=== PATIENT | female | born 1980 | race Caucasian/White ===

== ENCOUNTER 2020-08-16 11:54 | Outpatient (REF) | payer OTHER, SELFPAY ==
[2020-08-16 13:33] LABS: MANUAL DIFF FLAG NO
[2020-08-16 13:42] LABS: Basophils Absolute Auto 0.1 X10*3/uL (0.0-0.2); Basophils Percent Auto 1.4 % (0-2); Eosinophils Absolute Auto 0.3 X10*3/uL (0.0-0.4); Hematocrit 35.4 % (37-47); Hemoglobin 11.7 g/dl (12.0-16.0); Imm Gran Abs Auto 0.02 X10*3/uL (0.00-0.03); Imm Gran Pct Auto 0.3 % (0.0-0.4); Lymphocytes Absolute Auto 2.6 X10*3/uL (1.2-4.9); Lymphocytes Percent Auto 41.1 % (20-40); Mean Corpuscular HGB Conc 33.1 g/dl (31.0-35.0); Mean Corpuscular Hemoglobin 29.5 pg (27.0-33.0); Mean Corpuscular Volume 89.4 fL (80-98); Mean Platelet Volume 9.7 fL (9.4-12.3); Monocytes Absolute Auto 0.5 X10*3/uL (0.1-1.2); Neutrophils Percent Auto 46.2 % (45-73); Platelet Count 254 X10*3/uL (160-400); Red Blood Count 3.96 X10*6/uL (4.20-5.50); Red Cell Distribution Width 12.6 % (11.0-16.0); White Blood Count 6.4 X10*3/uL (4.8-10.8)
[2020-08-16 14:21] LABS: Alanine Aminotransferase 23 U/L (0-31); Alkaline Phosphatase 56 U/L (39-117); Anion Gap 11 (12-20); Aspartate Amino Transferase 24 U/L (5-31); Bilirubin Total 0.3 mg/dL (0.0-1.0); Blood Urea Nitrogen 12 mg/dL (9-16); Calcium 9.4 mg/dL (8.4-10.2); Carbon Dioxide 28 mmol/L (22-29); Chloride 104 mmol/L (96-108); Estimated Glomerular Filt Rate > 60; Glucose Random 86 mg/dL (60-115); Potassium 4.5 mmol/L (3.3-5.1); Rheumatoid Factor < 15.0 IU/mL (<15.0); Sodium 138 mmol/L (135-145); Total Protein 6.4 g/dL (6.5-8.0)
[2020-08-16 14:29] LABS: Erythrocyte Sedimentation Rate 6 MM/HR (0-20)
[2020-08-17 12:22] LABS: Cyclic Citrullinated Peptide <16 UNITS
[2020-08-17 15:11] LABS: CRP High Sensitivity 3.5 mg/L
[2020-08-17 23:12] LABS: Anti Nuclear Antibody Screen NEGATIVE (NEGATIVE)
== END 2020-08-16 11:55 | disposition home or self-care (01) ==
LOC: HO.WFDLDS 11:54
PROVIDERS: PCP Family Medicine; Visit Provider Family Medicine
DX: M25.50 Pain in unspecified joint (principal)
CPT/HCPCS: 36415; 80053; 85025; 85652; 86038; 86039; 86141; 86200; 86431

== ENCOUNTER 2020-11-08 12:49 | Outpatient (REF) | payer OTHER, SELFPAY ==
--- NOTE | ~2020-11-08 | XR_ITS ---
EXAMINATION: XR CHEST CLINICAL INFORMATION: Cough COMPARISON: chest November 2017 TECHNIQUE: 2 views of the chest were obtained. FINDINGS: No significant abnormality is noted involving the heart, lungs, mediastinum, bony thorax or soft tissues. XR/XR chest 2V IMPRESSION: Unremarkable examination.
== END 2020-11-08 12:50 | disposition home or self-care (01) ==
LOC: HO.WFDLNP 12:49
PROVIDERS: Visit Provider Family Medicine
DX: Z20.822 Contact with and (suspected) exposure to COVID-19 (principal); R05 Cough
CPT/HCPCS: 71046; U0003; U0005

== ENCOUNTER 2020-11-08 14:06 | Outpatient (REF) | payer OTHER, SELFPAY | END 2020-11-08 14:07 | disposition home or self-care (01) | LOC: HO.HMGCX 14:06 | PROVIDERS: PCP Family Medicine; Visit Provider Family Medicine | DX: Z13.89 Encounter for screening for other disorder (principal) ==

== ENCOUNTER 2021-02-16 09:54 | Outpatient (REF) | payer OTHER, SELFPAY ==
[2021-02-16 11:49] LABS: Alanine Aminotransferase 12 U/L (0-31); Albumin Level 4.2 g/dL (3.5-5.0); Alkaline Phosphatase 66 U/L (39-117); Anion Gap 12 (12-20); Aspartate Amino Transferase 16 U/L (5-31); Bilirubin Total 0.4 mg/dL (0.0-1.0); Blood Urea Nitrogen 12 mg/dL (9-16); Calcium 10.4 mg/dL (8.4-10.2); Carbon Dioxide 26 mmol/L (22-29); Chloride 106 mmol/L (96-108); Estimated Glomerular Filt Rate > 60; Glucose Fasting 91 mg/dL (60-99); Potassium 4.3 mmol/L (3.3-5.1); Sodium 140 mmol/L (135-145); Total Protein 6.6 g/dL (6.5-8.0)
[2021-02-16 11:54] LABS: Estimated Average Glucose 94 mg/dL; Hemoglobin A1c % 4.9 %
[2021-02-16 12:11] LABS: TSH reflex Free T4 0.71 uIU/mL (0.32-4.0)
== END 2021-02-16 09:55 | disposition home or self-care (01) ==
LOC: HO.HMGCLDS 09:54
PROVIDERS: PCP Family Medicine; Visit Provider Family Medicine
DX: Z00.00 Encounter for general adult medical examination without abnormal findings (principal); H53.9 Unspecified visual disturbance
CPT/HCPCS: 36415; 80053; 83036; 84443

== ENCOUNTER 2021-03-07 10:15 | Outpatient (REF) | payer OTHER, SELFPAY ==
[2021-03-07 11:31] LABS: Hematocrit 37.5 % (37.0-47.0); Hemoglobin 12.3 g/dl (12.0-16.0); Mean Corpuscular HGB Conc 32.8 g/dl (31.0-35.0); Mean Corpuscular Hemoglobin 29.4 pg (27.0-33.0); Mean Corpuscular Volume 89.5 fL (80.0-98.0); Mean Platelet Volume 9.9 fL (9.4-12.3); Platelet Count 270 X10*3/uL (160-400); Red Blood Count 4.19 X10*6/uL (4.20-5.50); Red Cell Distribution Width 12.9 % (11.0-16.0); White Blood Count 5.5 X10*3/uL (4.8-10.8)
[2021-03-07 12:10] LABS: TSH reflex Free T4 0.69 uIU/mL (0.32-4.0)
[2021-03-07 12:22] LABS: Anion Gap 12 (12-20); Blood Urea Nitrogen 12 mg/dL (9-16); Calcium 9.1 mg/dL (8.4-10.2); Carbon Dioxide 27 mmol/L (22-29); Chloride 107 mmol/L (96-108); Estimated Glomerular Filt Rate > 60; Glucose Fasting 85 mg/dL (60-99); Potassium 4.6 mmol/L (3.3-5.1); Sodium 141 mmol/L (135-145)
== END 2021-03-07 10:16 | disposition home or self-care (01) ==
LOC: HO.WFDLDS 10:15
PROVIDERS: PCP Family Medicine; Visit Provider Hospitalist
DX: D64.9 Anemia, unspecified (principal); R53.83 Other fatigue
CPT/HCPCS: 36415; 80048; 84443; 85027

== ENCOUNTER 2021-06-14 11:14 | Outpatient (REF) | payer OTHER, SELFPAY | END 2021-06-14 11:15 | disposition home or self-care (01) | LOC: HO.LNP 11:14 | PROVIDERS: Visit Provider Physician Assistant | DX: R10.9 Unspecified abdominal pain (principal) | CPT/HCPCS: 87045; 87046; 87177; 87209; 87338 ==

== ENCOUNTER 2021-06-15 11:36 | Outpatient (REF) | payer OTHER, SELFPAY ==
--- NOTE | ~2021-06-15 | XR_ITS ---
EXAMINATION: XR ABDOMEN KUB CLINICAL INDICATION: Right lower quadrant rebound abdominal tenderness COMPARISON: May 13, 2018 and November 25, 2013 TECHNIQUE: AP view of the abdomen. FINDINGS: The bowel gas pattern is normal with no evidence of ileus or obstruction. No unusual soft tissue calcifications are noted. Psoas margins intact. The bones are unremarkable. Clips within the right upper quadrant present consistent with previous cholecystectomy. XR/XR KUB IMPRESSION: No evidence of ileus or obstruction.
== END 2021-06-15 11:37 | disposition home or self-care (01) ==
LOC: HO.HMGCX 11:36
PROVIDERS: Visit Provider Hospitalist
DX: R10.823 Right lower quadrant rebound abdominal tenderness (principal); R10.2 Pelvic and perineal pain
CPT/HCPCS: 74018

== ENCOUNTER 2021-06-20 10:16 | Outpatient (REF) | payer OTHER, SELFPAY ==
[2021-06-20 13:47] LABS: Hematocrit 35.6 % (37.0-47.0); Mean Corpuscular HGB Conc 33.7 g/dl (31.0-35.0); Mean Corpuscular Hemoglobin 29.8 pg (27.0-33.0); Mean Corpuscular Volume 88.3 fL (80.0-98.0); Mean Platelet Volume 10.2 fL (9.4-12.3); Platelet Count 313 X10*3/uL (160-400); Red Blood Count 4.03 X10*6/uL (4.20-5.50); Red Cell Distribution Width 12.4 % (11.0-16.0); White Blood Count 6.1 X10*3/uL (4.8-10.8)
[2021-06-20 14:02] LABS: Alanine Aminotransferase 9 U/L (0-31); Albumin Level 4.4 g/dL (3.5-5.0); Alkaline Phosphatase 51 U/L (39-117); Anion Gap 10 (12-20); Aspartate Amino Transferase 13 U/L (5-31); Bilirubin Total 0.4 mg/dL (0.0-1.0); Blood Urea Nitrogen 15 mg/dL (9-16); Calcium 9.8 mg/dL (8.4-10.2); Carbon Dioxide 26 mmol/L (22-29); Chloride 105 mmol/L (96-108); Estimated Glomerular Filt Rate 58; Glucose Random 81 mg/dL (60-115); Potassium 4.4 mmol/L (3.3-5.1); Sodium 137 mmol/L (135-145); Total Protein 6.9 g/dL (6.5-8.0)
[2021-06-20 18:05] LABS: Lipase 32 U/L (8-78)
== END 2021-06-20 10:17 | disposition home or self-care (01) ==
LOC: HO.WFDLDS 10:16
PROVIDERS: Visit Provider Hospitalist
DX: Z00.00 Encounter for general adult medical examination without abnormal findings (principal); R10.823 Right lower quadrant rebound abdominal tenderness; R82.90 Unspecified abnormal findings in urine
CPT/HCPCS: 36415; 80053; 83690; 85027; 87086

== ENCOUNTER 2021-06-20 13:51 | Emergency (ER) | payer OTHER, SELFPAY ==
--- NOTE | ~2021-06-20 | CT_ITS ---
EXAMINATION: CT ABDOMEN AND PELVIS WITH CONTRAST CLINICAL INFORMATION: Right lower quadrant and right pelvic pain. COMPARISON: CT abdomen/pelvis dated from 11/25/2013. TECHNIQUE: Multidetector volumetric images were obtained from the superior aspect of the liver through the pubic symphysis following administration 85 mL of Omnipaque 350 intravenous contrast. Sagittal and coronal reformatted images were obtained on the technologist's workstation. Oral contrast: No This CT examination was performed using dose optimization techniques as appropriate, variously including the following: *Automated exposure control *Adjustment of mA and/or kV according to patient size (this includes techniques or standardized protocols for targeted exams where dose is matched to indication/reason for exam; i.e. extremities or head) *Use of iterative reconstruction technique DLP: 682 mGy-cm FINDINGS: LUNG BASES: No focal consolidation or pleural effusion. LIVER, GALLBLADDER, AND BILIARY TREE: The liver is normal in size, shape, and attenuation. No focal hepatic lesion or biliary ductal dilatation is present. Cholecystectomy. Stable mild biliary ductal dilatation which is expected post cholecystectomy. PANCREAS: Unremarkable. SPLEEN: Unremarkable. ADRENAL GLANDS: Unremarkable. KIDNEYS AND URETERS: The kidneys are normal in size, shape, and attenuation. There is a 1.8 cm water density cyst in the upper pole of the right kidney. There are a few other too small to characterize bilateral cortical hypodensities which statistically are also likely to represent simple cysts and do not require further follow-up. No hydronephrosis, hydroureter, or calculi seen. No perinephric stranding. BLADDER: Underdistended and suboptimally assessed. No perivesical fat stranding. GASTROINTESTINAL TRACT: The stomach and the small bowel are nondilated. Normal appendix. No pericolic inflammatory changes or evidence of bowel obstruction. ABDOMINAL WALL: No significant hernia is appreciated. LYMPH NODES: No lymphadenopathy by size criteria. VASCULAR: Unremarkable. PELVIC VISCERA: The ovaries are similar in position when compared to the study from 2013 with a slight posterior location of the left ovary (3:69). There is a 4.2 cm water density cystic appearing lesion in the left ovary that when evaluated on the coronal projection appears to be septated. There is a small amount of free fluid layering the pelvis which is likely physiologic. OSSEOUS STRUCTURES: No acute or aggressive appearing osseous lesions. CT/CT abdomen pelvis w con IMPRESSION: Nonspecific and possibly septated 4.2 cm cyst in the left ovary which in a patient of this age likely represents a functional dominant follicle and for which a 6-12 week follow-up with a pelvic ultrasound is recommend. However, if pain persist or worsens, a shorter term follow-up would be reasonable. No other abnormalities in the abdomen or pelvis to explain the patient's symptoms. Normal appendix.
[2021-06-20 14:15] VITALS: BP 118/77; PULSE 88; RESP 17; TEMP 36.7; O2SAT 98; BMI 29.9
--- NOTE | 2021-06-20 17:20 | ED_ITS ---
HPI - Abdominal Pain General Chief Complaint: Abdominal Pain Stated Complaint: abd pain Time Seen by Provider: 06/20/21 16:51 Source: patient Mode of arrival: ambulatory Limitations: no limitations History of Present Illness HPI narrative: 41-year-old female who presents emergency department for evaluation of right- sided abdominal pain. Patient states that she has had a constant pain in her right lower abdomen for approximately 3 weeks. She states the pain was a constant stabbing pain. She states the pain however became more intense on , 06/15/2021 (6 days prior to evaluation). She states the pain is now a severe stabbing and ripping like pain. She states the pain is 10/10. The pain does radiate to her right flank. She has had associated subjective fever, night sweats, loss of appetite. She states she has lost 17 lb over the last 2 weeks. She was seen on by her PCP and again today. She had outpatient labs which included a CBC and comprehensive metabolic panel which were unremarkable. Patient was referred to the emergency department for CT scan of the abdomen pelvis to further evaluate her pain. Patient also states that she went to [facility] 6 days prior however she was told the weight was 23 hours and she did not stay for evaluation. Patient states she had a history of kidney stones in the past, bilateral ovarian cysts and a cholecystectomy. Patient is a vaginal delivery 11 months prior the with no complications during the or delivery. MD elicited complaint: abdominal pain and flank pain Pertinent past history: kidney stones and other (Cholecystectomy) Onset (ago): day(s) (6) Pain Consistency: constant Location: RLQ and R flank Severity: severe Pain scale (0-10): 10 Quality: stabbing, burning and other (Ripping) Exacerbating factors: nothing Relieving factors: nothing Associated symptoms: nausea, fever and other (Rhinorrhea) Treatments prior to arrival: other (Tylenol) Related Data Home Medications Medication Instructions Recorded Confirmed vitamin with calcium 1 tab PO DAILY 04/28/20 06/20/21 no.72-iron 27 mg-folic acid 1 mg tablet lorazepam 0.5 mg tablet 0.5 mg PO DAILY PRN 08/16/20 06/20/21 fluoxetine 20 mg capsule 60 mg PO QAM cap 03/21/21 06/20/21 trazodone 50 mg tablet 100 mg PO BEDTIME PRN tab 03/21/21 06/20/21 Previous Rx's Medication Instructions Recorded blood pressure test kit-medium #1 ea 09/22/20 albuterol sulfate 90 mcg/actuation 2 puff PO Q4-6H PRN #8.5 g 12/03/20 aerosol inhaler bupropion HCl 100 mg tablet,12 hr 100 mg PO QAM #20 tab 03/21/21 sustained-release (Wellbutrin SR) omeprazole 20 mg capsule,delayed 20 mg PO DAILY #90 cap 04/27/21 release prochlorperazine maleate 10 mg 10 mg PO Q8H PRN #30 tab 05/11/21 tablet (Compazine) labetalol 200 mg tablet 200 mg PO BID #270 tab 06/15/21 ondansetron HCl 4 mg tablet 4 mg PO Q6H PRN #60 tab 06/15/21 doxycycline hyclate 100 mg tablet 100 mg PO Q12H 14 Days #28 tab 06/20/21 hydromorphone 2 mg tablet 2 mg PO Q4-6H PRN #10 tab 06/20/21 (Dilaudid) metronidazole 500 mg tablet 500 mg PO BID 14 Days #28 tab 06/20/21 Allergies Allergy/AdvReac Type Severity Reaction Status Date / Time erythromycin base Allergy Mild CONFUSION,R Verified 06/20/21 10:05 [Erythromycin Base] DANTE,N/V levofloxacin [From Levaquin] Allergy Mild RASH Verified 06/20/21 10:05 sulfamethoxazole Allergy Mild RASH Verified 06/20/21 10:05 [From Bactrim] trimethoprim [From Bactrim] Allergy Mild RASH Verified 06/20/21 10:05 Erythromycin Allergy Unknown out of it Verified 06/20/21 10:05 Sulfa (Sulfonamide Allergy Unknown Rash Verified 06/20/21 10:05 Antibiotics) acetaminophen [From Percocet] AdvReac Severe migraine Verified 06/20/21 10:05 and vomiting oxycodone [From Percocet] AdvReac Severe migraine Verified 06/20/21 10:05 and vomiting meclazine AdvReac Severe severe Uncoded 06/20/21 10:05 anxiety Review of Systems Review of Systems Yes all other systems are reviewed and are negative PMFSH Past Medical History [facility] Narrative: Past medical history: Hypertension, fatigue, anemia, myalgias, fibromyalgia, multiple kidney stones with her last kidney stone being 2 years prior requiring lithotripsy, with vaginal delivery 11 months prior. Past surgical history: Cholecystectomy, ovarian cyst surgeries, breast reduction, breast biopsy. Social history: She denies tobacco, alcohol and drug use. Surgical History History of bilateral breast reduction surgery History of colonoscopy History of kidney stones History of laparoscopic cholecystectomy History of lumpectomy of left breast History of removal of ovarian cyst History of right breast biopsy Status post LASIK surgery Family History Family History Father Healthy adult Mother High cholesterol Migraines Diabetes Asthma Hypertension Maternal Grandfather CVD (cardiovascular disease) Maternal Aunt Family history of heart disease Social History Social History Housing: House Alcohol intake: never Patient Tobacco Use Status: Never used Tobacco e-Cigarette/Vaping Use: Never Used Advance Directives: Yes Advance Directives Information Provided: Yes Advance Directives on File: No Patient : No service: No Current occupational exposures/hazards: No Cognitive needs: No Hearing needs: No Vision needs: No Physical Exam ED Vital Signs: Vital Signs - 24 hr 06/20/21 14:15 06/20/21 17:28 Temperature 98.0 F 98.5 F Pulse Rate 88 82 Respiratory Rate 17 16 Blood Pressure 118/77 119/77 Pulse Oximetry 98 98 BMI result Body Mass Index 29.9 Const General: cooperative and no acute distress Orientation/consciousness: oriented to person and oriented to place Limitations: no limitations HENHI Head: Yes normal to inspection, Yes normocephalic and Yes atraumatic Ears: external ears normal General nose exam: Normal external nose present Face and sinus: Yes normal facial exam Mouth: Normal oral and palatal mucosa present Throat: Yes posterior oropharynx normal Eyes General: appearance normal, both eyes and all related structures Pupils: Equal, round and reactive pupils present Neck Neck: Yes normal visual inspection, Yes no lymphadenopathy, Yes trachea midline and Yes supple Chest Chest palpation & inspection: normal inspection of the chest and normal palpation of entire chest wall Resp Effort & Inspection: normal respiratory effort and able to speak in complete sentences Auscultation: clear to auscultation bilaterally Cardio Rate: regular rate Rhythm: regular rhythm Heart sounds: S1 normal heart sound present, S2 normal heart sound present and no murmurs GI Inspection: Yes normal to inspection Palpation (GI): Soft to palpation, Tenderness to palpation present (GI) in the RLQ (Moderate) and suprapubicly (Mild) and no guarding Auscultation: normal bowel sounds General: Yes no CVA tenderness External Female Exam: normal external appearance Speculum Exam - Vagina: normal appearance of the vagina Speculum Exam - Cervix: normal appearance of the cervix, Cervical os closed, Abnormal cervical discharge present (Thick, whitish paez) and Cervical tenderness present ([id number]) Bimanual exam- vagina & uterus: Cervical tenderness present ([id number]), cervical motion tenderness (Mild) and Uterine tenderness (Moderate to severe) Bimanual Exam- Adnexa, other: tender (Moderate) Back/Spine/Pelvis Back: no CVA tenderness Skin General skin exam: no rashes or lesions noted Neuro General: oriented to person and oriented to place Cranial nerves: Yes CN's II-XII intact bilaterally and Yes Equal, round and reactive pupils present Cognition (Neuro): normal cognition Motor exam (neuro): 5/5 motor strength present throughout Extrem General: Yes normal to inspection Psych Appearance: grossly normal Speech and movement: Normal speech and movement present Affect: normal affect Attitude: cooperative Thought process: Normal thought process present Thought content: Normal thought content present Course Course Course Narrative: 41-year-old female who presents emergency department for evaluation of right lower quadrant pain radiating to the right flank x3 weeks with increased pain x6 days. Patient has had associated fever, chills, night sweats, anorexia and weight loss. Patient had laboratory evaluation done earlier today by your PCP in his referred to the emergency department for CT scan to further evaluate her pain. Vital signs were normal. Physical examination did reveal right lower quadrant, right pelvic and suprapubic tenderness. Differential includes was not limited to the kidney stone, appendicitis, partial small-bowel obstruction, ovarian cyst, ectopic , pancreatitis, ovarian torsion, colitis. I did order a urinalysis with urine test. Patient was also ordered to get a CT scan of the abdomen pelvis with IV contrast. Patient's pain is 10/10 and she was ordered to get Dilaudid 1 mg IV, Zofran 4 mg IV and normal saline x1 L. 2119: Laboratory evaluation: Lipase was normal. Urinalysis and test were negative. COVID-[address] scan of the abdomen pelvis did not reveal a clear cause for the patient's right lower quadrant and pelvic pain. Patient does have a left ovarian cyst measuring 4.2 cm which is septated but the fluid density is similar to water, I do not think this is the cause of the patient's pain. Patient also has a right kidney cyst again I do not think that this is the cause of her pain. The patient's pelvic exam did reveal a cervical discharge with cervical motion tenderness, adnexal tenderness and uterine tenderness. The patient will be treated for pelvic inflammatory disease. She was given ceftriaxone 500 mg IM, doxycycline 100 mg orally and Flagyl 500 mg orally. She will be treated with doxycycline 100 mg twice a day for 14 days, Flagyl 500 mg twice a day for 14 days. She was advised to take Tylenol and i buprofen for pain and for pain not relieved by these medications she was prescribed Dilaudid. 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 She was advised return to the emergency department for symptoms got worse if she develops any symptoms that were concerning to her. MDM - Abdominal Pain Lab Data Labs: Lab Results 06/20/21 06/20/21 06/20/21 Range/Units 17:31 17:31 17:31 Urine Color YELLOW Urine Appearance CLEAR Urine pH 8.0 (5.0-8.0) Ur Specific [place] 1.020 (1.005-1.025) Urine Protein NEG (NEG-TRACE) MG/DL Urine Glucose (UA) NEG (NEG) MG/DL Urine Ketones 15 (NEG) MG/DL Urine Blood NEG (NEG) Urine Nitrite NEG (NEG) Ur Leukocyte Esterase NEG (NEG) Urine Test NEGATIVE (NEGATIVE) COVID-19 (LORAINE) Negative (Negative) COVID-19 Clin Com See Note Discharge Plan Discharge Clinical Impression: Acute pelvic inflammatory disease Patient Disposition: Home, Self-Care Additional Instructions: Pelvic inflammatory disease ( PID) discharge instructions: Your presentation and physical findings are consistent with pelvic inflammatory disease (PID). Approximately 30% of the time, pelvic inflammatory disease is caused by sexually transmitted diseases such as Trichomonas, gonorrhea or chlamydia. Approximately 70% of the time, pelvic inflammatory disease is caused by abnormal bacteria (anaerobic bacteria) in your vagina that can cause an infection You received ceftriaxone 500 mg intramuscularly here in the emergency department Take doxycycline 100 mg, 1 pill twice a day for 14 days. Take metronidazole 500 mg, 1 pill twice a day for 14 days. These 3 antibiotics treat sexually transmitted diseases such as gonorrhea, chlamydia and Trichomonas as well as anaerobic bacteria that can cause pelvic inflammatory disease. Follow-up with your gynecology in 7-10 days. If your toll gate keeper cannot see you, you [facility] also [facility] or with [facility] The doctor that follows up on your care, will need to review the following results with you or you can check the patient portal: Bacterial vaginosis testing (this is not sexually transmitted). Gonorrhea and chlamydia (cervical swab-CT NG by PCR) (this is sexually transmitted) Trichomonas testing (this can be sexually transmitted) If any of these tests are positive, your doctor may want to then test you for syphilis or HIV disease. If any of these tests are positive, then your sexual partner(s) will need to be treated as well. Pain medication instructions: Take ibuprofen 200 mg pills, 3 pills every 6 hours as needed for pain. Take Tylenol (acetaminophen) 2 pills every 4-6 hours as needed for pain. For pain not relieved by ibuprofen or Tylenol take Dilaudid 2 mg pills, 1 pill every 6 hours as needed for pain. This medication will make you sleepy, do not drive or work while taking this medication. Dilaudid is a narcotic medication and can be addicting. If you are concerned about addiction you can ask the pharmacist for less pills or do not get this prescription filled. Follow-up return instructions: Please return to the emergency department if your symptoms get worse or if you develop any symptoms that are concerning to you. Prescriptions: New metronidazole 500 mg tablet 500 mg PO BID 14 Days Qty: 28 0RF hydromorphone [Dilaudid] 2 mg tablet 2 mg PO Q4-6H PRN (Reason: pain) Qty: 10 0RF Rx Instructions: Patient may request partial fill doxycycline hyclate 100 mg tablet 100 mg PO Q12H 14 Days Qty: 28 0RF No Action (DME) blood pressure test kit-medium Kit See Rx Instructions .ROUTE .MEDSUPPLY Qty: 1 0RF Rx Instructions: DX: I10, to test blood pressure daily. 999 days/lifetime albuterol sulfate 90 mcg/actuation HFA aerosol inhaler 2 puff PO Q4-6H PRN (Reason: for wheezing) Qty: 8.5 3RF omeprazole 20 mg capsule,delayed release(DR/EC) 20 mg PO DAILY Qty: 90 0RF prochlorperazine maleate [Compazine] 10 mg tablet 10 mg PO Q8H PRN (Reason: nausea and vomiting) Qty: 30 2RF Vitamin Plus Low Iron 27 mg iron- 1 mg tablet 1 tab PO DAILY 0RF lorazepam 0.5 mg tablet 0.5 mg PO DAILY PRN (Reason: anxiety) 0RF trazodone 50 mg tablet 100 mg PO BEDTIME PRN (Reason: insomnia) 0RF bupropion HCl [Wellbutrin SR] 100 mg tablet sustained-release 12 hr 100 mg PO QAM Qty: 20 0RF fluoxetine 20 mg capsule 60 mg PO QAM 0RF labetalol 200 mg tablet 200 mg PO BID Qty: 270 0RF ondansetron HCl 4 mg tablet 4 mg PO Q6H PRN (Reason: nausea and vomiting) Qty: 60 1RF
[2021-06-20 17:28] VITALS: BP 119/77; PULSE 82; RESP 16; TEMP 36.9; O2SAT 98
[2021-06-20] MEDS: HYDROmorphone HCl 1 MG/ML SYRINGE IVPUSH ×4 (17:38→21:22)
[2021-06-20] MEDS: ondansetron HCL 4 MG/2 ML VIAL IVPUSH (17:38)
[2021-06-20] MEDS: 0.9 % Sodium Chloride 1,000 ML 999 ML IV (17:43)
[2021-06-20 17:44] LABS: Appearance Urine CLEAR; Color Urine YELLOW; Glucose Urine UA NEG (NEG); Leukocyte Esterase Urine NEG (NEG); Nitrite Urine NEG (NEG); Urine Blood NEG (NEG); Urine Ketones 15 MG/DL (NEG); Urine Protein NEG (NEG-TRACE)
[2021-06-20 17:48] LABS: UPreg QC Valid YES; Urine Pregnancy NEGATIVE (NEGATIVE)
[2021-06-20 18:01] LABS: COVID-19 Test Negative (Negative); IDNOW Serial# 55D5AD1C
[2021-06-20] MEDS: iohexoL 350 MG/ML 100 ML INFUS..BTL IV (18:23)
[2021-06-20] MEDS: metroNIDAZOLE 500 MG TABLET PO (21:23)
[2021-06-20] MEDS: cefTRIAXone sodium 500 MG, Lidocaine HCl 1 % MPF 1 ML IM (21:23)
[2021-06-20 21:35] VITALS: BP 106/72; PULSE 89; TEMP 36.6; O2SAT 97
[2021-06-21 03:45] LABS: CT PCR NOT DETECTED (Not Detect.); NG PCR NOT DETECTED (Not Detect.)
== END 2021-06-20 21:56 | disposition home or self-care (01) ==
PROVIDERS: Emergency Provider Emergency Medicine Emergency Medical Services; PCP Family Medicine
DX: N73.0 Acute parametritis and pelvic cellulitis (principal); N76.0 Acute vaginitis; Z20.822 Contact with and (suspected) exposure to COVID-19; Z87.442 Personal history of urinary calculi
CPT/HCPCS: 74177; 81003; 81025; 87480; 87491; 87510; 87591; 87635; 87660; 96361; 96372; 96374; 96375; 96376; 99284; J0696; J1170; J2405; Q9967

== ENCOUNTER → 2021-08-25 09:49 | Outpatient (BNVA) | payer OTHER, SELFPAY | PROVIDERS: PCP Family Medicine; Referring Provider Family Medicine; Visit Provider Nurse Practitioner | DX: K59.04 Chronic idiopathic constipation (principal) | CPT/HCPCS: 99202 ==

== ENCOUNTER → 2021-09-22 11:19 | Outpatient (BNVA) | payer OTHER, SELFPAY | PROVIDERS: PCP Family Medicine; Visit Provider Nurse Practitioner | DX: K59.04 Chronic idiopathic constipation (principal); R68.81 Early satiety | CPT/HCPCS: 99212 ==

== ENCOUNTER → 2021-10-31 10:52 | Outpatient (BNVA) | payer OTHER, SELFPAY | PROVIDERS: PCP Family Medicine; Visit Provider Nurse Practitioner | DX: K59.04 Chronic idiopathic constipation (principal) | CPT/HCPCS: 99212 ==

== ENCOUNTER 2022-07-09 13:21 | Outpatient (REF) | payer OTHER, SELFPAY ==
[2022-07-10 12:41] LABS: Influenza A PCR NEGATIVE (Negative); Influenza B PCR NEGATIVE (Negative); Resp Syncy Virus RNA Qual PCR NEGATIVE (Negative); SARS COV2 PCR INHOUSE NEGATIVE (Negative)
== END 2022-07-09 13:22 | disposition home or self-care (01) ==
LOC: HO.LAB 13:21
PROVIDERS: Visit Provider Nurse Practitioner Family
DX: Z20.822 Contact with and (suspected) exposure to COVID-19 (principal); R09.89 Other specified symptoms and signs involving the circulatory and respiratory systems
CPT/HCPCS: 0241U

== ENCOUNTER 2022-07-09 14:31 | Emergency (ER) | payer OTHER, SELFPAY ==
--- NOTE | ~2022-07-09 | CT_ITS ---
EXAMINATION: CT ABDOMEN AND PELVIS WITHOUT CONTRAST CLINICAL INFORMATION: Upper abdominal pain COMPARISON: None TECHNIQUE: Multidetector volumetric imaging was performed from the superior aspect of the liver through the pubic symphysis. Sagittal and coronal reformatted images were obtained on the technologist's workstation. This CT examination was performed using dose optimization techniques as appropriate, variously including the following: *Automated exposure control *Adjustment of mA and/or kV according to patient size (this includes techniques or standardized protocols for targeted exams where dose is matched to indication/reason for exam; i.e. extremities or head) *Use of iterative reconstruction technique DLP: 565 mGy-cm FINDINGS: LUNG BASES: The lung bases are clear. The heart size is normal. LIVER, GALLBLADDER, AND BILIARY TREE: The liver is normal in size, shape, and attenuation. No focal hepatic lesion or biliary ductal dilatation is present. The gallbladder has been surgically removed. PANCREAS: Unremarkable. SPLEEN: Unremarkable. ADRENAL GLANDS: Unremarkable. KIDNEYS AND URETERS: The kidneys are normal in size, shape, and attenuation. There is a 2 mm radiopaque calculi lower pole left kidney. No additional radiopaque calculi seen. There is no hydronephrosis. BLADDER: Unremarkable. GASTROINTESTINAL TRACT: There is scattered stool and gas seen throughout the colon without distention. The small bowel loops are normal caliber. ABDOMINAL WALL: No significant hernia is appreciated. LYMPH NODES: No abnormal size lymph nodes visualized. VASCULAR: The abdominal aorta is of normal caliber. PELVIC VISCERA: There is a right adnexal multiloculated 3 cm cyst. There is no free fluid. The uterus may be surgically removed. OSSEOUS STRUCTURES: Unremarkable. CT/CT abdomen pelvis wo IV con IMPRESSION: 1. No acute intra-abdominal process seen. 2. Nonobstructive 2 mm radiopaque calculi lower pole left kidney. 3. Mild constipation. Fleischner guidelines were followed.
--- NOTE | ~2022-07-09 | XR_ITS ---
EXAMINATION: XR CHEST CLINICAL INFORMATION: Chest pain COMPARISON: November 2020. TECHNIQUE: 2 views of the chest were obtained. FINDINGS: No significant abnormality is noted involving the heart, lungs, mediastinum, bony thorax or soft tissues. XR/XR chest 2V IMPRESSION: No evidence for acute process. No significant change since previous examination.
[2022-07-09 14:29] VITALS: BP 143/59; PULSE 80; O2SAT 100
--- NOTE | 2022-07-09 14:29 | ECG_ITS ---
Test Reason : CHEST PAIN Blood Pressure : / mmHG Vent. Rate : 075 BPM Atrial Rate : 075 BPM P-R Int : 170 ms QRS Dur : 082 ms QT Int : 396 ms P-R-T Axes : 031 -09 033 degrees QTc Int : 442 ms Normal sinus rhythm Nonspecific ST and T wave abnormality Borderline ECG When compared with ECG of 22-APR-2006 10:41, No significant change was found Referred By: Tarsha Ashley Electronically Signed By:ANTONETTE VIDAL
--- NOTE | 2022-07-09 14:33 | ED.CHESTPAIN ---
HPI - Chest Pain General Chief Complaint: Chest Pain <JULY Duncan - Last Filed: 07/09/22 14:37> Stated Complaint: Chest Pain <JULY Duncan - Last Filed: 07/09/22 14:37> Time Seen by Provider: 07/09/22 18:12 <JULY Duncan - Last Filed: 07/09/22 14:37> Source: patient <Eriberto Paul MD - Last Filed: 07/09/22 21:53> Mode of arrival: ambulatory <Eriberto Paul MD - Last Filed: 07/09/22 21:53> Limitations: no limitations <Eriberto Paul MD - Last Filed: 07/09/22 21:53> History of Present Illness HPI narrative: Patient with history of anxiety IBS GERD comes here for epigastric pain for more than 2 weeks came from PCP office for further evaluation pain sharp in character get worse on full eating food is localized in epigastric area radiating to the mid chest no left arm pain patient is on Prilosec and Pepcid patient was seen at [facility] 5 days ago with workup negative still complaining of pain very anxious on arrival <Eriberto Paul MD - Last Filed: 07/09/22 21:53> Related Data Home Medications: Home Medications Medication Instructions Recorded Confirmed vitamin with calcium 1 tab PO DAILY 04/28/20 07/09/22 no.72-iron 27 mg-folic acid 1 mg tablet lorazepam 0.5 mg tablet 0.5 mg PO DAILY PRN anxiety 08/16/20 07/09/22 fluoxetine 20 mg capsule 60 mg PO QAM 03/21/21 07/09/22 trazodone 50 mg tablet 100 mg PO BEDTIME PRN insomnia 03/21/21 07/09/22 clonidine HCl 0.1 mg tablet 0.1 mg PO DAILY PRN anxiety 08/24/21 07/09/22 cyclobenzaprine 5 mg tablet 5 mg PO BEDTIME 08/25/21 07/09/22 bupropion HCl 200 mg tablet,12 hr 200 mg PO QAM 09/21/21 07/09/22 sustained-release cephalexin 250 mg capsule 250 mg PO DAILY 09/21/21 07/09/22 fluoxetine 10 mg capsule 10 mg PO DAILY 09/21/21 07/09/22 naproxen 375 mg tablet 375 mg PO BID 09/21/21 07/09/22 pregabalin 75 mg capsule 150 mg PO BID 09/21/21 07/09/22 Previous Rx's Medication Instructions Recorded blood pressure test kit-medium #1 ea 09/22/20 albuterol sulfate 90 mcg/actuation 2 puff PO Q4-6H PRN for wheezing 12/03/20 aerosol inhaler #8.5 grams bupropion HCl 100 mg tablet,12 hr 100 mg PO QAM #20 tabs 03/21/21 sustained-release (Wellbutrin SR) ondansetron HCl 4 mg tablet 4 mg PO Q6H PRN nausea and 06/15/21 vomiting #60 tabs doxycycline hyclate 100 mg tablet 100 mg PO Q12H 14 days #28 tabs 06/20/21 hydromorphone 2 mg tablet 2 mg PO Q4-6H PRN pain #10 tabs 06/20/21 (Dilaudid) metronidazole 500 mg tablet 500 mg PO BID 14 days #28 tabs 06/20/21 acyclovir 800 mg tablet 800 mg PO Q4H #35 tabs 08/03/21 linaclotide 72 mcg capsule 72 mcg PO QAM #30 caps 09/22/21 (Linzess) linaclotide 290 mcg capsule 290 mcg PO QAM 30 days #30 caps 10/31/21 (Linzess) prochlorperazine maleate 10 mg 10 mg PO Q8H PRN nausea and 11/12/21 tablet (Compazine) vomiting #30 tabs famotidine 40 mg tablet 40 mg PO BEDTIME #90 tabs 03/02/22 omeprazole 20 mg capsule,delayed 20 mg PO DAILY 90 days #90 caps 06/07/22 release pregabalin 150 mg capsule 150 mg PO TID 30 days #90 caps 06/10/22 dicyclomine 20 mg tablet 20 mg PO QID PRN abdominal pain 07/09/22 #20 tabs lorazepam 1 mg tablet (Ativan) 1 mg PO BID PRN anxiety #10 tabs 07/09/22 sucralfate 1 gram tablet 1 g PO TID #90 tabs 07/09/22 <JULY Duncan - Last Filed: 07/09/22 14:37> Allergies/Adverse Reactions: Allergies Allergy/AdvReac Type Severity Reaction Status Date / Time acetaminophen [From Percocet] Allergy Severe Migraine Verified 07/09/22 13:20 and vomiting oxycodone [From Percocet] Allergy Severe Migraine Verified 07/09/22 13:20 and vomiting erythromycin base Allergy Mild Confusion, Verified 07/09/22 13:20 [Erythromycin Base] Rash, Nausea, Vomiting, Out of it levofloxacin [From Levaquin] Allergy Mild Rash Verified 07/09/22 13:20 sulfamethoxazole Allergy Mild Rash Verified 07/09/22 13:20 [From Bactrim] trimethoprim [From Bactrim] Allergy Mild Rash Verified 07/09/22 13:20 Sulfa (Sulfonamide Allergy Unknown Rash Verified 07/09/22 13:20 Antibiotics) meclazine AdvReac Severe severe Uncoded 07/09/22 13:20 anxiety <JULY Duncan - Last Filed: 07/09/22 14:37> Review of Systems Review of Systems: Yes all other systems are reviewed and are negative <Eriberto Paul MD - Last Filed: 07/09/22 21:53> [facility] Past Medical History Medical History: Medical History Abdominal pain Abdominal rebound tenderness of right lower quadrant <JULY Duncan - Last Filed: 07/09/22 14:37> Surgical History: Surgical History History of bilateral breast reduction surgery History of colonoscopy History of esophagogastroduodenoscopy (EGD) History of kidney stones History of laparoscopic cholecystectomy History of lumpectomy of left breast History of removal of ovarian cyst History of right breast biopsy Status post LASIK surgery <JULY Duncan - Last Filed: 07/09/22 14:37> Family History Family History: Family History Father Healthy adult Mother High cholesterol Migraines Diabetes Asthma Hypertension Maternal Grandfather CVD (cardiovascular disease) Maternal Aunt Family history of heart disease <JULY Duncan - Last Filed: 07/09/22 14:37> Social History Social History: Social History Housing: House Alcohol intake: never Patient Tobacco Use Status: Never used Tobacco e-Cigarette/Vaping Use: Never Used Second Hand Smoke Exposure: No Advance Directives: No Advance Directives Information Provided: No service: No Current occupational exposures/hazards: No Cognitive needs: No Hearing needs: No Vision needs: No <JULY Duncan - Last Filed: 07/09/22 14:37> Physical Exam Vital Signs: Vital Signs: Last Vital Signs Temp 97.8 F 07/09/22 19:56 Pulse 89 07/09/22 19:56 Resp 27 H 07/09/22 19:56 BP 113/77 07/09/22 19:56 Pulse Ox 100 07/09/22 19:56 O2 Del Method 07/09/22 19:56 BMI result Body Mass Index 29.4 <JULY Duncan - Last Filed: 07/09/22 14:37> Vital Signs: Last Vital Signs Temp 97.8 F 07/09/22 19:56 Pulse 89 07/09/22 19:56 Resp 27 H 07/09/22 19:56 BP 113/77 07/09/22 19:56 Pulse Ox 100 07/09/22 19:56 O2 Del Method 07/09/22 19:56 BMI result Body Mass Index 29.4 <Eriberto Paul MD - Last Filed: 07/09/22 21:53> Appearance: Alert. Oriented X3. No acute distress. Very anxious Eyes: No pallor/ icterus ENT: Pharynx normal. Oral Mucosa moist Neck: Normal inspection. Neck supple. CVS: Normal heart rate and rhythm. Pulses normal. Respiratory: No respiratory distress. Equal air entry bilateral, no wheezing/rales/rhonchi Abdomen: Soft, epigastric tenderness++ Bowel sounds are present, no mass palpable, no CVA tenderness Skin: Skin warm and dry. Normal skin color. Normal skin turgor. Extremities: No lower extremity edema. No calf tenderness Neuro: Oriented X 3. No motor deficit. No sensory deficit. <Eriberto Paul MD - Last Filed: 07/09/22 21:53> Course Course Course Narrative: RME - 42 yo female with history of fibromyalgia, presents to the ER from her PCP's office via EMS for sharp, reproducible sternal pain for the last 2 weeks associated with SOB. EKG at PCP office showed no ischemic changes. VSS. Plan: EKG, CXR, labs, Low clinical suspicion for ACS or PE - stable to go back to the waiting room until treatment room is available. <JULY Duncan - Last Filed: 07/09/22 14:37> Medications Administered Discontinued Medications Generic Name Dose Route Start Last Admin Trade Name Freq PRN Reason Stop Dose Admin Al Hydroxide/Mg Hydroxide 30 ml 07/09/22 18:45 07/09/22 19:19 Magnesium Hydrox/Alum Hydrox 30 Ml Oral.Susp PO 07/09/22 18:46 30 ml ONCE ONE Administration Dicyclomine HCl 20 mg 07/09/22 18:45 07/09/22 19:18 Dicyclomine Hcl 10 Mg Capsule PO 07/09/22 18:46 20 mg ONCE ONE Administration Lidocaine HCl 15 ml 07/09/22 18:45 07/09/22 19:24 Lidocaine Hcl Viscous 2 % 15 Ml Solution MUCOUS MEM 07/09/22 18:46 15 ml ONCE ONE Administration Lorazepam 2 mg 07/09/22 19:51 07/09/22 20:15 Lorazepam 1 Mg Tablet PO 07/09/22 19:52 2 mg ONCE ONE Administration Morphine Sulfate 4 mg 07/09/22 19:51 07/09/22 20:15 Morphine Sulfate 4 Mg/Ml Cartridge IM 07/09/22 19:52 4 mg ONCE ONE Administration Protocol <JULY Duncan - Last Filed: 07/09/22 14:37> Medications Administered Discontinued Medications Generic Name Dose Route Start Last Admin Trade Name Freq PRN Reason Stop Dose Admin Al Hydroxide/Mg Hydroxide 30 ml 07/09/22 18:45 07/09/22 19:19 Magnesium Hydrox/Alum Hydrox 30 Ml Oral.Susp PO 07/09/22 18:46 30 ml ONCE ONE Administration Dicyclomine HCl 20 mg 07/09/22 18:45 07/09/22 19:18 Dicyclomine Hcl 10 Mg Capsule PO 07/09/22 18:46 20 mg ONCE ONE Administration Lidocaine HCl 15 ml 07/09/22 18:45 07/09/22 19:24 Lidocaine Hcl Viscous 2 % 15 Ml Solution MUCOUS MEM 07/09/22 18:46 15 ml ONCE ONE Administration Lorazepam 2 mg 07/09/22 19:51 07/09/22 20:15 Lorazepam 1 Mg Tablet PO 07/09/22 19:52 2 mg ONCE ONE Administration Morphine Sulfate 4 mg 07/09/22 19:51 07/09/22 20:15 Morphine Sulfate 4 Mg/Ml Cartridge IM 07/09/22 19:52 4 mg ONCE ONE Administration Protocol <Eriberto Paul MD - Last Filed: 07/09/22 21:53> Medical Decision Making Medical Decision Making [facility] Narrative: Patient atypical epigastric gastric reflux pain very in anxious on arrival 2 sets of cardiac enzymes negative patient been having pain for more than 2 weeks with heart score of 0 Patient advised to follow up with GI for endoscopy if needed Patient is still very anxious complaining of pain , CT scan of the abdomen was which was also negative will discharge patient home advised to follow with GI <Eriberto Paul MD - Last Filed: 07/09/22 21:53> Lab Data [facility] Lab Attestation statement: I reviewed the patient's lab results. <Eriberto Paul MD - Last Filed: 07/09/22 21:53> Result Diagrams: 07/09/22 17:41 07/09/22 17:41 <JULY Duncan - Last Filed: 07/09/22 14:37> Labs: Lab Results 07/09/22 07/09/22 07/09/22 Range/Units 17:41 17:41 17:41 WBC 7.7 (4.8-10.8) X10*3/uL RBC 4.09 L (4.20-5.50) X10*6/uL Hgb 11.7 L (12.0-16.0) g/dl Hct 34.5 L (37.0-47.0) % MCV 84.4 (80.0-98.0) fL MCH 28.6 (27.0-33.0) pg MCHC 33.9 (31.0-35.0) g/dl RDW 13.2 (11.0-16.0) % Plt Count 310 (160-400) X10*3/uL MPV 9.9 (9.4-12.3) fL Immature Gran % (Auto) 0.3 (0.0-0.4) % Neut % (Auto) 46.8 (45-73) % Lymph % (Auto) 40.9 H (20-40) % Stark % (Auto) 8.2 (2-11) % Eos % (Auto) 2.5 (0-4) % Baso % (Auto) 1.3 (0-2) % Lymph # (Auto) 3.2 (1.2-4.9) X10*3/uL Stark # (Auto) 0.6 (0.1-1.2) X10*3/uL Eos # (Auto) 0.2 (0.0-0.4) X10*3/uL Baso # (Auto) 0.1 (0.0-0.2) X10*3/uL Abs Immat Gran (auto) 0.02 (0.00-0.03) X10*3/uL Absolute Neuts (auto) 3.6 (2.0-8.3) x10*3/uL Absolute Nucleated RBC 0.000 (0.0-0.012) X10*3/uL Nucleated RBC % (auto) 0.0 (0.0-0.2) /100WBC Sodium 139 (135-145) mmol/L Potassium 4.1 (3.3-5.1) mmol/L Chloride 107 (96-108) mmol/L Carbon Dioxide 24 (22-29) mmol/L Anion Gap 12 (12-20) BUN 13 (9-16) mg/dL Creatinine 0.94 (0.5-1.4) mg/dL Estim Creat Clear Calc 80.8 Estimated GFR > 60 Random Glucose 98 (60-115) mg/dL Calcium 9.4 (8.4-10.2) mg/dL Magnesium 1.8 (1.6-2.6) mg/dL Total Bilirubin 0.2 (0.0-1.0) mg/dL Direct Bilirubin < 0.2 (0.0-0.5) mg/dL AST 12 (5-31) U/L ALT 8 (0-31) U/L Alkaline Phosphatase 71 (39-117) U/L Troponin I High Sens < 3.5 (<3.5-17.0) ng/L Total Protein 6.3 L (6.5-8.0) g/dL Albumin 4.0 (3.5-5.0) g/dL COVID-19 ([facility]) (Negative) COVID-19 Clin Com 07/09/22 07/09/22 Range/Units 17:41 18:37 WBC (4.8-10.8) X10*3/uL RBC (4.20-5.50) X10*6/uL Hgb (12.0-16.0) g/dl Hct (37.0-47.0) % MCV (80.0-98.0) fL MCH (27.0-33.0) pg MCHC (31.0-35.0) g/dl RDW (11.0-16.0) % Plt Count (160-400) X10*3/uL MPV (9.4-12.3) fL Immature Gran % (Auto) (0.0-0.4) % Neut % (Auto) (45-73) % Lymph % (Auto) (20-40) % Stark % (Auto) (2-11) % Eos % (Auto) (0-4) % Baso % (Auto) (0-2) % Lymph # (Auto) (1.2-4.9) X10*3/uL Stark # (Auto) (0.1-1.2) X10*3/uL Eos # (Auto) (0.0-0.4) X10*3/uL Baso # (Auto) (0.0-0.2) X10*3/uL Abs Immat Gran (auto) (0.00-0.03) X10*3/uL Absolute Neuts (auto) (2.0-8.3) x10*3/uL Absolute Nucleated RBC (0.0-0.012) X10*3/uL Nucleated RBC % (auto) (0.0-0.2) /100WBC Sodium (135-145) mmol/L Potassium (3.3-5.1) mmol/L Chloride (96-108) mmol/L Carbon Dioxide (22-29) mmol/L Anion Gap (12-20) BUN (9-16) mg/dL Creatinine (0.5-1.4) mg/dL Estim Creat Clear Calc Estimated GFR Random Glucose (60-115) mg/dL Calcium (8.4-10.2) mg/dL Magnesium (1.6-2.6) mg/dL Total Bilirubin (0.0-1.0) mg/dL Direct Bilirubin (0.0-0.5) mg/dL AST (5-31) U/L ALT (0-31) U/L Alkaline Phosphatase (39-117) U/L Troponin I High Sens < 3.5 (<3.5-17.0) ng/L Total Protein (6.5-8.0) g/dL Albumin (3.5-5.0) g/dL COVID-19 ([facility]) Negative (Negative) COVID-19 Clin Com See Note <JULY Duncan - Last Filed: 07/09/22 14:37> Lab Results 07/09/22 07/09/22 07/09/22 Range/Units 17:41 17:41 17:41 WBC 7.7 (4.8-10.8) X10*3/uL RBC 4.09 L (4.20-5.50) X10*6/uL Hgb 11.7 L (12.0-16.0) g/dl Hct 34.5 L (37.0-47.0) % MCV 84.4 (80.0-98.0) fL MCH 28.6 (27.0-33.0) pg MCHC 33.9 (31.0-35.0) g/dl RDW 13.2 (11.0-16.0) % Plt Count 310 (160-400) X10*3/uL MPV 9.9 (9.4-12.3) fL Immature Gran % (Auto) 0.3 (0.0-0.4) % Neut % (Auto) 46.8 (45-73) % Lymph % (Auto) 40.9 H (20-40) % Stark % (Auto) 8.2 (2-11) % Eos % (Auto) 2.5 (0-4) % Baso % (Auto) 1.3 (0-2) % Lymph # (Auto) 3.2 (1.2-4.9) X10*3/uL Stark # (Auto) 0.6 (0.1-1.2) X10*3/uL Eos # (Auto) 0.2 (0.0-0.4) X10*3/uL Baso # (Auto) 0.1 (0.0-0.2) X10*3/uL Abs Immat Gran (auto) 0.02 (0.00-0.03) X10*3/uL Absolute Neuts (auto) 3.6 (2.0-8.3) x10*3/uL Absolute Nucleated RBC 0.000 (0.0-0.012) X10*3/uL Nucleated RBC % (auto) 0.0 (0.0-0.2) /100WBC Sodium 139 (135-145) mmol/L Potassium 4.1 (3.3-5.1) mmol/L Chloride 107 (96-108) mmol/L Carbon Dioxide 24 (22-29) mmol/L Anion Gap 12 (12-20) BUN 13 (9-16) mg/dL Creatinine 0.94 (0.5-1.4) mg/dL Estim Creat Clear Calc 80.8 Estimated GFR > 60 Random Glucose 98 (60-115) mg/dL Calcium 9.4 (8.4-10.2) mg/dL Magnesium 1.8 (1.6-2.6) mg/dL Total Bilirubin 0.2 (0.0-1.0) mg/dL Direct Bilirubin < 0.2 (0.0-0.5) mg/dL AST 12 (5-31) U/L ALT 8 (0-31) U/L Alkaline Phosphatase 71 (39-117) U/L Troponin I High Sens < 3.5 (<3.5-17.0) ng/L Total Protein 6.3 L (6.5-8.0) g/dL Albumin 4.0 (3.5-5.0) g/dL COVID-19 ([facility]) (Negative) COVID-19 Clin Com 07/09/22 07/09/22 Range/Units 17:41 18:37 WBC (4.8-10.8) X10*3/uL RBC (4.20-5.50) X10*6/uL Hgb (12.0-16.0) g/dl Hct (37.0-47.0) % MCV (80.0-98.0) fL MCH (27.0-33.0) pg MCHC (31.0-35.0) g/dl RDW (11.0-16.0) % Plt Count (160-400) X10*3/uL MPV (9.4-12.3) fL Immature Gran % (Auto) (0.0-0.4) % Neut % (Auto) (45-73) % Lymph % (Auto) (20-40) % Stark % (Auto) (2-11) % Eos % (Auto) (0-4) % Baso % (Auto) (0-2) % Lymph # (Auto) (1.2-4.9) X10*3/uL Stark # (Auto) (0.1-1.2) X10*3/uL Eos # (Auto) (0.0-0.4) X10*3/uL Baso # (Auto) (0.0-0.2) X10*3/uL Abs Immat Gran (auto) (0.00-0.03) X10*3/uL Absolute Neuts (auto) (2.0-8.3) x10*3/uL Absolute Nucleated RBC (0.0-0.012) X10*3/uL Nucleated RBC % (auto) (0.0-0.2) /100WBC Sodium (135-145) mmol/L Potassium (3.3-5.1) mmol/L Chloride (96-108) mmol/L Carbon Dioxide (22-29) mmol/L Anion Gap (12-20) BUN (9-16) mg/dL Creatinine (0.5-1.4) mg/dL Estim Creat Clear Calc Estimated GFR Random Glucose (60-115) mg/dL Calcium (8.4-10.2) mg/dL Magnesium (1.6-2.6) mg/dL Total Bilirubin (0.0-1.0) mg/dL Direct Bilirubin (0.0-0.5) mg/dL AST (5-31) U/L ALT (0-31) U/L Alkaline Phosphatase (39-117) U/L Troponin I High Sens < 3.5 (<3.5-17.0) ng/L Total Protein (6.5-8.0) g/dL Albumin (3.5-5.0) g/dL COVID-19 ([facility]) Negative (Negative) COVID-19 Clin Com See Note <Eriberto Paul MD - Last Filed: 07/09/22 21:53> Independent Interpretation I performed an independent interpretation of an: EKG <Eriberto Paul MD - Last Filed: 07/09/22 21:53> Interpretation: Normal sinus rhythm heart rate 75 beats per minute normal intervals normal axis no acute ST wave changes no acute ischemia <Eriberto Paul MD - Last Filed: 07/09/22 21:53> Scores Heart Score History: -0- slightly suspicious <Eriberto Paul MD - Last Filed: 07/09/22 21:53> ECG: -0- normal <Eriberto Paul MD - Last Filed: 07/09/22 21:53> Age: -0- < or = 45 <Eriberto Paul MD - Last Filed: 07/09/22 21:53> Risk factory: -0- no risk factors known <Eriberto Paul MD - Last Filed: 07/09/22 21:53> Troponin: -0- < or = normal limit <Eriberto Paul MD - Last Filed: 07/09/22 21:53> Score: 0 <Eriberto Paul MD - Last Filed: 07/09/22 21:53> Risk: 1.7% <Eriberto Paul MD - Last Filed: 07/09/22 21:53> Discharge Plan Discharge Clinical Impression: Chest pain due to gastrointestinal reflux disease <JULY Duncan - Last Filed: 07/09/22 14:37> Patient Disposition: Home, Self-Care <JULY Duncan - Last Filed: 07/09/22 14:37> Instructions: Noncardiac Chest Pain (ED) <JULY Duncan - Last Filed: 07/09/22 14:37> Additional Instructions: Continue your famotidine and Prilosec Ativan and sucralfate as advised 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 999 days/lifetime albuterol sulfate 90 mcg/actuation HFA aerosol inhaler 2 puff PO Q4-6H PRN (Reason: for wheezing) Qty: 8.5 3RF prochlorperazine maleate [Compazine] 10 mg tablet 10 mg PO Q8H PRN (Reason: nausea and vomiting) Qty: 30 2RF famotidine 40 mg tablet 40 mg PO BEDTIME Qty: 90 2RF omeprazole 20 mg capsule,delayed release(DR/EC) 20 mg PO DAILY 90 Days Qty: 90 3RF pregabalin 150 mg capsule 150 mg PO TID 30 Days Qty: 90 0RF metronidazole 500 mg tablet 500 mg PO BID 14 Days Qty: 28 0RF hydromorphone [Dilaudid] 2 mg tablet 2 mg PO Q4-6H PRN (Reason: pain) Qty: 10 0RF Rx Instructions: Patient may request partial fill doxycycline hyclate 100 mg tablet 100 mg PO Q12H 14 Days Qty: 28 0RF Vitamin Plus Low Iron 27 mg iron- 1 mg tablet 1 tab PO DAILY lorazepam 0.5 mg tablet 0.5 mg PO DAILY PRN (Reason: anxiety) acyclovir 800 mg tablet 800 mg PO Q4H Qty: 35 0RF Rx Instructions: while awake; give 5 doses in 24 hours clonidine HCl 0.1 mg tablet 0.1 mg PO DAILY PRN (Reason: anxiety) bupropion HCl 200 mg tablet sustained-release 12 hr 200 mg PO QAM pregabalin 75 mg capsule 150 mg PO BID naproxen 375 mg tablet 375 mg PO BID cephalexin 250 mg capsule 250 mg PO DAILY fluoxetine 10 mg capsule 10 mg PO DAILY trazodone 50 mg tablet 100 mg PO BEDTIME PRN (Reason: insomnia) bupropion HCl [Wellbutrin SR] 100 mg tablet sustained-release 12 hr 100 mg PO QAM Qty: 20 0RF fluoxetine 20 mg capsule 60 mg PO QAM ondansetron HCl 4 mg tablet 4 mg PO Q6H PRN (Reason: nausea and vomiting) Qty: 60 1RF cyclobenzaprine 5 mg tablet 5 mg PO BEDTIME Linzess 72 mcg capsule 72 mcg PO QAM Qty: 30 3RF Linzess 290 mcg capsule 290 mcg PO QAM 30 Days Qty: 30 6RF <JULY Duncan - Last Filed: 07/09/22 14:37>
[2022-07-09 14:34] VITALS: BP 103/67; PULSE 90; RESP 20; TEMP 36.2; O2SAT 98; BMI 29.4
[2022-07-09 16:00] VITALS: BP 126/89; PULSE 70; RESP 16; TEMP 36.8; O2SAT 98
--- NOTE | 2022-07-09 17:47 | MHC.EDTECH ---
pt ekg done and was read by provider ,blood drawn ,covid swab collected and sent to lab .
[2022-07-09 17:49] LABS: MANUAL DIFF FLAG NO
[2022-07-09 17:57] LABS: Basophils Absolute Auto 0.1 X10*3/uL (0.0-0.2); Basophils Percent Auto 1.3 % (0-2); Eosinophils Absolute Auto 0.2 X10*3/uL (0.0-0.4); Eosinophils Percent Auto 2.5 % (0-4); Hematocrit 34.5 % (37.0-47.0); Hemoglobin 11.7 g/dl (12.0-16.0); Imm Gran Abs Auto 0.02 X10*3/uL (0.00-0.03); Imm Gran Pct Auto 0.3 % (0.0-0.4); Lymphocytes Absolute Auto 3.2 X10*3/uL (1.2-4.9); Lymphocytes Percent Auto 40.9 % (20-40); Mean Corpuscular HGB Conc 33.9 g/dl (31.0-35.0); Mean Corpuscular Hemoglobin 28.6 pg (27.0-33.0); Mean Corpuscular Volume 84.4 fL (80.0-98.0); Mean Platelet Volume 9.9 fL (9.4-12.3); Monocytes Absolute Auto 0.6 X10*3/uL (0.1-1.2); Monocytes Percent Auto 8.2 % (2-11); Neutrophils Absolute Auto 3.6 x10*3/uL (2.0-8.3); Neutrophils Percent Auto 46.8 % (45-73); Platelet Count 310 X10*3/uL (160-400); Red Blood Count 4.09 X10*6/uL (4.20-5.50); Red Cell Distribution Width 13.2 % (11.0-16.0); White Blood Count 7.7 X10*3/uL (4.8-10.8)
[2022-07-09 18:06] LABS: COVID-19 Test Negative (Negative); IDNOW Serial# BCCEAD1C
[2022-07-09 18:09] LABS: Alanine Aminotransferase 8 U/L (0-31); Alkaline Phosphatase 71 U/L (39-117); Anion Gap 12 (12-20); Aspartate Amino Transferase 12 U/L (5-31); Bilirubin Direct < 0.2 mg/dL (0.0-0.5); Bilirubin Total 0.2 mg/dL (0.0-1.0); Blood Urea Nitrogen 13 mg/dL (9-16); Calcium 9.4 mg/dL (8.4-10.2); Carbon Dioxide 24 mmol/L (22-29); Chloride 107 mmol/L (96-108); Creatinine Clr Calc Pharmacy 80.8; Estimated Glomerular Filt Rate > 60; Glucose Random 98 mg/dL (60-115); Magnesium 1.8 mg/dL (1.6-2.6); Potassium 4.1 mmol/L (3.3-5.1); Sodium 139 mmol/L (135-145); Total Protein 6.3 g/dL (6.5-8.0)
[2022-07-09 18:17] LABS: Troponin-I High Sensitivity < 3.5 ng/L (<3.5-17.0)
[2022-07-09 18:41] VITALS: BP 114/77; PULSE 84; RESP 20; O2SAT 98
[2022-07-09 19:15] LABS: Troponin-I High Sensitivity < 3.5 ng/L (<3.5-17.0)
[2022-07-09] MEDS: Dicyclomine HCl 10 MG CAPSULE 20 MG PO (19:18)
[2022-07-09] MEDS: Magnesium Hydrox/Alum Hydrox 30 ML ORAL.SUSP PO (19:19)
[2022-07-09] MEDS: Lidocaine HCl Viscous 2 % 15 ML SOLUTION MUCOUS MEM (19:24)
[2022-07-09 19:56] VITALS: BP 113/77; PULSE 89; RESP 27; TEMP 36.6; O2SAT 100
[2022-07-09] MEDS: LORazepam 1 MG TABLET 2 MG PO (20:15)
[2022-07-09] MEDS: Morphine Sulfate 4 MG/ML CARTRIDGE IM (20:15)
[2022-07-09] MEDS: HYDROmorphone HCl 2 MG TABLET PO (22:23)
== END 2022-07-09 22:33 | disposition home or self-care (01) ==
PROVIDERS: Physician Assistant; Emergency Provider Internal Medicine; PCP Family Medicine
DX: R07.9 Chest pain, unspecified (principal); K21.9 Gastro-esophageal reflux disease without esophagitis; Z20.822 Contact with and (suspected) exposure to COVID-19; I10 Essential (primary) hypertension; Z79.899 Other long term (current) drug therapy
CPT/HCPCS: 36415; 71046; 74176; 80048; 80076; 83735; 84484; 85025; 87635; 93005; 96372; 99284; J2270

== ENCOUNTER → 2022-07-26 13:23 | Outpatient (BNVA) | payer OTHER, SELFPAY | PROVIDERS: PCP Family Medicine; Visit Provider Nurse Practitioner | DX: K59.04 Chronic idiopathic constipation (principal); K58.9 Irritable bowel syndrome, unspecified | CPT/HCPCS: 99212 ==

== ENCOUNTER 2022-09-14 09:58 | Outpatient (REF) | payer OTHER, SELFPAY ==
[2022-09-14 11:26] LABS: MANUAL DIFF FLAG NO
[2022-09-14 11:30] LABS: Basophils Absolute Auto 0.1 X10*3/uL (0.0-0.2); Basophils Percent Auto 1.6 % (0-2); Eosinophils Absolute Auto 0.2 X10*3/uL (0.0-0.4); Eosinophils Percent Auto 5.2 % (0-4); Hematocrit 34.8 % (37.0-47.0); Hemoglobin 11.5 g/dl (12.0-16.0); Imm Gran Abs Auto 0.01 X10*3/uL (0.00-0.03); Imm Gran Pct Auto 0.2 % (0.0-0.4); Lymphocytes Absolute Auto 2.1 X10*3/uL (1.2-4.9); Lymphocytes Percent Auto 47.4 % (20-40); Mean Corpuscular Hemoglobin 28.1 pg (27.0-33.0); Mean Corpuscular Volume 85.1 fL (80.0-98.0); Mean Platelet Volume 10.4 fL (9.4-12.3); Monocytes Absolute Auto 0.4 X10*3/uL (0.1-1.2); Monocytes Percent Auto 8.6 % (2-11); Neutrophils Absolute Auto 1.6 x10*3/uL (2.0-8.3); Platelet Count 278 X10*3/uL (160-400); Red Blood Count 4.09 X10*6/uL (4.20-5.50); Red Cell Distribution Width 12.9 % (11.0-16.0); White Blood Count 4.4 X10*3/uL (4.8-10.8)
[2022-09-14 12:18] LABS: Alanine Aminotransferase 11 U/L (0-31); Albumin Level 3.9 g/dL (3.5-5.0); Alkaline Phosphatase 65 U/L (39-117); Anion Gap 11 (12-20); Aspartate Amino Transferase 16 U/L (5-31); Bilirubin Total 0.5 mg/dL (0.0-1.0); Blood Urea Nitrogen 15 mg/dL (9-16); Carbon Dioxide 26 mmol/L (22-29); Chloride 107 mmol/L (96-108); Cholesterol 199 mg/dL; Estimated Glomerular Filt Rate > 60; Glucose Fasting 86 mg/dL (60-99); HDL Cholesterol 62 mg/dL; LDL Cholesterol Calculated 113 mg/dl; Potassium 4.2 mmol/L (3.3-5.1); Sodium 140 mmol/L (135-145); Total Protein 6.1 g/dL (6.5-8.0); Triglycerides 124 mg/dL
[2022-09-24 20:39] LABS: Pancreatic Elastase-1 >500 mcg/g
== END 2022-09-14 09:59 | disposition home or self-care (01) ==
LOC: HO.HMGCLDS 09:58
PROVIDERS: Absent Provider Nurse Practitioner; PCP Family Medicine; Visit Provider Family Medicine
DX: Z00.00 Encounter for general adult medical examination without abnormal findings (principal); K58.9 Irritable bowel syndrome, unspecified; K59.00 Constipation, unspecified
CPT/HCPCS: 36415; 80053; 80061; 82656; 84443; 85025; 85027

== ENCOUNTER → 2022-10-24 13:28 | Outpatient (BNVA) | payer OTHER, SELFPAY | PROVIDERS: Visit Provider Nurse Practitioner | DX: K59.04 Chronic idiopathic constipation (principal); K58.9 Irritable bowel syndrome, unspecified; R11.2 Nausea with vomiting, unspecified | CPT/HCPCS: 99212 ==

== ENCOUNTER 2022-11-22 16:30 | Outpatient (AMB) | payer OTHER, SELFPAY ==
--- NOTE | 2022-11-22 16:35 | A.OFFPC_ITS ---
Vital Signs 11/22/22 16:36 Height 5 ft 5 in Weight 178 lb 6 oz BMI 29.7 BP 110/70 Blood Pressure Location Rt brachial Position Sitting Respiration 12 Pulse 95 Pulse Source Pulse Oximeter Temp 97 F Temp Source Temporal Artery Scan Pulse Oximetry (%) 99 Oxygen Delivery Method Room Air Intake Visit Reasons: Weight Loss Intake Note: Patient states that she is sick and would like her ear checked. Patient states that it feel like in her right ear it feels like something is crawling and it hurts a little bit. Patient states she has a sore throat on the right side as well. Installation Manager Required: No Accompanied by: Self / Same As Patient Allergies acetaminophen [From Percocet] Allergy (Severe, Verified 11/22/22 16:45) Migraine and vomiting oxycodone [From Percocet] Allergy (Severe, Verified 11/22/22 16:45) Migraine and vomiting apple Allergy (Intermediate, Verified 11/22/22 16:45) Swelling erythromycin base [Erythromycin Base] Allergy (Mild, Verified 11/22/22 16:45) Confusion, Rash, Nausea, Vomiting, Out of it levofloxacin [From Levaquin] Allergy (Mild, Verified 11/22/22 16:45) Rash sulfamethoxazole [From Bactrim] Allergy (Mild, Verified 11/22/22 16:45) Rash trimethoprim [From Bactrim] Allergy (Mild, Verified 11/22/22 16:45) Rash Sulfa (Sulfonamide Antibiotics) Allergy (Unknown, Verified 11/22/22 16:45) Rash meclazine Adverse Reaction (Severe, Uncoded 11/22/22 16:45) severe anxiety Medication List - Last Reconciled 11/22/22 by Zeferino Jolly CNP albuterol sulfate 90 mcg/actuation 2 puffs PO Q4-6H PRN bupropion HCl 300 mg PO DAILY cephalexin 250 mg PO DAILY clonidine HCl 0.1 mg PO DAILY PRN cyclobenzaprine 5 mg PO BEDTIME dicyclomine 20 mg PO QID PRN docusate sodium 100 mg PO BID estradiol 1 patch topical 2XW famotidine 40 mg PO BEDTIME fluoxetine 10 mg PO DAILY fluoxetine 40 mg PO DAILY linaclotide (Linzess) 145 mcg PO QAM metoclopramide HCl (Reglan) 5 mg PO QIDACHS omeprazole 40 mg PO BID 90 days ondansetron HCl 4 mg PO Q6H PRN pregabalin 150 mg PO TID 30 days prochlorperazine maleate (Compazine) 10 mg PO Q8H PRN sennosides (Senna Laxative) 8.6 mg PO DAILY simethicone (Gas Relief (simethicone)) 80 mg PO PRN trazodone 100 mg PO BEDTIME Tobacco use date assessed: 11/22/22 Dental Screening Dental Screen Date: 11/22/22 Did you have a dental visit in the last 12 months?: Yes Did you have a dental problem in the last 6 months where you did not have access to dental care?: No Was dental information given to patient?: Patient has dentist HPI HPI Comments History of Present Illness Details 42-year-old female presents with complaints of constant right ear pain and ringing. She notes that it feels as though something is crawling in her ear. She also reports right-sided sore throat. She notes that her symptoms have been ongoing for the past two days. She notes that she experienced chills. She reports chronic fatigue. No fever, body aches or weakness. She notes that her child was recently ill with fatigue and green discharge from her eyes. She has recovered. She reports h/o iron deficiency with h/o iron infusions. She states that she is a vegetarian. She does not take supplemental iron due to adverse effect of constipation. She notes that she is on cephalexin daily for UTI prophylaxis. [facility] Medical History Abdominal pain Abdominal rebound tenderness of right lower quadrant Rectal prolapse Surgical History History of bilateral breast reduction surgery History of colonoscopy History of esophagogastroduodenoscopy (EGD) History of kidney stones History of laparoscopic cholecystectomy History of lumpectomy of left breast History of removal of ovarian cyst History of right breast biopsy Hx of hysterectomy Status post LASIK surgery Family History Father Healthy adult Mother High cholesterol Migraines Diabetes Asthma Hypertension Maternal Grandfather CVD (cardiovascular disease) Maternal Aunt Family history of heart disease Social History (Reviewed 10/24/22 @ 13:43 by VAZQUEZ [place] Housing: House Alcohol intake: never Patient Tobacco Use Status: Never used Tobacco e-Cigarette/Vaping Use: Never Used Second Hand Smoke Exposure: No service: No Current occupational status: unemployed Current occupational exposures/hazards: No Cognitive needs: No Hearing needs: No Vision needs: No Questionnaire KATI-7 AMB Questionnaire KATI-7 Date KATI - 7 assessed: 03/07/21 Source: Developed by Drs. Demond Oleary, Rhonda Quach, Mendel Brennan and colleagues, with an educational manuela from [employer] Review of Systems Const Details: Const Denies chills, Denies fatigue, Denies fever(s), Denies headache(s) and Denies weakness ENT Reports right ear pain, Reports right-sided sore throat, Denies dizziness and Denies headache(s) Card Denies chest pain, Denies lightheadedness, Denies dyspnea and Denies other (Palpitations) Resp Denies cough, Denies dyspnea, Denies wheezing and Denies other ( shortness of breath) GI Denies abdominal pain, Denies melena, Denies hematochezia, Denies change in bowel habits, Denies dyspepsia and Denies nausea Denies hematuria and Denies dysuria Musc Denies abnormal gait, Denies myalgias, Denies arthralgias, Denies numbness and Denies tingling Skin/Breast Denies rash, Denies unusual bruising and Denies wounds Neuro Denies abnormal gait, Denies dizziness, Denies headache(s), Denies memory loss, Denies numbness, Denies Sensory deficit (Neuro), Denies tingling and Denies weakness Psych Denies anxiety and Denies depression Endo Denies fatigue Aller/Immun Denies wheezing Physical exam (Primary Care) Vital Signs: Last Vital Signs Temp 97 F 11/22/22 16:36 Pulse 95 11/22/22 16:36 Resp 12 11/22/22 16:36 BP 110/70 11/22/22 16:36 Pulse Ox 99 11/22/22 16:36 Oxygen Delivery Method Room Air 11/22/22 16:36 BMI result Body Mass Index 29.7 Tobacco/Smoking Status: Tobacco use Status Tobacco use date assessed 09/21/21 07/05/22 13:33 Patient Tobacco Use Status Never used Tobacco 03/06/23 13:20 e-Cigarette/Vaping Use Never Used 07/05/22 13:33 Const Other: General: no acute distress and well developed Nutritional Appearance: well nourished Orientation/consciousness: patient oriented x3 HENMT Head is normocephalic Right TM with significant erythema, no edema, effusion, bulging, ear canal is normal. Left ear canal and TM is normal Nasal turbinates and oropharynx are pink and moist Sinuses are nontender with palpation No auricular or cervical lymphadenopathy Eyes General: appearance normal, both eyes and all related structures Pupils: Equal, round and reactive pupils present EOM: EOMs intact bilaterally Resp Effort & Inspection: normal respiratory effort Auscultation: clear to auscultation bilaterally Cardio Rate: regular rate Rhythm: regular rhythm Heart sounds: S1 normal heart sound present, S2 normal heart sound present, no gallops, no murmurs and no rubs GI Palpation (GI): No Abdominal aortic bruit present, Soft to palpation, nontender, No hepatosplenomegaly present and No Rebound tenderness present Auscultation: normal bowel sounds General: Yes no CVA tenderness Back/Spine/Pelvis Back: no CVA tenderness Cervical Spine: cervical ROM normal and No Cervical spine tenderness Thoracic/Lumbar Spine: thoraco-lumbar ROM normal, No pain with thoraco-lumbar ROM, No thoracic spinal tenderness and No lumbar spinal tenderness Extrem General: Yes normal to inspection, No edema and No calf tenderness Skin General: warm and dry. Normal skin color. Normal skin turgor Lesions: no lesions Rashes: no rashes Trauma: no lacerations or abrasions Wounds: no wounds Nails: normal Neuro General: patient oriented x3, gait normal and no focal neuro deficit Cranial nerves: Yes Equal, round and reactive pupils present Cognition (Neuro): normal cognition Gait exam (Neuro): Normal gait present Sensory Exam: No Sensory deficit (Neuro) Psych Affect: normal affect Assessment and Plan Assessment & Plan (1) Otitis media of right ear: Code(s): H66.91 - Otitis media, unspecified, right ear Plan: 42-year-old female presents with complaints of constant right ear pain and ringing. She notes that it feels as though something is crawling in her ear. She also reports right-sided sore throat. She notes that her symptoms have been ongoing for the past two days. Right TM with significant erythema, no edema, effusion, bulging, ear canal is normal Oropharynx is normal Amoxicillin ordered. Take as prescribed May take Tylenol Motrin for pain or discomfort Adequate hydration encouraged Follow-up with worsening or new symptoms Verbalized understanding and agreed with treatment plan. (2) Fatigue: Code(s): R53.83 - Other fatigue Plan: Reports chronic fatigue She reports h/o iron deficiency with h/o iron infusions. She states that she is a vegetarian. She does not take supplemental iron due to adverse effect of con stipation. Labs ordered. Advised to get blood work done Adequate hydration encouraged Follow-up with worsening or new symptoms Verbalized understanding and agreed with the treatment plan. (3) Anemia: Code(s): D64.9 - Anemia, unspecified Plan: As above Orders: Orders TSH reflex Free T4 Today R53.83 - Other fatigue Vitamin D 25-OH Total Today R53.83 - Other fatigue Complete Blood Count Auto Diff Today R53.83 - Other fatigue Medications: New amoxicillin 500 mg PO Q12H 14 tabs 0RF 7 days Changed From metoclopramide HCl (Reglan) compazine and zofran d/c'ed, provider aware of possible interaction with prozac and is monitoring 5 mg PO QIDACHS 120 tabs 3RF K59.04 - Chronic idiopathic constipation, R11.2 - Nausea with vomiting, unspecified To metoclopramide HCl (Reglan) compazine and zofran d/c'ed, provider aware of possible interaction with prozac and is monitoring 5 mg PO QIDACHS K59.04 - Chronic idiopathic constipation, R11.2 - Nausea with vomiting, unspecified Coding Level of Care Code Est Pt Level 3 (73979) Diagnoses Otitis media of right ear H66.91 Fatigue R53.83 Anemia D64.9 Time Spent (min) 25
[2022-11-22 16:36] VITALS: BP 110/70; PULSE 95; RESP 12; TEMP 36.1; O2SAT 99; BMI 29.7
== END 2022-11-22 17:04 | disposition home or self-care (01) ==
PROVIDERS: PCP Family Medicine; Visit Provider Nurse Practitioner Family
DX: H66.91 Otitis media, unspecified, right ear (principal); R53.83 Other fatigue; D64.9 Anemia, unspecified
CPT/HCPCS: 99213

== ENCOUNTER 2022-11-26 10:08 | Outpatient (REF) | payer OTHER, SELFPAY ==
[2022-11-26 13:23] LABS: MANUAL DIFF FLAG NO
[2022-11-26 13:53] LABS: Basophils Absolute Auto 0.1 X10*3/uL (0.0-0.2); Eosinophils Absolute Auto 0.3 X10*3/uL (0.0-0.4); Eosinophils Percent Auto 4.7 % (0-4); Hematocrit 36.5 % (37.0-47.0); Hemoglobin 11.8 g/dl (12.0-16.0); Imm Gran Abs Auto 0.03 X10*3/uL (0.00-0.03); Imm Gran Pct Auto 0.5 % (0.0-0.4); Lymphocytes Absolute Auto 2.1 X10*3/uL (1.2-4.9); Mean Corpuscular HGB Conc 32.3 g/dl (31.0-35.0); Mean Corpuscular Hemoglobin 27.7 pg (27.0-33.0); Mean Corpuscular Volume 85.7 fL (80.0-98.0); Mean Platelet Volume 10.3 fL (9.4-12.3); Monocytes Absolute Auto 0.5 X10*3/uL (0.1-1.2); Monocytes Percent Auto 7.7 % (2-11); Neutrophils Absolute Auto 3.3 x10*3/uL (2.0-8.3); Neutrophils Percent Auto 52.1 % (45-73); Platelet Count 302 X10*3/uL (160-400); Red Blood Count 4.26 X10*6/uL (4.20-5.50); Red Cell Distribution Width 12.7 % (11.0-16.0); White Blood Count 6.2 X10*3/uL (4.8-10.8)
[2022-11-26 14:03] LABS: Alanine Aminotransferase 12 U/L (0-31); Albumin Level 3.8 g/dL (3.5-5.0); Alkaline Phosphatase 71 U/L (39-117); Anion Gap 10 (12-20); Aspartate Amino Transferase 16 U/L (5-31); Bilirubin Total 0.2 mg/dL (0.0-1.0); Blood Urea Nitrogen 14 mg/dL (9-16); Calcium 9.4 mg/dL (8.4-10.2); Carbon Dioxide 28 mmol/L (22-29); Chloride 105 mmol/L (96-108); Estimated Glomerular Filt Rate > 60; Glucose Fasting 91 mg/dL (60-99); Potassium 4.2 mmol/L (3.3-5.1); Sodium 139 mmol/L (135-145); Total Protein 6.6 g/dL (6.5-8.0)
[2022-11-26 14:24] LABS: TSH reflex Free T4 0.98 uIU/mL (0.32-4.0)
[2022-11-26 14:31] LABS: Vitamin D 25-OH Total 43.2 ng/mL (>30)
== END 2022-11-26 10:09 | disposition home or self-care (01) ==
LOC: HO.HMGCLDS 10:08
PROVIDERS: Nurse Practitioner; PCP Family Medicine; Visit Provider Nurse Practitioner Family
DX: Z00.00 Encounter for general adult medical examination without abnormal findings (principal); R53.83 Other fatigue; R53.1 Weakness
CPT/HCPCS: 36415; 80053; 82306; 84443; 85025

== ENCOUNTER 2022-12-17 12:43 | Day surgery (SDC) | payer OTHER, SELFPAY ==
--- NOTE | 2022-12-14 13:42 | HO.ANESPROP2 ---
Documented by User: Domitila Hernandez NP 12/14/22 13:43 HPI - Anesthesia Eval Consult details Narrative: 42yo F for Upper Endoscopy and Colonoscopy PMF Active Problems Active Problems: All Active Problems (Updated 11/22/22 @ 17:06 by Zeferino Jolly CNP) Otitis media of right ear (Acute) Nausea and vomiting (Acute) IBS (irritable bowel syndrome) (Acute) Lightheadedness (Acute) Chest tightness (Acute) Shortness of breath (Acute) Normal physical exam (Acute) Screening for cervical cancer (Acute) Adult general medical exam (Acute) Early satiety (Acute) Chronic idiopathic constipation (Acute) Panniculitis (Acute) Herpes zoster (Acute) Abnormal urinalysis (Acute) Suprapubic pain, acute (Acute) Abnormal mammogram of left breast (Acute) Profound fatigue (Acute) Anemia (Acute) Fatigue (Acute) Vision changes (Acute) Peroneal tendinitis, left leg (Acute) Cough (Acute) Myalgia (Acute) Fibromyalgia (Acute) Easy bruising (Acute) Polyarthralgia (Acute) Joint stiffness of hand (Acute) Essential hypertension (Acute) Past Medical History Medical History Abdominal pain Abdominal rebound tenderness of right lower quadrant Rectal prolapse Family History Family History Father Healthy adult Mother High cholesterol Migraines Diabetes Asthma Hypertension Maternal Grandfather CVD (cardiovascular disease) Maternal Aunt Family history of heart disease Other Mental health disorder Substance abuse Surgical History Surgical History History of bilateral breast reduction surgery History of colonoscopy History of esophagogastroduodenoscopy (EGD) History of kidney stones History of laparoscopic cholecystectomy History of lumpectomy of left breast History of removal of ovarian cyst History of right breast biopsy Hx of hysterectomy Status post LASIK surgery Social History Social History Housing: House Alcohol intake: never Patient Tobacco Use Status: Never used Tobacco e-Cigarette/Vaping Use: Never Used Second Hand Smoke Exposure: No Are you DNR?: No Advance Directives: No Advance Directives Information Provided: Yes Patient : No service: No Current occupational status: unemployed Current occupational exposures/hazards: No Cognitive needs: No Hearing needs: No Vision needs: No Meds Allergies Allergy/AdvReac Type Severity Reaction Status Date / Time oxycodone [From Percocet] Allergy Severe Migraine Verified 11/22/22 16:45 and vomiting apple Allergy Intermediate Swelling Verified 11/22/22 16:45 erythromycin base Allergy Mild Confusion, Verified 11/22/22 16:45 [Erythromycin Base] Rash, Nausea, Vomiting, Out of it levofloxacin [From Levaquin] Allergy Mild Rash Verified 11/22/22 16:45 sulfamethoxazole Allergy Mild Rash Verified 11/22/22 16:45 [From Bactrim] trimethoprim [From Bactrim] Allergy Mild Rash Verified 11/22/22 16:45 Sulfa (Sulfonamide Allergy Unknown Rash Verified 11/22/22 16:45 Antibiotics) meclazine AdvReac Severe severe Uncoded 11/22/22 16:45 anxiety Home Medications Medication Instructions Recorded Confirmed Last Taken Type clonidine HCl 0.1 mg tablet 0.1 mg PO DAILY PRN anxiety 08/24/21 11/22/22 Unknown History fluoxetine 10 mg capsule 10 mg PO DAILY 09/21/21 11/22/22 Unknown History bupropion HCl 300 mg 24 hr tablet, 300 mg PO DAILY 07/26/22 11/22/22 Unknown History extended release fluoxetine 40 mg capsule 40 mg PO DAILY 07/26/22 11/22/22 Unknown History trazodone 100 mg tablet 100 mg PO BEDTIME 07/26/22 07/26/22 Unknown History estradiol 0.1 mg/24 hr semiweekly 1 patch topical 2XW 10/24/22 11/22/22 Unknown History transdermal patch Exam Exam Date and Time: December 14, 2022 1342 Pertinent Lab Results Pertinent Lab Results: Laboratory Tests 11/26/22 11/26/22 10:30 10:30 WBC 6.2 Hgb 11.8 L Hct 36.5 L Plt Count 302 Sodium 139 Potassium 4.2 Chloride 105 Carbon Dioxide 28 BUN 14 Creatinine 0.91 Narrative Narrative: EKG 07/2022 NSR @ 80 Assessment and Plan Assessment Anesthesia Assessment: Chart Reviewed Documented by User: Jeremy Nichole MD 12/17/22 14:41 [facility] Past Medical History Medical History Abdominal pain Abdominal rebound tenderness of right lower quadrant Rectal prolapse Family History Family History Father Healthy adult Mother High cholesterol Migraines Diabetes Asthma Hypertension Maternal Grandfather CVD (cardiovascular disease) Maternal Aunt Family history of heart disease Other Mental health disorder Substance abuse Family history of problems with anesthesia: No Surgical History Surgical History History of bilateral breast reduction surgery History of colonoscopy History of esophagogastroduodenoscopy (EGD) History of kidney stones History of laparoscopic cholecystectomy History of lumpectomy of left breast History of removal of ovarian cyst History of right breast biopsy Hx of hysterectomy Status post LASIK surgery History of Problems with Anesthesia: No Social History Social History Housing: House Alcohol intake: never Patient Tobacco Use Status: Never used Tobacco e-Cigarette/Vaping Use: Never Used Second Hand Smoke Exposure: No Are you DNR?: No Advance Directives: No Advance Directives Information Provided: Yes Patient : No service: No Current occupational status: unemployed Current occupational exposures/hazards: No Cognitive needs: No Hearing needs: No Vision needs: No Meds Allergies Allergy/AdvReac Type Severity Reaction Status Date / Time oxycodone [From Percocet] Allergy Severe Migraine Verified 11/22/22 16:45 and vomiting apple Allergy Intermediate Swelling Verified 11/22/22 16:45 erythromycin base Allergy Mild Confusion, Verified 11/22/22 16:45 [Erythromycin Base] Rash, Nausea, Vomiting, Out of it levofloxacin [From Levaquin] Allergy Mild Rash Verified 11/22/22 16:45 sulfamethoxazole Allergy Mild Rash Verified 11/22/22 16:45 [From Bactrim] trimethoprim [From Bactrim] Allergy Mild Rash Verified 11/22/22 16:45 Sulfa (Sulfonamide Allergy Unknown Rash Verified 11/22/22 16:45 Antibiotics) meclazine AdvReac Severe severe Uncoded 11/22/22 16:45 anxiety Home Medications Medication Instructions Recorded Confirmed Last Taken Type clonidine HCl 0.1 mg tablet 0.1 mg PO DAILY PRN anxiety 08/24/21 11/22/22 Unknown History fluoxetine 10 mg capsule 10 mg PO DAILY 09/21/21 11/22/22 Unknown History bupropion HCl 300 mg 24 hr tablet, 300 mg PO DAILY 07/26/22 11/22/22 Unknown History extended release fluoxetine 40 mg capsule 40 mg PO DAILY 07/26/22 11/22/22 Unknown History trazodone 100 mg tablet 100 mg PO BEDTIME 07/26/22 07/26/22 Unknown History estradiol 0.1 mg/24 hr semiweekly 1 patch topical 2XW 10/24/22 11/22/22 Unknown History transdermal patch Exam Airway Mallampati Class: II TM Dist: >3cm Neck ROM: Full Heart: rrr Lungs: cta Assessment and Plan Assessment Anesthesia Assessment: Anesthesia Plan Discussed Final Anesthetic Review Family History of Problems with Anesthesia: No History of Problems with Anesthesia: No NPO: Yes ASA Class: II Final Preanesthetic Review: No Changes in Pt Med Stat, Meds/Allgs Chart Reviewed, Consent Obtained/Reviewed and Anes Risks/Benef Reviewed Patient Risk: Intermediate Procedure Risk: Intermediate Anesthetic Plan Anesthetic Plan: MAC: and Agree w/ Assess. and Plan Disposition: Standard PACU
[2022-12-17 06:08] VITALS: BMI 29.6
[2022-12-17 12:49] VITALS: BP 104/76; PULSE 87; RESP 20; TEMP 36.1; O2SAT 98
[2022-12-17 12:52] VITALS: BMI 29.1
[2022-12-17] MEDS: Lactated Ringers 1,000 ML 100 ML IVCONT (13:14)
--- NOTE | 2022-12-17 16:06 | MHC.SHP ---
Pre-Procedural Eval Section A Date of Service: 12/17/22 The patient is an INPATIENT: No The History & Physical has been completed within 30 days and I have reviewed it.: No Section B Chief Complaint: abdominal cramping, constipation, bloating, nausea Relevant Family History (Specify if Yes): No Relevant Social History: None Present Medications: see Short Stay Collaborative assessment Medical History: Significant History (Abdominal pain Abdominal rebound tenderness of right lower quadrant Rectal prolapse) History of Previous Operations: Relevant previous surgery/procedure and date(s) (History of bilateral breast reduction surgery History of colonoscopy History of esophagogastroduodenoscopy (EGD) History of kidney stones History of laparoscopic cholecystectomy History of lumpectomy of left breast History of removal of ovarian cyst History of right breast biopsy Hx of hysterectomy ) Allergies: Allergies Allergy/AdvReac Type Severity Reaction Status Date / Time oxycodone [From Percocet] Allergy Severe Migraine Verified 11/22/22 16:45 and vomiting apple Allergy Intermediate Swelling Verified 11/22/22 16:45 erythromycin base Allergy Mild Confusion, Verified 11/22/22 16:45 [Erythromycin Base] Rash, Nausea, Vomiting, Out of it levofloxacin [From Levaquin] Allergy Mild Rash Verified 11/22/22 16:45 sulfamethoxazole Allergy Mild Rash Verified 11/22/22 16:45 [From Bactrim] trimethoprim [From Bactrim] Allergy Mild Rash Verified 11/22/22 16:45 Sulfa (Sulfonamide Allergy Unknown Rash Verified 11/22/22 16:45 Antibiotics) meclazine AdvReac Severe severe Uncoded 11/22/22 16:45 anxiety Review of Systems Sugical H&P ROS: Negative: Constitution, Cardiovascular, Respiratory and Gastrointestinal Exam Surgical H&P Exam: Normal: Heart, Normal: Lungs, Normal: Extremities and Normal: Abdomen Plan Diagnosis/Plan: Unchanged I have reviewed the history and physical and performed a pertinent physical examination on my patient. No changes have occurred unless specified. Time Spent With Patient Time: Total time managing care of this patient today ____ minutes.
--- NOTE | 2022-12-17 16:09 | W.PM.OPN ---
Operative Note Operative Note Date of Service: 12/17/22 Narrative: FLEXIBLE TRANSORAL UPPER GASTROINTESTINAL ENDOSCOPY WITH BIOPSIES AND COLONOSCOPY TILL CECUM WITH BIOPSIES Pre-op diagnosis: abdominal cramping, constipation, bloating, nausea Post-op diagnosis: GERD, Gastritis, gastric polyps, diverticulosis, hemorrhoids, melanosis coli Endoscopist:? Holland Shrestha MD Anesthesia:?MAC UPPER ENDOSCOPY Consent: Indications for the procedure and potential complications of bleeding, perforation, reaction to medications and missed diagnosis were discussed with the patient and informed consent was obtained. Instrument: Olympus GIF H 190 mid size upper endoscope Monitoring: Vital signs and clinical assessment, continuous EKG monitoring, Pulse oximetry, Carbon Dioxide monitoring and blood pressure monitoring were done throughout the procedure. Procedure: The patient was placed in the left lateral decubitis position and pre-procedure medications were administered and a bite block was placed. The endoscope was inserted into the mouth and advanced under direct vision to the third part of duodenum. A careful inspection was made as the upper endoscope was withdrawn including a retroflexed examination of the proximal stomach; Findings and interventions are described below. Findings: Larynx: Normal Esophagus: GE junction at 36 cms. No esophagitis or Sanders's. Stomach: A few 4-6 mm benign appearing polyps in the gastric body - biopsied. Mild gastric erythema. Biopsies were obtained. Grade 2 flap valve on retroflexed examination of the cardia. Duodenum: Normal bulb and descending duodenum Intervention: Biopsies as noted above COLONOSCOPY PROCEDURE NOTE Consent: Indications for the procedure and potential complications of bleeding, perforation, reaction to medications and missed diagnosis were discussed with the patient and informed consent was obtained. Instrument: Olympus PCF H 190 L variable stiffness pediatric colonoscope Monitoring: Vital signs and clinical assessment, intermittent blood pressure monitoring, continuous EKG monitoring, Pulse oximetry and Carbon Dioxide monitoring were done throughout the procedure. Colon withdrawl time was 21 minutes. Procedure: The patient was placed in the left lateral decubitis position and pre-procedure medications were administered. After a digital rectal examination of the ano-rectum, the video colonoscope was inserted into the rectum and advanced through the colon to the cecum. The colonoscope was slowly withdrawn in a retrograde panoramic after some irrigation Procedure Difficulty: Colon was long and tortuous and there was some loop formation. No maneuvers were required. Findings: Terminal Ileum: Not evaluated Cecum: Normal Ascending Colon: Mild patchy melanosis coli - biopsies obtained from the right colon. Transverse Colon: Normal Descending Colon: Normal Sigmoid Colon: Moderate diverticulosis Rectum: Normal Ano-rectum: Small internal hemorrhoids Colon preparation: Good Impression and Post Procedure Diagnosis: Endoscopy Findings: STOMACH: Mild gastritis and gastric polyps Colonoscopy Findings: No polyps were detected Moderate diverticulosis seen in the sigmoid colon Small hemorrhoids on retroflexed exam. Plan: Await pathology results Patient has an appointment on 01/02/23 in the GI [facility] with Selena Bustos NP. Repeat Colonoscopy in 10 years. Above findings were reviewed with the patient and Gastric Polyps and diverticulosis handouts were given in the discharge area BIOPSIES SHOWED: A.? Gastric antrum, biopsy:? Gastric antral mucosa with mild reactive changes and minimal chronic inactive gastritis; negative for H pylori, intestinal metaplasia and dysplasia.? B.? Gastric polyp, biopsy:? Fundic gland polyp with minimal chronic inactive inflammation; negative for H pylori, intestinal metaplasia and dysplasia. C.? Colon, right, biopsy:? Colonic mucosa with pigmented lamina propria macrophages compatible with melanosis coli, otherwise no specific change.
[2022-12-17 17:01] VITALS: BP 108/66; PULSE 72; RESP 16; TEMP 36.2; O2SAT 95
[2022-12-17 17:16] VITALS: BP 123/76; PULSE 78; RESP 18; TEMP 36.4; O2SAT 99
== END 2022-12-17 17:40 | disposition home or self-care (01) ==
PROVIDERS: PCP Family Medicine; Visit Provider Internal Medicine Gastroenterology
PROC: (CPT 45380; principal; 2022-12-17 15:50)
DX: R10.9 Unspecified abdominal pain (principal); K59.04 Chronic idiopathic constipation; K63.89 Other specified diseases of intestine; K57.30 Diverticulosis of large intestine without perforation or abscess without bleeding; K64.8 Other hemorrhoids; K58.9 Irritable bowel syndrome, unspecified; K62.3 Rectal prolapse; K21.9 Gastro-esophageal reflux disease without esophagitis; K29.50 Unspecified chronic gastritis without bleeding; K31.7 Polyp of stomach and duodenum; Z79.899 Other long term (current) drug therapy; Z88.1 Allergy status to other antibiotic agents; Z88.2 Allergy status to sulfonamides; Z88.8 Allergy status to other drugs, medicaments and biological substances; Z87.442 Personal history of urinary calculi; Z98.890 Other specified postprocedural states
CPT/HCPCS: 45380; 43239; 88305; 88342

== ENCOUNTER → 2022-12-17 12:43 | Outpatient (BNV) | payer OTHER, SELFPAY | PROVIDERS: PCP Family Medicine; Visit Provider Internal Medicine Gastroenterology | DX: K59.00 Constipation, unspecified (principal); R11.0 Nausea; K21.9 Gastro-esophageal reflux disease without esophagitis; K29.70 Gastritis, unspecified, without bleeding; K57.30 Diverticulosis of large intestine without perforation or abscess without bleeding; K64.8 Other hemorrhoids; K63.89 Other specified diseases of intestine; K31.7 Polyp of stomach and duodenum | CPT/HCPCS: 43239; G0121 ==

== ENCOUNTER 2022-12-24 08:56 | Outpatient (AMB) | payer OTHER, SELFPAY ==
--- NOTE | 2022-12-24 09:00 | MHC.PC.OV ---
Vital Signs 12/24/22 09:01 Height 5 ft 5 in Weight 183 lb BMI 30.4 BP 122/78 Blood Pressure Location Lt brachial Position Sitting Respiration 13 Pulse 92 Pulse Source Pulse Oximeter Temp 98.7 F Temp Source Temporal Artery Scan Pulse Oximetry (%) 99 Intake Visit Reasons: PE Intake Note: Patient is here for her physical. Patient has concerns for weight loss, cough x5 days/ x2 days post endoscopy, pain all over her body, and recheck right ear. 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 Accompanied by: Self / Same As Patient Allergies oxycodone [From Percocet] Allergy (Severe, Verified 12/24/22 09:07) Migraine and vomiting apple Allergy (Intermediate, Verified 12/24/22 09:07) Swelling erythromycin base [Erythromycin Base] Allergy (Mild, Verified 12/24/22 09:07) Confusion, Rash, Nausea, Vomiting, Out of it levofloxacin [From Levaquin] Allergy (Mild, Verified 12/24/22 09:07) Rash sulfamethoxazole [From Bactrim] Allergy (Mild, Verified 12/24/22 09:07) Rash trimethoprim [From Bactrim] Allergy (Mild, Verified 12/24/22 09:07) Rash Sulfa (Sulfonamide Antibiotics) Allergy (Unknown, Verified 12/24/22 09:07) Rash apples Allergy (Severe, Uncoded 12/24/22 09:06) Anaphylaxis meclazine Adverse Reaction (Severe, Uncoded 11/22/22 16:45) severe anxiety Medication List - Last Reconciled 12/24/22 by Shawn Miranda MD albuterol sulfate 90 mcg/actuation 2 puffs PO Q4-6H PRN bupropion HCl 300 mg PO DAILY clonidine HCl 0.1 mg PO DAILY PRN dicyclomine 20 mg PO QID PRN estradiol 1 patch topical 2XW famotidine 40 mg PO BEDTIME fluoxetine 10 mg PO DAILY fluoxetine 40 mg PO DAILY linaclotide (Linzess) 145 mcg PO QAM omeprazole 40 mg PO BID 90 days ondansetron HCl 4 mg PO Q6H PRN pregabalin 150 mg PO TID 30 days prochlorperazine maleate (Compazine) 10 mg PO Q8H PRN sennosides (Senna Laxative) 8.6 mg PO DAILY trazodone 100 mg PO BEDTIME Tobacco use date assessed: 11/22/22 Dental Screening Dental Screen Date: 12/24/22 Did you have a dental visit in the last 12 months?: Yes Did you have a dental problem in the last 6 months where you did not have access to dental care?: No Was dental information given to patient?: Patient has dentist HPI PE HPI Details 42 y/o male presents for a CPE with f/u labs and health maintenance. Labs were drawn 11/26/22. Reviewed labs with pt. Ongoing mild anemia though RBC has improved. Lipid panel drawn 09/14/22. Triglycerides 124. TC 199. LDL 113. HDL 62. Blood pressure today is 122/78. Pt has concerns for weight loss, cough x5 days/x2 days post endoscopy and pain all over her body. Pt also has complaints of R ear discomfort. [facility] Medical History Abdominal pain Abdominal rebound tenderness of right lower quadrant Rectal prolapse Surgical History History of bilateral breast reduction surgery History of colonoscopy History of esophagogastroduodenoscopy (EGD) History of kidney stones History of laparoscopic cholecystectomy History of lumpectomy of left breast History of removal of ovarian cyst History of right breast biopsy Hx of hysterectomy Status post LASIK surgery Family History Father Healthy adult Mother High cholesterol Migraines Diabetes Asthma Hypertension Maternal Grandfather CVD (cardiovascular disease) Maternal Aunt Family history of heart disease Other Mental health disorder Substance abuse Social History Housing: House Alcohol intake: never Patient Tobacco Use Status: Never used Tobacco e-Cigarette/Vaping Use: Never Used Second Hand Smoke Exposure: No service: No Current occupational status: unemployed Current occupational exposures/hazards: No Cognitive needs: No Hearing needs: No Vision needs: No Questionnaire KATI-7 AMB Questionnaire KATI-7 Date KATI - 7 assessed: 03/07/21 Source: Developed by Drs. Demond Oleary, Rhonda Quach, Mendel Brennan and colleagues, with an educational manuela from [employer]. Review of Systems Const Denies chills, Denies fatigue, Denies fever(s), Denies headache(s) and Denies weakness Eyes Denies change in vision ENT Denies dizziness, Denies headache(s), Denies hearing loss, Denies nasal congestion, Denies sinus pain, Denies sinus pressure and Denies sore throat Card Denies chest pain, Denies lightheadedness, Denies dyspnea and Denies other (palpitations) Resp Denies cough, Denies dyspnea and Denies wheezing GI Denies abdominal pain, Denies melena, Denies hematochezia, Denies change in bowel habits, Denies dyspepsia and Denies nausea Denies hematuria and Denies dysuria Musc Denies abnormal gait, Denies myalgias, Denies arthralgias, Denies numbness and Denies tingling Skin/Breast Denies rash, Denies unusual bruising and Denies wounds Neuro Denies abnormal gait, Denies dizziness, Denies headache(s), Denies memory loss, Denies numbness, Denies Sensory deficit (Neuro), Denies tingling and Denies weakness Psych Denies anxiety, Denies depression and Denies memory loss Endo Denies cold intolerance, Denies fatigue, Denies heat intolerance, Denies polydipsia and Denies polyuria Nasir/Lymph Denies easy bleeding and Denies easy bruising Aller/Immun Denies wheezing Physical exam (Primary Care) Vital Signs: Last Vital Signs Temp 98.7 F 12/24/22 09:01 Pulse 92 12/24/22 09:01 Resp 13 12/24/22 09:01 BP 122/78 12/24/22 09:01 Pulse Ox 99 12/24/22 09:01 BMI result Body Mass Index 30.4 Tobacco/Smoking Status: Tobacco use Status Tobacco use date assessed 11/22/22 12/24/22 09:08 Patient Tobacco Use Status Never used Tobacco 12/24/22 09:08 e-Cigarette/Vaping Use Never Used 12/24/22 09:08 Const General: no acute distress, well developed, alert and awake Nutritional Appearance: well nourished Orientation/consciousness: patient oriented x3 HENMT Head: Yes normocephalic and Yes atraumatic Ears: hearing grossly normal bilaterally and TM's normal bilaterally General nose exam: Normal external nose present and Normal nares present Mouth: Normal oral and palatal mucosa present and moist mucous membranes Teeth and gingiva: dentition normal Throat: Yes posterior oropharynx normal Eyes General: appearance normal, both eyes and all related structures Pupils: Equal, round and reactive pupils present and Pupil accommodation reflex normal EOM: EOMs intact bilaterally Neck Neck: Yes normal visual inspection, Yes no lymphadenopathy and Yes trachea midline Thyroid: Thyroid normal Carotids: no bruits Lymphatic: no lymphadenopathy noted Chest Chest palpation & inspection: normal inspection of the chest Resp Other: Coarse breath sounds bilaterally and some upper airway secretions but otherwise clear. Effort & Inspection: normal respiratory effort Cardio Rate: regular rate Rhythm: regular rhythm Heart sounds: S1 normal heart sound present, S2 normal heart sound present, no gallops, no murmurs and no rubs Bruits: no abdominal aortic bruits and no carotid bruits GI Palpation (GI): No Abdominal aortic bruit present, Soft to palpation, nontender, No hepatosplenomegaly present and No Rebound tenderness present Auscultation: normal bowel sounds General: Yes no CVA tenderness Back/Spine/Pelvis Back: no CVA tenderness Cervical Spine: cervical ROM normal and No Cervical spine tenderness Thoracic/Lumbar Spine: thoraco-lumbar ROM normal, No pain with thoraco-lumbar ROM, No thoracic spinal tenderness and No lumbar spinal tenderness Skin Lesions: no lesions Rashes: no rashes Trauma: no lacerations or abrasions Wounds: no wounds Nails: normal Neuro General: patient oriented x3 Cranial nerves: Yes Equal, round and reactive pupils present Cognition (Neuro): normal cognition Gait exam (Neuro): Normal gait present Motor exam (neuro): 5/5 motor strength present throughout Sensory Exam: No Sensory deficit (Neuro) Deep tendon reflexes (DTR's): Right patellar reflex intensity grade: 2+ and Left patellar reflex intensity grade: 2+ Extrem General: Yes normal to inspection and No edema Psych Appearance: grossly normal Affect: normal affect Attitude: cooperative Thought process: Normal thought process present Assessment and Plan Assessment & Plan (1) Adult general medical exam: Code(s): Z00.00 - Encounter for general adult medical examination without abnormal findings Plan: 42-year-old female presents for complete physical exam (2) Essential hypertension: Code(s): I10 - Essential (primary) hypertension Plan: Blood pressure is controlled Continue diet control (3) Discomfort of right ear: Code(s): H92.01 - Otalgia, right ear Plan: Right TM and canal are completely clear. No erythema. No cerumen. No effusion behind the ear but her description of symptoms is consistent with intermittent effusions. Continue cetirizine and Flonase Can also try Azelastine OTC (4) Anemia: Code(s): D64.9 - Anemia, unspecified Plan: Mild, stable. Will follow-up (5) Polyarthralgia: Code(s): M25.50 - Pain in unspecified joint Plan: Polyarthralgias and muscle pain. Currently followed by neurology and neuro surgery Also has a presumed diagnosis of fibromyalgia and we discussed that if no significant organic/neurologic explanation is found for her pain that fibromyalgia is likely remaining diagnosis. Will follow along with Neurology and Neurosurgery (6) Obesity (BMI 30.0-34.9): Code(s): E66.9 - Obesity, unspecified Plan: Difficulty with weight loss Will refer to nutrition (7) GERD (gastroesophageal reflux disease): Code(s): K21.9 - Gastro-esophageal reflux disease without esophagitis Plan: Severe GERD and gastritis Continue pantoprazole. Avoid trigger foods and over filling stomach. Avoid eating to close to bedtime. Has follow-up with GI; follow-up with GI and discuss next steps. (8) Screening for cervical cancer: Code(s): Z12.4 - Encounter for screening for malignant neoplasm of cervix Plan: History of hysterectomy Still followed by gyn physician for pelvic exams (9) Screening for colon cancer: Code(s): Z12.11 - Encounter for screening for malignant neoplasm of colon Plan: Followed by GI Up today (10) Bronchitis: Code(s): J40 - Bronchitis, not specified as acute or chronic Plan: Complaint cough, secretions and she has rather coarse breath sounds with upper airway secretions sounds bilaterally. Likely bronchitis Will give her short course prednisone Call or return to office if not improving or worsening (11) Screening for breast cancer: Code(s): Z12.39 - Encounter for other screening for malignant neoplasm of breast Plan: Managed by her design assistant Up-to-date Orders: Referrals Nutrition/Dietitian Referral E66.9 - Obesity, unspecified Medications: New prednisone 40 mg (2 x 20 mg) PO DAILY 4 days 8 tabs 0RF Coding Level of Care Code Est Pt Level 4 (49460) Est Pt Prev Care 40-64y(23221) Diagnoses Adult general medical exam Z00.00 Essential hypertension I10 Discomfort of right ear H92.01 Anemia D64.9 Polyarthralgia M25.50 Obesity (BMI 30.0-34.9) E66.9 GERD (gastroesophageal reflux disease) K21.9 Screening for cervical cancer Z12.4 Screening for colon cancer Z12.11 Bronchitis J40 Screening for breast cancer Z12.39
[2022-12-24 09:01] VITALS: BP 122/78; PULSE 92; RESP 13; TEMP 37.1; O2SAT 99; BMI 30.4
== END 2022-12-24 09:44 | disposition home or self-care (01) ==
PROVIDERS: PCP Family Medicine; Visit Provider Family Medicine
DX: Z00.00 Encounter for general adult medical examination without abnormal findings (principal); I10 Essential (primary) hypertension; K21.9 Gastro-esophageal reflux disease without esophagitis; H92.01 Otalgia, right ear; D64.9 Anemia, unspecified; M25.50 Pain in unspecified joint; E66.9 Obesity, unspecified; J40 Bronchitis, not specified as acute or chronic
CPT/HCPCS: 99396

== ENCOUNTER 2023-01-16 13:47 | Outpatient (AMB) | payer OTHER, SELFPAY ==
--- NOTE | 2023-01-16 13:51 | MHC.OFFVIS ---
Intake Vital Signs 01/16/23 14:03 Height 5 ft 5 in Weight 182 lb 1.629 oz BMI 30.3 BP 101/67 Blood Pressure Location Rt brachial Position Sitting Pulse 94 Intake Visit Reasons: S/p egd/colon luis alfredo Intake Note: Mary presents in the office today in EGD and colonoscopy follow up. CC: Pt states she continues to feel abdominal cramping, constipation, bloating, nausea, and GERD. Denies other GI symptoms today. She states about 5 days after procedure she began to have wheezing and tightness from her chest and her PCP gave her Prednisone. She states she continues to feel some chest tightness. 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 Accompanied by: Self / Same As Patient Allergies oxycodone [From Percocet] Allergy (Severe, Verified 01/16/23 14:08) Migraine and vomiting peach Allergy (Severe, Verified 01/16/23 14:08) Hives apple Allergy (Intermediate, Verified 01/16/23 14:08) Swelling erythromycin base [Erythromycin Base] Allergy (Mild, Verified 01/16/23 14:08) Confusion, Rash, Nausea, Vomiting, Out of it levofloxacin [From Levaquin] Allergy (Mild, Verified 01/16/23 14:08) Rash sulfamethoxazole [From Bactrim] Allergy (Mild, Verified 01/16/23 14:08) Rash trimethoprim [From Bactrim] Allergy (Mild, Verified 01/16/23 14:08) Rash Sulfa (Sulfonamide Antibiotics) Allergy (Unknown, Verified 01/16/23 14:08) Rash apples Allergy (Severe, Uncoded 12/24/22 09:06) Anaphylaxis meclazine Adverse Reaction (Severe, Uncoded 11/22/22 16:45) severe anxiety HPI S/p egd/colon luis alfredo HPI Details She has all 3 dosing levels of the Linzess at home, but over the past 2 weeks she has been taking the 290mcg dose and she has not moved her bowels. She has severe bloating and stomach distension and has gained 6 lbs! The has been no change in other medications, except she is now on a estradiol patch. TSH seemed okay. I am unsure why her body is all over the map in terms of her bowels. We will give her a bowel prep and a trial of reglan 5mg qidachs.? She stresses concerned that there was an antiemetic that caused her anxiety in the past but it was cured with Benadryl.? This might have been IV Reglan in this side effect is much more rare with oral Reglan but I advised her to try dose at home we keep Benadryl close by just in case she has this reaction.? If she does we will discontinue this line of treatment.? I also suggest that we get a small-bowel follow-through study to see if there is any delay in the small-bowel the stomach causing this variability in stooling. ROV 3 weeks.? ? ROV 3 weeks. (2) IBS (irritable bowel syndrome): ?Code(s): K58.9 - Irritable bowel syndrome without diarrhea (3) Nausea and vomiting: ?Code(s): R11.2 - Nausea with vomiting, unspecified ? ? ? Orders: Orders [place] upper GI small bowel Today K59.04 - Chronic i diopathic constipa tion, R11.2 - Naus ea with vomiting, unspecified ? Medications: New peg 3350-electroly leif 236-22.74-6.74 -5.86 gram (Golyt dayo) ?? until feca l effluent is kuldip r; do not exceed a total volume of 2 ,000 mL 240 mL? PO Q10M 1 day 4,000 mL 0RF Z12.11 - Encounter for screening for malignant neoplas m of colon ? metoclopramide HCl (Reglan) ?? oneal joshua and jenny d/ c'ed, provider christiane re of possible int eraction with proz ac and is monitori ng 5 mg? PO QIDACHS 1 20 tabs 3RF K59.04 - Chronic i diopathic constipa tion, R11.2 - Naus ea with vomiting, unspecified ? EGD/COLONOSCOPY 12/17/22 Findings: Larynx: Normal Esophagus: GE junction at 36 cms. No esophagitis or Sanders's. Stomach: A few 4-6 mm benign appearing polyps in the gastric body - biopsied. Mild gastric erythema. Biopsies were obtained. Grade 2 flap valve on retroflexed examination of the cardia. Duodenum: Normal bulb and descending duodenum Findings: Terminal Ileum: Not evaluated Cecum: Normal Ascending Colon: Mild patchy melanosis coli - biopsies obtained from the right colon. Transverse Colon: Normal Descending Colon: Normal Sigmoid Colon: Moderate diverticulosis Rectum: Normal Ano-rectum: Small internal hemorrhoids Colon preparation: Good Impression and Post Procedure Diagnosis: Endoscopy Findings: STOMACH: Mild gastritis and gastric polyps Colonoscopy Findings: No polyps were detected Moderate diverticulosis seen in the sigmoid colon Small hemorrhoids on retroflexed exam. Plan: Await pathology results Patient has an appointment on 01/02/23 in the GI Clinic with Selena Bustos NP. Repeat Colonoscopy in 10 years. Above findings were reviewed with the patient and Gastric Polyps and diverticulosis handouts were given in the discharge area BIOPSIES SHOWED: A.? Gastric antrum, biopsy:? Gastric antral mucosa with mild reactive changes and minimal chronic inactive gastritis; negative for H pylori, intestinal metaplasia and dysplasia.? B.? Gastric polyp, biopsy:? Fundic gland polyp with minimal chronic inactive inflammation; negative for H pylori, intestinal metaplasia and dysplasia. C.? Colon, right, biopsy:? Colonic mucosa with pigmented lamina propria macrophages compatible with melanosis coli, otherwise no specific change. NOT OBTAINED UPPER GI WITH SMALL-BOWEL FOLLOW-THROUGH TODAY'S VISIT Colonoscopy needs to be repeated in 10 years. The procedure was well tolerated. The results were explained and the patient is agreeable to the follow-up interval as stated. The bowel pattern has returned to normal. Education was provided to tell any 1st degree relatives about their findings to be sure that they are screened by age 45. Educated that they will be put on a recall list when it is time for their repeat scope but should they move out of state or away from the hospital they will need to remember along with their primary to repeat the procedure in a timely fashion to avoid any adverse complications. She still has epigastric pain, but no findings so far have been able to explain this. THE EGD certainly did not wai with the inactive biopsies. She is no longer taking the Linzess, she is using castor oil with good control fo her bowels. She continues on omeprazole 40mg bid. . The UGI is upcoming Thursday 02/01 ROV 2 weeks after 02/01 UGI study [facility] Medical History Abdominal pain Abdominal rebound tenderness of right lower quadrant Rectal prolapse Surgical History History of bilateral breast reduction surgery History of colonoscopy History of esophagogastroduodenoscopy (EGD) History of kidney stones History of laparoscopic cholecystectomy History of lumpectomy of left breast History of removal of ovarian cyst History of right breast biopsy Hx of hysterectomy Status post LASIK surgery Family History Father Healthy adult Mother High cholesterol Migraines Diabetes Asthma Hypertension Maternal Grandfather CVD (cardiovascular disease) Maternal Aunt Family history of heart disease Other Mental health disorder Substance abuse Social History Housing: House Alcohol intake: never Patient Tobacco Use Status: Never used Tobacco e-Cigarette/Vaping Use: Never Used Second Hand Smoke Exposure: No service: No Current occupational status: unemployed Current occupational exposures/hazards: No Cognitive needs: No Hearing needs: No Vision needs: No Review of Systems Const Denies fatigue, Denies fever(s), Denies night sweats, Reports poor appetite and Denies weight loss ENT Reports Normal hearing present, Denies dental pain, Denies dysphagia, Denies hearing loss, Denies mouth pain, Denies odynophagia, Denies throat swelling, Denies tongue swelling and Reports other (Dentition adequate) Card Reports no additional complaints Resp Reports no additional complaints GI Denies abdominal pain, Denies melena, Denies bloating, Denies hematochezia, Reports constipation, Denies GI cramping, Denies dysphagia, Denies excessive flatus, Denies early satiety, Reports heartburn, Denies diarrhea, Reports nausea, Denies odynophagia, Denies vomiting and Denies hematemesis Skin/Breast Denies pruritus, Denies lesions, Denies rash and Denies jaundice Neuro Reports Normal hearing present and Denies Abnormal speech present Endo Denies fatigue Aller/Immun Denies throat swelling and Denies tongue swelling Physical Exam Vital Signs: Last Vital Signs Pulse 94 01/16/23 14:03 BP 101/67 01/16/23 14:03 BMI result Body Mass Index 30.3 Const General: cooperative, no acute distress, well developed and well groomed Nutritional Appearance: well nourished and obese Orientation/consciousness: oriented to person, oriented to place and oriented to time Limitations: No language barrier HEENT Head: Yes normocephalic and Yes atraumatic Eyes General: appearance normal, both eyes and all related structures Pupils: Equal, round and reactive pupils present Neck Neck: Yes normal visual inspection and Yes no lymphadenopathy Thyroid: Thyroid normal Resp Effort & Inspection: normal respiratory effort and able to speak in complete sentences Auscultation: clear to auscultation bilaterally Cardio Rate: regular rate Rhythm: regular rhythm Heart sounds: Normal, physiologic split S2 sound present Peripheral pulses: radial pulses present and posterior tibial pulses present GI Inspection: No distended, No Abdominal panniculus present and Yes obesity Palpation (GI): Soft to palpation, nontender, no guarding, not rigid and No hepatosplenomegaly present Percussion: Yes normal to percussion Auscultation: normal bowel sounds Rectal Exam - Female: deferred Skin General skin exam: no rashes or lesions noted, turgor normal, skin not dry, no jaundice, No spider nevi and no striae Rashes: no rashes Nails: normal Neuro General: oriented to person, oriented to place and oriented to time Cranial nerves: Yes Equal, round and reactive pupils present and Yes Normal hearing present Speech: No Abnormal speech present Extrem General: Yes normal to inspection, No clubbing, No cyanosis and No edema Psych Appearance: grossly normal and well kempt Mental Status: mental status grossly normal Speech and movement: Normal speech and movement present Affect: normal affect Attitude: cooperative Thought process: Normal thought process present and not confabulating Thought content: Normal thought content present Insight: Limited insight present (Psych) Judgement: Limited judgement present (Psych) Assessment & Plan Assessment & Plan (1) GERD (gastroesophageal reflux disease): Code(s): K21.9 - Gastro-esophageal reflux disease without esophagitis Plan: UPPER GI WITH SMALL-BOWEL FOLLOW-THROUGH TODAY'S VISIT Colonoscopy needs to be repeated in 10 years. The procedure was well tolerated. The results were explained and the patient is agreeable to the follow-up interval as stated. The bowel pattern has returned to normal. Education was provided to tell any 1st degree relatives about their findings to be sure that they are screened by age 45. Educated that they will be put on a recall list when it is time for their repeat scope but should they move out of state or away from the hospital they will need to remember along with their primary to repeat the procedure in a timely fashion to avoid any adverse complications. She still has epigastric pain, but no findings so far have been able to explain this. THE EGD certainly did not wai with the inactive biopsies. She is no longer taking the Linzess, she is using castor oil with good control fo her bowels. She continues on omeprazole 40mg bid. . The UGI is upcoming Thursday 02/01 ROV 2 weeks after 02/01 UGI study (2) Nausea and vomiting: Code(s): R11.2 - Nausea with vomiting, unspecified (3) Screening for colon cancer: Code(s): Z12.11 - Encounter for screening for malignant neoplasm of colon (4) IBS (irritable bowel syndrome): Code(s): K58.9 - Irritable bowel syndrome without diarrhea (5) Chronic idiopathic constipation: Code(s): K59.04 - Chronic idiopathic constipation Coding Level of Care Code Est Pt Level 4 (57406) Diagnoses GERD (gastroesophageal reflux disease) K21.9 Nausea and vomiting R11.2 Screening for colon cancer Z12.11 IBS (irritable bowel syndrome) K58.9 Chronic idiopathic constipation K59.04
[2023-01-16 14:03] VITALS: BP 101/67; PULSE 94; BMI 30.3
== END 2023-01-16 14:27 | disposition home or self-care (01) ==
PROVIDERS: PCP Family Medicine; Visit Provider Nurse Practitioner
DX: K21.9 Gastro-esophageal reflux disease without esophagitis (principal); R11.2 Nausea with vomiting, unspecified; Z12.11 Encounter for screening for malignant neoplasm of colon; K58.9 Irritable bowel syndrome, unspecified; K59.04 Chronic idiopathic constipation
CPT/HCPCS: 99214

== ENCOUNTER → 2023-01-16 13:47 | Outpatient (BNVA) | payer OTHER, SELFPAY | PROVIDERS: PCP Family Medicine; Visit Provider Nurse Practitioner | DX: Z12.11 Encounter for screening for malignant neoplasm of colon (principal); K21.9 Gastro-esophageal reflux disease without esophagitis; K58.9 Irritable bowel syndrome, unspecified; K59.04 Chronic idiopathic constipation; R11.2 Nausea with vomiting, unspecified | CPT/HCPCS: 99212 ==

== ENCOUNTER 2023-02-05 12:55 | Outpatient (AMB) | payer OTHER, SELFPAY ==
--- NOTE | 2023-02-05 13:14 | MHC.AMNUTRGE ---
Intake VS Expanded 02/05/23 13:15 02/12/23 09:41 Height 5 ft 5 in 5 ft 5 in Weight 183 lb 6.793 oz 183 lb BMI 30.5 30.4 Intake Visit Reasons: Obesity/CONFIRMED Allergies oxycodone [From Percocet] Allergy (Severe, Verified 01/16/23 14:08) Migraine and vomiting peach Allergy (Severe, Verified 01/16/23 14:08) Hives apple Allergy (Intermediate, Verified 01/16/23 14:08) Swelling erythromycin base [Erythromycin Base] Allergy (Mild, Verified 01/16/23 14:08) Confusion, Rash, Nausea, Vomiting, Out of it levofloxacin [From Levaquin] Allergy (Mild, Verified 01/16/23 14:08) Rash sulfamethoxazole [From Bactrim] Allergy (Mild, Verified 01/16/23 14:08) Rash trimethoprim [From Bactrim] Allergy (Mild, Verified 01/16/23 14:08) Rash Sulfa (Sulfonamide Antibiotics) Allergy (Unknown, Verified 01/16/23 14:08) Rash apples Allergy (Severe, Uncoded 12/24/22 09:06) Anaphylaxis meclazine Adverse Reaction (Severe, Uncoded 11/22/22 16:45) severe anxiety Medication List - Last Reconciled 02/12/[address], LDN albuterol sulfate 90 mcg/actuation 2 puffs PO Q4-6H PRN bupropion HCl 300 mg PO DAILY cholecalciferol (vitamin D3) 25 mcg PO DAILY clonidine HCl 0.1 mg PO DAILY PRN dicyclomine 20 mg PO QID PRN estradiol 1 patch topical 2XW famotidine 40 mg PO BEDTIME fluoxetine 10 mg PO DAILY fluoxetine 40 mg PO DAILY linaclotide (Linzess) 145 mcg PO QAM multivitamin with minerals 1 cap PO DAILY omeprazole 40 mg PO BID 90 days ondansetron HCl 4 mg PO Q6H PRN pantoprazole (Protonix) 40 mg PO BID 30 days pregabalin 150 mg PO TID 30 days prochlorperazine maleate (Compazine) 10 mg PO Q8H PRN sennosides (Senna Laxative) 8.6 mg PO DAILY trazodone 100 mg PO BEDTIME HPI Nutrition Presentation Details Pt presents for MNT for Obesity. The Pt was referred by PCP, Dr. Eugenio Miranda from [facility]. Pt reports following vegetarian diet for over 30 years. Pt reports her highest weight was at 205 lbs over 2 years ago. Pt reports not drinking milk however has milk containing foods (cheese, dressings, batters and the like), includes foods made with eggs B: protein bar ([facility] protein bar )or granola [facility] frozen coffee caramel from DD 1 pm : cucumber Samoan dressing or spinach wrap with pizza sauce and cheese , or salad onions, cheese , low destinee Samoan olive garden and [facility] ranch dressing , 3-4 pm : protein shake or vegetable soup with pulses, water , fruit shake fruits daily: 0 (allergic to peaches , apples ) dairy: mostly from cheese legumes/pulses: 3 x/wk starches : quinoa, barley rice, chickpea pastas > 15 serving/d beverages: coffee, water, fruits shakes > 8-12 oz with meals /snacks mvi w mineral/d and vitamin D 1000 mg/d Physical activity: daily life activities ETOH/SMoking: denies QYO-Qyngnqz-Uw.Jeor Equation Height 5 ft 5 in Weight 183 lb Resting Metabolic Rate 1488.56 Calculated Activity Level Mild Activity Calories Needed to Maintain Weight 2046.77 Diagnosis Nutrition problem #1 excessive energy intake As evidenced by (sign/symptom) #1 knowledge deficit of diet (caloric content of foods) As related to (etiology) #2 inadequate oral intake (> 100 destinee per serving) and diagnosis (BMI 30.5 (02/2023) ) Monitoring/Goals Nutrition problem monitoring total energy intake and weight Nutrition goal/outcome wt loss 5lbs in 2 months Outcome progress verbalized understanding Most Recent Diabetes Results: Cholesterol 199 mg/dL 09/14/22 HDL Cholesterol 62 mg/dL 09/14/22 Triglycerides 124 mg/dL 09/14/22 Creatinine 0.91 mg/dL (0.5-1.4) 11/26/22 Blood Urea Nitrogen 14 mg/dL (9-16) 11/26/22 Sodium 139 mmol/L (135-145) 11/26/22 Potassium 4.2 mmol/L (3.3-5.1) 11/26/22 Chloride 105 mmol/L (96-108) 07/24/23 Carbon Dioxide 28 mmol/L (22-29) 11/26/22 Calcium 9.4 mg/dL (8.4-10.2) 11/26/22 AST 16 U/L (5-31) 11/26/22 ALT 12 U/L (0-31) 11/26/22 Total Protein 6.6 g/dL (6.5-8.0) 11/26/22 Albumin 3.8 g/dL (3.5-5.0) 11/26/22 [facility] Medical History Abdominal pain Abdominal rebound tenderness of right lower quadrant Rectal prolapse Surgical History History of bilateral breast reduction surgery History of colonoscopy History of esophagogastroduodenoscopy (EGD) History of kidney stones History of laparoscopic cholecystectomy History of lumpectomy of left breast History of removal of ovarian cyst History of right breast biopsy Hx of hysterectomy Status post LASIK surgery Family History Father Healthy adult Mother High cholesterol Migraines Diabetes Asthma Hypertension Maternal Grandfather CVD (cardiovascular disease) Maternal Aunt Family history of heart disease Other Mental health disorder Substance abuse Social History Housing: House Alcohol intake: never Patient Tobacco Use Status: Never used Tobacco e-Cigarette/Vaping Use: Never Used Second Hand Smoke Exposure: No service: No Current occupational status: unemployed Current occupational exposures/hazards: No Cognitive needs: No Hearing needs: No Vision needs: No Assessment & Plan Assessment & Plan (1) Obesity (BMI 30.0-34.9): Code(s): E66.9 - Obesity, unspecified Plan: wt: 83 kg Est kcal needs as per MSJ: 5 (40% carb, 30% protein/fat) Est fluid needs as per 30 ml/d: 2490 Est prot per day as per 1 g/kg bw: 83 Recommend fiber intake : 8-10 g per day and gradually increase to 25-28 g per day for women and 35-38 g for men or as tolerated Recommend sodium intake per day: less than 2000 mg Educated patient on: ( R = reviewed V = verbalizes understanding N/R = needs review N/A = not applicable Food sources of carbohydrate, adequate serving sizes and its role in various health conditions: R Differences between complex carbohydrates a simple carbohydrates, role of fiber in diet: R Reducing 250-500 calories from empty calorie foods/beverages: R, V Review reading food labels: R Differences between types of fats and role in diet (mono on saturated fat fatty acids, saturated fatty acids, trans fats): NR Food sources of sodium in salt and healthy modifications for heart health in kidney health: NR Vitamins and minerals: R Healthy plate method concept: R V Physical activity: Benefits a precaution: R Medications: On Hold omeprazole Hold Comment: Doctor's Order 40 mg PO BID 90 days 180 caps 1RF Patient Instructions: Reduce coffee in AM by choosing small cup vs large - see options for lower calorie flavors Coding Level of Care Code Nutr Indiv Intake (48368) Diagnoses Obesity (BMI 30.0-34.9) E66.9 Time Spent (min) 30
[2023-02-05 13:15] VITALS: BMI 30.5
[2023-02-12 09:41] VITALS: BMI 30.4
== END 2023-02-05 13:59 | disposition home or self-care (01) ==
PROVIDERS: PCP Family Medicine; Visit Provider Dietitian, Registered
DX: E66.9 Obesity, unspecified (principal)

== ENCOUNTER → 2023-02-05 12:55 | Outpatient (BNVA) | payer OTHER, SELFPAY | PROVIDERS: PCP Family Medicine; Visit Provider Dietitian, Registered | DX: E66.9 Obesity, unspecified (principal); Z68.30 Body mass index [BMI] 30.0-30.9, adult; Z71.3 Dietary counseling and surveillance | CPT/HCPCS: 97802 ==

== ENCOUNTER 2023-05-30 08:10 | Outpatient (REF) | payer OTHER, SELFPAY ==
--- NOTE | ~2023-05-30 | FL_ITS ---
EXAMINATION: XR FLUOROSCOPY UPPER GI WITH SMALL BOWEL SERIES CLINICAL INFORMATION: Nausea, abdominal pain, abdominal pain, epigastric. COMPARISON: Recent colonoscopy and EGD report reviewed. TECHNIQUE: Fluoroscopic air contrast upper GI examination was performed utilizing standard techniques with thin and thick barium and effervescent granules. Numerous spot images were obtained. FINDINGS: Lateral cine images of the oropharynx and hypopharynx demonstrate normal swallow mechanism with normal epiglottic inversion and soft palate elevation. There was trace laryngeal penetration with thick barium. No tracheal penetration, glottic or subglottic aspiration identified. No nasopharyngeal reflux present. Hypopharyngeal structures appear normal without evidence of mass or diverticulum. There was no significant cricopharyngeal achalasia. Dual and single contrast images of the esophagus demonstrate normal caliber, contour, and mucosal pattern. No evidence of stricture, mass, or ulcerations identified. Esophageal peristalsis was normal. No evidence of hiatus hernia identified. Gastroesophageal reflux is seen up to the thoracic inlet. Dual contrast and single contrast images of the stomach demonstrated a normal contour. The gastric mucosal folds appear mildly thickened, consistent with mild gastritis, as seen on recent EGD. No evidence of mass, ulceration, or other abnormality. Contrast freely passed into the gastric antrum and duodenal bulb without delay. Single and air-contrast images of the duodenal bulb demonstrate no abnormality. The duodenal sweep has a normal appearance, course, and mucosal fold appearance. The imaged proximal jejunum has a normal fold pattern and caliber. There are no dilated loops of small bowel present with no evidence of stricture or mass. Contrast is seen in the colon at 125 minutes Surgical clips are present in the right upper quadrant, consistent with prior history of cholecystectomy. FLUOROSCOPY TIME: 5 minutes 49 seconds Number of Spot Images: 17 Number of Cine: 13 DOSE AREA PRODUCT: 5373 uGy-m2 (microgray-meter squared) FL/FL upper GI small bowel IMPRESSION: 1. Trace laryngeal penetration with thick barium. 2. Significant gastroesophageal reflux 3. Mildly thickened gastric mucosal folds consistent with gastritis. 4. Contrast is seen in the colon at 125 minutes. No dilated small bowel present. No mass or strictures present. This procedure was performed by Siddharth Alcala PA-C, and supervised by Dr. Palacios
[2023-05-30] MEDS: Diatrizoate Meglumine, Sodium 30 ML SOLUTION PO (11:26)
== END 2023-05-30 08:11 | disposition home or self-care (01) ==
LOC: HO.XRAY 08:10
PROVIDERS: PCP Family Medicine; Visit Provider Nurse Practitioner
DX: R11.2 Nausea with vomiting, unspecified (principal); K59.04 Chronic idiopathic constipation
CPT/HCPCS: 74240; 74248

== ENCOUNTER → 2023-05-30 08:11 | Outpatient (BNV) | payer OTHER, SELFPAY | PROVIDERS: PCP Family Medicine; Visit Provider Radiology Diagnostic Radiology | DX: R10.13 Epigastric pain (principal); R11.2 Nausea with vomiting, unspecified | CPT/HCPCS: 74246; 74248 ==

== ENCOUNTER 2023-06-21 08:33 | Outpatient (AMB) | payer OTHER, SELFPAY ==
--- NOTE | 2023-06-21 08:39 | A.OFFVIS_ITS ---
Intake Vital Signs 06/21/23 08:40 Height 5 ft 5 in Weight 175 lb 7.807 oz BMI 29.2 BP 119/75 Blood Pressure Location Lt brachial Position Sitting Pulse 97 Intake Visit Reasons: follow up after study Intake Note: Patient presents to in office today in follow up of gastric emptying. CC: Patient c/o acid reflux out of control per patient and she states she has trouble swallowing food like bread and it hurts. She c/o nausea all the time and occasional abdominal pain. Denies toher GI symptoms. Allergies oxycodone [From Percocet] Allergy (Severe, Verified 06/21/23 08:44) Migraine and vomiting peach Allergy (Severe, Verified 06/21/23 08:44) Hives apple Allergy (Intermediate, Verified 06/21/23 08:44) Swelling erythromycin base [Erythromycin Base] Allergy (Mild, Verified 06/21/23 08:44) Confusion, Rash, Nausea, Vomiting, Out of it levofloxacin [From Levaquin] Allergy (Mild, Verified 06/21/23 08:44) Rash sulfamethoxazole [From Bactrim] Allergy (Mild, Verified 06/21/23 08:44) Rash trimethoprim [From Bactrim] Allergy (Mild, Verified 06/21/23 08:44) Rash Sulfa (Sulfonamide Antibiotics) Allergy (Unknown, Verified 06/21/23 08:44) Rash apples Allergy (Severe, Uncoded 12/24/22 09:06) Anaphylaxis meclazine Adverse Reaction (Severe, Uncoded 11/22/22 16:45) severe anxiety HPI follow up after study HPI Details Assessment & Plan (1) GERD (gastroesophageal reflux diseas e): Code(s): K21.9 - Gastro-esophageal reflux disease without esophagitis Plan: Colonoscopy needs to be repeated in 10 years. The procedure was well tolerated. The results were explained and the patient is agreeable to the follow-up interval as stated. The bowel pattern has returned to normal. Education was provided to tell any 1st degree relatives about their findings to be sure that they are screened by age 45. Educated that they will be put on a recall list when it is time for their repeat scope but should they move out of state or away from the hospital they will need to remember along with their primary to repeat the procedure in a timely fashion to avoid any adverse complications. She still has epigastric pain, but no findings so far have been able to explain this. THE EGD certainly did not wai with the inactive biopsies. She is no longer taking the Linzess, she is using castor oil with good control fo her bowels. She continues on omeprazole 40mg bid. . The UGI is upcoming Thursday 02/01 ROV 2 weeks after 02/01 UGI study (2) Nausea and vomiting: Code(s): R11.2 - Nausea with vomiting, unspecified (3) Screening for colon cancer: Code(s): Z12.11 - Encounter for screening for malignant neoplasm of colon (4) IBS (irritable bowel syndrome): Code(s): K58.9 - Irritable bowel syndrome without diarrhea (5) Chronic idiopathic constipation: Code(s): K59.04 - Chronic idiopathic constipation UPPER GI WITH SMALL-BOWEL FOLLOW-THROUGH 05/30/23 FINDINGS: Lateral cine images of the oropharynx and hypopharynx demonstrate normal swallow mechanism with normal epiglottic inversion and soft palate elevation. There was trace laryngeal penetration with thick barium. No tracheal penetration, glottic or subglottic aspiration identified. No nasopharyngeal reflux present. Hypopharyngeal structures appear normal without evidence of mass or diverticulum. There was no significant cricopharyngeal achalasia. Dual and single contrast images of the esophagus demonstrate normal caliber, contour, and mucosal pattern. No evidence of stricture, mass, or ulcerations identified. Esophageal peristalsis was normal. No evidence of hiatus hernia identified. Gastroesophageal reflux is seen up to the thoracic inlet. Dual contrast and single contrast images of the stomach demonstrated a normal contour. The gastric mucosal folds appear mildly thickened, consistent with mild gastritis, as seen on recent EGD. No evidence of mass, ulceration, or other abnormality. Contrast freely passed into the gastric antrum and duodenal bulb without delay. Single and air-contrast images of the duodenal bulb demonstrate no abnormality. The duodenal sweep has a normal appearance, course, and mucosal fold appearance. The imaged proximal jejunum has a normal fold pattern and caliber. There are no dilated loops of small bowel present with no evidence of stricture or mass. Contrast is seen in the colon at 125 minutes Surgical clips are present in the right upper quadrant, consistent with prior history of cholecystectomy. FLUOROSCOPY TIME: 5 minutes 49 seconds Number of Spot Images: 17 Number of Cine: 13 DOSE AREA PRODUCT: 5373 uGy-m2 (microgray-meter squared) FL/FL upper GI small bowel IMPRESSION: 1. Trace laryngeal penetration with thic k barium. 2. Significant gastroesophageal reflux 3. Mildly thickened gastric mucosal fold s consistent with gastritis. 4. Contrast is seen in the colon at 125 minutes. No dilated small bowel present. No mass or strictures present. TODAY'S VISIT She has lost 21 lbs on Ozempic. But she is having associated severe GERD and nausea frequently. She has also changed her diet significantly to not to low carbs (she is a vegetarian). The pantoprazole did not help, she went back to omeprazole, but is also using copious amts of famotidine. I think we need to rotate through PPI's to find an appropriate one for her. Next we will go to aciphex. Continue famotidine. She is having a lot of bloating, she has been using otc simethicone chewable, but would like an RX. Some dysphgia with bread or glutenous things like rice. Counselled to have water/drink handy for this and use care. I expect that this will probably continue until we get the esophageal irritation better controlled. Clearly the use of Ozempic on top of her [place] GERD (which she has had since she was 7 years old) is going to be a little more complex to manage that the ordinary reflux patient. ROV 3 weeks. [facility] Medical History (Reviewed 06/21/23 @ 08:50 by Melissa Velasco [facility]) Screening for colon cancer Discomfort of right ear Otitis media of right ear Lightheadedness Shortness of breath Normal physical exam Screening for cervical cancer Adult general medical exam Early satiety Abnormal urinalysis Suprapubic pain, acute Fatigue Vision changes Peroneal tendinitis, left leg Cough Myalgia Easy bruising Joint stiffness of hand Rectal prolapse Abdominal rebound tenderness of right lower quadrant Abdominal pain Surgical History Hx of hysterectomy History of esophagogastroduodenoscopy (EGD) History of kidney stones Status post LASIK surgery History of lumpectomy of left breast History of right breast biopsy History of colonoscopy History of laparoscopic cholecystectomy History of removal of ovarian cyst History of bilateral breast reduction surgery Family History Father Healthy adult Mother High cholesterol Migraines Diabetes Asthma Hypertension Maternal Grandfather CVD (cardiovascular disease) Maternal Aunt Family history of heart disease Other Mental health disorder Substance abuse Social History Housing: House Alcohol intake: never Patient Tobacco Use Status: Never used Tobacco e-Cigarette/Vaping Use: Never Used Second Hand Smoke Exposure: No service: No Current occupational status: unemployed Current occupational exposures/hazards: No Cognitive needs: No Hearing needs: No Vision needs: No Review of Systems Const Denies fatigue, Denies fever(s), Denies night sweats, Denies poor appetite and Reports weight loss ENT Reports Normal hearing present, Denies dental pain, Denies dysphagia, Denies hearing loss, Denies mouth pain, Denies odynophagia, Denies throat swelling, Denies tongue swelling and Reports other (Dentition adequate) Card Reports no additional complaints Resp Reports no additional complaints GI Details: Denies abdominal pain, Denies melena, Reports bloating, Denies hematochezia, Reports constipation, Denies GI cramping, Denies dysphagia, Denies excessive flatus, Denies early satiety, Reports heartburn, Denies diarrhea, Denies nausea, Denies odynophagia, Denies vomiting and Denies hematemesis Skin/Breast Denies pruritus, Denies lesions, Denies rash and Denies jaundice Neuro Reports Normal hearing present and Denies Abnormal speech present Endo Denies fatigue Aller/Immun Denies throat swelling and Denies tongue swelling Physical Exam Vital Signs: Last Vital Signs Pulse 97 06/21/23 08:40 BP 119/75 06/21/23 08:40 BMI result Body Mass Index 29.2 Const General: cooperative, no acute distress, well developed and well groomed Nutritional Appearance: average body habitus and well nourished Orientation/consciousness: oriented to person, oriented to place and oriented to time Limitations: No language barrier HEENT Head: Yes normocephalic and Yes atraumatic Eyes General: appearance normal, both eyes and all related structures Pupils: Equal, round and reactive pupils present Neck Neck: Yes normal visual inspection and Yes no lymphadenopathy Thyroid: Thyroid normal Resp Effort & Inspection: normal respiratory effort and able to speak in complete sentences Auscultation: clear to auscultation bilaterally Cardio Rate: regular rate Rhythm: regular rhythm Heart sounds: Normal, physiologic split S2 sound present Peripheral pulses: radial pulses present and posterior tibial pulses present GI Inspection: No distended and No Abdominal panniculus present Palpation (GI): Soft to palpation, nontender, no guarding, not rigid and No hepatosplenomegaly present Percussion: Yes normal to percussion Auscultation: normal bowel sounds Rectal Exam - Female: deferred Skin General skin exam: no rashes or lesions noted, turgor normal, skin not dry, no jaundice, No spider nevi and no striae Rashes: no rashes Nails: normal Neuro General: oriented to person, oriented to place and oriented to time Cranial nerves: Yes Equal, round and reactive pupils present and Yes Normal hearing present Speech: No Abnormal speech present Extrem General: Yes normal to inspection, No clubbing, No cyanosis and No edema Psych Appearance: grossly normal and well kempt Mental Status: mental status grossly normal Speech and movement: Normal speech and movement present Affect: normal affect Attitude: cooperative Thought process: Normal thought process present and not confabulating Thought content: Normal thought content present Insight: Fair insight present (Psych) Judgement: Fair judgement present (Psych) Assessment & Plan Assessment & Plan (1) GERD (gastroesophageal reflux disease): Code(s): K21.9 - Gastro-esophageal reflux disease without esophagitis (2) Epigastric pain: Code(s): R10.13 - Epigastric pain (3) Chronic idiopathic constipation: Code(s): K59.04 - Chronic idiopathic constipation (4) Abdominal bloating: Code(s): R14.0 - Abdominal distension (gaseous) (5) Dysphagia: Code(s): R13.10 - Dysphagia, unspecified Plan She has lost 21 lbs on Ozempic. But she is having associated severe GERD and nausea frequently. She has also changed her diet significantly to not to low carbs (she is a vegetarian). The pantoprazole did not help, she went back to omeprazole, but is also using copious amts of famotidine. I think we need to rotate through PPI's to find an appropriate one for her. Next we will go to aciphex. Continue famotidine. She is having a lot of bloating, she has been using otc simethicone chewable, but would like an RX. Some dysphgia with bread or glutenous things like rice. Counselled to have water/drink handy for this and use care. I expect that this will probably continue until we get the esophageal irritation better controlled. Clearly the use of Ozempic on top of her [place] GERD (which she has had since she was 7 years old) is going to be a little more complex to manage that the ordinary reflux patient. ROV 3 weeks. Medications: New rabeprazole (AcipHex) 20 mg PO BID 60 tabs 6RF K21.9 - Gastro-esophageal reflux disease without esophagitis, R10.13 - Epigastric pain simethicone (Gas Relief (simethicone)) 125 mg PO QID PRN 120 tabs 6RF abdominal distention R14.0 - Abdominal distension (gaseous) Discontinued pantoprazole Discontinued Reason: Doctor's Order 40 mg PO BID 180 tabs 1RF On Hold linaclotide (Linzess) Hold Comment: Doctor's Order 145 mcg PO QAM 30 caps 3RF K59.04 - Chronic idiopathic constipation Coding Level of Care Code Est Pt Level 3 (88016) Diagnoses GERD (gastroesophageal reflux disease) K21.9 Epigastric pain R10.13 Chronic idiopathic constipation K59.04 Abdominal bloating R14.0 Dysphagia R13.10
[2023-06-21 08:40] VITALS: BP 119/75; PULSE 97; BMI 29.2
== END 2023-06-21 09:25 | disposition home or self-care (01) ==
PROVIDERS: PCP Family Medicine; Visit Provider Nurse Practitioner
DX: K21.9 Gastro-esophageal reflux disease without esophagitis (principal); R10.13 Epigastric pain; K59.04 Chronic idiopathic constipation; R14.0 Abdominal distension (gaseous); R13.10 Dysphagia, unspecified
CPT/HCPCS: 99213

== ENCOUNTER → 2023-06-21 08:33 | Outpatient (BNVA) | payer OTHER, SELFPAY | PROVIDERS: PCP Family Medicine; Visit Provider Nurse Practitioner | DX: K21.9 Gastro-esophageal reflux disease without esophagitis (principal); K59.04 Chronic idiopathic constipation; R10.13 Epigastric pain; R14.0 Abdominal distension (gaseous); R13.10 Dysphagia, unspecified | CPT/HCPCS: 99212 ==

== ENCOUNTER 2023-07-08 15:47 | Outpatient (AMB) | payer OTHER, SELFPAY ==
[2023-07-08 16:27] VITALS: BP 118/64; PULSE 91; O2SAT 97; BMI 28.2
--- NOTE | 2023-07-08 16:27 | MHC.PC.OV ---
Vital Signs 07/08/23 16:27 Height 5 ft 5 in Weight 169 lb 6 oz BMI 28.2 BP 118/64 Blood Pressure Location Lt brachial Position Sitting Pulse 91 Pulse Source Pulse Oximeter Pulse Oximetry (%) 97 Oxygen Delivery Method Room Air Intake Visit Reasons: chronic condition Intake Note: Patient is here to follow up on chronic conditions. Allergies oxycodone [From Percocet] Allergy (Severe, Verified 07/08/23 16:28) Migraine and vomiting peach Allergy (Severe, Verified 07/08/23 16:28) Hives apple Allergy (Intermediate, Verified 07/08/23 16:28) Swelling erythromycin base [Erythromycin Base] Allergy (Mild, Verified 07/08/23 16:28) Confusion, Rash, Nausea, Vomiting, Out of it levofloxacin [From Levaquin] Allergy (Mild, Verified 07/08/23 16:28) Rash sulfamethoxazole [From Bactrim] Allergy (Mild, Verified 07/08/23 16:28) Rash trimethoprim [From Bactrim] Allergy (Mild, Verified 07/08/23 16:28) Rash Sulfa (Sulfonamide Antibiotics) Allergy (Unknown, Verified 07/08/23 16:28) Rash apples Allergy (Severe, Uncoded 07/08/23 16:28) Anaphylaxis meclazine Adverse Reaction (Severe, Uncoded 07/08/23 16:28) severe anxiety Tobacco use date assessed: 11/22/22 Dental Screening Dental Screen Date: 07/08/23 Did you have a dental visit in the last 12 months?: Yes Did you have a dental problem in the last 6 months where you did not have access to dental care?: No Was dental information given to patient?: Patient has dentist HPI chronic condition HPI Details 43 y/o female presents to f/u chronic conditions. Hx of fibromyalgia/polyarthralgia. She is on pregabalin which has been helping. Pt notes she feels like she is doing well. She notes sleeping has been fine as long as she takes her trazodone. [facility] Medical History Screening for colon cancer Discomfort of right ear Otitis media of right ear Lightheadedness Shortness of breath Normal physical exam Screening for cervical cancer Adult general medical exam Early satiety Abnormal urinalysis Suprapubic pain, acute Fatigue Vision changes Peroneal tendinitis, left leg Cough Myalgia Easy bruising Joint stiffness of hand Rectal prolapse Abdominal rebound tenderness of right lower quadrant Abdominal pain Surgical History Hx of hysterectomy History of esophagogastroduodenoscopy (EGD) History of kidney stones Status post LASIK surgery History of lumpectomy of left breast History of right breast biopsy History of colonoscopy History of laparoscopic cholecystectomy History of removal of ovarian cyst History of bilateral breast reduction surgery Family History Father Healthy adult Mother High cholesterol Migraines Diabetes Asthma Hypertension Maternal Grandfather CVD (cardiovascular disease) Maternal Aunt Family history of heart disease Other Mental health disorder Substance abuse Social History Housing: House Alcohol intake: never Patient Tobacco Use Status: Never used Tobacco e-Cigarette/Vaping Use: Never Used Second Hand Smoke Exposure: No service: No Current occupational status: unemployed Current occupational exposures/hazards: No Cognitive needs: No Hearing needs: No Vision needs: No Questionnaire KATI-7 AMB Questionnaire KATI-7 Date KATI - 7 assessed: 03/07/21 Source: Developed by Drs. Demond Oleary, Rhonda Quach, Mendel Brennan and colleagues, with an educational manuela from [employer]. Review of Systems Const Denies chills, Denies fatigue, Denies fever(s), Denies headache(s) and Denies weakness ENT Denies dizziness and Denies headache(s) Card Denies dyspnea Resp Denies cough, Denies dyspnea, Denies wheezing and Denies other (shortness of breath) Musc Denies numbness and Denies tingling Neuro Denies dizziness, Denies headache(s), Denies numbness, Denies tingling and Denies weakness Psych Denies anxiety and Denies depression Endo Denies fatigue Aller/Immun Denies wheezing Physical exam (Primary Care) Vital Signs: Last Vital Signs Pulse 91 07/08/23 16:27 BP 118/64 07/08/23 16:27 Pulse Ox 97 07/08/23 16:27 Oxygen Delivery Method Room Air 07/08/23 16:27 BMI result Body Mass Index 28.2 Tobacco/Smoking Status: Tobacco use Status Tobacco use date assessed 11/22/22 07/08/23 16:31 Patient Tobacco Use Status Never used Tobacco 07/08/23 16:31 e-Cigarette/Vaping Use Never Used 07/08/23 16:31 Const General: well developed; No acute distress Nutritional Appearance: well nourished Orientation/consciousness: patient oriented x3 HENMT Head: Yes normocephalic and Yes atraumatic Eyes General: appearance normal, both eyes and all related structures Pupils: Equal, round and reactive pupils present EOM: EOMs intact bilaterally Resp Effort & Inspection: normal respiratory effort Auscultation: clear to auscultation bilaterally Cardio Rate: regular rate Rhythm: regular rhythm Heart sounds: S1 normal heart sound present, S2 normal heart sound present, no gallops, no murmurs and no rubs Neuro General: patient oriented x3 and gait normal Cranial nerves: Yes Equal, round and reactive pupils present Psych Affect: normal affect Assessment and Plan Assessment & Plan (1) Fibromyalgia: Code(s): M79.7 - Fibromyalgia Plan: Patient?continues?to?exercise?and?stretch?daily Has?lost?weight?and?this?is?helping?with?discomfort?as?well. Taking?pregabalin?as?prescribed Continue?current?regimen Continue?weight?loss (2) Dysphagia: Code(s): R13.10 - Dysphagia, unspecified Plan: History?of?GERD?and?now?on?AcipHex?from?Gastroenterology This?is?helping. Continue?regimen?and?follow-up?with?Gastroenterology (3) Overweight: Code(s): E66.3 - Overweight Plan: Patient?was?obese?and?started?Ozempic.??She?has?lost?about?27?lb?since?then Continue?working?on?diet,?exercise?and?weight?loss.??Continue?Ozempic Congratulated?patient?on?weight?loss. Orders: Orders Complete Blood Count Auto Diff Today Z00.00 - Encounter for general adult medical examination without abnormal findings Microalbumin, Random (w Creat) Today I10 - Essential (primary) hypertension Hemoglobin A1c Today R73.01 - Impaired fasting glucose TSH reflex Free T4 Today Z00.00 - Encounter for general adult medical examination without abnormal findings Comprehensive Mccormick. Panel Fast Today Z00.00 - Encounter for general adult medical examination without abnormal findings Lipid Panel Today Z00.00 - Encounter for general adult medical examination without abnormal findings UA and rflx microscopic Today Z00.00 - Encounter for general adult medical examination without abnormal findings Vitamin D 25-OH Total Today E55.9 - Vitamin D deficiency, unspecified Coding Level of Care Code Est Pt Level 3 (03819) Diagnoses Fibromyalgia M79.7 Dysphagia R13.10 Overweight E66.3
== END 2023-07-08 17:21 | disposition home or self-care (01) ==
PROVIDERS: PCP Family Medicine; Visit Provider Family Medicine
DX: M79.7 Fibromyalgia (principal); R13.10 Dysphagia, unspecified; E66.3 Overweight
CPT/HCPCS: 99213

== ENCOUNTER 2023-11-08 12:30 | Outpatient (AMB) | payer OTHER, SELFPAY ==
[2023-11-08 13:00] VITALS: BP 90/56; PULSE 94; BMI 24.4
--- NOTE | 2023-11-08 13:00 | A.OFFVIS_ITS ---
Vital Signs 11/08/23 13:00 Height 5 ft 5 in Weight 146 lb 13.246 oz BMI 24.4 BP 90/56 L Blood Pressure Location Lt brachial Position Sitting Pulse 94 Intake Visit Reasons: [employer]/ [facility] obs 10/27/syncope ([facility] request) Regional Director Required: No Accompanied by: Self / Same As Patient Allergies oxycodone [From Percocet] Allergy (Severe, Verified 07/08/23 16:28) Migraine and vomiting peach Allergy (Severe, Verified 07/08/23 16:28) Hives apple Allergy (Intermediate, Verified 07/08/23 16:28) Swelling erythromycin base [Erythromycin Base] Allergy (Mild, Verified 07/08/23 16:28) Confusion, Rash, Nausea, Vomiting, Out of it levofloxacin [From Levaquin] Allergy (Mild, Verified 07/08/23 16:28) Rash sulfamethoxazole [From Bactrim] Allergy (Mild, Verified 07/08/23 16:28) Rash trimethoprim [From Bactrim] Allergy (Mild, Verified 07/08/23 16:28) Rash Sulfa (Sulfonamide Antibiotics) Allergy (Unknown, Verified 07/08/23 16:28) Rash apples Allergy (Severe, Uncoded 07/08/23 16:28) Anaphylaxis meclazine Adverse Reaction (Severe, Uncoded 07/08/23 16:28) severe anxiety Medication List - Last Reconciled 11/08/23 by Ike De Santiago MD albuterol sulfate 90 mcg/actuation 2 puffs PO Q4-6H PRN bupropion HCl XL 300 mg PO DAILY bupropion HCl XL 150 mg PO QAM buspirone 5 mg PO BID cholecalciferol (vitamin D3) 25 mcg PO DAILY clonidine HCl 0.1 mg PO DAILY PRN dicyclomine 20 mg PO QID PRN estradiol 1 patch topical 2XW famotidine 40 mg PO BEDTIME fluoxetine 80 mg PO DAILY multivitamin with minerals 1 cap PO DAILY omeprazole 40 mg PO BID 90 days ondansetron HCl 4 mg PO Q6H PRN pregabalin 150 mg PO TID 30 days prochlorperazine maleate (Compazine) 10 mg PO Q8H PRN semaglutide (Ozempic) 0.5 mg subcut QWEEK sennosides (Senna Laxative) 8.6 mg PO DAILY simethicone (Gas Relief (simethicone)) 125 mg PO QID PRN trazodone 100 mg PO BEDTIME 30 days HPI Comments Details: Mary is here for consultation regarding dizziness and syncope. She states that she was overweight at almost 200 lb. Then she decided lose weight. She has been doing diet as well as exercise and using Ozempic. After this, she has lost almost 60 lb in weight. Then her dizziness got worse. Recently, she has been substantially more dizzy than in the past. Then admitted for orthostatic hypotension/syncope to [facility]. At that time, advised hydration, compression stockings and liberalization of salt intake. Patient states that she still having dizziness. Blood pressure is on the lower side today. Otherwise, no known cardiac issues. She does get some shortness of breath with activity. No anginal-type symptoms. [facility] Medical History (Updated 11/08/23 @ 13:41 by Ike De Santiago MD) Shortness of breath Screening for colon cancer Discomfort of right ear Otitis media of right ear Lightheadedness Normal physical exam Screening for cervical cancer Adult general medical exam Early satiety Abnormal urinalysis Suprapubic pain, acute Fatigue Vision changes Peroneal tendinitis, left leg Cough Myalgia Easy bruising Joint stiffness of hand Rectal prolapse Abdominal rebound tenderness of right lower quadrant Abdominal pain Surgical History Hx of hysterectomy History of esophagogastroduodenoscopy (EGD) History of kidney stones Status post LASIK surgery History of lumpectomy of left breast History of right breast biopsy History of colonoscopy History of laparoscopic cholecystectomy History of removal of ovarian cyst History of bilateral breast reduction surgery Family History Father Healthy adult Mother High cholesterol Migraines Diabetes Asthma Hypertension Maternal Grandfather CVD (cardiovascular disease) Maternal Aunt Family history of heart disease Other Mental health disorder Substance abuse Social History Housing: House Alcohol intake: never Patient Tobacco Use Status: Never used Tobacco e-Cigarette/Vaping Use: Never Used Second Hand Smoke Exposure: No service: No Current occupational status: unemployed Current occupational exposures/hazards: No Cognitive needs: No Hearing needs: No Vision needs: No Review of Systems Const Denies chills, Denies daytime sleepiness, Denies fatigue, Denies fever(s), Denies lethargy, Denies snoring, Denies stops breathing during sleep, Denies weight gain, Denies weight loss and Denies other Eyes Denies loss of vision ENT Reports hearing loss Card Denies chest pain, Denies irregular heart rhythm, Denies claudication, Denies leg edema, Denies lightheadedness, Denies palpitations, Denies dyspnea, Denies dyspnea on exertion, Denies orthopnea and Reports other Resp Denies cough, Denies excessive phlegm production, Denies dyspnea, Denies dyspnea on exertion and Denies snoring GI Denies abdominal pain, Denies hematochezia, Denies change in bowel habits, Denies nausea and Denies vomiting Denies dysuria Musc Denies arthralgias, Denies muscle weakness and Denies numbness Skin/Breast Reports as per HPI, Denies nail changes and Denies rash Neuro Reports confusion, Denies loss of vision, Denies memory loss and Denies numbness Psych Reports anxiety, Reports confusion, Denies depression and Denies memory loss Endo Denies fatigue and Denies palpitations Nasir/Lymph Denies easy bruising Physical Exam Vital Signs: Last Vital Signs Pulse 94 11/08/23 13:00 BP 90/56 L 11/08/23 13:00 BMI result Body Mass Index 24.4 Const General: confusion Orientation/consciousness: confusion HEENT Other: Unremarkable Head: Yes normal to inspection Neck Neck: Yes normal visual inspection Chest Chest palpation & inspection: normal inspection of the chest Resp Auscultation: clear to auscultation bilaterally Cardio Palpation: normal PMI Heart sounds: S1 normal heart sound present, S2 normal heart sound present, no gallops, no murmurs and no rubs GI Palpation (GI): Soft to palpation Back/Spine/Pelvis Other: unremarkable Skin General skin exam: no rashes or lesions noted Neuro General: confusion Extrem General: Yes normal to inspection Psych Mental Status: mental status grossly normal Office Procedures EKG Details: EKG with sinus rhythm at 94/Min; no significant ST-T changes and otherwise unremarkable. [place]. [id number], Complete Assessment & Plan Assessment & Plan (1) Shortness of breath: Code(s): R06.02 - Shortness of breath Category: Medical (2) Orthostatic hypotension: Code(s): I95.1 - Orthostatic hypotension Category: Medical (3) Syncope and collapse: Code(s): R55 - Syncope and collapse Category: Medical Plan Orthostatic hypotension most likely related to weight loss. Even when she was overweight, she had normal to lowish blood pressures. Hence because of the extensive weight loss she is getting orthostatic hypotension and syncope. We discussed about this in great detail. Recommend that she stops the was not peak. Otherwise try not to lose anymore weight for the next few months as it may be too much too soon. Liberalize salt and fluid intake. Consider compression stockings if tolerated. Additionally, she is on anxiety medications which can lower blood pressure. Consider lowering dose or stopping those. With regard to question of shortness of breath, obtain echocardiogram. Follow-up in 3-4 months. Orders: Orders CA echo transthoracic complete Today R06.02 - Shortness of breath Coding Level of Care Code New Pt Level 4 (43672) Diagnoses Shortness of breath R06.02 Orthostatic hypotension I95.1 Syncope and collapse R55 CPT Codes EKG - CPT: 94922-[id number], Complete ([id number])
== END 2023-11-08 13:32 | disposition home or self-care (01) ==
PROVIDERS: PCP Family Medicine; Visit Provider Internal Medicine
DX: R06.02 Shortness of breath (principal); I95.1 Orthostatic hypotension; R55 Syncope and collapse
CPT/HCPCS: 93010; 99214

== ENCOUNTER → 2023-11-08 12:30 | Outpatient (BNVA) | payer OTHER, SELFPAY | PROVIDERS: PCP Family Medicine; Visit Provider Internal Medicine | DX: R06.02 Shortness of breath (principal); I95.1 Orthostatic hypotension | CPT/HCPCS: 93005; 99212 ==

== ENCOUNTER → 2023-11-26 13:29 | Outpatient (REF) | payer OTHER, SELFPAY ==
--- NOTE | 2023-11-26 13:35 | CA_ITS ---
Transthoracic Echocardiogram Patient (Last, First, Middle): Mary Warren, Gender: Female Date of : 1980 Age: 43 Procedure Date: 11/26/2023 Procedure Type: Transthoracic Echocardiogram Location: OP Height: 165.1 cm Weight: 66.23 kg BSA: 1.73 m2 Heart Rate: bpm BP: 120 / 70 mmHg Stock Mover: Referring MD: Ike De Santiago MD Symptoms: R06.02 - Shortness of breath Study Quality: Fair ECG Rhythm: Sinus Conclusions: - The left ventricular systolic function is low normal. The visually estimated ejection fraction is between 50-55%. - No obvious valvular pathology seen on this study. Findings Left Ventricle Normal left ventricular cavity size. There is normal left ventricular wall thickness. The left ventricular systolic function is low normal. The visually estimated ejection fraction is between 50-55%. There is no evidence of regional wall motion abnormalities. Diastolic function is normal for age. Right Ventricle Normal right ventricular cavity size and systolic function. Atria Both atria are normal in size. Aortic Valve There is a normal trileaflet aortic valve. There is no aortic valve stenosis. There is no aortic valve regurgitation. Mitral Valve The mitral valve appears normal. There is trace mitral valve regurgitation. There is no mitral valve stenosis. Pulmonic Valve The pulmonic valve is likely normal. Tricuspid Valve Normal tricuspid valve structure. There is trace tricuspid valve regurgitation. There is no evidence of pulmonary hypertension. Great Vessels The asc aorta is normal in size. Venous The inferior vena cava is normal in size and collapses greater than 50% with inspiration. Pericardium/Pleural There is no evidence of pericardial effusion. Prior Study Comparison No prior study available for comparison. Recommendations, Care & Conclusions No obvious valvular pathology seen on this study. Measurements 2D Linear Measurements IVSd: 0.89 0.6-0.9/0.6-1.0 cm LVIDd: 4.23 3.9-5.3/4.2-5.9 cm LVIDd Index: 2.45 2.4-3.2/2.2-3.1 cm/m2 LVIDs: 2.68 2.0-3.6 cm LVPWd: 0.96 0.7-1.1 cm Ao Root: 2.70 2.1-3.5 cm LA Diam: 3.40 2.7-3.8/3.0-4.0 cm LAIDs Index: 1.97 1.5-2.3 cm/m2 LV Mass: 154.92 67-162/88-224 g LV Mass Index: 89.55 43-95/49-115 g/m2 LVOT Diam: 2.00 3.0+(-)1.3 cm 2D Systolic Function EF 4C: 51.70 >55% EF 2C: 52.70 >55% EF BiP: 52.20 >55% Mitral Valve MV Pk E: 0.66 MV PK A: 0.64 MV Decel Time: 108.00 E/A: 1.00 E'Lateral: 12.80 E'Medial: 6.96 E/E' Med: 9.50 E/E' Lat: 5.20 PHT: 32.00 MVA PHT: 6.88 Decel [place]: 6.09 Aortic Valve AoV Pk Ministerio: 1.16 AoV Mn Ministerio: 0.76 AoV VTI: 0.25 AoV Pk Grad: 5.00 Aov Mn Grad: 3.00 OZZIE Cont.VTI: 2.64 LVOT LVOT Pk Ministerio: 0.98 LVOT Mn Ministerio: 0.63 LVOT VTI: 0.21 LVOT Pk Grad: 4.00 LVOT Mn Grad: 2.00 LVOT Diam: 2.00 LVOT Area: 3.14 Diastolic Function MV Pk E: 0.66 MV Pk A: 0.64 E/A: 1.00 E'Medial: 6.96 E/E' Med: 9.50 E' Laterial: 12.80 E/E' Lat: 5.20 Right Ventricle TAPSE (mm): 22.00 TVS' Ministerio: 12.00 Tricuspid Valve TR Pk Ministerio: 1.77 TR Pk Grad: 13.00 RA Press: 3.00 RVSP: 16.00 Great Vessels Aorta Ao Root-2D: 2.70 2.0-3.7 cm Ao Asc: 3.10 2.1-3.4 cm Pulmonary Valve PV Pk Ministerio: 0.81 Peak PV Grad: 3.00 Updated in Other Vendor System with Status of Final Ike De Santiago MD electronically signed on 11/27/2023 12:02:48 PM with status of Final
== END ==
LOC: HO.CARD 13:29
PROVIDERS: PCP Family Medicine; Visit Provider Internal Medicine
DX: R06.02 Shortness of breath (principal)
CPT/HCPCS: 93306

== ENCOUNTER → 2023-11-26 13:35 | Outpatient (BNV) | payer OTHER, SELFPAY | PROVIDERS: PCP Family Medicine; Visit Provider Internal Medicine | DX: R06.02 Shortness of breath (principal) | CPT/HCPCS: 93306 ==

== ENCOUNTER 2024-05-18 15:36 | Outpatient (AMB) | payer OTHER, SELFPAY ==
--- NOTE | 2024-05-18 15:48 | A.OFFPC_ITS ---
Vital Signs 05/18/24 16:03 Height 5 ft 5 in Weight 158 lb 8 oz BMI 26.4 BP 112/68 Blood Pressure Location Rt brachial Position Sitting Respiration 16 Pulse 100 Pulse Source Pulse Oximeter Temp 98.3 F Temp Source Oral Pulse Oximetry (%) 99 Oxygen Delivery Method Room Air Intake Visit Reasons: cpe Intake Note: patient here for CPE [employer] Required: No Is last menstrual period known: No Post menopausal: No Patient : No Allergies oxycodone [From Percocet] Allergy (Severe, Verified 05/18/24 16:00) Migraine and vomiting peach Allergy (Severe, Verified 05/18/24 16:00) Hives apple Allergy (Intermediate, Verified 05/18/24 16:00) Swelling erythromycin base [Erythromycin Base] Allergy (Mild, Verified 05/18/24 16:00) Confusion, Rash, Nausea, Vomiting, Out of it levofloxacin [From Levaquin] Allergy (Mild, Verified 05/18/24 16:00) Rash sulfamethoxazole [From Bactrim] Allergy (Mild, Verified 05/18/24 16:00) Rash trimethoprim [From Bactrim] Allergy (Mild, Verified 05/18/24 16:00) Rash Sulfa (Sulfonamide Antibiotics) Allergy (Unknown, Verified 05/18/24 16:00) Rash apples Allergy (Severe, Uncoded 07/08/23 16:28) Anaphylaxis meclazine Adverse Reaction (Severe, Uncoded 07/08/23 16:28) severe anxiety Tobacco use date assessed: 05/18/24 Dental Screening Dental Screen Date: 05/18/24 Did you have a dental visit in the last 12 months?: Yes Did you have a dental problem in the last 6 months where you did not have access to dental care?: No Was dental information given to patient?: Patient has dentist HPI cpe HPI Details 44 y/o female presents for a CPE with f/ u labs and health maintenance. No recent labs to review. Notes hx of syncope in the summer. Blood pressure today 112/68, 100p. PFSH Medical History (Updated 05/18/24 @ 16:47 by Juan Pemberton) Screening for colon cancer Screening for cervical cancer Adult general medical exam Shortness of breath Discomfort of right ear Otitis media of right ear Lightheadedness Normal physical exam Early satiety Abnormal urinalysis Suprapubic pain, acute Fatigue Vision changes Peroneal tendinitis, left leg Cough Myalgia Easy bruising Joint stiffness of hand Rectal prolapse Abdominal rebound tenderness of right lower quadrant Abdominal pain Surgical History (Reviewed 11/08/23 @ 13:07 by Gladis Calle [facility]) Hx of hysterectomy History of esophagogastroduodenoscopy (EGD) History of kidney stones Status post LASIK surgery History of lumpectomy of left breast History of right breast biopsy History of colonoscopy History of laparoscopic cholecystectomy History of removal of ovarian cyst History of bilateral breast reduction surgery Family History (Reviewed 11/08/23 @ 13:07 by Gladis Calle [facility]) Father Healthy adult Mother High cholesterol Migraines Diabetes Asthma Hypertension Maternal Grandfather CVD (cardiovascular disease) Maternal Aunt Family history of heart disease Other Mental health disorder Substance abuse Social History (Reviewed 11/08/23 @ 13:07 by Gladis Calle [facility]) Housing: House Alcohol intake: never Patient Tobacco Use Status: Never used Tobacco e-Cigarette/Vaping Use: Never Used Second Hand Smoke Exposure: No service: No Current occupational status: unemployed Current occupational exposures/hazards: No Cognitive needs: No Hearing needs: No Vision needs: No Questionnaire PHQ-9 Over the last 2 weeks, how often have you been bothered by any of the following problems? 1. Little interest or pleasure in doing things: not at all 2. Feeling down, depressed, or hopeless: not at all 3. Trouble falling or staying asleep, or sleeping too much: not at all 4. Feeling tired or having little energy: not at all 5. Poor appetite or overeating: not at all 6. Feeling bad about yourself - or that you are a failure or have let yourself or your family down: not at all 7. Trouble concentrating on things, such as reading the newspaper or watching television: not at all 8. Moving or speaking so slowly that other people could have noticed. Or the opposite - being so fidgety or restless that you have been moving around a lot more than usual: not at all 9. Thoughts that you would be better off or of hurting yourself in some way: not at all Total score: 0 Depression Screening Interpretation: Negative Depression Screening Done: Yes [id number] - PHQ-9 Billing: Yes Source: Developed by Zeke Dodsonet [employer], Mendel Brennan and colleagues, with an educational manuela from [employer]. Thrive Questionnaire Date Thrive assessed: 05/18/24 I am a: Patient What is your living situation today?: I have a steady place to live Within the past 12 months, did the food you bought not last and you didn't have the money to get more?: Never true Within the past 12 months, did you worry whether your food would run out before you got money to buy more?: Never true Do you have trouble paying for medicines?: No Do you have trouble getting transportation to medical appointments?: No Do you have trouble paying your heating and electricity bill?: No Do you have trouble taking care of your child, family member or friend?: No Do you have trouble with day-to-day activities such as bathing, preparing meals, shopping, managing finances, etc.?: No Are you currently unemployed and looking for a job?: No Are you interested in more education?: No Please select the resources that you would like help with: None Currently or been in a relationship where the following occur: No concerns reported THRIVE Score: 0 AUDIT C Alcohol Use Questionnaire (AUDIT-C) 1. How often do you have a drink containing alcohol?: 4 or more times a week 2. How many drinks containing alcohol do you have on a typical day when you are drinking?: 1 or 2 3. How often do you have six or more drinks on one occasion?: Never Total Score: 4 KATI-7 AMB Questionnaire KATI-7 Date KATI - 7 assessed: 05/18/24 Feeling nervous, anxious, or on edge: 0 = Not at all Not being able to stop or control worryin = Not at all Worrying too much about different things: 0 = Not at all Trouble relaxin = Not at all Being so restless that it is hard to sit still: 0 = Not at all Becoming easily annoyed or irritable: 0 = Not at all Feeling afraid as if something awful might happen: 0 = Not at all Total KATI-7 score (0-4 normal; 5-9 mild; 10-14 moderate; 15-21 severe): 0 Source: Developed by Rhonda Dodson, Mendel shahid nd colleagues, with an educational manuela from [employer]. KATI-7 Assessment Billing KATI-7 Assessment Tool: KATI-7 Assessment [id number] Review of Systems Const Denies chills, Denies fatigue, Denies fever(s), Denies headache(s) and Denies weakness Eyes Denies change in vision ENT Denies dizziness, Denies headache(s), Denies hearing loss, Denies nasal congestion, Denies sinus pain, Denies sinus pressure and Denies sore throat Card Denies chest pain, Denies lightheadedness, Denies dyspnea and Denies other (palpitations) Resp Denies cough, Denies dyspnea and Denies wheezing GI Denies abdominal pain, Denies melena, Denies hematochezia, Denies change in bowel habits, Denies dyspepsia and Denies nausea Denies hematuria and Denies dysuria Musc Denies abnormal gait, Denies myalgias, Denies arthralgias, Denies numbness and Denies tingling Skin/Breast Denies rash, Denies unusual bruising and Denies wounds Neuro Denies abnormal gait, Denies dizziness, Denies headache(s), Denies memory loss, Denies numbness, Denies Sensory deficit (Neuro), Denies tingling and Denies weakness Psych Denies anxiety, Denies depression and Denies memory loss Endo Denies cold intolerance, Denies fatigue, Denies heat intolerance, Denies polydipsia and Denies polyuria Nasir/Lymph Denies easy bleeding and Denies easy bruising Aller/Immun Denies wheezing Physical exam (Primary Care) Vital Signs: Last Vital Signs Temp 98.3 F 05/18/24 16:03 Pulse 100 05/18/24 16:03 Resp 16 05/18/24 16:03 BP 112/68 05/18/24 16:03 Pulse Ox 99 05/18/24 16:03 Oxygen Delivery Method Room Air 05/18/24 16:03 BMI result Body Mass Index 26.4 Tobacco/Smoking Status: Tobacco use Status Tobacco use date assessed 05/18/24 05/18/24 15:55 Patient Tobacco Use Status Never used Tobacco 05/18/24 15:48 e-Cigarette/Vaping Use Never Used 05/18/24 15:48 PHQ-9: PHQ-9 Score PHQ-9: Total score 0 05/18/24 16:47 Depression Screening Interpretation: Negative Thrive Assessment: Date of Thrive Assessment Date Thrive assessed 05/18/24 05/18/24 15:52 Currently or been in a relationship where the following occur: No concerns reported Const General: no acute distress, well developed, alert and awake Nutritional Appearance: well nourished Orientation/consciousness: patient oriented x3 HENMT Head: Yes normocephalic and Yes atraumatic Ears: hearing grossly normal bilaterally and TM's normal bilaterally General nose exam: Normal external nose present and Normal nares present Mouth: Normal oral and palatal mucosa present and moist mucous membranes Teeth and gingiva: dentition normal Throat: Yes posterior oropharynx normal Eyes General: appearance normal, both eyes and all related structures Pupils: Equal, round and reactive pupils present and Pupil accommodation reflex normal EOM: EOMs intact bilaterally Neck Neck: Yes normal visual inspection, Yes no lymphadenopathy and Yes trachea midline Thyroid: Thyroid normal Carotids: no bruits Lymphatic: no lymphadenopathy noted Chest Chest palpation & inspection: normal inspection of the chest Resp Effort & Inspection: normal respiratory effort Auscultation: clear to auscultation bilaterally Cardio Rate: regular rate Rhythm: regular rhythm Heart sounds: S1 normal heart sound present, S2 normal heart sound present, no gallops, no murmurs and no rubs Bruits: no abdominal aortic bruits and no carotid bruits GI Palpation (GI): No Abdominal aortic bruit present, Soft to palpation, nontender, No hepatosplenomegaly present and No Rebound tenderness present Auscultation: normal bowel sounds General: Yes no CVA tenderness Back/Spine/Pelvis Back: no CVA tenderness Cervical Spine: cervical ROM normal and No Cervical spine tenderness Thoracic/Lumbar Spine: thoraco-lumbar ROM normal, No pain with thoraco-lumbar ROM, No thoracic spinal tenderness and No lumbar spinal tenderness Skin Lesions: no lesions Rashes: no rashes Trauma: no lacerations or abrasions Wounds: no wounds Nails: normal Neuro General: patient oriented x3 Cranial nerves: Yes Equal, round and reactive pupils present Cognition (Neuro): normal cognition Gait exam (Neuro): Normal gait present Motor exam (neuro): 5/5 motor strength present throughout Sensory Exam: No Sensory deficit (Neuro) Deep tendon reflexes (DTR's): Right patellar reflex intensity grade: 2+ and Left patellar reflex intensity grade: 2+ Extrem General: Yes normal to inspection and No edema Psych Appearance: grossly normal Affect: normal affect Attitude: cooperative Thought process: Normal thought process present Coding Level of Care Code Est Pt Prev Care 40-64y(03022) Diagnoses Adult general medical exam Z00.00 Syncope and collapse R55 Essential hypertension I10 Breast cancer screening by mammogram Z12.31 Screening for colon cancer Z12.11 Screening for cervical cancer Z12.4 Additional Codes KATI-7 Assessment Billing - KATI-7 Assessment Tool: KATI-7 Assessment 40372 ([id number]) PHQ-9 - 13957 - PHQ-9 Billing: Yes ([id number]) Assessment & Plan Assessment & Plan (1) Adult general medical exam: Code(s): Z00.00 - Encounter for general adult medical examination without abnormal findings Category: Medical Plan: 44-year-old?female?presents?for?complete?physical?exam Encouraged?healthy?diet?with?active?lifestyle?and?plenty?of?exercise Patient?is?vegetarian?and?says?she?does?not?get?a?lot?protein Encouraged?vegetarian/vegan?protein?shakes?or?other?sources?of?protein (2) Syncope and collapse: Code(s): R55 - Syncope and collapse Category: Medical Plan: History?of?orthostatic?hypotension, syncope?and?collapse She?had?seen?the?senior radiation therapist?who?recommende d?increased?fluid?intake?and?increased?salt/sodium?as?well?as?advising?against?f urther?weight?loss?all?at?once. Patient?is?still?noting?significant?presyncope?episodes?when?she?stands?up?quick ly Che[facility] elena?lab?work?including?CBC?CMP?he,?thyroid?and?also?checking?carotid?ultrasound As?above,?advised?plenty?of?fluids?and?increased?protein?intake (3) Essential hypertension: Code(s): I10 - Essential (primary) hypertension Category: Medical Plan: No?longer?hypotensive.??In?fact?she?is?hypotensive. She?is?not?on?any?antihypertensive?medications (4) Breast cancer screening by mammogram: Code(s): Z12.31 - Encounter for screening mammogram for malignant neoplasm of breast Category: Medical Plan: Will?discuss?at?next?visit (5) Screening for colon cancer: Code(s): Z12.11 - Encounter for screening for malignant neoplasm of colon Category: Medical Plan: Will?discuss?at?next?visit (6) Screening for cervical cancer: Code(s): Z12.4 - Encounter for screening for malignant neoplasm of cervix Category: Medical Plan: Will?discuss?at?next?visit Orders: Orders Lipid Panel Today Z00.00 - Encounter for general adult medical examination without abnormal findings UA and rflx microscopic Today Z00.00 - Encounter for general adult medical examination without abnormal findings Comprehensive [place]. Panel Fast Today Z00.00 - Encounter for general adult medical examination without abnormal findings Complete Blood Count Auto Diff Today Z00.00 - Encounter for general adult medical examination without abnormal findings Microalbumin, Random (w Creat) Today I10 - Essential (primary) hypertension TSH reflex Free T4 Today Z00.00 - Encounter for general adult medical examination without abnormal findings XR chest 2V Today R07.89 - Other chest pain PFT pulmonary function test Today R06.02 - Shortness of breath US carotid duplex BI Today R55 - Syncope and collapse
[2024-05-18 16:03] VITALS: BP 112/68; PULSE 100; RESP 16; TEMP 36.8; O2SAT 99; BMI 26.4
== END 2024-05-18 17:10 | disposition home or self-care (01) ==
PROVIDERS: PCP Family Medicine; Visit Provider Family Medicine
DX: Z00.00 Encounter for general adult medical examination without abnormal findings (principal); R55 Syncope and collapse; I10 Essential (primary) hypertension; Z12.31 Encounter for screening mammogram for malignant neoplasm of breast; Z12.11 Encounter for screening for malignant neoplasm of colon; Z12.4 Encounter for screening for malignant neoplasm of cervix

== ENCOUNTER → 2024-05-18 15:36 | Outpatient (BNVA) | payer MEDICARE, SELFPAY | PROVIDERS: PCP Family Medicine; Visit Provider Family Medicine | DX: Z00.00 Encounter for general adult medical examination without abnormal findings (principal); I10 Essential (primary) hypertension; R55 Syncope and collapse; R07.89 Other chest pain; R06.02 Shortness of breath | CPT/HCPCS: 96127; 99396 ==

== ENCOUNTER 2024-05-19 08:03 | Outpatient (REF) | payer MEDICARE, OTHER, SELFPAY ==
--- NOTE | ~2024-05-19 | XR_ITS ---
CLINICAL HISTORY: R07.89 - Other chest pain 2 view chest x-ray Comparison: None Findings: The lungs are clear. Normal size heart. No acute fracture. IMPRESSION: 1. No acute findings. This document has been electronically signed by: Idalmis Wheeler MD on 05/20/2024 02:42:55
[2024-05-19 09:58] LABS: MANUAL DIFF FLAG NO
[2024-05-19 10:00] LABS: Appearance Urine Turbid; Color Urine Yellow; Glucose Urine UA Negative (Negative); Leukocyte Esterase Urine Negative (Negative); Nitrite Urine Negative (Negative); Urine Blood Negative (Negative); Urine Ketones Negative (Negative); Urine Protein Negative (Neg-Trace)
[2024-05-19 10:02] LABS: Basophils Absolute Auto 0.1 X10*3/uL (0.0-0.2); Basophils Percent Auto 1.4 % (0-2); Eosinophils Absolute Auto 0.2 X10*3/uL (0.0-0.4); Eosinophils Percent Auto 3.4 % (0-4); Hematocrit 32.1 % (37.0-47.0); Hemoglobin 10.7 g/dl (12.0-16.0); Imm Gran Abs Auto 0.02 X10*3/uL (0.00-0.03); Imm Gran Pct Auto 0.4 % (0.0-0.4); Lymphocytes Absolute Auto 1.8 X10*3/uL (1.2-4.9); Lymphocytes Percent Auto 36.9 % (20-40); Mean Corpuscular HGB Conc 33.3 g/dl (31.0-35.0); Mean Corpuscular Hemoglobin 29.5 pg (27.0-33.0); Mean Corpuscular Volume 88.4 fL (80.0-98.0); Mean Platelet Volume 9.7 fL (9.4-12.3); Monocytes Absolute Auto 0.5 X10*3/uL (0.1-1.2); Monocytes Percent Auto 9.1 % (2-11); Neutrophils Absolute Auto 2.4 x10*3/uL (2.0-8.3); Neutrophils Percent Auto 48.8 % (45-73); Platelet Count 267 X10*3/uL (160-400); Red Blood Count 3.63 X10*6/uL (4.20-5.50)
[2024-05-19 10:12] LABS: Estimated Average Glucose 100 mg/dL; Hemoglobin A1C 90.6688 umol/L; Hemoglobin A1c % 5.1 % (<6.0); Total Hemoglobin (HGBA1C) 2842.6808 umol/L
[2024-05-19 10:34] LABS: Creatinine Urine 137.71 mg/dL
[2024-05-19 10:42] LABS: Alanine Aminotransferase 23 U/L (0-31); Albumin Level 3.9 g/dL (3.5-5.0); Alkaline Phosphatase 49 U/L (39-117); Anion Gap 8 (12-20); Aspartate Amino Transferase 23 U/L (5-31); Bilirubin Total 0.4 mg/dL (0.0-1.0); Blood Urea Nitrogen 16 mg/dL (9-16); Carbon Dioxide 31 mmol/L (22-29); Chloride 106 mmol/L (96-108); Cholesterol 231 mg/dL (<200); Estimated Glomerular Filt Rate > 60; Glucose Fasting 80 mg/dL (60-99); HDL Cholesterol 79 mg/dL (>40); LDL Cholesterol Calculated 132 mg/dL (<100); Potassium 4.1 mmol/L (3.3-5.1); Sodium 141 mmol/L (135-145); Total Protein 6.1 g/dL (6.5-8.0); Triglycerides 101 mg/dL (<150)
[2024-05-19 10:44] LABS: TSH reflex Free T4 1.03 uIU/mL (0.32-4.0); Vitamin D 25-OH Total 52.1 ng/mL (>30)
== END 2024-05-19 08:04 | disposition home or self-care (01) ==
LOC: HO.HMGCX 08:03
PROVIDERS: PCP Family Medicine; Visit Provider Family Medicine
DX: Z00.00 Encounter for general adult medical examination without abnormal findings (principal); R73.01 Impaired fasting glucose; I10 Essential (primary) hypertension; E55.9 Vitamin D deficiency, unspecified; R07.89 Other chest pain
CPT/HCPCS: 36415; 71046; 80053; 80061; 81003; 82043; 82306; 82570; 83036; 84443; 85025

== ENCOUNTER → 2024-05-19 08:32 | Outpatient (BNV) | payer MEDICARE, OTHER, SELFPAY | PROVIDERS: PCP Family Medicine; Visit Provider Radiology Diagnostic Radiology | DX: R07.89 Other chest pain (principal) | CPT/HCPCS: 71046 ==

== ENCOUNTER 2024-05-26 12:57 | Outpatient (REF) | payer MEDICARE, OTHER, SELFPAY ==
--- NOTE | ~2024-05-26 | US_ITS ---
CLINICAL HISTORY: R55 - Syncope and collapse US Bilateral Carotid Duplex Comparison: None Findings: Bilateral carotid intimal thickening. Normal color doppler and waveforms morphology. Peak systolic velocities: Right CCA: Up to 132 cm/s. Right ICA: Up to 146 cm/s in the proximal and midportions. Only questionable plaque noted at level of the carotid bulb. Right ECA: Patent Right vertebral artery flow antegrade. Left CCA: Up to 139 cm/s. Left ICA: Up to 114 cm/s. Left ECA: Patent Left vertebral artery flow antegrade. IMPRESSION: Increased (> 125 centimeters/second) peak systolic velocities in the CCA bilaterally and the proximal/mid portions of the right ICA with only questionable small right carotid bulb plaque may be artifactual/technical in nature or less likely secondary to 50-79% stenosis. If clinically indicated further evaluation with CTA may be of value. This document has been electronically signed by: Anupama Jacobs MD on 05/27/2024 09:30:50
== END 2024-05-26 12:58 | disposition home or self-care (01) ==
LOC: HO.HMGCX 12:57
PROVIDERS: PCP Family Medicine; Visit Provider Family Medicine
DX: R55 Syncope and collapse (principal)
CPT/HCPCS: 93880

== ENCOUNTER → 2024-05-26 13:05 | Outpatient (BNV) | payer MEDICARE, OTHER, SELFPAY | PROVIDERS: PCP Family Medicine; Visit Provider Radiology Diagnostic Radiology | DX: R55 Syncope and collapse (principal) | CPT/HCPCS: 93880 ==

== ENCOUNTER 2024-06-04 09:03 | Outpatient (REF) | payer MEDICARE, OTHER, SELFPAY ==
[2024-06-04 15:22] LABS: MANUAL DIFF FLAG NO
[2024-06-04 15:56] LABS: Appearance Urine Clear; Color Urine Yellow; Glucose Urine UA Negative (Negative); Leukocyte Esterase Urine Negative (Negative); Nitrite Urine Negative (Negative); PH 5.5 (5.0-9.0); Urine Blood Negative (Negative); Urine Ketones Trace mg/dL (Negative); Urine Protein Negative (Neg-Trace)
[2024-06-04 16:16] LABS: Basophils Absolute Auto 0.1 X10*3/uL (0.0-0.2); Basophils Percent Auto 1.4 % (0-2); Eosinophils Absolute Auto 0.2 X10*3/uL (0.0-0.4); Eosinophils Percent Auto 2.9 % (0-4); Hematocrit 32.6 % (37.0-47.0); Hemoglobin 10.9 g/dl (12.0-16.0); Imm Gran Abs Auto 0.04 X10*3/uL (0.00-0.03); Imm Gran Pct Auto 0.6 % (0.0-0.4); Immature Retic Fraction 14.2 % (3.0-15.9); Lymphocytes Absolute Auto 2.2 X10*3/uL (1.2-4.9); Lymphocytes Percent Auto 30.5 % (20-40); Mean Corpuscular HGB Conc 33.4 g/dl (31.0-35.0); Mean Corpuscular Hemoglobin 29.5 pg (27.0-33.0); Mean Corpuscular Volume 88.1 fL (80.0-98.0); Mean Platelet Volume 9.8 fL (9.4-12.3); Monocytes Absolute Auto 0.8 X10*3/uL (0.1-1.2); Monocytes Percent Auto 10.5 % (2-11); Neutrophils Absolute Auto 3.9 x10*3/uL (2.0-8.3); Neutrophils Percent Auto 54.1 % (45-73); Platelet Count 304 X10*3/uL (160-400); Red Cell Distribution Width 13.1 % (11.0-16.0); Retic HGB Equivalent 32.1 pg (30.0-35.0); Reticulocyte Percent 1.6 % (0.5-1.8); Reticulocytes Absolute 0.058 X10*6/uL (0.026-0.095); White Blood Count 7.3 X10*3/uL (4.8-10.8)
[2024-06-04 16:40] LABS: Creatinine Urine 153.38 mg/dL; Microalbum/Creatinine Ratio Ur 16.2 ug/mg cr (<30)
[2024-06-04 18:35] LABS: Alanine Aminotransferase 28 U/L (0-31); Albumin Level 3.8 g/dL (3.5-5.0); Anion Gap 12 (12-20); Aspartate Amino Transferase 27 U/L (5-31); Bilirubin Total 0.2 mg/dL (0.0-1.0); Blood Urea Nitrogen 16 mg/dL (9-16); Calcium 9.3 mg/dL (8.4-10.2); Carbon Dioxide 24 mmol/L (22-29); Chloride 106 mmol/L (96-108); Cholesterol 271 mg/dL (<200); Estimated Glomerular Filt Rate > 60; Glucose Fasting 91 mg/dL (60-99); Glucose Random 92 mg/dL (60-115); HDL Cholesterol 89 mg/dL (>40); Iron 57 mcg/dL (30-160); Percent Iron Saturation 19 % (15-50); Potassium 4.1 mmol/L (3.3-5.1); Sodium 138 mmol/L (135-145); Total Iron Binding Capacity 308 mcg/dL (228-428); Total Protein 6.8 g/dL (6.5-8.0); Triglycerides 435 mg/dL (<150); Unsaturated Iron Binding 251 ug/dL
[2024-06-04 18:56] LABS: Alkaline Phosphatase 50 U/L (39-117); Ferritin 11 ng/mL (10-250)
[2024-06-04 18:57] LABS: Folate 14.5 ng/mL (> or = 4.0); Vitamin B12 252 pg/mL (200-900)
--- OUTSIDE RECORDS SUMMARY | 2024-06-04 19:00 | XMS_ITS | Clinical Summary ---
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
== END 2024-06-04 09:04 | disposition home or self-care (01) ==
LOC: HO.LAB 09:03
PROVIDERS: PCP Family Medicine; Visit Provider Family Medicine
DX: Z00.00 Encounter for general adult medical examination without abnormal findings (principal); D64.9 Anemia, unspecified; E53.8 Deficiency of other specified B group vitamins; I10 Essential (primary) hypertension; R55 Syncope and collapse
CPT/HCPCS: 36415; 80053; 80061; 81003; 82043; 82570; 82607; 82728; 82746; 83540; 85025; 85045

== ENCOUNTER 2024-06-04 09:03 | Outpatient (AMB) | payer MEDICARE, OTHER, SELFPAY ==
--- NOTE | 2024-06-04 08:59 | A.OFFPC_ITS ---
Intake Visit Reasons: ultrasound results Allergies oxycodone [From Percocet] Allergy (Severe, Verified 06/04/24 08:59) Migraine and vomiting peach Allergy (Severe, Verified 06/04/24 08:59) Hives apple Allergy (Intermediate, Verified 06/04/24 08:59) Swelling erythromycin base [Erythromycin Base] Allergy (Mild, Verified 06/04/24 08:59) Confusion, Rash, Nausea, Vomiting, Out of it levofloxacin [From Levaquin] Allergy (Mild, Verified 06/04/24 08:59) Rash sulfamethoxazole [From Bactrim] Allergy (Mild, Verified 06/04/24 08:59) Rash trimethoprim [From Bactrim] Allergy (Mild, Verified 06/04/24 08:59) Rash Sulfa (Sulfonamide Antibiotics) Allergy (Unknown, Verified 06/04/24 08:59) Rash apples Allergy (Severe, Uncoded 07/08/23 16:28) Anaphylaxis meclazine Adverse Reaction (Severe, Uncoded 07/08/23 16:28) severe anxiety Tobacco use date assessed: 05/18/24 Dental Screening Dental Screen Date: 05/18/24 HPI ultrasound results HPI Details 44 y/o female presents to f/u labs, ultr asound. Labs drawn 05/19/24. Reviewed labs with pt. Mild anemia. Denies blood in stools. Notes she no longer has periods. A1c 5.1%. Triglycerides 101. TC 231. LDL 132. HDL 79. Carotid doppler study 05/27/24, per note shows: Increased (> 125 centimeters/second) peak systolic velocities in the CCA bilaterally and the proximal/mid portions of the right ICA with only questionable small right carotid bulb plaque may be artifactual/technical in nature or less likely secondary to 50-79% stenosis. If clinically indicated further evaluation with CTA may be of value. HPI Comments History of Present Illness Details Documentation assistance for Shawn Miranda MD, was provided by Juan Pemberton,? [facility] on 06/04/2024 at 9:41 AM EST. I, Dr. Miranda, have read, observed, and verified documentation. ?? [facility] Medical History (Updated 06/04/24 @ 09:39 by Juan Pemberton) Screening for colon cancer Screening for cervical cancer Adult general medical exam Shortness of breath Discomfort of right ear Otitis media of right ear Lightheadedness Normal physical exam Early satiety Abnormal urinalysis Suprapubic pain, acute Fatigue Vision changes Peroneal tendinitis, left leg Cough Myalgia Easy bruising Joint stiffness of hand Rectal prolapse Abdominal rebound tenderness of right lower quadrant Abdominal pain Surgical History Hx of hysterectomy History of esophagogastroduodenoscopy (EGD) History of kidney stones Status post LASIK surgery History of lumpectomy of left breast History of right breast biopsy History of colonoscopy History of laparoscopic cholecystectomy History of removal of ovarian cyst History of bilateral breast reduction surgery Family History Father Healthy adult Mother High cholesterol Migraines Diabetes Asthma Hypertension Maternal Grandfather CVD (cardiovascular disease) Maternal Aunt Family history of heart disease Other Mental health disorder Substance abuse Social History Housing: House Alcohol intake: never Patient Tobacco Use Status: Never used Tobacco e-Cigarette/Vaping Use: Never Used Second Hand Smoke Exposure: No service: No Current occupational status: unemployed Current occupational exposures/hazards: No Cognitive needs: No Hearing needs: No Vision needs: No Questionnaire Thrive Questionnaire Date Thrive assessed: 05/18/24 I am a: Patient What is your living situation today?: I have a steady place to live Within the past 12 months, did the food you bought not last and you didn't have the money to get more?: Never true Within the past 12 months, did you worry whether your food would run out before you got money to buy more?: Never true Do you have trouble paying for medicines?: No Do you have trouble getting transportation to medical appointments?: No Do you have trouble paying your heating and electricity bill?: No Do you have trouble taking care of your child, family member or friend?: No Do you have trouble with day-to-day activities such as bathing, preparing meals, shopping, managing finances, etc.?: No Are you currently unemployed and looking for a job?: No Are you interested in more education?: No Please select the resources that you would like help with: None Currently or been in a relationship where the following occur: No concerns reported THRIVE Score: 0 KATI-7 AMB Questionnaire KATI-7 Date KATI - 7 assessed: 05/18/24 Source: Developed by Drs. Demond Oleary, Rhonda Quach, Mendel Brennan and colleagues, with an educational manuela from [employer]. Review of Systems Const Denies chills, Denies fatigue, Denies fever(s), Denies headache(s) and Denies weakness ENT Denies dizziness and Denies headache(s) Card Denies dyspnea Resp Denies cough, Denies dyspnea, Denies wheezing and Denies other (shortness of breath) Musc Denies numbness and Denies tingling Neuro Denies dizziness, Denies headache(s), Denies numbness, Denies tingling and Denies weakness Psych Denies anxiety and Denies depression Endo Denies fatigue Aller/Immun Denies wheezing Physical exam (Primary Care) Tobacco/Smoking Status: Tobacco use Status Tobacco use date assessed 05/18/24 06/04/24 09:03 Patient Tobacco Use Status Never used Tobacco 06/04/24 09:03 e-Cigarette/Vaping Use Never Used 06/04/24 09:03 Thrive Assessment: Date of Thrive Assessment Date Thrive assessed 05/18/24 06/04/24 09:03 Currently or been in a relationship where the following occur: No concerns reported Const General: well developed; No acute distress Nutritional Appearance: well nourished Orientation/consciousness: patient oriented x3 HENMT Head: Yes normocephalic and Yes atraumatic Eyes General: appearance normal, both eyes and all related structures Pupils: Equal, round and reactive pupils present EOM: EOMs intact bilaterally Resp Effort & Inspection: normal respiratory effort Neuro General: patient oriented x3 and gait normal Cranial nerves: Yes Equal, round and reactive pupils present Psych Affect: normal affect Telehealth Telehealth Telehealth Platform: Telephone Location of provider rendering services: practice address Location of patient: address on file Patient Identification confirmed using: Name, : Yes Telehealth method: voice only Patient verbally consented to treatment: Yes Patient verbally consented to billing insurance company: Yes Patient informed of any privacy concerns related to visit: Yes Minutes spent on Phone/Video with Pt.: 13 Coding Level of Care Code Tele Est Pt Level 2 (75735) Diagnoses Syncope and collapse R55 Hypercholesterolemia E78.00 Mild anemia D64.9 Leg pain M79.606 Assessment & Plan Assessment & Plan (1) Syncope and collapse: Code(s): R55 - Syncope and collapse Category: Medical Plan: Ongoing?presyncope/syncope. Had?seen?Cardiology?felt?that?this?was?primarily?secondary?to?orthostatic?hypote nsion?and?patient's?blood?pressures?had?been?rather?low. Had?been?working?on?weight?loss?and?cardiology?had?recommended?no?further?weight ?loss?in?using?salt/sodium?more?liberally. Patient?also?has?a?mild/moderate?anemia. Carotid?duplex?shows: ?Intimal?thickening. ?Bilateral?carotid?artery velocities?are?increased.??Right?ICA?velocity?increased?proximally?and?plaque?no vanessa?at?right?carotid bulb. Possible?stenosis. Will?check?CTA. The?above?may?all?be?factors?in?her?symptoms. Check?CTA. Check?labs?in?investigate?anemia Follow-up?with?Cardiology?as?recommended May?need?referral?to?vascular (2) Hypercholesterolemia: Code(s): E78.00 - Pure hypercholesterolemia, unspecified Category: Medical Plan: Lipids?are?elevated?and?patient?notes?that?she?has?had?on?and?off?high?cholester ol?all?of?her?life. Possible?cholesterol?plaques?in?carotid?art eries?patient?dizziness/presyncope/syncope Getting?CTA?as?above Starting?atorvastatin Will?follow Of?note,?patient?has?fibromyalgia?and?is?concerned?about?achiness?from?statins.? ?Will?monitor. (3) Mild anemia: Code(s): D64.9 - Anemia, unspecified Category: Medical Plan: Unclear?cause No?blood?in?stools.??Patient?does?not?menstruate.??Denies?any?bleeding. Will?repeat?labs?investigate?further. (4) Leg pain: Code(s): M79.606 - Pain in leg, unspecified Category: Medical Plan: Longstanding?leg?pain Patient?is?concerned?regarding?blood?flow?as?carotid?ultrasound?shows?increased? velocities?in?possible?plaque Check?MELANIE Orders: Orders Ferritin Today D64.9 - Anemia, unspecified Vitamin B12 and Folate Today D64.9 - Anemia, unspecified, E53.8 - Deficiency of other specified B group vitamins Complete Blood Count Auto Diff Today D64.9 - Anemia, unspecified, Z00.00 - Encounter for general adult medical examination without abnormal findings CT angio head neck Today R55 - Syncope and collapse US MELANIE complete Today M79.606 - Pain in leg, unspecified IRON PROFILE Today D64.9 - Anemia, unspecified Reticulocyte Count Today D64.9 - Anemia, unspecified
--- OUTSIDE RECORDS SUMMARY | 2024-06-04 12:03 | XMS_ITS | Clinical Summary ---
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 Name Role Phone Unavailable Primary Care Provider Unavailabl e Social History Tobacco Use Types Packs/Day Years Used Date Smoking Tobacco: Never Assessed Sex and Gender Information Value Date Recorded Sex Assigned at Not on file Gender Identity Not on file Sexual Orientation Not on file Plan of Treatment Health Maintenance Due Date Last Done Comments Breast Cancer Screening 1979 DTaP,Tdap,and Td Vaccines (1 - Tdap) 1998 Hepatitis B Vaccines (1 of 3 - 19+ 3-dose series) 1998 Cervical Cancer Screening: P ap Smear 2000 Colorectal Cancer Screening: Colonoscopy 04/08/2022 Depression Screening 04/08/2022 HIV Screening 04/08/2022 Hepatitis C Screening 04/08/2022 Social Influencers of Health Screening 04/08/2022 COVID-19 Vaccine (2023-2 5 season) 2024 Influenza Vaccine (#1) 2024 05/14/2018 HIB Vaccines Aged Out No longer eligi ble based on patient's age to complete this topic HPV Vaccines Aged Out No longer eligi ble based on patient's age to complete this topic Hepatitis A Vaccines Aged Out No long er eligible based on patient's age to complete this topic IPV Vaccines Aged Out No longer eligi ble based on patient's age to complete this topic MMR Vaccines Aged Out No longer eligi ble based on patient's age to complete this topic Meningococcal ACWY Vaccine Aged Out N o longer eligible based on patient's age to complete this topic Pneumococcal Vaccine: Pediatrics (0 to 5 Years) and At-Risk Patients (6 to 64 Years) Aged Out No longer eligible b ased on patient's age to complete this topic RSV Immunization Patients Under 20 months Aged Out No longer eligible b ased on patient's age to complete this topic Varicella Vaccines Aged Out No longer eligible based on patient's age to complete this topic
== END 2024-06-04 17:05 | disposition home or self-care (01) ==
LOC: HO.HMCFM 09:03
PROVIDERS: PCP Family Medicine; Visit Provider Family Medicine
DX: R55 Syncope and collapse (principal); E78.00 Pure hypercholesterolemia, unspecified; D64.9 Anemia, unspecified; M79.606 Pain in leg, unspecified

== ENCOUNTER 2024-06-11 16:55 | Emergency (ER) | payer MEDICARE, OTHER, SELFPAY ==
[2024-06-11 17:19] VITALS: BP 107/71; PULSE 100; RESP 16; TEMP 36.6; O2SAT 97; BMI 26.6
[2024-06-11 17:40] LABS: MANUAL DIFF FLAG NO
[2024-06-11 17:41] LABS: Basophils Absolute Auto 0.1 X10*3/uL (0.0-0.2); Basophils Percent Auto 1.6 % (0-2); Eosinophils Absolute Auto 0.2 X10*3/uL (0.0-0.4); Eosinophils Percent Auto 2.7 % (0-4); Hemoglobin 10.7 g/dl (12.0-16.0); Imm Gran Abs Auto 0.05 X10*3/uL (0.00-0.03); Imm Gran Pct Auto 0.8 % (0.0-0.4); Lymphocytes Absolute Auto 1.6 X10*3/uL (1.2-4.9); Mean Corpuscular HGB Conc 33.4 g/dl (31.0-35.0); Mean Corpuscular Hemoglobin 29.6 pg (27.0-33.0); Mean Corpuscular Volume 88.4 fL (80.0-98.0); Mean Platelet Volume 9.5 fL (9.4-12.3); Monocytes Absolute Auto 0.9 X10*3/uL (0.1-1.2); Monocytes Percent Auto 15.1 % (2-11); Neutrophils Absolute Auto 3.4 x10*3/uL (2.0-8.3); Neutrophils Percent Auto 54.8 % (45-73); Platelet Count 265 X10*3/uL (160-400); Red Blood Count 3.62 X10*6/uL (4.20-5.50); Red Cell Distribution Width 13.2 % (11.0-16.0); White Blood Count 6.2 X10*3/uL (4.8-10.8)
[2024-06-11] MEDS: Sucralfate Oral Suspension 1 GM/10 ML ORAL.SUSP PO (18:28)
[2024-06-11] MEDS: diphenhydrAMINE HCl 12.5 MG/5 ML LIQUID 50 MG PO (18:56)
[2024-06-11 18:58] VITALS: PULSE 85; O2SAT 99
--- NOTE | 2024-06-11 18:58 | PC.NURSE ---
patient given po sucralfate. patient then presented back to triage aprox 20 min later saying she felt her tongue was swollen, no noted swelling/redness. given po benedryl
[2024-06-11 20:05] VITALS: BP 102/57; PULSE 84; RESP 16; TEMP 36.7; O2SAT 93
--- NOTE | 2024-06-11 20:15 | ECG_ITS ---
Test Reason : PAIN Blood Pressure : */* mmHG Vent. Rate : 87 BPM Atrial Rate : 87 BPM P-R Int : 178 ms QRS Dur : 82 ms QT Int : 372 ms P-R-T Axes : 53 -7 20 degrees QTcB Int : 447 ms Normal sinus rhythm Low voltage QRS Cannot rule out Anterior infarct , age undetermined Abnormal ECG When compared with ECG of 09-Jul-2022 17:30, No significant change was found Referred By: Siddharth Schwartz Electronically Signed By: Julian Helms
--- NOTE | 2024-06-11 20:34 | ED_ITS ---
HPI - General Adult General Chief complaint: Abdominal Pain Stated complaint: severe reflex,anemia Time Seen by Provider: 06/11/24 19:59 Source: patient, RN notes reviewed and old records reviewed Mode of arrival: ambulatory Limitations: no limitations History of Present Illness ED Provider: Efren MCGARRY narrative: 44-year-old female with a past medical history significant for heartburn, IBS, chronic constipation, anemia, hypertension presents for evaluation of ?acid reflux. ? Patient reports that her symptoms have been worsening over the last 2 days. She feels as though she was a burning sensation in her throat It does not feel like a typical sore throat she reports it feels lower. She also has a dry cough She has mild upper abdominal pain that she states is burning in nature. She follows with Dr. Shrestha for GI. The patient's last endoscopy was in December of 2022 showing mild GERD and no evidence of esophagitis The patient reports that she sees GI in 2 months Related Data Home Medications ?Medication ?Instructions ?Recorded ?Confirmed bupropion HCl 300 mg 24 hr tablet, 300 mg PO DAILY 07/26/22 11/08/23 extended release estradiol 0.1 mg/24 hr semiweekly 1 patch topical 2XW 10/24/22 11/08/23 transdermal patch cholecalciferol (vitamin D3) 25 25 mcg PO DAILY 02/12/23 11/08/23 mcg (1,000 unit) capsule multivitamin with minerals 1 cap PO DAILY 02/12/23 11/08/23 bupropion HCl 150 mg 24 hr tablet, 150 mg PO QAM 06/21/23 extended release fluoxetine 40 mg capsule 80 mg PO DAILY 06/21/23 11/08/23 semaglutide 2 mg/dose (8 mg/3 mL) 0.5 mg subcut QWEEK 06/21/23 11/08/23 subcutaneous pen injector (Ozempic) aripiprazole 5 mg tablet 10 mg PO BEDTIME 06/04/24 Previous Rx's ?Medication ?Instructions ?Recorded ondansetron HCl 4 mg tablet 4 mg PO Q6H PRN nausea and 06/15/21 vomiting #60 tabs prochlorperazine maleate 10 mg 10 mg PO Q8H PRN nausea and 11/12/21 tablet (Compazine) vomiting #30 tabs simethicone 125 mg chewable tablet 125 mg PO QID PRN abdominal 06/21/23 (Gas Relief (simethicone)) distention #120 tabs albuterol sulfate 90 mcg/actuation 2 puff PO Q4-6H PRN for wheezing 10/23/23 aerosol inhaler #8.5 grams sennosides 8.6 mg tablet (senna) 8.6 mg PO DAILY #30 tabs 11/18/23 trazodone 100 mg tablet 100 mg PO BEDTIME 30 days #30 tabs 02/25/24 famotidine 40 mg tablet 40 mg PO BEDTIME #90 tabs 04/24/24 pregabalin 150 mg capsule 150 mg PO TID 30 days #90 caps 05/25/24 omeprazole 40 mg capsule,delayed 40 mg PO BID 90 days #180 caps 05/26/24 release blood pressure test kit medium and #1 ea 05/28/24 large cuffs miscellaneous medical supply #1 ea 05/28/24 (Blood Pressure Cuff) aluminum-mag hydroxide-simethicone 10 ml PO QID PRN indigestion 06/11/24 200 mg-200 mg-20 mg/5 mL oral susp #3,000 mL (Maalox Advanced) Allergies Allergy/AdvReac Type Severity Reaction Status Date / Time oxycodone [From Percocet] Allergy Severe Migraine Verified 06/11/24 17:21 and vomiting peach Allergy Severe Hives Verified 06/11/24 17:21 apple Allergy Intermediate Swelling Verified 06/11/24 17:21 erythromycin base Allergy Mild Confusion, Verified 06/11/24 17:21 [Erythromycin Base] Rash, Nausea, Vomiting, Out of it levofloxacin [From Levaquin] Allergy Mild Rash Verified 06/11/24 17:21 sulfamethoxazole Allergy Mild Rash Verified 06/11/24 17:21 [From Bactrim] trimethoprim [From Bactrim] Allergy Mild Rash Verified 06/11/24 17:21 Sulfa (Sulfonamide Allergy Unknown Rash Verified 06/11/24 17:21 Antibiotics) apples Allergy Severe Anaphylaxis Uncoded 06/11/24 17:21 meclazine AdvReac Severe severe Uncoded 06/11/24 17:21 anxiety Review of Systems 2 Constitutional: Constitutional: Denies body ache(s), Denies chills and Denies fever(s) ENT: Reports sore throat and Denies throat swelling Cardiovascular: Cardiovascular: Denies chest pain and Denies dyspnea Respiratory: Respiratory: Denies cough and Denies dyspnea Gastrointestinal: Gastrointestinal: Reports abdominal pain, Reports nausea and Denies vomiting Musculoskeletal: Musculoskeletal: Denies back pain Integumentary/Breasts: Skin/Breast: Denies rash Allergic/Immunologic: Allergic/Immunologic: Denies throat swelling [facility] Past Medical History Medical History (Updated 06/11/24 @ 20:40 by Siddharth Schwartz) Screening for colon cancer Screening for cervical cancer Adult general medical exam Shortness of breath Discomfort of right ear Otitis media of right ear Lightheadedness Normal physical exam Early satiety Abnormal urinalysis Suprapubic pain, acute Fatigue Vision changes Peroneal tendinitis, left leg Cough Myalgia Easy bruising Joint stiffness of hand Rectal prolapse Abdominal rebound tenderness of right lower quadrant Abdominal pain Surgical History Hx of hysterectomy History of esophagogastroduodenoscopy (EGD) History of kidney stones Status post LASIK surgery History of lumpectomy of left breast History of right breast biopsy History of colonoscopy History of laparoscopic cholecystectomy History of removal of ovarian cyst History of bilateral breast reduction surgery Family History Family History Father Healthy adult Mother High cholesterol Migraines Diabetes Asthma Hypertension Maternal Grandfather CVD (cardiovascular disease) Maternal Aunt Family history of heart disease Other Mental health disorder Substance abuse Social History Social History Housing: House Alcohol intake: never Patient Tobacco Use Status: Never used Tobacco e-Cigarette/Vaping Use: Never Used Second Hand Smoke Exposure: No Advance Directives: No Advance Directives Information Provided: No Do you have a plan to hurt others: No Plan service: No Current occupational status: unemployed Current occupational exposures/hazards: No Cognitive needs: No Hearing needs: No Vision needs: No Physical Exam ED Vital Signs: Vital Signs - 24 hr 06/11/24 17:19 06/11/24 18:58 06/11/24 20:05 Temperature 97.9 F 98.1 F Pulse Rate 100 85 84 Respiratory Rate 16 16 Blood Pressure 107/71 102/57 L Pulse Oximetry 97 99 93 Oxygen Delivery Method Room Air Room Air Room Air BMI result Body Mass Index 26.6 Const General: healthy appearing, comfortable, no acute distress, alert and awake Nutritional Appearance: well nourished Orientation/consciousness: patient oriented x3 HENMT Other: Mildly erythematous retropharynx, no exudates. No retropharyngeal edema. There is positive lymphadenopathy in the right anterior cervical chain Head: Yes normocephalic and Yes atraumatic Eyes Eyelids: Yes eyelids normal Conjunctivae: conjunctivae normal Sclerae: sclerae normal Corneas: corneas normal Pupils: Equal, round and reactive pupils present EOM: EOMs intact bilaterally Neck Neck: Yes full ROM Resp Effort & Inspection: normal respiratory effort, able to speak in complete sentences, no audible wheezes and not labored Auscultation: clear to auscultation bilaterally Cardio Rate: regular rate Rhythm: regular rhythm GI Inspection: No distended Palpation (GI): Soft to palpation, not firm, Tenderness to palpation present (GI) (Minimal epigastric tenderness without guarding) in the epigastrum, no guarding and not rigid Skin General skin exam: elasticity normal Neuro General: patient oriented x3 Cranial nerves: Yes Equal, round and reactive pupils present and Yes Bilaterally intact EOM present Cognition (Neuro): normal cognition Extrem Other: Moving all extremities well without any obvious deformities Medications Administered Discontinued Medications Generic Name Dose Route Start Last Admin Trade Name Freq PRN Reason Stop Dose Admin Al Hydroxide/Mg Hydroxide 30 ml 06/11/24 20:32 06/11/24 20:46 Magnesium Hydrox/Alum Hydrox 30 Ml Oral.Susp PO 06/11/24 20:33 30 ml ONCE ONE Administration Diphenhydramine HCl 50 mg 06/11/24 18:53 06/11/24 18:56 Diphenhydramine Hcl 12.5 Mg/5 Ml Liquid PO 06/11/24 18:54 50 mg ONCE ONE Administration Lidocaine HCl 15 ml 06/11/24 20:32 06/11/24 20:46 Lidocaine Hcl Viscous 2 % 15 Ml Solution MUCOUS MEM 06/11/24 20:33 15 ml ONCE ONE Administration Ondansetron HCl 4 mg 06/11/24 20:32 06/11/24 20:45 Ondansetron Odt 4 Mg Tab.Rapdis TRANSLINGU 06/11/24 20:33 4 mg ONCE ONE Administration Sucralfate 1 gm 06/11/24 17:21 06/11/24 18:28 Sucralfate Oral Suspension 1 Gm/10 Ml Oral.Susp PO 06/11/24 17:22 1 gm ONCE ONE Administration Medical Decision Making Medical Decision Making [facility] Narrative: 44-year-old female with past medical history as documented above presents for evaluation of worsening acid reflux. Plan for EKG to evaluate for atypical ACS presentation. We will check basic labs, influenza swab and strep swab. The patient's last chest x-ray was 05/20/2024 and was are unremarkable. She is status post cholecystectomy already. The patient does have a history of anemia that is not iron-deficiency anemia in his being worked up by her primary doctor. She was status post hysterectomy. Plan to treat the patient's heartburn symptoms with viscous lidocaine and Maalox. Chemistries pending and viral swabs pending Differential Diagnosis Differential Diagnoses: The differential diagnosis associated with the presentation includes GERD Gastritis Upper respiratory infection Lymphadenopathy Atypical ACS Lab Data [facility] Lab Attestation statement: I reviewed the patient's lab results. No leukocytosis. The patient has a chronic normocytic anemia consistent with her most recent labs from last month. 06/11/24 17:34 06/11/24 17:34 Labs: Lab Results 06/11/24 06/11/24 Range/Units 17:34 20:00 WBC 6.2 (4.8-10.8) X10*3/uL RBC 3.62 L (4.20-5.50) X10*6/uL Hgb 10.7 L (12.0-16.0) g/dl Hct 32.0 L (37.0-47.0) % MCV 88.4 (80.0-98.0) fL MCH 29.6 (27.0-33.0) pg MCHC 33.4 (31.0-35.0) g/dl RDW 13.2 (11.0-16.0) % Plt Count 265 (160-400) X10*3/uL MPV 9.5 (9.4-12.3) fL Immature Gran % (Auto) 0.8 H (0.0-0.4) % Neut % (Auto) 54.8 (45-73) % Lymph % (Auto) 25.0 (20-40) % [place] % (Auto) 15.1 H (2-11) % Eos % (Auto) 2.7 (0-4) % Baso % (Auto) 1.6 (0-2) % Lymph # (Auto) 1.6 (1.2-4.9) X10*3/uL [place] # (Auto) 0.9 (0.1-1.2) X10*3/uL Eos # (Auto) 0.2 (0.0-0.4) X10*3/uL Baso # (Auto) 0.1 (0.0-0.2) X10*3/uL Abs Immat Gran (auto) 0.05 H (0.00-0.03) X10*3/uL Absolute Neuts (auto) 3.4 (2.0-8.3) x10*3/uL Absolute Nucleated RBC 0.000 (0.0-0.012) X10*3/uL Nucleated RBC % (auto) 0.0 (0.0-0.2) /100WBC Sodium 137 (135-145) mmol/L Potassium 4.1 (3.3-5.1) mmol/L Chloride 105 (96-108) mmol/L Carbon Dioxide 25 (22-29) mmol/L Anion Gap 11 L (12-20) BUN 15 (9-16) mg/dL Creatinine 0.84 (0.5-1.4) mg/dL Estim Creat Clear Calc 84.4 Estimated GFR > 60 Random Glucose 89 (60-115) mg/dL Calcium 8.8 (8.4-10.2) mg/dL Magnesium 1.7 (1.6-2.6) mg/dL Total Bilirubin 0.2 (0.0-1.0) mg/dL AST 22 (5-31) U/L ALT 22 (0-31) U/L Alkaline Phosphatase 61 (39-117) U/L Total Protein 6.9 (6.5-8.0) g/dL Albumin 3.8 (3.5-5.0) g/dL Lipase 41 (8-78) U/L Beta HCG, Quant < 2 mIU/mL Influenza Type A (PCR) NEGATIVE (Negative) Influenza Type B (PCR) NEGATIVE (Negative) RSV RNA Qual (PCR) NEGATIVE (Negative) SARS-CoV-2 RNA (RT-PCR) NEGATIVE (Negative) Discharge Plan Discharge Clinical Impression: Gastroesophageal reflux disease Patient Disposition: Home, Self-Care Instructions: Gastroesophageal Reflux Disease (ED) Additional Instructions: Your workup in the ER today was reassuring. You may add Maalox to your treatment for heartburn. Follow-up with GI at the number provided You may need a more urgent endoscopy Return for new or worsening symptoms Prescriptions: New alum-mag hydroxide-simeth [Maalox Advanced] 200-200-20 mg/5 mL suspension 10 ml PO QID PRN (Reason: indigestion) Qty: 3000 0RF Rx Instructions: administer between meals and at bedtime No Action prochlorperazine maleate [Compazine] 10 mg tablet 10 mg PO Q8H PRN (Reason: nausea and vomiting) Qty: 30 2RF albuterol sulfate 90 mcg/actuation HFA aerosol inhaler 2 puff PO Q4-6H PRN (Reason: for wheezing) Qty: 8.5 3RF sennosides [senna] 8.6 mg tablet 8.6 mg PO DAILY Qty: 30 6RF trazodone 100 mg tablet 100 mg PO BEDTIME 30 Days Qty: 30 0RF famotidine 40 mg tablet 40 mg PO BEDTIME Qty: 90 2RF pregabalin 150 mg capsule 150 mg PO TID 30 Days Qty: 90 1RF omeprazole 40 mg capsule,delayed release(DR/EC) 40 mg PO BID 90 Days Qty: 180 1RF (DME) Blood Pressure Cuff Misc See Rx Instructions .Route Qty: 1 0RF Rx Instructions: As directed (DME) blood pressure kit med and lrg Kit See Rx Instructions .Route Qty: 1 0RF Rx Instructions: As directed ondansetron HCl 4 mg tablet 4 mg PO Q6H PRN (Reason: nausea and vomiting) Qty: 60 1RF estradiol 0.1 mg/24 hr patch semiweekly 1 patch topical 2XW bupropion HCl 300 mg tablet extended release 24 hr 300 mg PO DAILY fluoxetine 40 mg capsule 80 mg PO DAILY multivitamin with minerals Capsule 1 cap PO DAILY cholecalciferol (vitamin D3) 25 mcg (1,000 unit) capsule 25 mcg PO DAILY aripiprazole 5 mg tablet 10 mg PO BEDTIME bupropion HCl 150 mg tablet extended release 24 hr 150 mg PO QAM Ozempic 2 mg/dose (8 mg/3 mL) pen injector 0.5 mg subcut QWEEK simethicone [Gas Relief (simethicone)] 125 mg tablet,chewable 125 mg PO QID PRN (Reason: abdominal distention) Qty: 120 6RF Referrals: Holland Shrestha MD [Physician] - (worsening gerd) Print Language: Hong Konger
[2024-06-11] MEDS: Ondansetron ODT 4 MG TAB.RAPDIS TRANSLINGU (20:45)
[2024-06-11] MEDS: Magnesium Hydrox/Alum Hydrox 30 ML ORAL.SUSP PO (20:46)
[2024-06-11] MEDS: Lidocaine HCl Viscous 2 % 15 ML SOLUTION MUCOUS MEM (20:46)
[2024-06-11 20:59] LABS: Alanine Aminotransferase 22 U/L (0-31); Albumin Level 3.8 g/dL (3.5-5.0); Alkaline Phosphatase 61 U/L (39-117); Anion Gap 11 (12-20); Aspartate Amino Transferase 22 U/L (5-31); Bilirubin Total 0.2 mg/dL (0.0-1.0); Blood Urea Nitrogen 15 mg/dL (9-16); Calcium 8.8 mg/dL (8.4-10.2); Carbon Dioxide 25 mmol/L (22-29); Chloride 105 mmol/L (96-108); Creatinine Clr Calc Pharmacy 84.4; Estimated Glomerular Filt Rate > 60; Glucose Random 89 mg/dL (60-115); HCG Quantitative < 2 mIU/mL; Lipase 41 U/L (8-78); Magnesium 1.7 mg/dL (1.6-2.6); Potassium 4.1 mmol/L (3.3-5.1); Sodium 137 mmol/L (135-145); Total Protein 6.9 g/dL (6.5-8.0)
[2024-06-11 21:32] LABS: Influenza A PCR NEGATIVE (Negative); Influenza B PCR NEGATIVE (Negative); Resp Syncy Virus RNA Qual PCR NEGATIVE (Negative); SARS COV2 PCR INHOUSE NEGATIVE (Negative)
[2024-06-11 21:59] VITALS: BP 102/57; PULSE 84; RESP 16; TEMP 36.7; O2SAT 93
[2024-06-11 23:02] LABS: IDNOW Serial# 08D9AD1C; Strep A Nucleic Acid Negative (Negative)
== END 2024-06-11 22:00 | disposition home or self-care (01) ==
PROVIDERS: Physician Assistant; Physician Assistant Medical; Emergency Provider Emergency Medicine; PCP Family Medicine
DX: K21.9 Gastro-esophageal reflux disease without esophagitis (principal); R10.2 Pelvic and perineal pain; R07.89 Other chest pain; Z03.818 Encounter for observation for suspected exposure to other biological agents ruled out; Z79.899 Other long term (current) drug therapy
CPT/HCPCS: 0241U; 36415; 80053; 83690; 83735; 84702; 85025; 87651; 93005; 99283; 99284

== ENCOUNTER → 2024-06-11 20:15 | Outpatient (BNV) | payer MEDICARE, OTHER, SELFPAY | PROVIDERS: Emergency Provider Emergency Medicine; PCP Family Medicine; Visit Provider Internal Medicine Cardiovascular Disease | DX: R94.31 Abnormal electrocardiogram [ECG] [EKG] (principal) | CPT/HCPCS: 93010 ==

== ENCOUNTER 2024-06-16 10:29 | Day surgery (SDC) | payer MEDICARE, OTHER, SELFPAY ==
--- OUTSIDE RECORDS SUMMARY | 2024-06-16 11:43 | XMS_ITS | Clinical Summary ---
Author Organization [facility] ity Address [address] [place] [address] Care Team Providers Care Aircraft Technician Name Role Phone Unavailable Primary Care Provider Unavailabl e Social History Tobacco Use Types Packs/Day Years Used Date Smoking Tobacco: Never Assessed Comments Unknown Sex and Gender Information Value Date Recorded Sex Assigned at Not on file Legal Sex Female 8:35 AM EST Gender Identity Not on file Sexual Orientation Not on file Plan of Treatment Health Maintenance Due Date Last Done Comments Breast Cancer Screening 1979 DTaP,Tdap,and Td Vaccines (1 - Tdap) 1986 Hepatitis B Vaccines (1 of 3 - 19+ 3-dose series) 1998 Cervical Cancer Screening: P ap Smear 2000 Colorectal Cancer Screening: Colonoscopy 04/08/2022 Depression Screening 04/08/2022 HIV Screening 04/08/2022 Hepatitis C Screening 04/08/2022 Social Influencers of Health Screening 04/08/2022 COVID-19 Vaccine ( - 2023-2 5 season) 2024 Influenza Vaccine (#1) 2024 [...] patient's age to complete this topic Meningococcal B Vacine Aged Out No lo nger eligible based on patient's age to complete [...]
[2024-06-16 11:55] VITALS: BMI 26.6
[2024-06-16 12:04] VITALS: BP 109/76; PULSE 86; RESP 18; TEMP 36.9; O2SAT 97
[2024-06-16] MEDS: Lactated Ringers 1,000 ML 80 ML IVCONT (12:30)
--- NOTE | 2024-06-16 12:39 | MHC.SHP ---
Pre-Procedural Eval Section A - 24 Hr Update-Section A only Date of Service: 06/16/24 Section B - Complete if H&P > 30 days Chief Complaint: gerd, Details of Present Illness: 1 week of severe reflux sx with epigastric tenderness Relevant Family History (Specify if Yes): No Relevant Social History: None Present Medications: see Short Stay Collaborative assessment Medical History: Significant History History of Previous Operations: Relevant previous surgery/procedure and date(s) (hysterectomy) Allergies: Allergies Allergy/AdvReac Type Severity Reaction Status Date / Time oxycodone [From Percocet] Allergy Severe Migraine Verified 06/11/24 17:21 and vomiting peach Allergy Severe Hives Verified 06/11/24 17:21 apple Allergy Intermediate Swelling Verified 06/11/24 17:21 erythromycin base Allergy Mild Confusion, Verified 06/11/24 17:21 [Erythromycin Base] Rash, Nausea, Vomiting, Out of it levofloxacin [From Levaquin] Allergy Mild Rash Verified 06/11/24 17:21 sulfamethoxazole Allergy Mild Rash Verified 06/11/24 17:21 [From Bactrim] trimethoprim [From Bactrim] Allergy Mild Rash Verified 06/11/24 17:21 Sulfa (Sulfonamide Allergy Unknown Rash Verified 06/11/24 17:21 Antibiotics) apples Allergy Severe Anaphylaxis Uncoded 06/11/24 17:21 meclazine AdvReac Severe severe Uncoded 06/11/24 17:21 anxiety Review of Systems Sugical H&P ROS: Negative: Constitution, Cardiovascular, Respiratory, Neurological, Psychiatric, Hem-Onc, Allergic/Immunologic, Gastrointestinal, Genitourinary, Musculoskeletal, Integumentary, Endocrine and Eyes/Ears/Nose/Throat Exam Surgical H&P Exam: Normal: HEENT, Normal: Heart, Normal: Lungs, Normal: Extremities, Normal: Skin and Normal: Neurological and Significant Findings: Abdomen (tender epigastrium) Plan Diagnosis/Plan: Unchanged I have reviewed the history and physical and performed a pertinent physical examination on my patient. No changes have occurred unless specified. EGD for ix of anemia and worsening reflux Time Spent With Patient Time: Total time managing care of this patient today ____ minutes.
--- NOTE | 2024-06-16 13:04 | P.CONAN_ITS ---
FORMERLY [facility] Active Problems Active Problems: All Active Problems Leg pain (Acute) Mild anemia (Acute) Hypercholesterolemia (Acute) Screening for cervical cancer (Acute) Screening for colon cancer (Acute) Breast cancer screening by mammogram (Acute) Adult general medical exam (Acute) Syncope and collapse (Acute) Orthostatic hypotension (Acute) Shortness of breath (Acute) Dysphagia (Acute) Abdominal bloating (Acute) Epigastric pain (Acute) Obesity (BMI 30.0-34.9) (Acute) GERD (gastroesophageal reflux disease) (Acute) Nausea and vomiting (Acute) IBS (irritable bowel syndrome) (Acute) Chest tightness (Acute) Chronic idiopathic constipation (Acute) Panniculitis (Acute) Herpes zoster (Acute) Abnormal mammogram of left breast (Acute) Profound fatigue (Acute) Anemia (Acute) Fibromyalgia (Acute) Polyarthralgia (Acute) Essential hypertension (Acute) Past Medical History Medical History Screening for colon cancer Screening for cervical cancer Adult general medical exam Shortness of breath Discomfort of right ear Otitis media of right ear Lightheadedness Normal physical exam Early satiety Abnormal urinalysis Suprapubic pain, acute Fatigue Vision changes Peroneal tendinitis, left leg Cough Myalgia Easy bruising Joint stiffness of hand Rectal prolapse Abdominal rebound tenderness of right lower quadrant Abdominal pain Family History Family History Father Healthy adult Mother High cholesterol Migraines Diabetes Asthma Hypertension Maternal Grandfather CVD (cardiovascular disease) Maternal Aunt Family history of heart disease Other Mental health disorder Substance abuse Family history of problems with anesthesia: No Surgical History Surgical History Hx of hysterectomy History of esophagogastroduodenoscopy (EGD) History of kidney stones Status post LASIK surgery History of lumpectomy of left breast History of right breast biopsy History of colonoscopy History of laparoscopic cholecystectomy History of removal of ovarian cyst History of bilateral breast reduction surgery History of Problems with Anesthesia: No Social History Social History Housing: House Are you a primary urgent care physician to a significant other at home: No Do you presently have visiting nurse or other home services: No Alcohol intake: never Patient Tobacco Use Status: Never used Tobacco e-Cigarette/Vaping Use: Never Used Second Hand Smoke Exposure: No Have you been hit, kicked, punched, or otherwise hurt by someone within the past year? If so, by whom?: No Are you DNR?: No Advance Directives: No Advance Directives Information Provided: Yes Recently lost weight without trying: No Nutrition Risks: No Nutritional Risk service: No Current occupational status: unemployed Current occupational exposures/hazards: No Cognitive needs: No Hearing needs: No Vision needs: No Meds Allergies Allergy/AdvReac Type Severity Reaction Status Date / Time oxycodone [From Percocet] Allergy Severe Migraine Verified 06/11/24 17:21 and vomiting peach Allergy Severe Hives Verified 06/11/24 17:21 apple Allergy Intermediate Swelling Verified 06/11/24 17:21 erythromycin base Allergy Mild Confusion, Verified 06/11/24 17:21 [Erythromycin Base] Rash, Nausea, Vomiting, Out of it levofloxacin [From Levaquin] Allergy Mild Rash Verified 06/11/24 17:21 sulfamethoxazole Allergy Mild Rash Verified 06/11/24 17:21 [From Bactrim] trimethoprim [From Bactrim] Allergy Mild Rash Verified 06/11/24 17:21 Sulfa (Sulfonamide Allergy Unknown Rash Verified 06/11/24 17:21 Antibiotics) apples Allergy Severe Anaphylaxis Uncoded 06/11/24 17:21 meclazine AdvReac Severe severe Uncoded 06/11/24 17:21 anxiety Active Medications: Current Medications Lactated Ringer's (Lr) 1,000 mls @ 80 mls/hr IVCONT .[id number] YAEL Last Admin: 06/16/24 12:30 Dose: 80 mls/hr Home Medications ?Medication ?Instructions ?Recorded ?Confirmed ?Last Taken ?Type bupropion HCl 300 mg 24 hr tablet, 300 mg PO DAILY 07/26/22 06/16/24 Unknown History extended release estradiol 0.1 mg/24 hr semiweekly 1 patch topical 2XW 10/24/22 06/16/24 Unknown History transdermal patch cholecalciferol (vitamin D3) 25 25 mcg PO DAILY 02/12/23 06/16/24 Unknown History mcg (1,000 unit) capsule multivitamin with minerals 1 cap PO DAILY 02/12/23 06/16/24 Unknown History bupropion HCl 150 mg 24 hr tablet, 150 mg PO QAM 06/21/23 06/16/24 Unknown History extended release fluoxetine 40 mg capsule 80 mg PO DAILY 06/21/23 06/16/24 Unknown History aripiprazole 5 mg tablet 10 mg PO BEDTIME 06/04/24 06/16/24 Unknown History Exam Height,Weight and Vital Signs: Height 5 ft 5 in Weight 72.575 kg Last Vital Signs Temp 98.4 F 06/16/24 12:04 Pulse 86 06/16/24 12:04 Resp 18 06/16/24 12:04 BP 109/76 06/16/24 12:04 Pulse Ox 97 06/16/24 12:04 O2 Del Method Room Air 06/16/24 12:04 Airway Mallampati Class: II TM Dist: >3cm Neck ROM: Full Loose/Missing/Broken Teeth: No Heart: RRR Lungs: CTA Assessment and Plan Assessment Anesthesia Assessment: Anesthesia Plan Discussed and Chart Reviewed Final Anesthetic Review Family History of Problems with Anesthesia: No History of Problems with Anesthesia: No NPO: Yes ASA Class: II Final Preanesthetic Review: Meds/Allgs Chart Reviewed, Consent Obtained/Reviewed and Anes Risks/Benef Reviewed Patient Risk: Low Procedure Risk: Intermediate Anesthetic Plan Anesthetic Plan: MAC: Disposition: Standard PACU
--- NOTE | 2024-06-16 13:57 | W.PM.OPN ---
Operative Note Operative Note Date of Service: 06/16/24 Narrative: Procedure Description: EGD Indication: reflux and epigastric tenderness Anesthesia: MAC FLEXIBLE TRANSORAL UPPER GASTROINTESTINAL ENDOSCOPY UPPER ENDOSCOPY Consent: Indications for the procedure and potential complications of bleeding, perforation, reaction to medications and missed diagnosis were discussed with the patient and informed consent was obtained. Instrument: Olympus GIF H 190 J mid size upper endoscope Monitoring: Vital signs and clinical assessment, continuous EKG monitoring, Pulse oximetry, Carbon Dioxide monitoring and blood pressure monitoring were done throughout the procedure. Procedure: The patient was placed in the left lateral decubitis position and pre-procedure medications were administered and a bite block was placed. The endoscope was inserted into the mouth and advanced under direct vision to the third part of duodenum. A careful inspection was made as the upper endoscope was withdrawn including a retroflexed examination of the proximal stomach; Findings and interventions are described below. Findings: Larynx:normal Esophagus: GE junction at 37 cm, diaphragm hiatus at 39 cm, mild esophagitis and possible short segment barretts, bx taken from GEJ, distal and proximal esophagus --small sliding hiatal hernia Stomach: mild erythema . Biopsies were obtained. Grade 2 flap valve on retroflexed examination of the cardia. Duodenum: Normal bulb and descending duodenum, bx taken Intervention: Biopsies as noted above, Impression/Findings: gastritis esophagitis hiatal hernia PLAN: cont with PPI, ensure correct timing GERD precautions repeat colonoscopy for anemia work up --if neg then capsuel study
[2024-06-16 14:03] VITALS: BP 97/57; PULSE 76; RESP 18; TEMP 36.2; O2SAT 97
[2024-06-16 14:15] VITALS: BP 110/70; PULSE 78; RESP 18; O2SAT 98
[2024-06-16 14:26] VITALS: BP 109/69; PULSE 81; RESP 18; TEMP 36.4; O2SAT 98
== END 2024-06-16 14:55 | disposition home or self-care (01) ==
PROVIDERS: PCP Family Medicine; Visit Provider Internal Medicine Gastroenterology
PROC: 0DJ08ZZ Inspection of Upper Intestinal Tract, Via Natural or Artificial Opening Endoscopic (ICD-10-PCS; CPT 43235; principal; 2024-06-16 14:10)
DX: K29.70 Gastritis, unspecified, without bleeding (principal); K21.00 Gastro-esophageal reflux disease with esophagitis, without bleeding; K44.9 Diaphragmatic hernia without obstruction or gangrene; R13.10 Dysphagia, unspecified; Z79.899 Other long term (current) drug therapy; Z79.02 Long term (current) use of antithrombotics/antiplatelets
CPT/HCPCS: 43239; 88305; 88313; 88342; J2003; J2704

== ENCOUNTER → 2024-06-16 10:29 | Outpatient (BNV) | payer MEDICARE, OTHER, SELFPAY | PROVIDERS: PCP Family Medicine; Visit Provider Internal Medicine Gastroenterology | DX: K21.00 Gastro-esophageal reflux disease with esophagitis, without bleeding (principal); K29.70 Gastritis, unspecified, without bleeding | CPT/HCPCS: 43239 ==

== ENCOUNTER 2024-06-24 12:41 | Outpatient (REF) | payer MEDICARE, OTHER, SELFPAY ==
--- NOTE | ~2024-06-24 | US_ITS ---
CLINICAL HISTORY: M79.606 - Pain in leg, unspecified Bilateral ABIs Comparison: None Findings: 13 mm asymmetry of brachial pressures right at 124 mm Hg, left 111 mm Hg. Typically 15 mm asymmetry considered significant, although suggest repeat brachial pressures and if persistent asymmetry suggest follow-up for potential left subclavian artery stenosis. Highest right ankle pressure at the posterior tibial artery at 131 mm Hg with normal right MELANIE at 1.06. Left ankle pressure at the posterior tibial at 134 mm Hg. Normal left MELANIE at 1.08. Impression: Normal bilateral ABIs. Mild asymmetry in brachial pressures as detailed. This document has been electronically signed by: Sergio Miranda MD on 06/25/2024 12:10:06
[2024-06-24 10:41] VITALS: PULSE 100; O2SAT 98
--- OUTSIDE RECORDS SUMMARY | 2024-06-24 13:00 | XMS_ITS | Clinical Summary ---
Author Organization [facility] ity Address [address] [place] [address] Care Team Providers Care Residential Sales Representative Name Role Phone Unavailable Primary Care Provider [...]
--- NOTE | 2024-06-24 14:04 | PFT_ITS ---
Flows: FEV1: 117 % of predicted at 3.49 L FVC: 115 % of predicted at 4.26 L FEV1/FVC: 82 % Bronchodilator response: Absent Volumes: Total lung capacity: 103 % of predicted at 5.55 L Residual volume: 90 % of predicted at 1.29 L Slow vital capacity: 107 % of predicted at 4.26 L Expiratory reserve volume: 91 % of predicted at 1.08 L Diffusion capacity: Normal Impression: No obstructive or restrictive ventilatory defect. No bronchodilator response. Normal pulmonary function test. MTDD
== END 2024-06-24 12:42 | disposition home or self-care (01) ==
LOC: HO.US 12:41
PROVIDERS: PCP Family Medicine; Visit Provider Family Medicine
DX: M79.604 Pain in right leg (principal); M79.605 Pain in left leg; R06.02 Shortness of breath
CPT/HCPCS: 93923; 94010; 94640; 94727; 94729

== ENCOUNTER → 2024-06-24 12:52 | Outpatient (BNV) | payer MEDICARE, OTHER, SELFPAY | PROVIDERS: PCP Family Medicine; Visit Provider Radiology Diagnostic Radiology | DX: M79.604 Pain in right leg (principal); M79.605 Pain in left leg | CPT/HCPCS: 93923 ==

== ENCOUNTER → 2024-06-24 14:04 | Outpatient (BNV) | payer MEDICARE, OTHER, SELFPAY | PROVIDERS: PCP Family Medicine; Visit Provider Internal Medicine Pulmonary Disease | DX: R06.02 Shortness of breath (principal) | CPT/HCPCS: 94060; 94727; 94729 ==

== ENCOUNTER 2024-07-01 10:18 | Outpatient (AMB) | payer MEDICARE, OTHER, SELFPAY ==
--- NOTE | 2024-07-01 10:08 | MHC.PC.OV ---
Intake Visit Reasons: us results Allergies oxycodone [From Percocet] Allergy (Severe, Verified 07/01/24 10:08) Migraine and vomiting peach Allergy (Severe, Verified 07/01/24 10:08) Hives apple Allergy (Intermediate, Verified 07/01/24 10:08) Swelling erythromycin base [Erythromycin Base] Allergy (Mild, Verified 07/01/24 10:08) Confusion, Rash, Nausea, Vomiting, Out of it levofloxacin [From Levaquin] Allergy (Mild, Verified 07/01/24 10:08) Rash sulfamethoxazole [From Bactrim] Allergy (Mild, Verified 07/01/24 10:08) Rash trimethoprim [From Bactrim] Allergy (Mild, Verified 07/01/24 10:08) Rash Sulfa (Sulfonamide Antibiotics) Allergy (Unknown, Verified 07/01/24 10:08) Rash apples Allergy (Severe, Uncoded 06/11/24 17:21) Anaphylaxis meclazine Adverse Reaction (Severe, Uncoded 06/11/24 17:21) severe anxiety Tobacco use date assessed: 05/18/24 Dental Screening Dental Screen Date: 05/18/24 HPI us results HPI Details 44 y/o female presents to f/u syncope, lipids via telemedicine. Checking CTA. CT scan scheduled in July, ordered for 07/14/24. Labs drawn 06/04/24. Reviewed labs with pt. Triglycerides 435. TC 271. HDL 89. LDL TNP. Had complaints of leg pain. Normal biltaral ABIs. Mild asymmetry in branchial pressures. HPI Comments History of Present Illness Details Documentation assistance for Shawn Miranda MD, was provided by Juan Pemberton,? [employer] on 07/01/2024 at 11:17 AM EST. I, Dr. Miranda, have read, observed, and verified documentation. ?? [facility] Medical History Screening for colon cancer Screening for cervical cancer Adult general medical exam Shortness of breath Discomfort of right ear Otitis media of right ear Lightheadedness Normal physical exam Early satiety Abnormal urinalysis Suprapubic pain, acute Fatigue Vision changes Peroneal tendinitis, left leg Cough Myalgia Easy bruising Joint stiffness of hand Rectal prolapse Abdominal rebound tenderness of right lower quadrant Abdominal pain Surgical History Hx of hysterectomy History of esophagogastroduodenoscopy (EGD) History of kidney stones Status post LASIK surgery History of lumpectomy of left breast History of right breast biopsy History of colonoscopy History of laparoscopic cholecystectomy History of removal of ovarian cyst History of bilateral breast reduction surgery Family History Father Healthy adult Mother High cholesterol Migraines Diabetes Asthma Hypertension Maternal Grandfather CVD (cardiovascular disease) Maternal Aunt Family history of heart disease Other Mental health disorder Substance abuse Social History Housing: House Are you a primary wound care coordinator to a significant other at home: No Do you presently have visiting nurse or other home services: No Alcohol intake: never Patient Tobacco Use Status: Never used Tobacco e-Cigarette/Vaping Use: Never Used Second Hand Smoke Exposure: No service: No Current occupational status: unemployed Current occupational exposures/hazards: No Cognitive needs: No Hearing needs: No Vision needs: No Questionnaire Thrive Questionnaire Date Thrive assessed: 05/18/24 KATI-7 AMB Questionnaire KATI-7 Date KATI - 7 assessed: 05/18/24 Source: Developed by Drs. Demond Oleary, Rhonda Quach, Mendel Brennan and colleagues, with an educational manuela from [employer]. Physical exam (Primary Care) Tobacco/Smoking Status: Tobacco use Status Tobacco use date assessed 05/18/24 07/01/24 10:10 Patient Tobacco Use Status Never used Tobacco 07/01/24 10:10 e-Cigarette/Vaping Use Never Used 07/01/24 10:10 Thrive Assessment: Date of Thrive Assessment Date Thrive assessed 05/18/24 07/01/24 10:10 Telehealth Telehealth Telehealth Platform: Telephone Location of provider rendering services: practice address Location of patient: address on file Patient Identification confirmed using: Name, : Yes Telehealth method: voice only Patient verbally consented to treatment: Yes Patient verbally consented to billing insurance company: Yes Patient informed of any privacy concerns related to visit: Yes Minutes spent on Phone/Video with Pt.: 10 Coding Level of Care Code Tele Est Pt Level 2 (64165) Diagnoses Syncope and collapse R55 Hyperlipidemia E78.5 Leg pain M79.606 Assessment & Plan Assessment & Plan (1) Syncope and collapse: Code(s): R55 - Syncope and collapse Category: Medical (2) Hyperlipidemia: Code(s): E78.5 - Hyperlipidemia, unspecified Category: Medical (3) Leg pain: Code(s): M79.606 - Pain in leg, unspecified Category: Medical Plan Had?ordered?carotid?duplex?which?showed?plaques?and?flow?velocities?were?increased. Recommended?CTA?which?is?ordered?and?scheduled?for?July?. When?we?discussed?the?carotid?results,?she?noted?that?she?also?had?lower?extremity?discomfort?and?ankle-brachial?index?testing?was?ordered. ABIs?are?normal?however it?was?noted?that?there?was?a?slight?discrepancy?of?only?13?mmHG between?at?left?and?right?upper?extremities?and?could?represent?a?left?subclavian?artery?stenosis. MELANIE?testing?recommended repeat?testing?to?evaluate?this. Will?repeat?testing - will?discuss?with?Radiology. Patient?is?still?having?presyncopal?episodes. Has?had?workup?with?cardiology. At?this?point,?will?refer?to?vascular?surgery
--- OUTSIDE RECORDS SUMMARY | 2024-07-01 12:32 | XMS_ITS | Clinical Summary ---
Author Organization [facility] ity Address [address] [place] [address] Care Team Providers Care Mathematics Academic Chair Name Role Phone Unavailable Primary Care Provider [...]
== END 2024-07-01 16:17 | disposition home or self-care (01) ==
LOC: HO.HMCFM 10:18
PROVIDERS: PCP Family Medicine; Visit Provider Family Medicine
DX: R55 Syncope and collapse (principal); E78.5 Hyperlipidemia, unspecified; M79.605 Pain in left leg; M79.604 Pain in right leg

== ENCOUNTER 2024-07-14 08:00 | Outpatient (REF) | payer MEDICARE, OTHER, SELFPAY ==
--- NOTE | ~2024-07-14 | CT_ITS ---
EXAMINATION: CTA NECK WITH CONTRAST (STROKE) CTA BRAIN WITH CONTRAST (STROKE) CLINICAL INFORMATION: Syncope. Collapsed. COMPARISON: CT brain dated August 11, 2014. TECHNIQUE: CTA of the head and neck was performed in the axial plane from the mediastinum to the skull vertex using 70 mL Omnipaque 350 intravenous contrast. Additional reformatted multiplanar images including maximum intensity projection MIP images are generated on the CT workstation. This CT examination was performed using dose optimization techniques as appropriate, variously including the following: *Automated exposure control *Adjustment of mA and/or kV according to patient size (this includes techniques or standardized protocols for targeted exams where dose is matched to indication/reason for exam; i.e. extremities or head) *Use of iterative reconstruction technique. DLP: 1516 mGy centimeter. FINDINGS: The degree of stenosis determined by criteria similar to NASCET. Brain: No acute intracranial hemorrhage, mass effect, midline shift, hydrocephalus or herniation. Up-white matter differentiation is normal. Posterior cranial fossa contents demonstrated no acute intracranial hemorrhage or mass effect. Poor pneumatization of the frontal sinuses. No air-fluid levels in the included paranasal sinuses. Tympanic cavities and mastoid air cells are aerated. Enostosis in the inner table of the frontal bones. Chest CTA: The thoracic aorta demonstrates normal caliber and enhancement pattern without intimal flap or focal stenosis. Neck CTA: Right CCA: Normal patency. No focal stenosis. No intimal flap. Right ICA: Normal patency. No plaque. No focal stenosis. No intimal flap. Left CCA: Normal patency. No focal stenosis. No intimal flap. Left ICA: Normal patency. No plaque. No focal stenosis. No intimal flap. V1/V2 segments: Normal patency. No focal stenosis. No intimal flap. Both orientating from the subclavian arteries. Codominant vertebral arteries. Brain CTA: Anterior cerebral circulation: ICAs: Normal patency. No focal stenosis. No abrupt cut off. MCA's: Normal patency. No focal stenosis. No intimal flap. Bifurcation/trifurcation demonstrated no contour irregularity. ACAs: Normal patency. No focal stenosis. No abrupt cut off. Anterior communicating artery is patent. Ophthalmic arteries are patent. Posterior communicating arteries are patent with small caliber. The posterior cerebral circulation: V3/V4 segments: Normal patency. No focal stenosis. No intimal flap. Posterior inferior cerebellar arteries are patent. Basilar artery: Normal patency. No focal stenosis. No intimal flap. Superior cerebellar arteries are patent. automotive sales professional: Normal patency. No focal stenosis. No abrupt cut off. Ancillary findings: Main cerebral venous sinuses are patent. CT/CT angio head neck IMPRESSION: No gross plaque at either ICA. No high degree stenosis or dissection. Codominant vertebral arteries. No main cerebral artery occlusion or embolus. No main cerebral venous sinus thrombosis. No acute brain abnormality.. Electronically signed by: Lefty Clement MD 07/14/2024 01:56 PM EDT
--- OUTSIDE RECORDS SUMMARY | 2024-07-14 08:22 | XMS_ITS | Clinical Summary ---
Author Organization [facility] ity Address [address] [place] [address] Care Team Providers Care Pocket Operator Name Role Phone Unavailable Primary Care [...]
[2024-07-14] MEDS: iohexoL 350 MG/ML 100 ML INFUS..BTL IV (09:01)
== END 2024-07-14 08:01 | disposition home or self-care (01) ==
LOC: HO.CT 08:00
PROVIDERS: PCP Family Medicine; Visit Provider Family Medicine
DX: R55 Syncope and collapse (principal)
CPT/HCPCS: 70496; 70498; Q9967

== ENCOUNTER → 2024-07-14 08:01 | Outpatient (BNV) | payer MEDICARE, OTHER, SELFPAY | PROVIDERS: PCP Family Medicine; Visit Provider Radiology Diagnostic Radiology | DX: R55 Syncope and collapse (principal) | CPT/HCPCS: 70496; 70498 ==

== ENCOUNTER 2024-07-15 09:47 | Outpatient (AMB) | payer MEDICARE, OTHER, SELFPAY ==
--- NOTE | 2024-07-15 09:43 | MHC.PC.OV ---
Intake Visit Reasons: F/u anemia and bleeding Sap Bw Developer Required: No Allergies oxycodone [From Percocet] Allergy (Severe, Verified 07/15/24 09:43) Migraine and vomiting peach Allergy (Severe, Verified 07/15/24 09:43) Hives apple Allergy (Intermediate, Verified 07/15/24 09:43) Swelling erythromycin base [Erythromycin Base] Allergy (Mild, Verified 07/15/24 09:43) Confusion, Rash, Nausea, Vomiting, Out of it levofloxacin [From Levaquin] Allergy (Mild, Verified 07/15/24 09:43) Rash sulfamethoxazole [From Bactrim] Allergy (Mild, Verified 07/15/24 09:43) Rash trimethoprim [From Bactrim] Allergy (Mild, Verified 07/15/24 09:43) Rash Sulfa (Sulfonamide Antibiotics) Allergy (Unknown, Verified 07/15/24 09:43) Rash apples Allergy (Severe, Uncoded 06/11/24 17:21) Anaphylaxis meclazine Adverse Reaction (Severe, Uncoded 06/11/24 17:21) severe anxiety Tobacco use date assessed: 05/18/24 Dental Screening Dental Screen Date: 05/18/24 HPI F/u anemia and bleeding HPI Details 44 y/o female presents to f/u syncope, labs. Labs from June show ongoing mild anemia. She notes she has been following up with GI and has a colonoscopy scheduled to work-up anemia. Reports ongoing symptoms of presyncope. Pt notes specialists did not feel this was a heart issue. She reports she has a neurology at [facility]. [facility] Medical History Screening for colon cancer Screening for cervical cancer Adult general medical exam Shortness of breath Discomfort of right ear Otitis media of right ear Lightheadedness Normal physical exam Early satiety Abnormal urinalysis Suprapubic pain, acute Fatigue Vision changes Peroneal tendinitis, left leg Cough Myalgia Easy bruising Joint stiffness of hand Rectal prolapse Abdominal rebound tenderness of right lower quadrant Abdominal pain Surgical History Hx of hysterectomy History of esophagogastroduodenoscopy (EGD) History of kidney stones Status post LASIK surgery History of lumpectomy of left breast History of right breast biopsy History of colonoscopy History of laparoscopic cholecystectomy History of removal of ovarian cyst History of bilateral breast reduction surgery Family History Father Healthy adult Mother High cholesterol Migraines Diabetes Asthma Hypertension Maternal Grandfather CVD (cardiovascular disease) Maternal Aunt Family history of heart disease Other Mental health disorder Substance abuse Social History Housing: House Are you a primary interior plant caretaker to a significant other at home: No Do you presently have visiting nurse or other home services: No Alcohol intake: never Patient Tobacco Use Status: Never used Tobacco e-Cigarette/Vaping Use: Never Used Second Hand Smoke Exposure: No service: No Current occupational status: unemployed Current occupational exposures/hazards: No Cognitive needs: No Hearing needs: No Vision needs: No Questionnaire Thrive Questionnaire Date Thrive assessed: 05/18/24 KATI-7 AMB Questionnaire KATI-7 Date KATI - 7 assessed: 05/18/24 Source: Developed by Drs. Demond Oleary, Rhonda Quach, Mendel Brennan and colleagues, with an educational manuela from [employer]. Review of Systems Const Denies chills, Denies fatigue, Denies fever(s), Denies headache(s) and Denies weakness ENT Denies dizziness and Denies headache(s) Card Denies dyspnea Resp Denies cough, Denies dyspnea, Denies wheezing and Denies other (shortness of breath) Musc Denies numbness and Denies tingling Neuro Denies dizziness, Denies headache(s), Denies numbness, Denies tingling and Denies weakness Psych Denies anxiety and Denies depression Endo Denies fatigue Aller/Immun Denies wheezing Physical exam (Primary Care) Tobacco/Smoking Status: Tobacco use Status Tobacco use date assessed 05/18/24 07/15/24 09:44 Patient Tobacco Use Status Never used Tobacco 07/15/24 09:44 e-Cigarette/Vaping Use Never Used 07/15/24 09:44 Thrive Assessment: Date of Thrive Assessment Date Thrive assessed 05/18/24 07/15/24 09:44 Telehealth Telehealth Telehealth Platform: Telephone Location of provider rendering services: practice address Location of patient: address on file Patient Identification confirmed using: Name, : Yes Telehealth method: voice only Patient verbally consented to treatment: Yes Patient verbally consented to billing insurance company: Yes Patient informed of any privacy concerns related to visit: Yes Minutes spent on Phone/Video with Pt.: 18 Coding Level of Care Code Tele Est Pt Level 2 (90207) Diagnoses Syncope and collapse R55 Mild anemia D64.9 Assessment & Plan Assessment & Plan (1) Syncope and collapse: Code(s): R55 - Syncope and collapse Category: Medical Plan: Ongoing?symptoms Cardiovascular?workup?has?been?unremarkable Will?make?a?referral?to?neurology - patient?says?she?had?seen?Neurology?at?[facility]?in?the?past?but?would?like?a?new?referral?to?[facility]urologists She?has?already?been?advised?to?hydrate?well?and?consume?plenty?of?salt She?has?a?mild?anemia?though?I?do?not?think?this?is?prior?underlying?factor Likely?multifactorial (2) Mild anemia: Code(s): D64.9 - Anemia, unspecified Category: Medical Plan: Ongoing?mild?anemia?which?is?stable She?has?a?workup?with?GI?scheduled, however no?iron?deficiency?at?last?check?to?suggest?longstanding?blood?loss. Patient?denies?any?active?bleeding Referred?to?Hematology-Oncology Orders: Referrals Neurology Referral R55 - Syncope and collapse Hematology & Oncology Referral D64.9 - Anemia, unspecified
--- OUTSIDE RECORDS SUMMARY | 2024-07-15 10:52 | XMS_ITS | Clinical Summary ---
Author Organization [facility] ity Address [address] [place] [address] Care Team Providers Care Melter Clerk Name Role Phone Unavailable Primary Care Provider [...]
== END 2024-07-15 13:47 | disposition home or self-care (01) ==
LOC: HO.HMCFM 09:47
PROVIDERS: PCP Family Medicine; Visit Provider Family Medicine
DX: R55 Syncope and collapse (principal); D64.9 Anemia, unspecified

== ENCOUNTER 2024-08-07 10:14 | Outpatient (AMB) | payer MEDICARE, OTHER, SELFPAY ==
--- NOTE | 2024-08-07 10:17 | MHC.OFFVIS ---
Vital Signs 08/07/24 10:20 08/07/24 10:28 Height 5 ft 4.5 in Weight 172 lb BMI 29.1 BP 101/57 L 111/63 Blood Pressure Location Lt brachial Lt brachial Position Sitting Sitting Pulse 101 H Pulse Oximetry (%) 98 Oxygen Delivery Method Room Air Intake Visit Reasons: Neurological Concerns Intake Note: Patient follow up for Neurological concerns Patient cc: dizziness/pass out twice, abdominal pain with bloating, acid reflex with some burning sensation on and off, between diarrhea and constipation and swallowing discomfort with solid food. Job Press Operator Required: No Accompanied by: Family/Other Allergies oxycodone [From Percocet] Allergy (Severe, Verified 08/07/24 10:16) Migraine and vomiting peach Allergy (Severe, Verified 08/07/24 10:16) Hives apple Allergy (Intermediate, Verified 08/07/24 10:16) Swelling erythromycin base [Erythromycin Base] Allergy (Mild, Verified 08/07/24 10:16) Confusion, Rash, Nausea, Vomiting, Out of it levofloxacin [From Levaquin] Allergy (Mild, Verified 08/07/24 10:16) Rash sulfamethoxazole [From Bactrim] Allergy (Mild, Verified 08/07/24 10:16) Rash trimethoprim [From Bactrim] Allergy (Mild, Verified 08/07/24 10:16) Rash Sulfa (Sulfonamide Antibiotics) Allergy (Unknown, Verified 08/07/24 10:16) Rash apples Allergy (Severe, Uncoded 06/11/24 17:21) Anaphylaxis meclazine Adverse Reaction (Severe, Uncoded 06/11/24 17:21) severe anxiety HPI HPI Neurological Concerns: Details: 44 yr old f here for f/u RECAP: originally seen for constipation and bloating She had EGD 06/30: Impression/Findings: gastritis esophagitis hiatal hernia Upper GI series: 2023 1. Trace laryngeal penetration with thick barium. 2. Significant gastroesophageal reflux 3. Mildly thickened gastric mucosal folds consistent with gastritis. 4. Contrast is seen in the colon at 125 minutes. No dilated small bowel present. No mass or strictures present. INTERIM: She feels problems started 4 yrs ago or so for rectocele, hemorrhoidectomy, anal fistula she thinks she saw a worm recently in her stool she has noted issues with word finding she feels confused easily she notes tremor, poor dexeterity headaches -frontal she has weird feeling of gas trapped everywhere abdo pain anywhere --more recent lower left and right-sharp no exposure to CO at home, has monitor neuro sx getting worse with time she has been holding weight loss meds she is vegetarian for 30 yrs she has chronic anemia as well EXAM: GENERAL: The patient is well developed and nontoxic. VITAL SIGNS:see workflow HEENT: Nonicteric sclerae, PERRLA, EOMI. Oropharynx clear. Moist mucous membranes. Conjunctivae appear well perfused. No thyroid mass. CHEST: Chest wall is nontender. HEART: Regular rate and rhythm without murmurs. LUNGS: Clear to auscultation bilaterally. ABDOMEN: Soft, positive bowel sounds, nontender, no organomegaly.no flank tenderness SKIN: No rash, no excessive bruising, petechiae, or purpura. NEUROLOGIC: Cranial nerves II-XII intact without motor/sensory deficit. Psych: normal affect A/P: 1/ Possible worm infection, combination of neuro and abdominal symptoms, hard to tie together, may have crohsn given hx of stone anal fistula--also borderline b12 and she is vegetarian PLAN: 1/ Cte 2/ stool and vitmain levels 3/ trial of albendazole 4/ fecal lactoferrin 5/ may need brain imaging --will see what above show 6/ she has colonoscopy coming up [facility] Medical History Screening for colon cancer Screening for cervical cancer Adult general medical exam Shortness of breath Discomfort of right ear Otitis media of right ear Lightheadedness Normal physical exam Early satiety Abnormal urinalysis Suprapubic pain, acute Fatigue Vision changes Peroneal tendinitis, left leg Cough Myalgia Easy bruising Joint stiffness of hand Rectal prolapse Abdominal rebound tenderness of right lower quadrant Abdominal pain Surgical History Hx of hysterectomy History of esophagogastroduodenoscopy (EGD) History of kidney stones Status post LASIK surgery History of lumpectomy of left breast History of right breast biopsy History of colonoscopy History of laparoscopic cholecystectomy History of removal of ovarian cyst History of bilateral breast reduction surgery Family History Father Healthy adult Mother High cholesterol Migraines Diabetes Asthma Hypertension Maternal Grandfather CVD (cardiovascular disease) Maternal Aunt Family history of heart disease Other Mental health disorder Substance abuse Social History Housing: House Are you a primary nurse behavioral health care to a significant other at home: No Do you presently have visiting nurse or other home services: No Alcohol intake: never Patient Tobacco Use Status: Never used Tobacco e-Cigarette/Vaping Use: Never Used Second Hand Smoke Exposure: No service: No Current occupational status: unemployed Current occupational exposures/hazards: No Cognitive needs: No Hearing needs: No Vision needs: No Physical Exam Vital Signs: Last Vital Signs Pulse 101 H 08/07/24 10:28 BP 111/63 08/07/24 10:28 Pulse Ox 98 08/07/24 10:20 Oxygen Delivery Method Room Air 08/07/24 10:20 BMI result Body Mass Index 29.1 Assessment & Plan Assessment & Plan (1) Nausea and vomiting: Code(s): R11.2 - Nausea with vomiting, unspecified Category: Medical Plan: as above (2) Orthostatic hypotension: Code(s): I95.1 - Orthostatic hypotension Category: Medical Plan: as above (3) Malnutrition: Code(s): E46 - Unspecified protein-calorie malnutrition Category: Medical Plan: as above Orders: Orders Immunoglobulins,IgG IgA IgM Today E46 - Unspecified protein-calorie malnutrition, I95.1 - Orthostatic hypotension, R11.2 - Nausea with vomiting, unspecified Vitamin B12 and Folate Today E46 - Unspecified protein-calorie malnutrition, I95.1 - Orthostatic hypotension, R11.2 - Nausea with vomiting, unspecified Vitamin B1 Today E46 - Unspecified protein-calorie malnutrition, I95.1 - Orthostatic hypotension, R11.2 - Nausea with vomiting, unspecified Vitamin B6 Today E46 - Unspecified protein-calorie malnutrition, I95.1 - Orthostatic hypotension, R11.2 - Nausea with vomiting, unspecified Vitamin D 25-OH Total Today E46 - Unspecified protein-calorie malnutrition, I95.1 - Orthostatic hypotension, R11.2 - Nausea with vomiting, unspecified Vitamin E Today E46 - Unspecified protein-calorie malnutrition, I95.1 - Orthostatic hypotension, R11.2 - Nausea with vomiting, unspecified Vitamin K1 Today E46 - Unspecified protein-calorie malnutrition, I95.1 - Orthostatic hypotension, R11.2 - Nausea with vomiting, unspecified Zinc Today E46 - Unspecified protein-calorie malnutrition, I95.1 - Orthostatic hypotension, R11.2 - Nausea with vomiting, unspecified Ferritin Today E46 - Unspecified protein-calorie malnutrition, I95.1 - Orthostatic hypotension, R11.2 - Nausea with vomiting, unspecified Erythrocyte Sedimentation Rate Today E46 - Unspecified protein-calorie malnutrition, I95.1 - Orthostatic hypotension, R11.2 - Nausea with vomiting, unspecified Lactoferrin, Fecal, Quant. Today E46 - Unspecified protein-calorie malnutrition, I95.1 - Orthostatic hypotension, K51.50 - Left sided colitis without complications, R11.2 - Nausea with vomiting, unspecified Calcium, Ionized Today E46 - Unspecified protein-calorie malnutrition, E83.52 - Hypercalcemia, I95.1 - Orthostatic hypotension, R11.2 - Nausea with vomiting, unspecified Hepatitis A,B,C Profile Today E46 - Unspecified protein-calorie malnutrition, I95.1 - Orthostatic hypotension, R11.2 - Nausea with vomiting, unspecified TSH reflex Free T4 Today E46 - Unspecified protein-calorie malnutrition, I95.1 - Orthostatic hypotension, R11.2 - Nausea with vomiting, unspecified Magnesium Today E46 - Unspecified protein-calorie malnutrition, I95.1 - Orthostatic hypotension, R11.2 - Nausea with vomiting, unspecified CT enterography Today R10.33 - Periumbilical pain C Reactive Protein Today E46 - Unspecified protein-calorie malnutrition, I95.1 - Orthostatic hypotension, R11.2 - Nausea with vomiting, unspecified Transglutaminase Ab IgG Today E46 - Unspecified protein-calorie malnutrition, G89.29 - Other chronic pain, I95.1 - Orthostatic hypotension, R10.33 - Periumbilical pain, R11.2 - Nausea with vomiting, unspecified Vitamin A Today E46 - Unspecified protein-calorie malnutrition, I95.1 - Orthostatic hypotension, R11.2 - Nausea with vomiting, unspecified Vitamin B3 (Niacin) Today E46 - Unspecified protein-calorie malnutrition, I95.1 - Orthostatic hypotension, R11.2 - Nausea with vomiting, unspecified Vitamin B5 (Pantothenic Acid) Today E46 - Unspecified protein-calorie malnutrition, I95.1 - Orthostatic hypotension, R11.2 - Nausea with vomiting, unspecified Vitamin C Today E46 - Unspecified protein-calorie malnutrition, I95.1 - Orthostatic hypotension, R11.2 - Nausea with vomiting, unspecified GI Panel Today E46 - Unspecified protein-calorie malnutrition, I95.1 - Orthostatic hypotension, R11.2 - Nausea with vomiting, unspecified, R19.7 - Diarrhea, unspecified REJI Reflex Titer and Pattern Today E46 - Unspecified protein-calorie malnutrition, I95.1 - Orthostatic hypotension, R11.2 - Nausea with vomiting, unspecified, R79.82 - Elevated C-reactive protein (CRP) Tryptase Today E46 - Unspecified protein-calorie malnutrition, I95.1 - Orthostatic hypotension, R11.2 - Nausea with vomiting, unspecified, R19.7 - Diarrhea, unspecified Medications: New albendazole 400 mg (2 x 200 mg) PO DAILY 6 tabs 0RF ondansetron 4 mg PO Q8H PRN 10 tabs 0RF nausea and vomiting Coding Level of Care Code Est Pt Level 4 (23433) Diagnoses Nausea and vomiting R11.2 Orthostatic hypotension I95.1 Malnutrition E46
[2024-08-07 10:20] VITALS: BP 101/57; O2SAT 98; BMI 29.1
[2024-08-07 10:28] VITALS: BP 111/63; PULSE 101
--- OUTSIDE RECORDS SUMMARY | 2024-08-07 11:40 | XMS_ITS | Clinical Summary ---
Author Organization [facility] ity Address [address] [place] [address] Care Team Providers Care Professor Of Biology Name Role Phone Unavailable Primary Care Provider [...]
== END 2024-08-07 10:56 | disposition home or self-care (01) ==
LOC: HO.HGI 10:15
PROVIDERS: PCP Family Medicine; Visit Provider Internal Medicine Gastroenterology
DX: R11.2 Nausea with vomiting, unspecified (principal); I95.1 Orthostatic hypotension; E46 Unspecified protein-calorie malnutrition
CPT/HCPCS: 99214

== ENCOUNTER 2024-08-07 10:14 | Outpatient (REF) | payer MEDICARE, OTHER, SELFPAY ==
[2024-08-07 12:03] LABS: C Reactive Protein < 0.10 mg/dL (< or = 0.50); Magnesium 1.7 mg/dL (1.6-2.6)
[2024-08-07 12:17] LABS: Erythrocyte Sedimentation Rate 6 MM/HR (0-20)
[2024-08-07 12:25] LABS: HBS Num1 7.99 mIU/mL (0-7.99); HBc Num1 0.06 S/CO (0.00-0.79); Hepatitis A Antibody IgM 0.22 Index (0-0.79); Hepatitis B Core Antibody Nonreactive (Nonreactive); Hepatitis B Surface Antigen Negative (Negative); ~HepC Num1 0.09 S/CO (0.00-0.79); ~Hepatitis A Antibody IgM Nonreactive (Nonreactive); ~Hepatitis B Surface Antibody NONREACTIVE (Nonreactive); ~Hepatitis C Antibody Nonreactive (Nonreactive)
[2024-08-07 12:29] LABS: Ferritin 11 ng/mL (10-250); TSH reflex Free T4 0.55 uIU/mL (0.32-4.0); Vitamin D 25-OH Total 43.8 ng/mL (>30)
[2024-08-07 12:37] LABS: Folate 12.4 ng/mL (> or = 4.0); Vitamin B12 775 pg/mL (200-900)
--- OUTSIDE RECORDS SUMMARY | 2024-08-07 12:57 | XMS_ITS | Clinical Summary ---
Author Organization [facility] ity Address [address] [place] [address] Care Team Providers Care Filteration Operator Name Role Phone Unavailable Primary Care [...]
[2024-08-10 23:34] LABS: Zinc 60 mcg/dL (60-130)
[2024-08-11 14:08] LABS: IgA 308 mg/dL (47-310); IgG 774 mg/dL (600-1640); IgM 151 mg/dL (50-300)
[2024-08-11 15:32] LABS: Calcium, Ionized 5.2 mg/dL (4.7-5.5)
[2024-08-11 20:17] LABS: Beta-Gamma Tocopherol <1.0 mg/L (<=4.3)
[2024-08-12 01:58] LABS: Vitamin A 64 mcg/dL (38-98)
[2024-08-12 07:23] LABS: Vitamin B5 (Pantothenic Acid) 58 ng/mL (<275)
[2024-08-12 15:13] LABS: Vitamin B6 17.1 ng/mL (2.1-21.7)
[2024-08-13 07:03] LABS: Nicotinamide <20 ng/mL (see note); Vit B3 - Nicotinic Acid <20 ng/mL (see note)
[2024-08-14 07:44] LABS: Transglutaminase Ab IgG <1.0 U/mL
[2024-08-14 11:23] LABS: Anti Nuclear Antibody Pattern Nuclear, Homogeneous; Anti Nuclear Antibody Screen POSITIVE (NEGATIVE)
[2024-08-15 10:58] LABS: Vitamin B1 17 nmol/L (8-30)
== END 2024-08-07 10:15 | disposition home or self-care (01) ==
LOC: HO.LAB 10:14
PROVIDERS: PCP Family Medicine; Visit Provider Internal Medicine Gastroenterology
DX: I95.1 Orthostatic hypotension (principal); R11.2 Nausea with vomiting, unspecified; E46 Unspecified protein-calorie malnutrition; E83.52 Hypercalcemia; R10.33 Periumbilical pain; G89.29 Other chronic pain; R79.82 Elevated C-reactive protein (CRP); R19.7 Diarrhea, unspecified
CPT/HCPCS: 36415; 82306; 82330; 82607; 82728; 82746; 82784; 83520; 83735; 84207; 84425; 84443; 84446; 84590; 84591; 84630; 85652; 86038; 86039; 86140; 86364; 86704; 86706; 86709; 86803; 87340; 99212

== ENCOUNTER 2024-08-12 14:41 | Outpatient (REF) | payer MEDICARE, OTHER, SELFPAY ==
--- OUTSIDE RECORDS SUMMARY | 2024-08-12 16:53 | XMS_ITS | Clinical Summary ---
Author Organization [facility] ity Address [address] [place] [address] Care Team Providers Care Self Pay Collector Name Role Phone Unavailable Primary Care Provider [...] age to complete this topic Meningococcal B Vaccine Aged Out No l onger eligible based on patient's age to complete [...]
[2024-08-13 10:23] LABS: Adenovirus F 40/41 Not Detected (Not Detect.); Astrovirus Not Detected (Not Detect.); Campylobacter Not Detected (Not Detect.); Cryptosporidium Not Detected (Not Detect.); Cyclospora cayetanensis Not Detected (Not Detect.); E. coli EAEC Not Detected (Not Detect.); E. coli EPEC Not Detected (Not Detect.); E. coli ETEC Not Detected (Not Detect.); E. coli STEC Not Detected (Not Detect.); Entamoeba histolytica Not Detected (Not Detect.); Giardia lamblia Not Detected (Not Detect.); Norovirus GI/GII Not Detected (Not Detect.); Plesiomonas shigelloides Not Detected (Not Detect.); Rotavirus A Not Detected (Not Detect.); Salmonella Not Detected (Not Detect.); Sapovirus Not Detected (Not Detect.); Shigella sp./EIEC Not Detected (Not Detect.); Vibrio Not Detected (Not Detect.); Vibrio Cholerae Not Detected (Not Detect.); Yersinia enterocolitica Not Detected (Not Detect.)
[2024-08-16 06:34] LABS: Vitamin C 1.1 mg/dL (0.3-2.7)
[2024-08-19 12:53] LABS: Vitamin K1 221 pg/mL (130-1500)
[2024-08-19 21:54] LABS: Lactoferrin, Fecal, Quant. <6.25 mcg/mL (<7.25)
== END 2024-08-12 14:42 | disposition home or self-care (01) ==
LOC: HO.LAB 14:41
PROVIDERS: PCP Family Medicine; Visit Provider Internal Medicine Gastroenterology
DX: R19.7 Diarrhea, unspecified (principal); K51.50 Left sided colitis without complications; E46 Unspecified protein-calorie malnutrition; R11.2 Nausea with vomiting, unspecified; I95.1 Orthostatic hypotension
CPT/HCPCS: 36415; 82180; 83631; 84597; 87507

== ENCOUNTER → 2024-08-18 10:06 | Outpatient (BNV) | payer MEDICARE, OTHER, SELFPAY | PROVIDERS: PCP Family Medicine; Referring Provider Family Medicine; Visit Provider Internal Medicine Medical Oncology | DX: D64.9 Anemia, unspecified (principal) | CPT/HCPCS: 99204 ==

== ENCOUNTER 2024-08-19 10:06 | Day surgery (SDC) | payer MEDICARE, OTHER, SELFPAY ==
[2024-08-19 10:51] VITALS: BMI 28.2
[2024-08-19 10:52] VITALS: BP 102/69; PULSE 93; RESP 16; TEMP 37.4; O2SAT 97
--- NOTE | 2024-08-19 11:09 | MHC.SHP ---
Pre-Procedural Eval Section A - 24 Hr Update-Section A only Date of Service: 08/19/24 The patient is an INPATIENT: No The patient has been examined within 24 hours of the surgical procedure. The History & Physical has been completed within 30 days and I have reviewed it.: Yes Section B - Complete if H&P > 30 days Chief Complaint: Anemia, unspecified Allergies: Allergies Allergy/AdvReac Type Severity Reaction Status Date / Time oxycodone [From Percocet] Allergy Severe Migraine Verified 08/19/24 10:58 and vomiting peach Allergy Severe Hives Verified 08/19/24 10:58 apple Allergy Intermediate Swelling Verified 08/19/24 10:58 erythromycin base Allergy Mild Confusion, Verified 08/19/24 10:58 [Erythromycin Base] Rash, Nausea, Vomiting, Out of it levofloxacin [From Levaquin] Allergy Mild Rash Verified 08/19/24 10:58 sulfamethoxazole Allergy Mild Rash Verified 08/19/24 10:58 [From Bactrim] trimethoprim [From Bactrim] Allergy Mild Rash Verified 08/19/24 10:58 Sulfa (Sulfonamide Allergy Unknown Rash Verified 08/19/24 10:58 Antibiotics) apples Allergy Severe Anaphylaxis Uncoded 08/19/24 10:58 meclazine AdvReac Severe severe Uncoded 08/19/24 10:58 anxiety Plan Diagnosis/Plan: Unchanged I have reviewed the history and physical and performed a pertinent physical examination on my patient. No changes have occurred unless specified. Time Spent With Patient Time: Total time managing care of this patient today ____ minutes.
--- NOTE | 2024-08-19 11:11 | HO.ANESPROP2 ---
[facility] Active Problems Active Problems: All Active Problems Iron deficiency (Acute) Malnutrition (Acute) Hyperlipidemia (Acute) Leg pain (Acute) Mild anemia (Acute) Hypercholesterolemia (Acute) Screening for cervical cancer (Acute) Screening for colon cancer (Acute) Breast cancer screening by mammogram (Acute) Adult general medical exam (Acute) Syncope and collapse (Acute) Orthostatic hypotension (Acute) Shortness of breath (Acute) Dysphagia (Acute) Abdominal bloating (Acute) Epigastric pain (Acute) Obesity (BMI 30.0-34.9) (Acute) GERD (gastroesophageal reflux disease) (Acute) Nausea and vomiting (Acute) IBS (irritable bowel syndrome) (Acute) Chest tightness (Acute) Chronic idiopathic constipation (Acute) Panniculitis (Acute) Herpes zoster (Acute) Abnormal mammogram of left breast (Acute) Profound fatigue (Acute) Anemia (Acute) Fibromyalgia (Acute) Polyarthralgia (Acute) Essential hypertension (Acute) Past Medical History Medical History Screening for colon cancer Screening for cervical cancer Adult general medical exam Shortness of breath Discomfort of right ear Otitis media of right ear Lightheadedness Normal physical exam Early satiety Abnormal urinalysis Suprapubic pain, acute Fatigue Vision changes Peroneal tendinitis, left leg Cough Myalgia Easy bruising Joint stiffness of hand Rectal prolapse Abdominal rebound tenderness of right lower quadrant Abdominal pain Family History Family History Father Healthy adult Mother High cholesterol Migraines Diabetes Asthma Hypertension Maternal Grandfather CVD (cardiovascular disease) Maternal Aunt Family history of heart disease Other Mental health disorder Substance abuse Family history of problems with anesthesia: No Surgical History Surgical History Hx of hysterectomy History of esophagogastroduodenoscopy (EGD) History of kidney stones Status post LASIK surgery History of lumpectomy of left breast History of right breast biopsy History of colonoscopy History of laparoscopic cholecystectomy History of removal of ovarian cyst History of bilateral breast reduction surgery History of Problems with Anesthesia: No Social History Social History (Updated 08/18/24 @ 10:34 by Megha Barrientos) Household Members: Spouse and Children Housing: House Are you a primary care information associate to a significant other at home: No Do you presently have visiting nurse or other home services: No Alcohol intake: never Patient Tobacco Use Status: Never used Tobacco e-Cigarette/Vaping Use: Never Used Second Hand Smoke Exposure: No Use of substances other than those prescribed or required for medical reasons: No Are you DNR?: No Advance Directives: No Advance Directives Information Provided: Yes service: No Current occupational status: disabled Current occupational exposures/hazards: No Cognitive needs: No Hearing needs: No Vision needs: No Meds Allergies Allergy/AdvReac Type Severity Reaction Status Date / Time oxycodone [From Percocet] Allergy Severe Migraine Verified 08/19/24 10:58 and vomiting peach Allergy Severe Hives Verified 08/19/24 10:58 apple Allergy Intermediate Swelling Verified 08/19/24 10:58 erythromycin base Allergy Mild Confusion, Verified 08/19/24 10:58 [Erythromycin Base] Rash, Nausea, Vomiting, Out of it levofloxacin [From Levaquin] Allergy Mild Rash Verified 08/19/24 10:58 sulfamethoxazole Allergy Mild Rash Verified 08/19/24 10:58 [From Bactrim] trimethoprim [From Bactrim] Allergy Mild Rash Verified 08/19/24 10:58 Sulfa (Sulfonamide Allergy Unknown Rash Verified 08/19/24 10:58 Antibiotics) apples Allergy Severe Anaphylaxis Uncoded 08/19/24 10:58 meclazine AdvReac Severe severe Uncoded 08/19/24 10:58 anxiety Active Medications: Current Medications Naloxone HCl (Naloxone Hcl 0.4 Mg/Ml Vial) 0.04 mg IVPUSH Q5M PRN PRN Reason: Excessive sedation or RR < 8 Home Medications ?Medication ?Instructions ?Recorded ?Confirmed ?Last Taken ?Type bupropion HCl 300 mg 24 hr tablet, 300 mg PO DAILY 07/26/22 08/19/24 Unknown History extended release estradiol 0.1 mg/24 hr semiweekly 1 patch topical 2XW 10/24/22 08/19/24 Unknown History transdermal patch cholecalciferol (vitamin D3) 25 25 mcg PO DAILY 02/12/23 08/19/24 Unknown History mcg (1,000 unit) capsule multivitamin with minerals 1 cap PO DAILY 02/12/23 08/19/24 Unknown History bupropion HCl 150 mg 24 hr tablet, 150 mg PO QAM 06/21/23 08/19/24 Unknown History extended release fluoxetine 40 mg capsule 80 mg PO DAILY 06/21/23 08/19/24 Unknown History aripiprazole 5 mg tablet 10 mg PO BEDTIME 06/04/24 08/19/24 Unknown History Exam Height,Weight and Vital Signs: Height 5 ft 5 in Weight 77 kg Last Vital Signs Temp 99.3 F 08/19/24 10:52 Pulse 93 08/19/24 10:52 Resp 16 08/19/24 10:52 BP 102/69 08/19/24 10:52 Pulse Ox 97 08/19/24 10:52 O2 Del Method Room Air 08/19/24 10:52 Airway Mallampati Class: II TM Dist: >3cm Neck ROM: Full Heart: rrr Lungs: cta Assessment and Plan Assessment Anesthesia Assessment: Anesthesia Plan Discussed and Chart Reviewed Final Anesthetic Review Family History of Problems with Anesthesia: No History of Problems with Anesthesia: No NPO: Yes ASA Class: II Final Preanesthetic Review: No Changes in Pt Med Stat, Meds/Allgs Chart Reviewed and Consent Obtained/Reviewed Patient Risk: Low Procedure Risk: Low Anesthetic Plan Anesthetic Plan: MAC: Disposition: Standard PACU
--- NOTE | 2024-08-19 11:43 | HO.OPN-COLON ---
Colonoscopy Operative Note Operative Note Date of Service: 08/19/24 Narrative: Operative Information Procedure Description: Colonoscopy Indication: abn bowel habits Anesthesia: MAC COLONOSCOPY Instrument: Olympus variable stiffness pediatric scope 190L Colonoscopy Monitoring: Vital signs and clinical assessment, continuous EKG monitoring, Pulse oximetry, Carbon Dioxide monitoring and blood pressure monitoring were done throughout the procedure. Colon withdrawal time was 11 minutes. Procedure: The patient was placed in the left lateral decubitis position and pre-procedure medications were administered. After a digital rectal examination of the ano-rectum, the video colonoscope was inserted into the rectum and advanced through the colon to the cecum/TI. The colonoscope was slowly withdrawn in a retrograde panoramic fashion and the colon mucosa was carefully examined including a retroflexed view of the rectum. Findings and interventions are described below. Procedure Difficulty: easy Findings: Terminal Ileum-normal, bx taken random bx taken from right, left and rectum areas Cecum:normal Ascending Colon: normal Transverse Colon -normal Descending Colon:normal Sigmoid Colon: normal Rectum: Retroflexion with small internal hemorrhoids seen, grade I, skin tags noted and scar tissue Anorectum - normal Intervention: cold forceps Colon preparation: [place] Bowel Preparation Scale Right colon; 2 Transverse colon: 2 Left colon; 2 (0 = Unprepared colon segment with mucosa not seen due to solid stool that cannot be cleared. 1 = Portion of mucosa of the colon segment seen, but other areas of the colon segment not well seen due to staining, residual stool and/or opaque liquid. 2 = Minor amount of residual staining, small fragments of stool and/or opaque liquid, but mucosa of colon segment seen well. 3 = Entire mucosa of colon segment seen well with no residual staining, small fragments of stool or opaque liquid) Impression and Post Procedure Diagnosis: internal hemorrhoids Plan: High fiber diet leaflet Avoid straining at stool, epsom salts and sitz bath, anusol supps or cream Repeat Colonoscopy in 10 years or earlier if clinically indicated await Ct enterogram Above findings were reviewed with the patient and relevant handouts were provided if indicated.
[2024-08-19 11:45] VITALS: BP 94/55; PULSE 84; RESP 16; TEMP 36.2; O2SAT 97
[2024-08-19 12:06] VITALS: BP 98/65; PULSE 85; RESP 16; TEMP 36.9; O2SAT 98
== END 2024-08-19 12:37 | disposition home or self-care (01) ==
PROVIDERS: PCP Family Medicine; Visit Provider Internal Medicine Gastroenterology
PROC: 0DJD8ZZ Inspection of Lower Intestinal Tract, Via Natural or Artificial Opening Endoscopic (ICD-10-PCS; CPT 45378; principal; 2024-08-19 11:50)
DX: R19.4 Change in bowel habit (principal); D64.9 Anemia, unspecified; K63.89 Other specified diseases of intestine; K64.0 First degree hemorrhoids; K64.4 Residual hemorrhoidal skin tags; R19.7 Diarrhea, unspecified; R14.0 Abdominal distension (gaseous); R11.2 Nausea with vomiting, unspecified; R13.10 Dysphagia, unspecified; K21.9 Gastro-esophageal reflux disease without esophagitis; I95.1 Orthostatic hypotension; R42 Dizziness and giddiness; E46 Unspecified protein-calorie malnutrition; Z68.29 Body mass index [BMI] 29.0-29.9, adult; R79.82 Elevated C-reactive protein (CRP); Z87.442 Personal history of urinary calculi; Z88.1 Allergy status to other antibiotic agents; Z88.2 Allergy status to sulfonamides; Z88.5 Allergy status to narcotic agent; Z88.8 Allergy status to other drugs, medicaments and biological substances; Z98.890 Other specified postprocedural states; Z56.0 Unemployment, unspecified
CPT/HCPCS: 45380; 88305; J2003; J2405; J2704

== ENCOUNTER → 2024-08-19 10:06 | Outpatient (BNV) | payer MEDICARE, OTHER, SELFPAY | PROVIDERS: PCP Family Medicine; Visit Provider Internal Medicine Gastroenterology | DX: R19.4 Change in bowel habit (principal); D64.9 Anemia, unspecified; K64.0 First degree hemorrhoids | CPT/HCPCS: 45380 ==

== ENCOUNTER 2024-09-08 09:30 | Outpatient (RCR) | payer MEDICARE, OTHER, SELFPAY ==
[2024-08-18 08:14] VITALS: BP 102/63; PULSE 100; RESP 16; TEMP 37; O2SAT 98
[2024-08-18] MEDS: Iron Sucrose Complex 200 MG/10 ML VIAL IVPUSH (08:21)
[2024-08-25 13:18] VITALS: BP 103/65; PULSE 97; RESP 16; TEMP 36.1; O2SAT 97
[2024-08-25] MEDS: Iron Sucrose Complex 200 MG in 0.9 % Sodium Chloride 100 ML 440 MG IV (13:27)
[2024-08-25 13:43] VITALS: BP 107/66; PULSE 95
[2024-09-01 09:15] VITALS: BP 96/64; PULSE 109; RESP 16; TEMP 36.9; O2SAT 98
[2024-09-01] MEDS: Iron Sucrose Complex 200 MG in 0.9 % Sodium Chloride 100 ML 440 MG IV (09:19)
[2024-09-08 09:30] VITALS: BP 97/61; PULSE 98; RESP 18; TEMP 36.4
[2024-09-08] MEDS: Iron Sucrose Complex 200 MG in 0.9 % Sodium Chloride 100 ML 440 MG IV (09:50)
[2024-09-08 10:22] VITALS: BP 103/63; PULSE 94
== END 2024-09-08 10:23 | disposition home or self-care (01) ==
LOC: HO.INF 09:30
PROVIDERS: Visit Provider Internal Medicine Gastroenterology
DX: D64.9 Anemia, unspecified (principal); E46 Unspecified protein-calorie malnutrition
CPT/HCPCS: 96365; 96374; J1756

== ENCOUNTER 2024-09-30 07:53 | Outpatient (AMB) | payer MEDICARE, OTHER, SELFPAY ==
--- OUTSIDE RECORDS SUMMARY | 2024-09-30 07:55 | XMS_ITS | Clinical Summary ---
Author Organization [facility] ity Address [address] [place] [address] Care Team Providers Care Vegetable Tier Name Role Phone Unavailable Primary Care Provider [...] - 2023-2 5 season) 2024 Influenza Vaccine (Season Ended) 2025 02/04/2019, 05/14/2018 HIB Vaccines Aged Out No longer [...]
--- NOTE | 2024-11-25 17:44 | MHC.OFFVIS ---
Intake Visit Reasons: CAPSULE ENDOSCOPY - VANESSA Allergies oxycodone (From Percocet) Allergy (Severe, Verified 10/23/24 14:03) Migraine and vomiting peach Allergy (Severe, Verified 10/23/24 14:03) Hives apple Allergy (Intermediate, Verified 10/23/24 14:03) Swelling erythromycin base (Erythromycin Base) Allergy (Mild, Verified 10/23/24 14:03) Confusion, Rash, Nausea, Vomiting, Out of it levofloxacin (From Levaquin) Allergy (Mild, Verified 10/23/24 14:03) Rash sulfamethoxazole (From Bactrim) Allergy (Mild, Verified 10/23/24 14:03) Rash trimethoprim (From Bactrim) Allergy (Mild, Verified 10/23/24 14:03) Rash Sulfa (Sulfonamide Antibiotics) Allergy (Unknown, Verified 10/23/24 14:03) Rash apples Allergy (Severe, Uncoded 08/19/24 10:58) Anaphylaxis meclazine Adverse Reaction (Severe, Uncoded 08/19/24 10:58) severe anxiety PFSH Medical History Anemia Screening for colon cancer Screening for cervical cancer Adult general medical exam Shortness of breath Discomfort of right ear Otitis media of right ear Lightheadedness Normal physical exam Early satiety Abnormal urinalysis Suprapubic pain, acute Fatigue Vision changes Peroneal tendinitis, left leg Cough Myalgia Easy bruising Joint stiffness of hand Rectal prolapse Abdominal rebound tenderness of right lower quadrant Abdominal pain Surgical History Hx of hysterectomy History of esophagogastroduodenoscopy (EGD) History of kidney stones Status post LASIK surgery History of lumpectomy of left breast History of right breast biopsy History of colonoscopy History of laparoscopic cholecystectomy History of removal of ovarian cyst History of bilateral breast reduction surgery Family History Father Healthy adult Mother High cholesterol Migraines Diabetes Asthma Hypertension Maternal Grandfather CVD (cardiovascular disease) Maternal Aunt Family history of heart disease Other Mental health disorder Substance abuse Social History Household Members: Spouse and Children Housing: House Are you a primary anesthesiologist and critical care to a significant other at home: No Do you presently have visiting nurse or other home services: No Alcohol intake: never Patient Tobacco Use Status: Never used Tobacco e-Cigarette/Vaping Use: Never Used Second Hand Smoke Exposure: No service: No Current occupational status: disabled Current occupational exposures/hazards: No Cognitive needs: No Hearing needs: No Vision needs: No Office Procedures AMB Capsule Endoscopy Procedure Notes: Capsule Endoscopy: Date of Service:09/30/24 Indication: anemia Findings: Stomach appeared normal, duodenum reached at 22 min, good views, with no lesions or bleeding points seen. cecum reached at 4 hr 32 min Conclusion: normal study Capsule Endoscopy CPT Code: 91733 - Capsule Endoscopy Assessment & Plan Assessment & Plan (1) Anemia: Code(s): D64.9 - Anemia, unspecified Category: Medical Plan as above Coding Level of Care Code Procedure Only Diagnoses Anemia D64.9 CPT Codes AMB Capsule Endoscopy - Capsule Endoscopy CPT Code: 23581 - Capsule Endoscopy ([id number])
== END 2024-09-30 08:08 | disposition home or self-care (01) ==
LOC: HO.HGI 07:54
PROVIDERS: PCP Family Medicine; Visit Provider Internal Medicine Gastroenterology
DX: D64.9 Anemia, unspecified (principal)
CPT/HCPCS: 91110

== ENCOUNTER → 2024-09-30 07:53 | Outpatient (BNVA) | payer MEDICARE, OTHER, SELFPAY | PROVIDERS: PCP Family Medicine; Visit Provider Internal Medicine Gastroenterology | DX: D64.9 Anemia, unspecified (principal) | CPT/HCPCS: 91110 ==

== ENCOUNTER 2024-10-05 10:09 | Outpatient (REF) | payer MEDICARE, OTHER, SELFPAY ==
[2024-10-05 10:18] LABS: MANUAL DIFF FLAG NO
[2024-10-05 11:04] LABS: Basophils Absolute Auto 0.1 X10*3/uL (0.0-0.2); Basophils Percent Auto 1.4 % (0-2); Eosinophils Absolute Auto 0.2 X10*3/uL (0.0-0.4); Eosinophils Percent Auto 3.4 % (0-4); Hematocrit 35.8 % (37.0-47.0); Hemoglobin 11.8 g/dl (12.0-16.0); Imm Gran Abs Auto 0.01 X10*3/uL (0.00-0.03); Imm Gran Pct Auto 0.2 % (0.0-0.4); Lymphocytes Percent Auto 40.2 % (20-40); Mean Corpuscular Hemoglobin 29.1 pg (27.0-33.0); Mean Corpuscular Volume 88.2 fL (80.0-98.0); Mean Platelet Volume 9.7 fL (9.4-12.3); Monocytes Absolute Auto 0.7 X10*3/uL (0.1-1.2); Monocytes Percent Auto 13.5 % (2-11); Neutrophils Absolute Auto 2.1 x10*3/uL (2.0-8.3); Neutrophils Percent Auto 41.3 % (45-73); Platelet Count 253 X10*3/uL (160-400); Red Blood Count 4.06 X10*6/uL (4.20-5.50)
--- OUTSIDE RECORDS SUMMARY | 2024-10-05 11:04 | XMS_ITS | Clinical Summary ---
Author Organization [facility] ity Address [address] [place] [address] Care Team Providers Care Revenue Integrity Analyst Name Role Phone Unavailable Primary Care Provider [...]
[2024-10-05 12:09] LABS: Ferritin 227 ng/mL (10-250)
== END 2024-10-05 10:10 | disposition home or self-care (01) ==
LOC: HO.LAB 10:09
PROVIDERS: PCP Family Medicine; Visit Provider Internal Medicine Gastroenterology
DX: E61.1 Iron deficiency (principal)
CPT/HCPCS: 36415; 82728; 85025

== ENCOUNTER → 2024-10-12 12:47 | Outpatient (BNV) | payer MEDICARE, OTHER, SELFPAY | PROVIDERS: PCP Family Medicine; Visit Provider Radiology Diagnostic Radiology | DX: N20.0 Calculus of kidney (principal); K56.41 Fecal impaction | CPT/HCPCS: 74177 ==

== ENCOUNTER 2024-10-12 12:48 | Outpatient (REF) | payer MEDICARE, OTHER, SELFPAY ==
--- NOTE | ~2024-10-12 | CT_ITS ---
EXAMINATION: CT ABDOMEN PELVIS ENTEROGRAPHY WITHOUT IV CONTRAST HISTORY: R10.33 - Periumbilical pain COMPARISON: Comparison is made with the prior unenhanced CT of the abdomen and pelvis dated 07/09/2022. TECHNIQUE: CT scan of the abdomen and pelvis was performed following administration of 85 mL Omnipaque 350 using standard departmental protocol. Coronal and sagittal reformatted images were generated and reviewed. The patient received low-density oral contrast material for CT enterography. This CT exam was performed with one or more of the following dose reduction techniques: automated exposure control, adjustment of the mA and/or kV according to patient size, use of iterative reconstruction technique. DLP: 462 mGy-cm FINDINGS: LOWER CHEST: The visualized lung bases are clear. There is no pleural effusion. CARDIOVASCULATURE: The heart is normal in size. There is no pericardial effusion. LIVER: The liver is normal in size and contour. No liver mass is identified. The hepatic and portal veins are patent. GALLBLADDER / BILE DUCTS: The gallbladder is surgically absent. There is no intra or extrahepatic biliary ductal dilatation. SPLEEN: The spleen is normal in size. No focal splenic lesion is identified. PANCREAS: The pancreas is unremarkable in appearance. ADRENAL GLANDS: Within normal limits. KIDNEYS/RETROPERITONEUM: No ] renal calculi are identified. There is a 3 mm nonobstructing calculus at the lower pole of the left kidney. There is no hydronephrosis. No renal masses are identified. LYMPH NODES: No abdominal or pelvic lymphadenopathy. VASCULATURE: The abdominal aorta is normal in caliber. MESENTERY/PERITONEUM: No free fluid. No masses. There is no free intraperitoneal gas. STOMACH: The stomach is unremarkable. SMALL BOWEL: The small bowel is normal in caliber. There is no wall thickening or abnormal mucosal hyperenhancement. COLON: There is a large amount of stool in the distal transverse, descending, and sigmoid colon. APPENDIX: Normal. URINARY BLADDER/PELVIC ORGANS: The urinary bladder is collapsed, limiting evaluation. The patient is status post hysterectomy. Multiple bilateral ovarian follicles are noted. BONES / SOFT TISSUES: No suspicious bony or soft tissue abnormalities. CT/CT enterography IMPRESSION: 1. Large amount of stool in the distal transverse, descending, and sigmoid colon. No small bowel abnormality is identified. 2. 3 mm nonobstructing calculus at the lower pole of the left kidney. Electronically signed by: Demond Foster MD 10/12/2024 02:58 PM EDT
--- OUTSIDE RECORDS SUMMARY | 2024-10-12 14:25 | XMS_ITS | Clinical Summary ---
Author Organization [facility] ity Address [address] [place] [address] Care Team Providers Care Tile Professional Name Role Phone Unavailable Primary Care Provider [...]
[2024-10-12] MEDS: iohexoL 350 MG/ML 100 ML INFUS..BTL 85 ML IV (14:41)
[2024-10-12] MEDS: Sorbitol/Mannit/Xanth Imaging 500 ML LIQUID 1500 ML PO (14:42)
== END 2024-10-12 12:49 | disposition home or self-care (01) ==
LOC: HO.CT 12:48
PROVIDERS: PCP Family Medicine; Visit Provider Internal Medicine Gastroenterology
DX: R10.33 Periumbilical pain (principal)
CPT/HCPCS: 74177; Q9967

== ENCOUNTER 2024-10-23 08:23 | Outpatient (REF) | payer MEDICARE, OTHER, SELFPAY ==
--- OUTSIDE RECORDS SUMMARY | 2024-10-23 08:28 | XMS_ITS | Clinical Summary ---
Author Organization [facility] ity Address [address] [place] [address] Care Team Providers Care Threading Machine Feeder Automatic Name Role Phone Unavailable Primary Care Provider [...]
[2024-10-23 08:33] LABS: MANUAL DIFF FLAG NO
[2024-10-23 08:51] LABS: Basophils Absolute Auto 0.1 X10*3/uL (0.0-0.2); Basophils Percent Auto 1.2 % (0-2); Eosinophils Absolute Auto 0.2 X10*3/uL (0.0-0.4); Eosinophils Percent Auto 2.9 % (0-4); Hematocrit 32.5 % (37.0-47.0); Hemoglobin 11.2 g/dl (12.0-16.0); Imm Gran Abs Auto 0.01 X10*3/uL (0.00-0.03); Imm Gran Pct Auto 0.2 % (0.0-0.4); Lymphocytes Absolute Auto 1.4 X10*3/uL (1.2-4.9); Lymphocytes Percent Auto 27.6 % (20-40); Mean Corpuscular HGB Conc 34.5 g/dl (31.0-35.0); Mean Corpuscular Hemoglobin 29.4 pg (27.0-33.0); Mean Corpuscular Volume 85.3 fL (80.0-98.0); Mean Platelet Volume 9.4 fL (9.4-12.3); Monocytes Absolute Auto 0.5 X10*3/uL (0.1-1.2); Monocytes Percent Auto 9.4 % (2-11); Neutrophils Absolute Auto 3.1 x10*3/uL (2.0-8.3); Neutrophils Percent Auto 58.7 % (45-73); Platelet Count 266 X10*3/uL (160-400); Red Blood Count 3.81 X10*6/uL (4.20-5.50); Red Cell Distribution Width 13.8 % (11.0-16.0); White Blood Count 5.2 X10*3/uL (4.8-10.8)
[2024-10-23 10:57] LABS: Ferritin 223 ng/mL (10-250)
[2024-10-23 11:08] LABS: Folate 13.2 ng/mL (> or = 4.0); Vitamin B12 1162 pg/mL (200-900)
== END 2024-10-23 08:24 | disposition home or self-care (01) ==
LOC: HO.LAB 08:23
PROVIDERS: PCP Family Medicine; Visit Provider Internal Medicine Gastroenterology
DX: R55 Syncope and collapse (principal); I95.9 Hypotension, unspecified; D64.9 Anemia, unspecified; R41.82 Altered mental status, unspecified
CPT/HCPCS: 36415; 82607; 82728; 82746; 85025; 99212

== ENCOUNTER 2024-10-23 13:31 | Outpatient (AMB) | payer MEDICARE, OTHER, SELFPAY ==
--- NOTE | 2024-10-23 14:01 | A.OFFPC_ITS ---
Vital Signs 10/23/24 14:05 Height 5 ft 5 in Weight 167 lb 2 oz BMI 27.8 BP 90/60 Blood Pressure Location Rt brachial Position Sitting Respiration 16 Pulse 92 Pulse Source Pulse Oximeter Temp 98 F Temp Source Oral Pulse Oximetry (%) 96 Oxygen Delivery Method Room Air Intake Visit Reasons: f/u syncope, CT scan And Repeat MELANIE/Ultrasound. Intake Note: patient is scheduled to follow up on syncope and to review ct scan. Assistant Manager Retail Required: No Allergies oxycodone (From Percocet) Allergy (Severe, Verified 10/23/24 14:03) Migraine and vomiting peach Allergy (Severe, Verified 10/23/24 14:03) Hives apple Allergy (Intermediate, Verified 10/23/24 14:03) Swelling erythromycin base (Erythromycin Base) Allergy (Mild, Verified 10/23/24 14:03) Confusion, Rash, Nausea, Vomiting, Out of it levofloxacin (From Levaquin) Allergy (Mild, Verified 10/23/24 14:03) Rash sulfamethoxazole (From Bactrim) Allergy (Mild, Verified 10/23/24 14:03) Rash trimethoprim (From Bactrim) Allergy (Mild, Verified 10/23/24 14:03) Rash Sulfa (Sulfonamide Antibiotics) Allergy (Unknown, Verified 10/23/24 14:03) Rash apples Allergy (Severe, Uncoded 08/19/24 10:58) Anaphylaxis meclazine Adverse Reaction (Severe, Uncoded 08/19/24 10:58) severe anxiety Medication List - Last Reconciled 10/23/24 by Shawn Miranda MD albendazole 400 mg (2 x 200 mg) PO DAILY albuterol sulfate 90 mcg/actuation 2 puffs PO Q4-6H PRN alum-mag hydroxide-simeth 200-200-20 mg/5 mL (Maalox Advanced) 10 mL PO QID PRN aripiprazole 10 mg PO BEDTIME atorvastatin 40 mg PO DAILY 90 days blood pressure kit med and lrg As directed bupropion HCl XL 300 mg PO DAILY bupropion HCl XL 150 mg PO QAM cholecalciferol (vitamin D3) 25 mcg PO DAILY esomeprazole magnesium 20 mg PO DAILY famotidine 40 mg PO BEDTIME fluoxetine 80 mg PO DAILY lansoprazole 30 mg PO BID linaclotide 290 mcg PO DAILY miscellaneous medical supply (Blood Pressure Cuff) As directed multivitamin with minerals 1 cap PO DAILY ondansetron 4 mg PO Q8H PRN ondansetron HCl 4 mg PO Q6H PRN pregabalin 150 mg PO TID 30 days prochlorperazine maleate (Compazine) 10 mg PO Q8H PRN sennosides (senna) 8.6 mg PO DAILY simethicone (Gas Relief (simethicone)) 125 mg PO QID PRN trazodone 100 mg PO BEDTIME 30 days Tobacco use date assessed: 05/18/24 Dental Screening Dental Screen Date: 05/18/24 HPI f/u syncope, CT scan And Repeat MELANIE/Ultrasound. HPI Details 44 y/o female presents to f/u syncope, C T scan, repeat MELANIE/ultrasound. Had been following up with [facility] for iron deficiency anemia. Iron studies were consistent with iron deficiency. Per note, could be related to GI blood loss vs iron malabsorption from celiac disease. Reports ongoing dizziness, notes changes to her mental status. Had made referral to neurology in July. She?has?already?seen?the?compliance clerk?who?recommended?s he?consuming?more?salt?and?hydrate?well,?which?she?is?doing She states she has an appt. scheduled with neuro in December. BP today 90/60, 92p. She notes it had been lower before. [facility] Medical History (Updated 10/23/24 @ 14:54 by Juan Pemberton) Anemia Screening for colon cancer Screening for cervical cancer Adult general medical exam Shortness of breath Discomfort of right ear Otitis media of right ear Lightheadedness Normal physical exam Early satiety Abnormal urinalysis Suprapubic pain, acute Fatigue Vision changes Peroneal tendinitis, left leg Cough Myalgia Easy bruising Joint stiffness of hand Rectal prolapse Abdominal rebound tenderness of right lower quadrant Abdominal pain Surgical History (Updated 08/18/24 @ 10:46 by Tri Tran MD) Hx of hysterectomy History of esophagogastroduodenoscopy (EGD) History of kidney stones Status post LASIK surgery History of lumpectomy of left breast History of right breast biopsy History of colonoscopy History of laparoscopic cholecystectomy History of removal of ovarian cyst History of bilateral breast reduction surgery Family History Father Healthy adult Mother High cholesterol Migraines Diabetes Asthma Hypertension Maternal Grandfather CVD (cardiovascular disease) Maternal Aunt Family history of heart disease Other Mental health disorder Substance abuse Social History (Updated 08/18/24 @ 10:34 by Megha Barrientos) Household Members: Spouse and Children Housing: House Are you a primary acute care registered nurse to a significant other at home: No Do you presently have visiting nurse or other home services: No Alcohol intake: never Patient Tobacco Use Status: Never used Tobacco e-Cigarette/Vaping Use: Never Used Second Hand Smoke Exposure: No service: No Current occupational status: disabled Current occupational exposures/hazards: No Cognitive needs: No Hearing needs: No Vision needs: No Questionnaire Thrive Questionnaire Date Thrive assessed: 05/18/24 I am a: Patient What is your living situation today?: I have a steady place to live Within the past 12 months, did the food you bought not last and you didn't have the money to get more?: Never true Within the past 12 months, did you worry whether your food would run out before you got money to buy more?: Never true Do you have trouble paying for medicines?: No Do you have trouble getting transportation to medical appointments?: No Do you have trouble paying your heating and electricity bill?: No Do you have trouble taking care of your child, family member or friend?: No Do you have trouble with day-to-day activities such as bathing, preparing meals, shopping, managing finances, etc.?: No Are you currently unemployed and looking for a job?: No Are you interested in more education?: No Please select the resources that you would like help with: None Currently or been in a relationship where the following occur: No concerns reported THRIVE Score: 0 KATI-7 AMB Questionnaire KATI-7 Date KATI - 7 assessed: 05/18/24 Source: Developed by Drs. Demond Oleary, Rhonda Quach, Mendel Brennan and colleagues, with an educational manuela from [employer]. Review of Systems Const Denies chills, Denies fatigue, Denies fever(s), Denies headache(s) and Denies weakness ENT Denies dizziness and Denies headache(s) Card Denies dyspnea Resp Denies cough, Denies dyspnea, Denies wheezing and Denies other (shortness of breath) Musc Denies numbness and Denies tingling Neuro Denies dizziness, Denies headache(s), Denies numbness, Denies tingling and Denies weakness Psych Denies anxiety and Denies depression Endo Denies fatigue Aller/Immun Denies wheezing Physical exam (Primary Care) Vital Signs: Last Vital Signs Temp 98 F 10/23/24 14:05 Pulse 92 10/23/24 14:05 Resp 16 10/23/24 14:05 BP 90/60 10/23/24 14:05 Pulse Ox 96 10/23/24 14:05 Oxygen Delivery Method Room Air 10/23/24 14:05 BMI result Body Mass Index 27.8 Tobacco/Smoking Status: Tobacco use Status Tobacco use date assessed 05/18/24 10/23/24 14:02 Patient Tobacco Use Status Never used Tobacco 10/23/24 14:02 e-Cigarette/Vaping Use Never Used 10/23/24 14:02 Thrive Assessment: Date of Thrive Assessment Date Thrive assessed 05/18/24 10/23/24 14:02 Currently or been in a relationship where the following occur: No concerns reported Const General: well developed; No acute distress Nutritional Appearance: well nourished Orientation/consciousness: patient oriented x3 HENMT Head: Yes normocephalic and Yes atraumatic Eyes General: appearance normal, both eyes and all related structures Pupils: Equal, round and reactive pupils present EOM: EOMs intact bilaterally Resp Effort & Inspection: normal respiratory effort Neuro General: patient oriented x3 and gait normal Cranial nerves: Yes Equal, round and reactive pupils present Psych Affect: normal affect Coding Level of Care Code Est Pt Level 4 (73942) Diagnoses Syncope and collapse R55 Hypotension I95.9 Mild anemia D64.9 Altered mental status R41.82 Assessment & Plan Assessment & Plan (1) Syncope and collapse: Code(s): R55 - Syncope and collapse Category: Medical Plan: Ongoing?symptoms?and?patient's?blood?pressure?is?have?been?quite?low.??90/60?tod ay. She?says?she?has?been?following?cardiology's?recommendation?and?d rinking?lots?of?fluids?and?eating?more?salt?but?her?blood?pressures?are?still?qu ite?low. Reviewed?her?medications.??I?do?not?see?any?medications?that?may?be?causing?low? blood?pressures. Advised?her?to?continue?good?hydration?in?decreasing?salt?and?sodium?diet Will?try?a?short?course?of?fludrocortisone?3?times?a?week.??Check?blood?pressure s?frequently?and?let?me?know?if?they?are?getting?too?high?or?too?low. Patient?only?saw?the?compliance clerk?once?and?his?recommendations?as?follow-up?in?3 -4?months.??She?says?she?was?then?rescheduled?for?this.??I?advised?her?to?contac t?Cardiology. (2) Hypotension: Code(s): I95.9 - Hypotension, unspecified Category: Medical Plan: As?above (3) Mild anemia: Code(s): D64.9 - Anemia, unspecified Category: Medical Plan: S/p?transfusions?and?she?is?followed?by?Gastroenterology?and?also?Hematology- Oncology H&H?appears?fairly?stable. (4) Altered mental status: Code(s): R41.82 - Altered mental status, unspecified Category: Medical Plan: Her??notes?that?she?has?been confused?lately. Not?making?sense?in?forgetting?things. Check?MRI Orders: Orders Babesia IgG/IgM Today I95.9 - Hypotension, unspecified MR head/brain wo con Today R41.82 - Altered mental status, unspecified Lyme IgG/IgM w/reflex to WB Today I95.9 - Hypotension, unspecified Comprehensive Met. Panel Today R41.82 - Altered mental status, unspecified Syphilis Screen Today R41.82 - Altered mental status, unspecified, Z11.3 - Encounter for screening for infections with a predominantly sexual mode of transmission HIV Ab/Ag Today R41.82 - Altered mental status, unspecified, Z11.3 - Encounter for screening for infections with a predominantly sexual mode of transmission
[2024-10-23 14:05] VITALS: BP 90/60; PULSE 92; RESP 16; TEMP 36.6; O2SAT 96; BMI 27.8
== END 2024-10-23 17:02 | disposition home or self-care (01) ==
LOC: HO.HMCFM 13:32
PROVIDERS: PCP Family Medicine; Visit Provider Family Medicine
DX: R55 Syncope and collapse (principal); I95.9 Hypotension, unspecified; D64.9 Anemia, unspecified; R41.82 Altered mental status, unspecified

== ENCOUNTER 2024-10-26 08:23 | Outpatient (REF) | payer MEDICARE, OTHER, SELFPAY ==
--- OUTSIDE RECORDS SUMMARY | 2024-10-26 08:35 | XMS_ITS | Clinical Summary ---
Author Organization [facility] ity Address [address] [place] [address] Care Team Providers Care Stone Sandblaster Name Role Phone Unavailable Primary Care Provider [...]
[2024-10-26 09:56] LABS: Alanine Aminotransferase 21 U/L (0-31); Alkaline Phosphatase 56 U/L (39-117); Anion Gap 11 (12-20); Aspartate Amino Transferase 23 U/L (5-31); Bilirubin Total 0.3 mg/dL (0.0-1.0); Blood Urea Nitrogen 10 mg/dL (9-16); Carbon Dioxide 25 mmol/L (22-29); Chloride 108 mmol/L (96-108); Estimated Glomerular Filt Rate 60; Glucose Random 135 mg/dL (60-115); Potassium 3.8 mmol/L (3.3-5.1); Sodium 140 mmol/L (135-145); Total Protein 6.3 g/dL (6.5-8.0)
[2024-10-26 10:02] LABS: HIV AB/AG Nonreactive (Nonreactive); HIV Num 1 0.06 S/CO (0.00-0.99); Syphilis Screen Nonreactive (Nonreactive)
[2024-10-27 06:13] LABS: Lyme Abs Screen <0.90 index
[2024-11-04 14:38] LABS: Babesia IgG <1:64 titer (<1:64); Babesia IgM <1:20 titer (<1:20)
== END 2024-10-26 08:24 | disposition home or self-care (01) ==
LOC: HO.LAB 08:23
PROVIDERS: PCP Family Medicine; Visit Provider Family Medicine
DX: Z13.89 Encounter for screening for other disorder (principal)
CPT/HCPCS: 36415; 80053; 86617; 86618; 86753; 86780; 87389

== ENCOUNTER 2024-11-09 11:32 | Outpatient (REF) | payer MEDICARE, OTHER, SELFPAY ==
[2024-11-11 16:38] LABS: Class Almond 0; Class Brazil Nut 0; Class Cashew 0; Class Codfish 0; Class Cow's Milk 0; Class Egg white 0; Class Hazelnut 3; Class Macadamia Nut 0; Class Peanut 0/1; Class Salmon 0; Class Scallop 0; Class Sesame Seed 0; Class Shrimp 0; Class Soybean 0; Class Tuna 0; Class Walnut 0; Class Wheat 0; F345-IgE Macadmia Nut <0.10 kU/L
[2024-11-15 09:53] LABS: Metanephrine, Free <25 pg/mL (<=57); Normetanephrines, Free <25 pg/mL (<=148); Total Metanephrine, Free <50 pg/mL (<=205)
== END 2024-11-09 11:33 | disposition home or self-care (01) ==
LOC: HO.LAB 11:32
PROVIDERS: PCP Family Medicine; Visit Provider Internal Medicine Gastroenterology
DX: R10.13 Epigastric pain (principal); R14.0 Abdominal distension (gaseous); R19.7 Diarrhea, unspecified; R68.81 Early satiety; Z91.018 Allergy to other foods
CPT/HCPCS: 36415; 83088; 83520; 83835; 86003; 99212

== ENCOUNTER 2024-11-09 11:32 | Outpatient (AMB) | payer MEDICARE, OTHER, SELFPAY ==
[2024-11-09 12:09] VITALS: BP 110/67; PULSE 90; BMI 27.9
--- NOTE | 2024-11-09 12:09 | MHC.OFFVIS ---
Vital Signs 11/09/24 12:09 Height 5 ft 5 in Weight 167 lb 8.821 oz BMI 27.9 BP 110/67 Blood Pressure Location Lt brachial Position Sitting Pulse 90 Intake Visit Reasons: 6 week f/u rescheduled Intake Note: Mary presents in the office as a 6 week follow up. CC: She states that the issues are all still the same - nothing has gotten better for her. High School Principal Required: No Allergies oxycodone (From Percocet) Allergy (Severe, Verified 10/23/24 14:03) Migraine and vomiting peach Allergy (Severe, Verified 10/23/24 14:03) Hives apple Allergy (Intermediate, Verified 10/23/24 14:03) Swelling erythromycin base (Erythromycin Base) Allergy (Mild, Verified 10/23/24 14:03) Confusion, Rash, Nausea, Vomiting, Out of it levofloxacin (From Levaquin) Allergy (Mild, Verified 10/23/24 14:03) Rash sulfamethoxazole (From Bactrim) Allergy (Mild, Verified 10/23/24 14:03) Rash trimethoprim (From Bactrim) Allergy (Mild, Verified 10/23/24 14:03) Rash Sulfa (Sulfonamide Antibiotics) Allergy (Unknown, Verified 10/23/24 14:03) Rash apples Allergy (Severe, Uncoded 08/19/24 10:58) Anaphylaxis meclazine Adverse Reaction (Severe, Uncoded 08/19/24 10:58) severe anxiety HPI HPI 6 week f/u rescheduled: Details: 44 yr old f here for f/u RECAP: originally seen for constipation and bloating She had EGD 06/30: Impression/Findings: gastritis esophagitis hiatal hernia Upper GI series: 2023 1. Trace laryngeal penetration with thick barium. 2. Significant gastroesophageal reflux 3. Mildly thickened gastric mucosal folds consistent with gastritis. 4. Contrast is seen in the colon at 125 minutes. No dilated small bowel present. No mass or strictures present. colonoscopy: 08/19/24 nml Capsule 09/27: nml CTe- distended stomach, cnstipation, slight scoliosis INTERIM: ongoing issues with brain fog malaise pain palpitations, dizziness EXAM: GENERAL: The patient is well developed and nontoxic. VITAL SIGNS:see workflow HEENT: Nonicteric sclerae, PERRLA, EOMI. Oropharynx clear. Moist mucous membranes. Conjunctivae appear well perfused. No thyroid mass. CHEST: Chest wall is nontender. HEART: Regular rate and rhythm without murmurs. LUNGS: Clear to auscultation bilaterally. ABDOMEN: Soft, positive bowel sounds, nontender, no organomegaly.no flank tenderness SKIN: No rash, no excessive bruising, petechiae, or purpura. NEUROLOGIC: Cranial nerves II-XII intact without motor/sensory deficit. Psych: normal affect A/P: 1/ Mild anemia with sx as above, ? POT syndrome or other dysautonomia, ASHLEY PLAN: 1/ awaitng MRI vrain from PCP, also card referral 2/ check mast cell mediators and metanephrines, 3/ orthostatics 4/ G[facility] Medical History Anemia Screening for colon cancer Screening for cervical cancer Adult general medical exam Shortness of breath Discomfort of right ear Otitis media of right ear Lightheadedness Normal physical exam Early satiety Abnormal urinalysis Suprapubic pain, acute Fatigue Vision changes Peroneal tendinitis, left leg Cough Myalgia Easy bruising Joint stiffness of hand Rectal prolapse Abdominal rebound tenderness of right lower quadrant Abdominal pain Surgical History Hx of hysterectomy History of esophagogastroduodenoscopy (EGD) History of kidney stones Status post LASIK surgery History of lumpectomy of left breast History of right breast biopsy History of colonoscopy History of laparoscopic cholecystectomy History of removal of ovarian cyst History of bilateral breast reduction surgery Family History Father Healthy adult Mother High cholesterol Migraines Diabetes Asthma Hypertension Maternal Grandfather CVD (cardiovascular disease) Maternal Aunt Family history of heart disease Other Mental health disorder Substance abuse Social History Household Members: Spouse and Children Housing: House Are you a primary respiratory care assistant to a significant other at home: No Do you presently have visiting nurse or other home services: No Alcohol intake: never Patient Tobacco Use Status: Never used Tobacco e-Cigarette/Vaping Use: Never Used Second Hand Smoke Exposure: No service: No Current occupational status: disabled Current occupational exposures/hazards: No Cognitive needs: No Hearing needs: No Vision needs: No Physical Exam Vital Signs: Last Vital Signs Pulse 90 11/09/24 12:09 BP 110/67 11/09/24 12:09 BMI result Body Mass Index 27.9 Assessment & Plan Assessment & Plan (1) Epigastric pain: Code(s): R10.13 - Epigastric pain Category: Medical Plan: as above (2) Abdominal bloating: Code(s): R14.0 - Abdominal distension (gaseous) Category: Medical Plan: as above Orders: Orders Metanephrines, 24hr Urine Today R10.13 - Epigastric pain, R14.0 - Abdominal distension (gaseous) Tryptase Today R10.13 - Epigastric pain, R14.0 - Abdominal distension (gaseous), R19.7 - Diarrhea, unspecified Histamine Plasma Today R10.13 - Epigastric pain, R14.0 - Abdominal distension (gaseous) Rast Allergen Today R10.13 - Epigastric pain, R14.0 - Abdominal distension (gaseous), Z91.018 - Allergy to other foods NM gastric emptying study Today R10.13 - Epigastric pain, R14.0 - Abdominal distension (gaseous), R68.81 - Early satiety Metanephrines, Plasma Today R10.13 - Epigastric pain, R14.0 - Abdominal distension (gaseous) N-Methylhistamine 24Hr Today R10.13 - Epigastric pain, R14.0 - Abdominal distension (gaseous) Other Ref Test - Misc Today R10.13 - Epigastric pain, R14.0 - Abdominal distension (gaseous) Coding Level of Care Code Est Pt Level 4 (17038) Diagnoses Epigastric pain R10.13 Abdominal bloating R14.0
--- OUTSIDE RECORDS SUMMARY | 2024-11-09 12:27 | XMS_ITS | Clinical Summary ---
Author Organization [facility] ity Address [address] [place] [address] Care Team Providers Care Manager Support Services Name Role Phone Unavailable Primary Care Provider [...] 2023-2 5 season) 2024 Influenza Vaccine (#1) 2025 05/14/2018 HIB Vaccines Aged Out No longer [...]
== END 2024-11-09 13:24 | disposition home or self-care (01) ==
LOC: HO.HGI 11:33
PROVIDERS: PCP Family Medicine; Visit Provider Internal Medicine Gastroenterology
DX: R10.13 Epigastric pain (principal); R14.0 Abdominal distension (gaseous)
CPT/HCPCS: 99214

== ENCOUNTER 2024-12-03 11:30 | Outpatient (RCR) | payer MEDICARE, OTHER, SELFPAY ==
[2024-11-12 11:56] VITALS: BP 112/70; PULSE 91; RESP 16; TEMP 36.9; O2SAT 96
[2024-11-19 12:06] VITALS: BP 104/64; PULSE 96; RESP 16; TEMP 36.6; O2SAT 97
[2024-11-26 11:31] VITALS: BP 110/67; PULSE 95; RESP 16; TEMP 36.3; O2SAT 98
[2024-12-03 11:21] VITALS: BP 107/65; PULSE 91; RESP 16; TEMP 36.2; O2SAT 98
[2024-12-03 11:36] LABS: Hematocrit 30.6 % (37.0-47.0); Hemoglobin 10.5 g/dl (12.0-16.0); Mean Corpuscular HGB Conc 34.3 g/dl (31.0-35.0); Mean Corpuscular Hemoglobin 30.2 pg (27.0-33.0); Mean Corpuscular Volume 87.9 fL (80.0-98.0); NRBC Abs Auto 0.000 X10*3/uL (0.0-0.012); NRBC Pct Auto 0.0 /100WBC (0.0-0.2); Platelet Count 209 X10*3/uL (160-400); Red Blood Count 3.48 X10*6/uL (4.20-5.50); White Blood Count 6.1 X10*3/uL (4.8-10.8)
[2024-12-03 12:09] LABS: Ferritin 406 ng/mL (10-250)
== END 2024-12-03 11:49 | disposition home or self-care (01) ==
LOC: HO.INF 11:30
PROVIDERS: PCP Family Medicine; Visit Provider Internal Medicine Medical Oncology
DX: D50.9 Iron deficiency anemia, unspecified (principal)
CPT/HCPCS: 36415; 82728; 85027; 96365; J1756

== ENCOUNTER 2024-12-07 19:50 | Emergency (ER) | payer OTHER, MEDICARE, SELFPAY ==
[2024-12-07 19:59] VITALS: BP 105/53; PULSE 96; RESP 16; TEMP 36.7; O2SAT 98; BMI 29.7
--- NOTE | 2024-12-07 20:05 | ED.GENADULT ---
HPI - General Adult General Chief complaint: Extremity Injury, Lower Stated complaint: numbness on both legs, feels blood rushing down Time Seen by Provider: 12/08/24 00:11 Source: patient Mode of arrival: ambulatory Limitations: no limitations History of Present Illness ED Provider: DR. Ritter HPI narrative: 44-year-old female came in for evaluation of bilateral eye lower extremity pain and numbness started few days ago in both feet now the pain is up to her mid thighs describe it as fluid gushing under her skin from her thighs toward her feet, otherwise no weakness, no blurry vision, no headache, no chest pain, no shortness of breath, no weakness, no back pain, no fever, chills. Patient with history of fibromyalgia on Lyrica. Patient is seeing Oncology for anemia of unclear etiology patient required iron infusion in the past, no vaginal or rectal bleeding. Patient also had a nonconclusive GI workup including endoscopies and CT abdomen and pelvis. have an appointment with a neurologist in 4 weeks was referred by her PCP. Related Data Home Medications ?Medication ?Instructions ?Recorded ?Confirmed bupropion HCl 300 mg 24 hr tablet, 300 mg PO DAILY 07/26/22 12/07/24 extended release cholecalciferol (vitamin D3) 25 25 mcg PO DAILY 02/12/23 12/07/24 mcg (1,000 unit) capsule multivitamin with minerals 1 cap PO DAILY 02/12/23 12/07/24 bupropion HCl 150 mg 24 hr tablet, 150 mg PO QAM 06/21/23 12/07/24 extended release fluoxetine 40 mg capsule 80 mg PO DAILY 06/21/23 12/07/24 aripiprazole 5 mg tablet 10 mg PO BEDTIME 06/04/24 12/07/24 Previous Rx's ?Medication ?Instructions ?Recorded ondansetron HCl 4 mg tablet 4 mg PO Q6H PRN nausea and 06/15/21 vomiting #60 tabs prochlorperazine maleate 10 mg 10 mg PO Q8H PRN nausea and 11/12/21 tablet (Compazine) vomiting #30 tabs simethicone 125 mg chewable tablet 125 mg PO QID PRN abdominal 06/21/23 (Gas Relief (simethicone)) distention #120 tabs albuterol sulfate 90 mcg/actuation 2 puff PO Q4-6H PRN for wheezing 10/23/23 aerosol inhaler #8.5 grams famotidine 40 mg tablet 40 mg PO BEDTIME #90 tabs 04/24/24 blood pressure test kit medium and #1 ea 05/28/24 large cuffs miscellaneous medical supply #1 ea 05/28/24 (Blood Pressure Cuff) aluminum-mag hydroxide-simethicone 10 ml PO QID PRN indigestion 06/11/24 200 mg-200 mg-20 mg/5 mL oral susp #3,000 mL (Maalox Advanced) atorvastatin 40 mg tablet 40 mg PO DAILY 90 days #90 tabs 06/12/24 lansoprazole 30 mg capsule,delayed 30 mg PO BID #90 caps 06/16/24 release trazodone 100 mg tablet 100 mg PO BEDTIME 30 days #30 tabs 06/23/24 sennosides 8.6 mg tablet (senna) 8.6 mg PO DAILY #30 tabs 07/16/24 albendazole 200 mg tablet 400 mg (2 x 200 mg) PO DAILY #6 08/07/24 tabs ondansetron 4 mg disintegrating 4 mg PO Q8H PRN nausea and 08/07/24 tablet vomiting #10 tabs esomeprazole magnesium 20 mg 20 mg PO DAILY #90 caps 08/19/24 capsule,delayed release linaclotide 290 mcg capsule 290 mcg PO DAILY #30 caps 10/21/24 fludrocortisone 0.1 mg tablet 0.1 mg PO 3XW PRN hypotension 30 11/10/24 days #13 tabs epinephrine 0.3 mg/0.3 mL 0.3 mg (0.3 mL) IM Q10M PRN 11/20/24 injection, auto-injector (EpiPen anaphylaxis #2 ea 2-Yasmany) pregabalin 150 mg capsule 150 mg PO TID 30 days #90 caps 11/30/24 hydromorphone 2 mg tablet 2 mg PO Q6H PRN pain #7 tabs 12/08/24 (Dilaudid) Allergies Allergy/AdvReac Type Severity Reaction Status Date / Time oxycodone (From Percocet) Allergy Severe Migraine Verified 12/07/24 20:04 and vomiting peach Allergy Severe Hives Verified 12/07/24 20:04 apple Allergy Intermediate Swelling Verified 12/07/24 20:04 erythromycin base Allergy Mild Confusion, Verified 12/07/24 20:04 (Erythromycin Base) Rash, Nausea, Vomiting, Out of it levofloxacin (From Levaquin) Allergy Mild Rash Verified 12/07/24 20:04 sulfamethoxazole (From Allergy Mild Rash Verified 12/07/24 20:04 Bactrim) trimethoprim (From Bactrim) Allergy Mild Rash Verified 12/07/24 20:04 Sulfa (Sulfonamide Allergy Unknown Rash Verified 12/07/24 20:04 Antibiotics) hazelnut Allergy Unknown Verified 12/07/24 20:04 peanut Allergy Unknown Verified 12/07/24 20:04 meclizine AdvReac Anxiety Verified 12/07/24 20:02 metoclopramide (From Reglan) AdvReac Anxiety Verified 12/07/24 20:03 apples Allergy Severe Anaphylaxis Uncoded 12/07/24 09:55 meclazine AdvReac Severe severe Uncoded 12/07/24 09:55 anxiety Review of Systems Review of Systems: All other systems are reviewed and are negative Constitutional: Reports as per HPI and Reports no additional constitutional complaints Eyes: Reports as per HPI and Reports no additional eye complaints Reports system reviewed and no additional complaints, except as documented Cardiovascular: Reports as per HPI and Reports no additional cardiovascular complaints Respiratory: Reports as per HPI and Reports no additional respiratory complaints Gastrointestinal: Reports as per HPI and Reports no additional gastrointestinal complaints Genitourinary: Reports no additional female genitourinary complaints Musculoskeletal: Reports no additional musculoskeletal complaints Skin/Breast: Reports system reviewed and no additional complaints, except as docu Psychiatric: Reports no additional psychiatric complaints Endocrine: Reports no additional endocrine complaints Hematologic/Lymphatic: Reports no additional hematologic/lymphatic complaints Allergic/Immunologic: Reports no additional allergic/immunologic complaints Reports system reviewed and no additional complaints, except as documented and Reports Abnormal speech present PMFSH Past Medical History Medical History Anemia Screening for colon cancer Screening for cervical cancer Adult general medical exam Shortness of breath Discomfort of right ear Otitis media of right ear Lightheadedness Normal physical exam Early satiety Abnormal urinalysis Suprapubic pain, acute Fatigue Vision changes Peroneal tendinitis, left leg Cough Myalgia Easy bruising Joint stiffness of hand Rectal prolapse Abdominal rebound tenderness of right lower quadrant Abdominal pain Surgical History Hx of hysterectomy History of esophagogastroduodenoscopy (EGD) History of kidney stones Status post LASIK surgery History of lumpectomy of left breast History of right breast biopsy History of colonoscopy History of laparoscopic cholecystectomy History of removal of ovarian cyst History of bilateral breast reduction surgery Family History Family History Father Healthy adult Mother High cholesterol Migraines Diabetes Asthma Hypertension Maternal Grandfather CVD (cardiovascular disease) Maternal Aunt Family history of heart disease Other Mental health disorder Substance abuse Social History Social History Household Members: Spouse and Children Housing: House Are you a primary healthcare risk control consultant to a significant other at home: No Do you presently have visiting nurse or other home services: No Alcohol intake: never Patient Tobacco Use Status: Never used Tobacco e-Cigarette/Vaping Use: Never Used Second Hand Smoke Exposure: No Advance Directives: Yes Advance Directives Information Provided: Yes Advance Directives on File: No Do you have a plan to hurt others: No Plan service: No Current occupational status: disabled Current occupational exposures/hazards: No Cognitive needs: No Hearing needs: No Vision needs: No Physical Exam ED Vital Signs: Vital Signs - 24 hr 12/07/24 19:59 Temperature 98.1 F Pulse Rate 96 Respiratory Rate 16 Blood Pressure 105/53 L Pulse Oximetry 98 BMI result Body Mass Index 29.7 Vital signs have been reviewed and appear to be correct. Blood pressure elevated. Heart rate normal. Respiratory rate normal. Temperature normal. Oxygen saturation normal. Appearance: Alert. Oriented X3. No acute distress. Head: Normal external exam. Normocephalic. Atraumatic. No Breen signs noted. No raccoon eyes noted Eyes: PERRLA. EOMI. Conjunctiva and sclera normal. Eyelids normal. ENT: TM's Normal. Pharynx normal. Uvula midline. Moist mucous membranes. No trismus noted. No drooling noted. No muffled voice noted. Neck: Normal inspection. Neck supple. FROM. No adenopathy. Thyroid Normal. No meningeal signs. No neck mass noted. CVS: Normal heart rate and rhythm. Heart sound normal. No murmurs noted. Pulses normal throughout. Respiratory: No respiratory distress. Painless inspiration. Breath sounds normal. No wheezes/rales/rhonchi noted. Chest nontender. No accessory muscle usage noted or decreased air movement noted. Abdomen: Soft and nontender. Bowel sounds normal in all 4 quadrants. No distention noted. No organomegaly noted. No visible injury noted. Back: No CVA tenderness. Full range of motion noted. Skin: Skin warm and dry. Normal skin color. Normal skin turgor. No rashes/lesions/lacerations noted. Extremities: No lower extremity edema. Extremities exhibit normal range of motion. Extremities nontender. Neuro: Mental status: Normal attention, orientation, memory, and affect. Cranial nerves: Pupils are equal, round and reactive to light, EOMI, visual caputo are fall, face is symmetric, facial sensations are normal. Motor examination normal muscle tone, strength to 4 extremities. DTR are +2, planter's are flexor. Sensory exam; normal coordination, no ataxia, gait stable. Cerebellar exam: [id number] and [id number] is normal. Extrapyramidal system: No tremors, no rigidity with normal facial expressions. Pronator drift not present Course Course Course Narrative: RME performed by Dorota Cole PA-C. Patient is a 44 year old assigned female at presenting to the emergency department with bilateral lower leg numbness / tingling and feeling as though fluid is rushing down them. Detailed physical exam and review of systems are deferred to the data governance analyst. Labs ordered. Patient placed back in the waiting room pending room availability and results. Reevaluation(s) Reevaluation #1: 44-year-old female with history of fibromyalgia came in with bilateral lower extremity pain patient is already on Lyrica, awaiting for Neurology to follow-up, patient has a normal neuro exam today, no emergency intervention is needed at this point, patient stated the only pain medication that helps her is Dilaudid. Time: 01:20 Medications Administered Discontinued Medications Generic Name Dose Route Start Last Admin Trade Name Freq PRN Reason Stop Dose Admin Acetaminophen 975 mg 12/07/24 23:34 12/07/24 23:38 Acetaminophen 325 Mg Tablet PO 12/07/24 23:35 975 mg ONCE ONE Administration Medical Decision Making Differential Diagnosis Differential Diagnoses: The differential diagnosis associated with the presentation includes ( Peripheral neuropathy, fibromyalgia, myofascial pain, electrolyte derangement, severe anemia.) Admission/Observation Consideration of admission/observation: Escalation of care including admission/observation considered Lab Data MDM Lab Attestation statement: I reviewed the patient's lab results. 12/07/24 20:34 12/07/24 20:34 Labs: Lab Results 12/07/24 12/07/24 Range/Units 20:34 20:41 WBC 7.9 (4.8-10.8) X10*3/uL RBC 3.37 L (4.20-5.50) X10*6/uL Hgb 10.2 L (12.0-16.0) g/dl Hct 30.0 L (37.0-47.0) % MCV 89.0 (80.0-98.0) fL MCH 30.3 (27.0-33.0) pg MCHC 34.0 (31.0-35.0) g/dl RDW 13.3 (11.0-16.0) % Plt Count 243 (160-400) X10*3/uL MPV 9.2 L (9.4-12.3) fL Immature Gran % (Auto) 0.5 H (0.0-0.4) % Neut % (Auto) 49.3 (45-73) % Lymph % (Auto) 35.7 (20-40) % [place] % (Auto) 9.8 (2-11) % Eos % (Auto) 3.6 (0-4) % Baso % (Auto) 1.1 (0-2) % Lymph # (Auto) 2.8 (1.2-4.9) X10*3/uL [place] # (Auto) 0.8 (0.1-1.2) X10*3/uL Eos # (Auto) 0.3 (0.0-0.4) X10*3/uL Baso # (Auto) 0.1 (0.0-0.2) X10*3/uL Abs Immat Gran (auto) 0.04 H (0.00-0.03) X10*3/uL Absolute Neuts (auto) 3.9 (2.0-8.3) x10*3/uL Absolute Nucleated RBC 0.000 (0.0-0.012) X10*3/uL Nucleated RBC % (auto) 0.0 (0.0-0.2) /100WBC Sodium 139 (135-145) mmol/L Potassium 4.0 (3.3-5.1) mmol/L Chloride 107 (96-108) mmol/L Carbon Dioxide 27 (22-29) mmol/L Anion Gap 9 L (12-20) BUN 12 (9-16) mg/dL Creatinine 0.93 (0.5-1.4) mg/dL Estim Creat Clear Calc 80.2 Estimated GFR > 60 Random Glucose 106 (60-115) mg/dL Calcium 8.6 (8.4-10.2) mg/dL Magnesium 1.5 L (1.6-2.6) mg/dL Total Bilirubin 0.2 (0.0-1.0) mg/dL AST 31 (5-31) U/L ALT 33 H (0-31) U/L Alkaline Phosphatase 57 (39-117) U/L Total Protein 6.0 L (6.5-8.0) g/dL Albumin 3.9 (3.5-5.0) g/dL Urine Color Yellow Urine Appearance Clear Urine pH 6.0 (5.0-9.0) Ur Specific [place] 1.020 (1.005-1.025) Urine Protein Negative (Neg-Trace) mg/dL Urine Glucose (UA) Negative (Negative) mg/dL Urine Ketones Negative (Negative) mg/dL Urine Blood Negative (Negative) Urine Nitrite Negative (Negative) Ur Leukocyte Esterase Negative (Negative) Discharge Plan Discharge Clinical Impression: Fibromyalgia Patient Disposition: Home, Self-Care Instructions: Fibromyalgia (ED) Prescriptions: New hydromorphone [Dilaudid] 2 mg tablet 2 mg PO Q6H PRN (Reason: pain) Qty: 7 0RF Rx Instructions: Partial Fill upon patient request. No Action prochlorperazine maleate [Compazine] 10 mg tablet 10 mg PO Q8H PRN (Reason: nausea and vomiting) Qty: 30 2RF albuterol sulfate 90 mcg/actuation HFA aerosol inhaler 2 puff PO Q4-6H PRN (Reason: for wheezing) Qty: 8.5 3RF famotidine 40 mg tablet 40 mg PO BEDTIME Qty: 90 2RF (DME) Blood Pressure Cuff Misc See Rx Instructions .Route Qty: 1 0RF Rx Instructions: As directed (DME) blood pressure kit med and lrg Kit See Rx Instructions .Route Qty: 1 0RF Rx Instructions: As directed atorvastatin 40 mg tablet 40 mg PO DAILY 90 Days Qty: 90 3RF lansoprazole 30 mg capsule,delayed release(DR/EC) 30 mg PO BID Qty: 90 1RF trazodone 100 mg tablet 100 mg PO BEDTIME 30 Days Qty: 30 0RF sennosides [senna] 8.6 mg tablet 8.6 mg PO DAILY Qty: 30 6RF linaclotide 290 mcg capsule 290 mcg PO DAILY Qty: 30 2RF fludrocortisone 0.1 mg tablet 0.1 mg PO 3XW PRN (Reason: hypotension) 30 Days Qty: 13 0RF epinephrine [EpiPen 2-Yasmany] 0.3 mg/0.3 mL auto-injector 0.3 mg IM Q10M PRN (Reason: anaphylaxis) Qty: 2 0RF Rx Instructions: for 2 doses pregabalin 150 mg capsule 150 mg PO TID 30 Days Qty: 90 1RF alum-mag hydroxide-simeth [Maalox Advanced] 200-200-20 mg/5 mL suspension 10 ml PO QID PRN (Reason: indigestion) Qty: 3000 0RF Rx Instructions: administer between meals and at bedtime esomeprazole magnesium 20 mg capsule,delayed release(DR/EC) 20 mg PO DAILY Qty: 90 2RF ondansetron HCl 4 mg tablet 4 mg PO Q6H PRN (Reason: nausea and vomiting) Qty: 60 1RF bupropion HCl 300 mg tablet extended release 24 hr 300 mg PO DAILY fluoxetine 40 mg capsule 80 mg PO DAILY multivitamin with minerals Capsule 1 cap PO DAILY cholecalciferol (vitamin D3) 25 mcg (1,000 unit) capsule 25 mcg PO DAILY aripiprazole 5 mg tablet 10 mg PO BEDTIME bupropion HCl 150 mg tablet extended release 24 hr 150 mg PO QAM simethicone [Gas Relief (simethicone)] 125 mg tablet,chewable 125 mg PO QID PRN (Reason: abdominal distention) Qty: 120 6RF albendazole 200 mg tablet 400 mg PO DAILY Qty: 6 0RF ondansetron 4 mg tablet,disintegrating 4 mg PO Q8H PRN (Reason: nausea and vomiting) Qty: 10 0RF Referrals: Shawn Miranda MD [Primary Care Provider, Internal Medicine] Print Language: Nigerien
[2024-12-07 20:45] LABS: MANUAL DIFF FLAG NO
[2024-12-07 20:46] LABS: Hematocrit 30.0 % (37.0-47.0); Hemoglobin 10.2 g/dl (12.0-16.0); Imm Gran Abs Auto 0.04 X10*3/uL (0.00-0.03); Imm Gran Pct Auto 0.5 % (0.0-0.4); Lymphocytes Absolute Auto 2.8 X10*3/uL (1.2-4.9); Mean Corpuscular HGB Conc 34.0 g/dl (31.0-35.0); Mean Corpuscular Hemoglobin 30.3 pg (27.0-33.0); Mean Corpuscular Volume 89.0 fL (80.0-98.0); NRBC Abs Auto 0.000 X10*3/uL (0.0-0.012); NRBC Pct Auto 0.0 /100WBC (0.0-0.2); Platelet Count 243 X10*3/uL (160-400); Red Blood Count 3.37 X10*6/uL (4.20-5.50); White Blood Count 7.9 X10*3/uL (4.8-10.8)
[2024-12-07 20:47] LABS: Appearance Urine Clear; Glucose Urine UA Negative (Negative); PH 6.0 (5.0-9.0); Specific Gravity - Urine 1.020 (1.005-1.025)
[2024-12-07 21:00] LABS: Alanine Aminotransferase 33 U/L (0-31); Albumin Level 3.9 g/dL (3.5-5.0); Alkaline Phosphatase 57 U/L (39-117); Anion Gap 9 (12-20); Aspartate Amino Transferase 31 U/L (5-31); Blood Urea Nitrogen 12 mg/dL (9-16); Calcium 8.6 mg/dL (8.4-10.2); Carbon Dioxide 27 mmol/L (22-29); Chloride 107 mmol/L (96-108); Creatinine Clr Calc Pharmacy 80.2; Estimated Glomerular Filt Rate > 60; Magnesium 1.5 mg/dL (1.6-2.6); Potassium 4.0 mmol/L (3.3-5.1); Sodium 139 mmol/L (135-145); Total Protein 6.0 g/dL (6.5-8.0)
--- OUTSIDE RECORDS SUMMARY | 2024-12-08 00:49 | XMS_ITS | Clinical Summary ---
Author Organization [facility] Address [address] [place] [address] Care Team Providers Care Lead Welder Name Role Phone Unavailable Primary Care Provider [...] Smear 2000 Colorectal Cancer Screening: Colonoscopy 04/08/2022 HIV Screening 04/08/2022 Hepatitis C Screening 04/08/2022 Social Influencers of Health Screening 04/08/2022 COVID-19 Vaccine (2023-2 5 season) 2024 Depression Screening 05/06/2024 Influenza Vaccine (#1) 2025 05/14/2018 HIB Vaccines [...] 5 Years) and At-Risk Patients (6 to 49 Years) Aged Out No longer eligible b ased on patient's age to complete this topic RSV Immunization Patients Under 20 months Aged Out No longer eligible b ased on patient's age to complete this topic Varicella Vaccines Aged Out No longer eligible based on patient's age to complete this topic
[2024-12-08 01:16] VITALS: BP 117/77; PULSE 71; RESP 16; TEMP 36.7; O2SAT 100
[2024-12-08 01:48] VITALS: BP 117/77; PULSE 71; RESP 16; TEMP 36.7; O2SAT 100
== END 2024-12-08 01:49 | disposition home or self-care (01) ==
PROVIDERS: Physician Assistant Medical; Emergency Provider Emergency Medicine; PCP Family Medicine
DX: M79.7 Fibromyalgia (principal)
CPT/HCPCS: 36415; 80053; 81003; 83735; 85025; 96372; 99284; J1171; J1885

== ENCOUNTER 2024-12-14 10:05 | Outpatient (AMB) | payer MEDICARE, OTHER, SELFPAY ==
--- NOTE | 2024-12-14 10:10 | A.OFFVIS_ITS ---
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: Syncope and collapse Small Business Director Required: No Accompanied by: Self / Same As Patient Allergies oxycodone (From Percocet) Allergy (Severe, Verified 12/07/24 20:04) Migraine and vomiting peach Allergy (Severe, Verified 12/07/24 20:04) Hives apple Allergy (Intermediate, Verified 12/07/24 20:04) Swelling erythromycin base (Erythromycin Base) Allergy (Mild, Verified 12/07/24 20:04) Confusion, Rash, Nausea, Vomiting, Out of it levofloxacin (From Levaquin) Allergy (Mild, Verified 12/07/24 20:04) Rash sulfamethoxazole (From Bactrim) Allergy (Mild, Verified 12/07/24 20:04) Rash trimethoprim (From Bactrim) Allergy (Mild, Verified 12/07/24 20:04) Rash Sulfa (Sulfonamide Antibiotics) Allergy (Unknown, Verified 12/07/24 20:04) Rash hazelnut Allergy (Verified 12/07/24 20:04) Unknown peanut Allergy (Verified 12/07/24 20:04) Unknown meclizine Adverse Reaction (Verified 12/07/24 20:02) Anxiety metoclopramide (From Reglan) Adverse Reaction (Verified 12/07/24 20:03) Anxiety apples Allergy (Severe, Uncoded 12/07/24 09:55) Anaphylaxis meclazine Adverse Reaction (Severe, Uncoded 12/07/24 09:55) severe anxiety Medication List - Last Reconciled 12/14/24 by America Cho MD albuterol sulfate 90 mcg/actuation 2 puffs PO Q4-6H PRN alum-mag hydroxide-simeth 200-200-20 mg/5 mL (Maalox Advanced) 10 mL PO QID PRN aripiprazole 10 mg PO BEDTIME atorvastatin 40 mg PO DAILY 90 days blood pressure kit med and lrg As directed bupropion HCl XL 300 mg PO DAILY bupropion HCl XL 150 mg PO QAM cholecalciferol (vitamin D3) 25 mcg PO DAILY epinephrine (EpiPen 2-Yasmany) 0.3 mg (0.3 mL) IM Q10M PRN esomeprazole magnesium 20 mg PO DAILY famotidine 40 mg PO BEDTIME fludrocortisone 0.1 mg PO 3XW PRN 30 days fluoxetine 80 mg PO DAILY miscellaneous medical supply (Blood Pressure Cuff) As directed multivitamin with minerals 1 cap PO DAILY ondansetron 4 mg PO Q8H PRN ondansetron HCl 4 mg PO Q6H PRN pregabalin 150 mg PO TID 30 days sennosides (senna) 8.6 mg PO DAILY simethicone (Gas Relief (simethicone)) 125 mg PO QID PRN trazodone 100 mg PO BEDTIME 30 days trazodone 150 mg PO DAILY HPI Comments Details: 44y/o female comes here for evaluation of syncope.she had 2 episodes of passing out 1 year ago . The first episode was when she outside - hit her head and was confused for few minutes after that. The second episode was at night when she woke up to use the bathroom, she feels lightheaded and fell down- she did not pass out . she also has iron def anemia and following up with Dr Tran. she fractured her 5th metatarsal in her left foot.. since then she has episodes of lightheadedness where her vision blurs but does not pass out. she denies any major life events . But patient reports cognitive changes for past 1 year - word finding difficulties , difficulty processing , feels foggy etc. she is out of work currently . she also reports speech slurring for few weeks . It is intermittent and lasts few seconds to minutes. she has low back issues and chronic pain- her PCP is concerned that she has fibromyalgia.\ she has anxiety related to her health issues- depression- sees [facility] at [facility] - she is on abilify for about 1 year. she is also on wellbutrin . she also has a counselor. she had a sleep study- more than 5 years ago - showed PLMD she has leg jerking or UE jerking at rest . she also reports constant leg pain - at rest . she also has h/o migraines since age 4- was following up at [facility] and was t reated with botox.But since her neurologist left the practice she stopped following up. Meds tried - topiramate - kidney stones Aimovig- did not help Propranalol- did not help amitriptyline- did not help Sumatriptan - did not help Maxalt- no repsonse Zomig - no response gabapentin - no response Pregabalin - helps Botox- was on it for many years- stopped more than 6 mth ago as she was not able to get appointmnets The headaches are occipital with some nausea - mild photophobia some phonophobia . Always has a mild headaches that converts to a migraine - qod . It last 1-2 days . [facility] Medical History (Updated 12/14/24 @ 12:04 by Ameriac Cho MD) Syncope Restless legs syndrome (RLS) Periodic limb movement Chronic migraine without aura, not intractable Hypersomnia Snoring Cognitive change Anemia Screening for colon cancer Screening for cervical cancer Adult general medical exam Shortness of breath Discomfort of right ear Otitis media of right ear Lightheadedness Normal physical exam Early satiety Abnormal urinalysis Suprapubic pain, acute Fatigue Vision changes Peroneal tendinitis, left leg Cough Myalgia Easy bruising Joint stiffness of hand Rectal prolapse Abdominal rebound tenderness of right lower quadrant Abdominal pain Surgical History Hx of hysterectomy History of esophagogastroduodenoscopy (EGD) History of kidney stones Status post LASIK surgery History of lumpectomy of left breast History of right breast biopsy History of colonoscopy History of laparoscopic cholecystectomy History of removal of ovarian cyst History of bilateral breast reduction surgery Family History Father Healthy adult Mother High cholesterol Migraines Diabetes Asthma Hypertension Maternal Grandfather CVD (cardiovascular disease) Maternal Aunt Family history of heart disease Other Mental health disorder Substance abuse Social History Household Members: Spouse and Children Housing: House Are you a primary child care director to a significant other at home: No Do you presently have visiting nurse or other home services: No Alcohol intake: never Patient Tobacco Use Status: Never used Tobacco e-Cigarette/Vaping Use: Never Used Second Hand Smoke Exposure: No service: No Current occupational status: disabled Current occupational exposures/hazards: No Cognitive needs: No Hearing needs: No Vision needs: No Physical Exam Vital Signs: Last Vital Signs Pulse 101 H 08/11/25 10:12 BP 100/70 12/14/24 10:12 Pulse Ox 98 12/14/24 10:12 Oxygen Delivery Method Room Air 12/14/24 10:12 BMI result Body Mass Index 30.1 Const General: cooperative, comfortable and anxious Nutritional Appearance: overweight Orientation/consciousness: patient oriented x3 Eyes Pupils: Equal, round and reactive pupils present Neuro Other: mild ptosis Mild ge tremors General: patient oriented x3, gait normal, tone normal, moves all extremities and no focal motor deficits Cranial nerves: Yes Facial sensation intact/muscles of mastication intact, Yes Equal, round and reactive pupils present, Yes Bilaterally intact EOM present, Yes Nystagmus not present, Yes Normal facial strength present, Yes Midline tongue present, Yes Symmetric palate elevation present and Yes Ability to bilaterally elevate shoulders present Cognition (Neuro): normal cognition Gait exam (Neuro): Normal gait present Motor exam (neuro): 5/5 motor strength present throughout and Normal motor muscle tone present throughout Deep tendon reflexes (DTR's): Right triceps reflex intensity grade: 2+, Left triceps reflex intensity grade: 2+, Rt Biceps (C5, C6): 2+, Left biceps reflex intensity grade: 2+, Right brachioradialis reflex intensity grade: 2+, Left b rachioradialis reflex intensity grade: 2+, Right patellar reflex intensity grade: 2+ and Left patellar reflex intensity grade: 2+ Coordination: [id number] test normal Assessment & Plan Assessment & Plan (1) Cognitive change: Comment: multifactorial, mood, polypharmacy , poor sleep , chronci headaches etc Code(s): R41.89 - Other symptoms and signs involving cognitive functions and awareness Category: Medical (2) Hypersomnia: Code(s): G47.10 - Hypersomnia, unspecified Category: Medical (3) Snoring: Code(s): R06.83 - Snoring Category: Medical (4) Chronic migraine without aura, not intractable: Comment: poorly controlled Code(s): G43.709 - Chronic migraine without aura, not intractable, without status migrainosus Category: Medical (5) Periodic limb movement: Code(s): G47.61 - Periodic limb movement disorder Category: Medical (6) Restless legs syndrome (RLS): Code(s): G25.81 - Restless legs syndrome Category: Medical (7) Syncope: Comment: - hypotension, med related Code(s): R55 - Syncope and collapse Category: Medical Plan I will evaluate her with MRI brain - labs Vit B 12 and tsh ESR CBC CMP I will trial her on ropinirole XR 2mg qhs for Restless legs syndromeand PLM Home sleep test for sleep apne a Taper trazadone 100mg qhs Talk to behavioral health about tapering some meds REtrial botox for migraine management Orders: Orders MR head/brain wo con Today R41.89 - Other symptoms and signs involving cognitive functions and awareness RT home sleep study Today G47.10 - Hypersomnia, unspecified, R06.83 - Snoring Medications: New ropinirole ER 2 mg PO BEDTIME 30 tabs 6RF Discontinued hydromorphone (Dilaudid) Partial Fill upon patient request. Discontinued Reason: Doctor's Order 2 mg PO Q6H PRN 7 tabs 0RF pain prochlorperazine maleate (Compazine) Discontinued Reason: Doctor's Order 10 mg PO Q8H PRN 30 tabs 2RF nausea and vomiting Coding Level of Care Code New Pt Level 4 (68949) Complex EM visit Add On G2211 Diagnoses Cognitive change R41.89 Hypersomnia G47.10 Snoring R06.83 Chronic migraine without aura, not intractable G43.709 Periodic limb movement G47.61 Restless legs syndrome (RLS) G25.81 Syncope R55
[2024-12-14 10:12] VITALS: BP 100/70; PULSE 101; O2SAT 98; BMI 30.1
--- OUTSIDE RECORDS SUMMARY | 2024-12-14 10:44 | XMS_ITS | Clinical Summary ---
Author Organization [facility] ity Address [address] [place] [address] Care Team Providers Care Certified Home Health Aide Name Role Phone Unavailable Primary Care Provider [...]
== END 2024-12-14 11:25 | disposition home or self-care (01) ==
LOC: HO.HSMS 10:06
PROVIDERS: PCP Family Medicine; Visit Provider Psychiatry & Neurology Neurology
DX: R41.89 Other symptoms and signs involving cognitive functions and awareness (principal); G47.10 Hypersomnia, unspecified; R06.83 Snoring; G43.709 Chronic migraine without aura, not intractable, without status migrainosus; G47.61 Periodic limb movement disorder; G25.81 Restless legs syndrome; R55 Syncope and collapse
CPT/HCPCS: 99204; G2211

== ENCOUNTER → 2024-12-14 10:05 | Outpatient (BNVA) | payer MEDICARE, OTHER, SELFPAY | PROVIDERS: PCP Family Medicine; Visit Provider Psychiatry & Neurology Neurology | DX: R55 Syncope and collapse (principal); R41.89 Other symptoms and signs involving cognitive functions and awareness; G47.10 Hypersomnia, unspecified; R06.83 Snoring; G43.709 Chronic migraine without aura, not intractable, without status migrainosus; G47.61 Periodic limb movement disorder; G25.81 Restless legs syndrome | CPT/HCPCS: 99202 ==

== ENCOUNTER 2024-12-21 13:16 | Outpatient (REF) | payer MEDICARE, OTHER, SELFPAY ==
--- OUTSIDE RECORDS SUMMARY | 2024-12-21 14:14 | XMS_ITS | Clinical Summary ---
Author Organization [facility] Address [address] [place] [address] Phone Care Team Providers Care Director Of Financial Planning Name Role Phone Pcp, Unknown Primary Care Provider Unavailabl e Social History Tobacco Use Types Packs/Day Years Used Date Smoking Tobacco: Never Assessed Education Answer Date Recorded Are you interested in more education? Not on krunal e 08/31/2022 Are you concerned about learning? Not on file 08/31/2022 No 08/31/2022 No 08/31/2022 Digital Access Answer Date Recorded No 10/01/2022 No 10/01/2022 No 10/01/2022 Reliable internet access at home? Not on file 10/01/2022 Device with a working camera? Not on file Comments Unknown Sex and Gender Information Value Date Recorded Sex Assigned at Not on file Legal Sex Female 9:23 PM EDT Gender Identity Not on file Sexual Orientation Not on file Last Filed Vital Signs Vital Sign Reading Time Taken Comments Blood Pressure - - Pulse - - Temperature - - Respiratory Rate - - Oxygen Saturation - - Inhaled Oxygen Concentration - - Weight 79.4 kg (175 lb) 04/04/2018 6:41 PM EST Height 165.1 cm (5' 5 ) 04/04/2018 6:41 PM EST Body Mass Index 29.12 04/04/2018 6:41 PM EST Plan of Treatment Not on file Medical Devices Not on file Insurance MEDICARE PART A & B [place] [facility] [place] [facility] & B Member Subscriber Plan / Payer (Ef fective 2017-Present) Name:Mary Warren Member ID:[id number] Relation to Subscriber:Self Name:Mary Warren Subscriber ID:[id number] Payer ID:[id number] Group ID:Not on file Type:Medicare Address: [employer] [address] [place] A & B [place] PART A & B HEALTH MEDICARE PART A & B [address] [place], [place] [address]HEALTH MEDICARE PART A & B [facility] Care Teams Director Of Financial Planning Relationship Specialty Start Date End Date Pcp, Unknown PCP - General 04/02/18 Additional Source Comments The information contained in this document represents components of the legal health record. It is not the complete legal health record.[facility]
--- OUTSIDE RECORDS SUMMARY | 2024-12-21 14:14 | XMS_ITS | Clinical Summary ---
Author Organization [facility] ity Address [address] [place] [address] Care Team Providers Care Motors And Generators Inspector Name Role Phone Unavailable Primary Care Provider [...]
[2024-12-21 18:15] LABS: MANUAL DIFF FLAG NO
[2024-12-21 18:21] LABS: Hematocrit 33.6 % (37.0-47.0); Hemoglobin 11.0 g/dl (12.0-16.0); Imm Gran Abs Auto 0.01 X10*3/uL (0.00-0.03); Imm Gran Pct Auto 0.2 % (0.0-0.4); Lymphocytes Absolute Auto 2.1 X10*3/uL (1.2-4.9); Mean Corpuscular HGB Conc 32.7 g/dl (31.0-35.0); Mean Corpuscular Hemoglobin 30.0 pg (27.0-33.0); Mean Corpuscular Volume 91.6 fL (80.0-98.0); NRBC Abs Auto 0.000 X10*3/uL (0.0-0.012); NRBC Pct Auto 0.0 /100WBC (0.0-0.2); Platelet Count 272 X10*3/uL (160-400); Red Blood Count 3.67 X10*6/uL (4.20-5.50); White Blood Count 6.6 X10*3/uL (4.8-10.8)
[2024-12-21 18:45] LABS: Alanine Aminotransferase 33 U/L (0-31); Albumin Level 4.1 g/dL (3.5-5.0); Anion Gap 11 (12-20); Aspartate Amino Transferase 27 U/L (5-31); Blood Urea Nitrogen 13 mg/dL (9-16); Calcium 9.1 mg/dL (8.4-10.2); Carbon Dioxide 26 mmol/L (22-29); Chloride 106 mmol/L (96-108); Estimated Glomerular Filt Rate > 60; Potassium 4.2 mmol/L (3.3-5.1); Sodium 139 mmol/L (135-145); Total Protein 6.3 g/dL (6.5-8.0)
[2024-12-21 18:51] LABS: Alkaline Phosphatase 60 U/L (39-117)
[2024-12-21 19:01] LABS: Ferritin 386 ng/mL (10-250)
== END 2024-12-21 13:17 | disposition home or self-care (01) ==
LOC: HO.HKASLDS 13:16
PROVIDERS: Visit Provider Internal Medicine Medical Oncology
DX: D64.9 Anemia, unspecified (principal)
CPT/HCPCS: 36415; 80053; 82728; 85025

== ENCOUNTER → 2024-12-30 07:42 | Outpatient (REF) | payer MEDICARE, OTHER, SELFPAY ==
--- NOTE | ~2024-12-30 | NM_ITS ---
EXAMINATION: AR RADIONUCLIDE SOLID FOOD GASTRIC EMPTYING 4-HOUR STUDY CLINICAL INFORMATION: R68.81 - Early satiety COMPARISON: There are no prior studies available for comparison. TECHNIQUE: A meal consisting of 8 oz of Ensure tagged with 1.0 mCi Tc-99m Sulfur Colloid was administered orally to the patient. Images were obtained using a dual head gamma camera in the anterior and posterior projections over of the stomach immediately post ingestion and at hourly intervals up to 4 hours post ingestion. The anterior and posterior counts at each time interval were averaged using the geometric mean and expressed as percentage of the immediate post ingestion counts. FINDINGS: There is visualization of activity in the stomach immediately post ingestion. As the study progresses, there is clearance of activity from the stomach and visualization of progressively increasing small bowel activity. By the end of the study, there is almost no retention noted in the stomach. Retention in the stomach at each time interval was: 1 hour 64% (normal 37%-90%) 2 hours 26% (normal 30%-60%) 3 hours 8% 4 hours 2% (normal 0%-10%) AR/AR gastric emptying study IMPRESSION: Mildly rapid gastric emptying. For solid meal, rapid gastric emptying is less than 30% at 60 minutes. Delayed gastric emptying criteria is more than 60% remaining at 120 minutes or more than 10% at 240 minutes. The 4-hour value is the best discriminator of a normal or abnormal result). Gastric emptying study grading per JNMT Consensus Recommendations in 2008 (https://tech.snmjournals.org/content/36/1/44) Grade 1 (mild retention): 11-20% at 4h Grade 2 (moderate retention): 21-35% at 4h Grade 3 (severe retention): 36-50% at 4h Grade 4 (very severe retention): >50% retention at 4h Electronically signed by: Demond Foster MD 12/30/2024 12:24 PM EDT
--- OUTSIDE RECORDS SUMMARY | 2024-12-30 07:44 | XMS_ITS | Clinical Summary ---
Author Organization [facility] Address [address] [place] [address] Phone Care Team Providers Care Automotive Welder Name Role Phone Pcp, Unknown Primary Care [...] B [place] PART A & B [facility] Member Subscriber Plan / Payer (Ef fective 2017-Present) Name:Mary Warren Member ID:[id number] Relation to Subscriber:Self Name:Mary Warren Subscriber ID:[id number] Payer ID:[id number] Group ID:Not on file Type:Medicare Address: [employer] [address] [place] [address] [place] A & B Member Subscriber Plan / Payer ( fective 2017-Present) Name:Mary Warren Member ID:[id number] Relation to Subscriber:Self Name:Mary Warren Subscriber ID:[id number] Payer ID:[id number] Group ID:Not on file Type:Medicare Address: [employer] [address] [place] [address] [facility] Member Subscriber Plan / Payer (Ef fective 2017-Present) Name:Mary Warren Member ID:[id number] Relation to Subscriber:Self Name:Mary Warren Subscriber ID:[id number] Payer ID:[id number] Group ID:Not on file Type:Medicare Address: [employer] [address] [place] PART A & B Member Subscriber Plan / Payer (Ef fective 2017-Present) Name:Mary Warren Member ID:[id number] Relation to Subscriber:Self Name:Mary Warren Subscriber ID:[id number] Payer ID:[id number] Group ID:Not on file Type:Medicare Address: [employer] [address] [place] [address] [place] PART A & B Member Subscriber Plan / Payer (Ef fective 2017-Present) Name:Mary Warren Member ID:[id number] Relation to Subscriber:Self Name:Mary Warren Subscriber ID:[id number] Payer ID:[id number] Group ID:Not on file Type:Medicare Address: [employer] [address] [place], [place] [address]HEALTH MEDICARE PART A & B Member Subscriber Plan / Payer ( fective 2017-Present) Name:Mary Warren Member ID:[id number] Relation to Subscriber:Self Name:Mary Warren Subscriber ID:[id number] Payer ID:[id number] Group ID:Not on file Type:Medicare Address: [employer] [address] [place], [place] [id number] [place], [place] [address]HEALTH MEDICARE PART A & B Member Subscriber Plan / Payer (Ef fective 2017-Present) Name:Mary Warren Member ID:[id number] Relation to Subscriber:Self Name:Mary Warren Subscriber ID:[id number] Payer ID:[id number] Group ID:Not on file Type:Medicare Address: [facility] [place] [facility] [address] [place] [id number] [facility] Care Teams Automotive Welder Relationship Specialty Start Date End Date Pcp, Unknown PCP - General 04/02/18 Additional Source Comments The information contained in this document represents components of the legal health record. It is not the complete legal health record.[facility]
--- OUTSIDE RECORDS SUMMARY | 2024-12-30 07:44 | XMS_ITS | Encounter Summary ---
Author Organization [facility] Address [address] [place], [place] [address] Phone Care Team Providers Care Cloth Beamer Name Role Phone Pcp, Unknown Primary Care Provider Unavailabl e Encounter Details Date Type Department Care Team (Late st Contact Info) Description 03/26/2018 Procedure Pass [facility], [address] [address] Social History Tobacco Use Types Packs/Day Years Used Date Smoking Tobacco: Never Assessed Comments Unknown Sex and Gender Information Value Date Recorded Sex Assigned at Not on file Legal Sex Female 9:23 PM EDT Gender Identity Not on file Sexual Orientation Not on file documented as of this encounter Plan of Treatment Not on file documented as of this encounter Visit Diagnoses Not on filedocumented in this encounter Care Teams Cloth Beamer Relationship Specialty Start Date End Date Pcp, Unknown PCP - General 04/02/18 documented as of this encounter Additional Source Comments The information contained in this document represents components of the legal health record. It is not the complete legal health record.[facility]
--- OUTSIDE RECORDS SUMMARY | 2024-12-30 07:44 | XMS_ITS | Encounter Summary ---
Author Organization [facility] Address [address] [place] [address] [place] [address] Phone Care Team Providers Care Consumer Analyst Name Role Phone Pcp, Unknown Primary Care Provider Unavailabl e Encounter Details Date Type Department Care Team (Late st Contact Info) Description 03/26/2018 Ancillary Orders Virtual Department [address], [place] [id number] Malcolm Arenas MD [address] [place] [address], [address] [place] [address] [email or web address] Numbness in both legs; Weakness of both legs; Low back pain, unspecified back pain laterality, unspecified chronicity, with sciatica presence unspecified Social History Tobacco Use Types Packs/Day Years Used Date Smoking Tobacco: Never Assessed Comments Unknown Sex and Gender Information Value Date Recorded Sex Assigned at Not on file Legal Sex Female 9:23 PM EDT Gender Identity Not on file Sexual Orientation Not on file documented as of this encounter Plan of Treatment Not on file documented as of this encounter Results * MRI LUMBAR SPINE (BONE) WITHOUT CONTRAST (04/10/2018 8:01 PM EST) Anatomical Region Laterality Modality L-spine Magnetic Resonan ce 04/11/2018 10:4 1 AM EST Impressions 04/11/2018 1:15 PM EST Annual tear with small protrusion component centrally and to the right at L4-5 with mild disc height loss. No other source of the symptoms. Minimal disc desiccation at L3-4. POS - [id number] Edited by: Paris Stern on 04/11/2018 12:59 PM Narrative 04/11/2018 1:15 PM EST HISTORY: Low back pain with bilateral radiculopathy COMPARISON: None TECHNIQUE: Exam performed on a 1.5 Danielle high-field MRI scanner. Sagittal T1, T2 and STIR, axial T1 and T2 sequences were obtained. FINDINGS: From T11-12 through L3-4 no disc abnormality of concern is identified. No canal or foraminal stenosis. Minor disc desiccation at L3-4. L4-5: Mild disc height loss. Small right and central disc protrusion with annular tear. This could be a source of inflammation. It causes mild right lateral recess impingement with some minor mass-effect on the right L5 nerve root. No prominent canal or foraminal stenosis. L5-S1: Unremarkable. Conus present at L1. No worrisome marrow signal change. Study not tailored for evaluation of regional soft tissues but no soft tissue findings of concern are identified. Procedure Note Varinder Oliveira MD - 04/11/2018 HISTORY: Low back pain with bilateral radiculopathy COMPARISON: None TECHNIQUE: Exam performed on a 1.5 Danielle high-field MRI scanner. SagittalT1, T2 and STIR, axial T1 and T2 sequences were obtained. FINDINGS: From T11-12 through L3-4 no disc abnormality of concern is identified. Nocanal or foraminal stenosis. Minor disc desiccation at L3-4. L4-5: Mild disc height loss. Small right and central disc protrusion withannular tear. This could be a source of inflammation. It causes mild rightlateral recess impingement with some minor mass-effect on the right N8qsoes root. No prominent canal or foraminal stenosis. L5-S1: Unremarkable. Conus present at L1. No worrisome marrow signal change. Study not tailoredfor evaluation of regional soft tissues but no soft tissue findings ofconcern are identified. IMPRESSION: Annual tear with small protrusion component centrally and to the right atL4-5 with mild disc height loss. No other source of the symptoms. Minimaldisc desiccation at L3-4. POS - [id number] Edited by: Paris Stern on 04/11/2018 12:59 PM Malcolm Arenas MD IMG MR XSPECIALTY Final Resu lt documented in this encounter Visit Diagnoses Diagnosis Numbness in both legs Disturbance of skin sensation Weakness of both legs Muscle weakness (generalized) Low back pain, unspecified back pain laterality, unspecified chronicity, with sciatica presence unspecified Numbness in both legs Disturbance of skin sensation Weakness of both legs Muscle weakness (generalized) Low back pain, unspecified back pain laterality, unspecified chronicity, with sciatica presence unspecified documented in this encounter Care Teams Consumer Analyst Relationship Specialty Start Date End Date Pcp, Unknown PCP - General 04/02/18 documented as of this encounter Additional Source Comments The information contained in this document represents components of the legal health record. It is not the complete legal health record.[facility]
--- OUTSIDE RECORDS SUMMARY | 2024-12-30 07:44 | XMS_ITS | Clinical Summary ---
Author Organization [facility] ity Address [address] [place] [address] Care Team Providers Care Cooky Machine Operator Name Role Phone Unavailable Primary Care [...]
== END ==
LOC: HO.NUCMED 07:42
PROVIDERS: PCP Family Medicine; Visit Provider Internal Medicine Gastroenterology
DX: R68.81 Early satiety (principal); R10.13 Epigastric pain; R14.0 Abdominal distension (gaseous)
CPT/HCPCS: 78264; A9541

== ENCOUNTER → 2024-12-30 07:43 | Outpatient (BNV) | payer MEDICARE, OTHER, SELFPAY | PROVIDERS: PCP Family Medicine; Visit Provider Radiology Diagnostic Radiology | DX: R68.81 Early satiety (principal) | CPT/HCPCS: 78264 ==

== ENCOUNTER 2025-01-05 15:31 | Outpatient (AMB) | payer MEDICARE, OTHER, SELFPAY ==
--- NOTE | 2025-01-05 15:26 | A.OFFPC_ITS ---
Intake Visit Reasons: f/u syncope, chronic conditions Intake Note: Telehealth follow up on syncope. Patient c/o both knee px but more the right one x 2 months. Departure Clerk Required: No Allergies oxycodone (From Percocet) Allergy (Severe, Verified 01/05/25 15:27) Migraine and vomiting peach Allergy (Severe, Verified 01/05/25 15:27) Hives apple Allergy (Intermediate, Verified 01/05/25 15:27) Swelling erythromycin base (Erythromycin Base) Allergy (Mild, Verified 01/05/25 15:27) Confusion, Rash, Nausea, Vomiting, Out of it levofloxacin (From Levaquin) Allergy (Mild, Verified 01/05/25 15:27) Rash sulfamethoxazole (From Bactrim) Allergy (Mild, Verified 01/05/25 15:27) Rash trimethoprim (From Bactrim) Allergy (Mild, Verified 01/05/25 15:27) Rash Sulfa (Sulfonamide Antibiotics) Allergy (Unknown, Verified 01/05/25 15:27) Rash hazelnut Allergy (Verified 01/05/25 15:27) Unknown peanut Allergy (Verified 01/05/25 15:27) Unknown meclizine Adverse Reaction (Verified 01/05/25 15:27) Anxiety metoclopramide (From Reglan) Adverse Reaction (Verified 01/05/25 15:27) Anxiety apples Allergy (Severe, Uncoded 01/05/25 15:27) Anaphylaxis meclazine Adverse Reaction (Severe, Uncoded 01/05/25 15:27) severe anxiety Tobacco use date assessed: 01/05/25 Dental Screening Dental Screen Date: 05/18/24 HPI f/u syncope, chronic conditions HPI Details 44 y/o female presents to f/u syncope, c hronic conditions. Had been to ED 12/07/24 for bilateral LE pain and numbness. Hx of fibromyalgia and pt is on Lyrica. Had normal neuro exam and they noted no emergency intervention was needed. Had given her a prescription of fludrocortisone due to low blood pressures/syncope. She notes she has decided not to take this. Reports pain on back of her knees. [facility] Medical History (Updated 01/05/25 @ 15:52 by Juan Pemberton) Syncope Restless legs syndrome (RLS) Periodic limb movement Chronic migraine without aura, not intractable Hypersomnia Snoring Cognitive change Anemia Screening for colon cancer Screening for cervical cancer Adult general medical exam Shortness of breath Discomfort of right ear Otitis media of right ear Lightheadedness Normal physical exam Early satiety Abnormal urinalysis Suprapubic pain, acute Fatigue Vision changes Peroneal tendinitis, left leg Cough Myalgia Easy bruising Joint stiffness of hand Rectal prolapse Abdominal rebound tenderness of right lower quadrant Abdominal pain Surgical History Hx of hysterectomy History of esophagogastroduodenoscopy (EGD) History of kidney stones Status post LASIK surgery History of lumpectomy of left breast History of right breast biopsy History of colonoscopy History of laparoscopic cholecystectomy History of removal of ovarian cyst History of bilateral breast reduction surgery Family History Father Healthy adult Mother High cholesterol Migraines Diabetes Asthma Hypertension Maternal Grandfather CVD (cardiovascular disease) Maternal Aunt Family history of heart disease Other Mental health disorder Substance abuse Social History Household Members: Spouse and Children Housing: House Are you a primary youth care professional to a significant other at home: No Do you presently have visiting nurse or other home services: No Alcohol intake: never Patient Tobacco Use Status: Never used Tobacco e-Cigarette/Vaping Use: Never Used Second Hand Smoke Exposure: No service: No Current occupational status: disabled Current occupational exposures/hazards: No Cognitive needs: No Hearing needs: No Vision needs: No Questionnaire Thrive Questionnaire Date Thrive assessed: 05/18/24 KATI-7 AMB Questionnaire KATI-7 Date KATI - 7 assessed: 05/18/24 Source: Developed by Drs. Demond Oleary, Rhonda Quach, Mendel Brennan and colleagues, with an educational manuela from [employer]. Physical exam (Primary Care) Tobacco/Smoking Status: Tobacco use Status Tobacco use date assessed 01/05/25 01/05/25 15:29 Patient Tobacco Use Status Never used Tobacco 01/05/25 15:29 e-Cigarette/Vaping Use Never Used 01/05/25 15:29 Thrive Assessment: Date of Thrive Assessment Date Thrive assessed 05/18/24 01/05/25 15:29 Telehealth Telehealth Telehealth Platform: Telephone Location of provider rendering services: practice address Location of patient: address on file Patient Identification confirmed using: Name, : Yes Telehealth method: voice only Patient verbally consented to treatment: Yes Patient verbally consented to billing insurance company: Yes Patient informed of any privacy concerns related to visit: Yes Minutes spent on Phone/Video with Pt.: 25 Coding Level of Care Code Tele Est Pt Level 3 (79371) Diagnoses Syncope and collapse R55 Fibromyalgia M79.7 Hypotension I95.9 Altered mental status R41.82 Knee pain M25.569 Lower extremity numbness R20.0 Assessment & Plan Assessment & Plan (1) Syncope and collapse: Code(s): R55 - Syncope and collapse Category: Medical Plan: Now followed by Neurology and they had ordered MR head/brain. Apparently her insurance has been declining this due to duplication of orders via mean. I have removed my order. Neurology plans to follow her for continuity changes and neurologic complaints including migraines. She also has an upcoming appointment with cardiology. I had noted some lower blood pressures at her last visit with me in October. Had sent a script for fludrocortisone. She did not take this. She did take my advice to increase hydration and use salt more liberally. Blood pressures have been better at other visits but patient says this is only because they are dominga cking her blood pressures and times when she has just gotten into the room and is higher. She says that against lower as she sits and relaxes. She can discuss with cardiology as well. (2) Fibromyalgia: Code(s): M79.7 - Fibromyalgia Category: Medical (3) Hypotension: Code(s): I95.9 - Hypotension, unspecified Category: Medical (4) Altered mental status: Code(s): R41.82 - Altered mental status, unspecified Category: Medical (5) Knee pain: Code(s): M25.569 - Pain in unspecified knee Category: Medical Plan: She notes posterior knee pain. Associated with tightness No redness or excessive heat or swelling Advised gentle stretching If not improving, we discussed that I make a formal order for physical therapy. (6) Lower extremity numbness: Code(s): R20.0 - Anesthesia of skin Category: Medical Plan Patient also has diffuse complaints of lower extremity pain that come and go as well as numbness that comes and goes. Also loss of urine and stool that comes and goes. She seems to be associating these symptoms with disc lesions that she says she was told were seen on her CT enterography. Review of report mentions no such lesions. After extensive questioning, she does not seem to have classic symptoms such as saddle anesthesia or to weakness in appropriate neurologic levels to be likely nerve compression emergency. I did advise she follow-up with her urologist. Medications: Discontinued fludrocortisone Discontinued Reason: Doctor's Order 0.1 mg PO 3XW 13 tabs 0RF
--- OUTSIDE RECORDS SUMMARY | 2025-01-05 16:31 | XMS_ITS | Encounter Summary ---
Author Organization [facility] Address [address] [place] [address] [place] [address] Phone Care Team Providers Care Aircraft Servicer Name Role Phone Pcp, Unknown Primary Care Provider Unavailabl e Encounter Details Date Type Department Care Team (Late st Contact Info) Description 03/26/2018 Ancillary Orders Virtual Department [address] [place], [place] [id number] Malcolm Arenas MD [address] [place] [address], [address] [place] [address] [email or web address] Numbness in both legs; Weakness [...] Minimal disc desiccation at L3-4. POS - [id number] Edited by: Paris Stern on 04/11/2018 12:59 [...] with some minor mass-effect on the right [id number] root. No prominent canal or foraminal stenosis. [...] symptoms. Minimaldisc desiccation at L3-4. POS - [id number] Edited by: Paris Stern on 04/11/2018 12:59 [...] unspecified documented in this encounter Care Teams Aircraft Servicer Relationship Specialty Start Date End Date Pcp, Unknown PCP - General 04/02/18 documented as of this encounter Additional Source Comments The information contained in this document represents components of the legal health record. It is not the complete legal health record.[facility]
--- OUTSIDE RECORDS SUMMARY | 2025-01-05 16:31 | XMS_ITS | Clinical Summary ---
Author Organization [facility] ity Address [address] [place] [address] Care Team Providers Care Patternmaker Plastics Name Role Phone Unavailable Primary Care Provider [...] 04/08/2022 Social Influencers of Health Screening 04/08/2022 Depression Screening 05/06/2024 COVID-19 Vaccine (2023-2 5 season) 2025 Influenza Vaccine (#1) 2025 05/14/2018 HIB Vaccines [...]
--- OUTSIDE RECORDS SUMMARY | 2025-01-05 16:31 | XMS_ITS | Clinical Summary ---
Author Organization [facility] Address [address] [place] [address] Phone Care Team Providers Care Direct Care Supervisor Name Role Phone Pcp, Unknown Primary Care [...] B [place] [facility] [place] [facility] B Member Subscriber Plan / Payer (Ef fective 2017-Present) Name:Mary Warren Member ID:[id number] Relation to Subscriber:Self Name:Mary Warren Subscriber ID:[id number] Payer ID:[id number] Group ID:Not on file Type:Medicare Address: [employer] [address] [place] A & [place] B HEALTH MEDICARE PART A & [address] [place], [place] [address]HEALTH MEDICARE PART A & B [facility] Care Teams Direct Care Supervisor Relationship Specialty Start Date End Date Pcp, Unknown PCP - General 04/02/18 Additional Source Comments The information contained in this document represents components of the legal health record. It is not the complete legal health record.[facility]
--- OUTSIDE RECORDS SUMMARY | 2025-01-05 16:31 | XMS_ITS | Encounter Summary ---
Author Organization [facility] Address [address] [facility] [address] [place], [place] [id number] Phone Care Team Providers Care Windscreen Fitter Name Role Phone Pcp, Unknown Primary Care Provider Unavailabl e Encounter Details Date Type Department Care Team (Late st Contact Info) Description 03/26/2018 Procedure Pass [facility], [address] [address] Social History Tobacco Use Types Packs/Day Years [...] on filedocumented in this encounter Care Teams Windscreen Fitter Relationship Specialty Start Date End Date Pcp, Unknown PCP - General 04/02/18 documented as of this encounter Additional Source Comments The information contained in this document represents components of the legal health record. It is not the complete legal health record.[facility]
== END 2025-01-06 17:05 | disposition home or self-care (01) ==
LOC: HO.HMCFM 15:31
PROVIDERS: PCP Family Medicine; Visit Provider Family Medicine
DX: R55 Syncope and collapse (principal); M79.7 Fibromyalgia; I95.9 Hypotension, unspecified; R41.82 Altered mental status, unspecified; M25.569 Pain in unspecified knee; R20.0 Anesthesia of skin

== ENCOUNTER 2025-01-08 12:42 | Outpatient (AMB) | payer OTHER, MEDICARE, SELFPAY ==
--- OUTSIDE RECORDS SUMMARY | 2025-01-08 12:57 | XMS_ITS | Continuity of Care Document ---
Author Organization [facility] Address [address] [place] [address] Problems Condition ICD9 code ICD10 code SNOMED code Start Date End Date S tatus Encounter for screening for other metabolic disorders Z13.228 Results No Results Allergies, adverse reactions, alerts No known allergies and adverse reactions Medications No administered medications reported Vital Signs No vital signs reported Social History No smoking Hx information available
--- OUTSIDE RECORDS SUMMARY | 2025-01-08 12:57 | XMS_ITS | Encounter Summary ---
Author Organization [facility] Address [address] [place] [address] [place] [address] Phone Care Team Providers Care Electrical Automation Engineer Name Role Phone Pcp, Unknown Primary Care Provider Unavailabl e Encounter Details Date Type Department Care Team (Late st Contact Info) Description 03/26/2018 Ancillary Orders Virtual Department [address] [place], [place] [id number] Malcolm Arenas MD [address] [place] [address], [address] [place] [address] [email or web address] Numbness in both legs; Weakness [...] Minimal disc desiccation at L3-4. POS - [id number] Edited by: Paris Stern on 04/11/2018 12:59 [...] with some minor mass-effect on the right Z6nhlge root. No prominent canal or foraminal stenosis. [...] symptoms. Minimaldisc desiccation at L3-4. POS - [id number] Edited by: Paris Stern on 04/11/2018 12:59 [...] unspecified documented in this encounter Care Teams Electrical Automation Engineer Relationship Specialty Start Date End Date Pcp, Unknown PCP - General 04/02/18 documented as of this encounter Additional Source Comments The information contained in this document represents components of the legal health record. It is not the complete legal health record.[facility]
--- OUTSIDE RECORDS SUMMARY | 2025-01-08 12:57 | XMS_ITS | Clinical Summary ---
Author Organization [facility] Address [address] [place] [address] Phone Care Team Providers Care Seismic Survey Assistant Name Role Phone Pcp, Unknown Primary Care [...] B [place] [facility] [place] [facility] Member Subscriber Plan / Payer (Ef fective 2017-Present) Name:Mary Warren Member ID:[id number] Relation to Subscriber:Self Name:Mary Warren Subscriber ID:[id number] Payer ID:[id number] Group ID:Not on file Type:Medicare Address: [employer] [address] [place] A & [place] & B HEALTH MEDICARE PART A & [address] [place], [place] [address]HEALTH MEDICARE PART A & B [facility] [address] Care Teams Seismic Survey Assistant Relationship Specialty Start Date End Date Pcp, Unknown PCP - General 04/02/18 Additional Source Comments The information contained in this document represents components of the legal health record. It is not the complete legal health record.[facility]
--- OUTSIDE RECORDS SUMMARY | 2025-01-08 12:57 | XMS_ITS | Encounter Summary ---
Author Organization [facility] Address [address] [facility] [address] [place], [place] [id number] Phone Care Team Providers Care Deaf/Hard Of Hearing Specialist Name Role Phone Pcp, Unknown Primary Care Provider Unavailabl e Encounter Details Date Type Department Care Team (Late st Contact Info) Description 03/26/2018 Procedure Pass [facility], [address] [address] Social History Tobacco Use Types Packs/Day Years [...] on filedocumented in this encounter Care Teams Deaf/Hard Of Hearing Specialist Relationship Specialty Start Date End Date Pcp, Unknown PCP - General 04/02/18 documented as of this encounter Additional Source Comments The information contained in this document represents components of the legal health record. It is not the complete legal health record.[facility]
--- OUTSIDE RECORDS SUMMARY | 2025-01-08 12:57 | XMS_ITS | Clinical Summary ---
Author Organization [facility] ity Address [address] [place] [address] Care Team Providers Care Conditioner Tumbler Name Role Phone Unavailable Primary Care Provider [...]
[2025-01-08 13:37] VITALS: BP 90/60; PULSE 96; BMI 30.1
--- NOTE | 2025-01-08 13:37 | A.OFFVIS_ITS ---
Vital Signs 01/08/25 13:37 Height 5 ft 5 in Weight 180 lb 12.465 oz BMI 30.1 BP 90/60 Blood Pressure Location Lt brachial Position Sitting Pulse 96 Pulse Source Monitor Intake Visit Reasons: 1 year Follow up Allergies oxycodone (From Percocet) Allergy (Severe, Verified 01/05/25 15:27) Migraine and vomiting peach Allergy (Severe, Verified 01/05/25 15:27) Hives apple Allergy (Intermediate, Verified 01/05/25 15:27) Swelling erythromycin base (Erythromycin Base) Allergy (Mild, Verified 01/05/25 15:27) Confusion, Rash, Nausea, Vomiting, Out of it levofloxacin (From Levaquin) Allergy (Mild, Verified 01/05/25 15:27) Rash sulfamethoxazole (From Bactrim) Allergy (Mild, Verified 01/05/25 15:27) Rash trimethoprim (From Bactrim) Allergy (Mild, Verified 01/05/25 15:27) Rash Sulfa (Sulfonamide Antibiotics) Allergy (Unknown, Verified 01/05/25 15:27) Rash hazelnut Allergy (Verified 01/05/25 15:27) Unknown peanut Allergy (Verified 01/05/25 15:27) Unknown meclizine Adverse Reaction (Verified 01/05/25 15:27) Anxiety metoclopramide (From Reglan) Adverse Reaction (Verified 01/05/25 15:27) Anxiety apples Allergy (Severe, Uncoded 01/05/25 15:27) Anaphylaxis meclazine Adverse Reaction (Severe, Uncoded 01/05/25 15:27) severe anxiety Medication List - Last Reconciled 01/08/25 by Lan Sales NP albuterol sulfate 90 mcg/actuation 2 puffs PO Q4-6H PRN alum-mag hydroxide-simeth 200-200-20 mg/5 mL (Maalox Advanced) 10 mL PO QID PRN aripiprazole 10 mg PO BEDTIME atorvastatin 40 mg PO DAILY 90 days blood pressure kit med and lrg As directed bupropion HCl XL 300 mg PO DAILY bupropion HCl XL 150 mg PO QAM cholecalciferol (vitamin D3) 25 mcg PO DAILY epinephrine (EpiPen 2-Yasmany) 0.3 mg (0.3 mL) IM Q10M PRN esomeprazole magnesium 20 mg PO DAILY famotidine 40 mg PO BEDTIME fluoxetine 40 mg PO DAILY miscellaneous medical supply (Blood Pressure Cuff) As directed multivitamin with minerals 1 cap PO DAILY ondansetron 4 mg PO Q8H PRN ondansetron HCl 4 mg PO Q6H PRN pregabalin 150 mg PO TID 30 days ropinirole ER 2 mg PO BEDTIME sennosides (senna) 8.6 mg PO DAILY simethicone (Gas Relief (simethicone)) 125 mg PO QID PRN trazodone 100 mg PO BEDTIME 30 days trazodone 150 mg PO DAILY HPI Comments Details: This is a 44-year-old female patient coming in for a follow-up visit. Patient was seen in the office a year ago for syncopal episodes with the orthostasis given her significant weight loss. Patient states that since then she has increased her water intake as well as salt intake. Patient states that her dizziness has not changed however patient notes that she has been having some chest pain and shortness of breath with exertion for a year and has noticed that her symptoms are slowly getting worse. Patient states that her symptoms does get better with rest. Patient does note that she has gone to the emergency room couple of times for this matter but everything came back negative. Patient also has a significant family history of coronary artery disease. Patient also notes that she has familial dyslipidemia since she was 11 and was only recently started on statin therapy. Patient is reporting compliance with all her medications. Patient is denying any palpitations, orthopnea, PND, leg edema, presyncope, or syncope. [facility] Medical History Syncope Restless legs syndrome (RLS) Periodic limb movement Chronic migraine without aura, not intractable Hypersomnia Snoring Cognitive change Anemia Screening for colon cancer Screening for cervical cancer Adult general medical exam Shortness of breath Discomfort of right ear Otitis media of right ear Lightheadedness Normal physical exam Early satiety Abnormal urinalysis Suprapubic pain, acute Fatigue Vision changes Peroneal tendinitis, left leg Cough Myalgia Easy bruising Joint stiffness of hand Rectal prolapse Abdominal rebound tenderness of right lower quadrant Abdominal pain Surgical History Hx of hysterectomy History of esophagogastroduodenoscopy (EGD) History of kidney stones Status post LASIK surgery History of lumpectomy of left breast History of right breast biopsy History of colonoscopy History of laparoscopic cholecystectomy History of removal of ovarian cyst History of bilateral breast reduction surgery Family History Father Healthy adult Mother High cholesterol Migraines Diabetes Asthma Hypertension Maternal Grandfather CVD (cardiovascular disease) Maternal Aunt Family history of heart disease Other Mental health disorder Substance abuse Social History Household Members: Spouse and Children Housing: House Are you a primary campground caretaker to a significant other at home: No Do you presently have visiting nurse or other home services: No Alcohol intake: never Patient Tobacco Use Status: Never used Tobacco e-Cigarette/Vaping Use: Never Used Second Hand Smoke Exposure: No service: No Current occupational status: disabled Current occupational exposures/hazards: No Cognitive needs: No Hearing needs: No Vision needs: No Review of Systems Const Denies weakness ENT Denies dizziness Card Reports chest pain, Reports chest pain with activity, Denies syncope, Denies rapid heart rate, Denies pedal edema, Denies edema, Denies leg edema, Denies lightheadedness, Reports palpitations, Reports dyspnea, Denies dyspnea on exertion and Reports orthopnea Resp Denies cough, Reports dyspnea and Denies dyspnea on exertion GI Denies hematochezia and Denies change in stool character Musc Denies abnormal gait, Denies muscle cramps, Denies muscle weakness, Denies numbness, Denies radiating pain into limb and Denies tingling Neuro Denies abnormal gait, Denies dizziness, Denies syncope, Denies numbness, Denies tingling and Denies weakness Endo Reports palpitations Physical Exam Vital Signs: Last Vital Signs Pulse 96 01/08/25 13:37 BP 90/60 01/08/25 13:37 BMI result Body Mass Index 30.1 Const General: cooperative, healthy appearing, comfortable and no acute distress Orientation/consciousness: patient oriented x3 HEENT Head: Yes normal to inspection Neck Neck: Yes normal visual inspection, Yes trachea midline and Yes supple Chest Chest palpation & inspection: normal inspection of the chest Resp Effort & Inspection: normal respiratory effort Auscultation: clear to auscultation bilaterally, no crackles, no rales, no rhonchi and no wheezes Cardio Jugular venous distension: no JVD Palpation: normal PMI Rate: regular rate Rhythm: regular rhythm Heart sounds: S1 normal heart sound present, S2 normal heart sound present, no click, no gallops, no murmurs and no rubs Peripheral pulses: Peripheral pulses 2+ throughout GI Inspection: Yes normal to inspection Palpation (GI): Soft to palpation Auscultation: normal bowel sounds Skin General skin exam: no rashes or lesions noted Neuro General: patient oriented x3 Extrem General: Yes normal to inspection, No no pedal edema and No calf tenderness Psych Appearance: grossly normal Mental Status: mental status grossly normal Speech and movement: Normal speech and movement present Office Procedures EKG Details: EKG today showed normal sinus rhythm, 96 beats per minute, poor R-wave progression- can not rule out anterior infarct, [place], [place]. [id number], Complete Assessment & Plan Assessment & Plan (1) Chest tightness: Code(s): R07.89 - Other chest pain Category: Medical Plan: 11/26/2023-echo showed a low-normal LV systolic function with an ejection fraction between 50-55% with no wall motion abnormalities or valvular pathology. Patient's symptoms test sound typical and given her significant risk factors of hyperlipidemia, obesity, and significant family history of coronary artery disease, we will proceed with a myocardial perfusion study in the next 2 weeks to assess for any ischemic changes. EKG today does show poor R-wave progression which was noted on a previous EKG from the ER. We will also repeat an echo to look for any changes in LV systolic and diastolic function. (2) Shortness of breath: Code(s): R06.02 - Shortness of breath Category: Medical Plan: As above. (3) Hyperlipidemia: Code(s): E78.5 - Hyperlipidemia, unspecified Category: Medical Plan: Most recent LDL at 132. Patient was recently started on atorvastatin 40 mg. Patient states that she has been on this for at least 6 months. We will recheck her lipid panel with a LDL goal closer to 70s. (4) Orthostatic hypotension: Code(s): I95.1 - Orthostatic hypotension Category: Medical Plan: Blood pressure is low normal. Given her ongoing symptoms even though patient has stopped losing weight and has increased her hydration as well as salt intake, we will proceed with a tilt-table study. Recommended compression socks as well as compression body suit to help with her symptoms. Emphasized on orthostatic precautions. We will follow-up after the testings. In the interim, patient will call the office with any concerns or change in symptoms. Advised to seek ER care in case of exertional chest pain not resolved with rest. This note was generated using voice recognition software. While every effort has been made to ensure accuracy and proper recoverer, there may be occasional errors that could affect the content or meaning of the described symptoms. Orders: Orders AMB EKG-In Office Today R07.89 - Other chest pain CA stress test Today R06.02 - Shortness of breath, R07.89 - Other chest pain NM cardiolite stress test Today R07.89 - Other chest pain Lipid Panel Today E78.5 - Hyperlipidemia, unspecified CA echo transthoracic complete Today R06.02 - Shortness of breath, R07.89 - Other chest pain ECG Tilt Table Test Today R42 - Dizziness and giddiness Coding Level of Care Code Est Pt Level 4 (91456) Complex EM visit Add On G2211 Diagnoses Chest tightness R07.89 Shortness of breath R06.02 Hyperlipidemia E78.5 Orthostatic hypotension I95.1 CPT Codes EKG - CPT: 29524-[id number], Complete ([id number]) Time Spent (min) 32 Comment Time spent in reviewing the chart, test results, assessment, counseling and documentation.
== END 2025-01-08 14:25 | disposition home or self-care (01) ==
LOC: HO.HCS 12:43
PROVIDERS: PCP Family Medicine
DX: R07.89 Other chest pain (principal); R06.02 Shortness of breath; E78.5 Hyperlipidemia, unspecified; I95.1 Orthostatic hypotension
CPT/HCPCS: 93010; 99214; G2211

== ENCOUNTER → 2025-01-08 12:42 | Outpatient (BNVA) | payer OTHER, MEDICARE, SELFPAY | PROVIDERS: PCP Family Medicine | DX: R07.89 Other chest pain (principal) | CPT/HCPCS: 93005 ==

== ENCOUNTER → 2025-01-18 19:36 | Outpatient (BNV) | payer MEDICARE, SELFPAY | PROVIDERS: PCP Family Medicine; Visit Provider Radiology Diagnostic Radiology | DX: R90.89 Other abnormal findings on diagnostic imaging of central nervous system (principal) | CPT/HCPCS: 70551 ==

== ENCOUNTER 2025-01-18 19:42 | Outpatient (REF) | payer MEDICARE, SELFPAY ==
--- NOTE | ~2025-01-18 | MR_ITS ---
EXAMINATION: MR BRAIN WITHOUT CONTRAST CLINICAL INFORMATION: R41.89. Other symptoms and signs involving cognitive functions and awareness. COMPARISON: None available. TECHNIQUE: MRI of the brain was obtained using routine sequences without contrast. FINDINGS: No restricted diffusion. No acute intracranial hemorrhage, mass effect, midline shift, hydrocephalus or herniation. Up-white matter differentiation is normal. There is a 4 mm subtle hyperintense T2 FLAIR signal within the pulvinar, right thalamus. Posterior cranial fossa contents demonstrated no signal abnormality or mass effect. Flow-void signal within the main cerebral vessels is normal. Craniocervical junction demonstrates normal position of the cerebellar tonsils. Sellar/suprasellar region demonstrates no masses or signal abnormality. Mild prominence of the extra-axial CSF spaces along the frontotemporal convexities. No gross signal abnormality in the hippocampi. MR/MR head/brain wo con IMPRESSION: No acute brain abnormality. Mild bifrontal bitemporal lobe volume loss. Nonspecific focal T2 FLAIR signal, pulvinar , right thalamus. Electronically signed by: Lefty Clement MD 01/19/2025 07:21 AM EDT
--- OUTSIDE RECORDS SUMMARY | 2025-01-18 21:50 | XMS_ITS | Encounter Summary ---
Author Organization [facility] Address [address] [facility] [address] [place], [place] [address] Phone Care Team Providers Care Brazing Furnace Feeder Name Role Phone Pcp, Unknown Primary Care Provider Unavailabl e Encounter Details Date Type Department Care Team (Late st Contact Info) Description 03/26/2018 Procedure Pass [facility], [address] [address] Social History Tobacco Use Types Packs/Day Years [...] on filedocumented in this encounter Care Teams Brazing Furnace Feeder Relationship Specialty Start Date End Date Pcp, Unknown PCP - General 04/02/18 documented as of this encounter Additional Source Comments The information contained in this document represents components of the legal health record. It is not the complete legal health record.[facility]
--- OUTSIDE RECORDS SUMMARY | 2025-01-18 21:50 | XMS_ITS | Clinical Summary ---
Author Organization [facility] Address [address] [place] [address] Phone Care Team Providers Care Evp Of Products [employer] Co Founder Name Role Phone Pcp, Unknown Primary Care [...] B [place] & B [facility] [place] [facility] MEDIC[facility] PART A & B Member Subscriber Plan / Payer (Ef fective 2017-Present) Name:Mary Warren Member ID:[id number] Relation to Subscriber:Self Name:Mary Warren Subscriber ID:[id number] Payer ID:[id number] Group ID:Not on file Type:Medicare Address: [employer] [address] [place] & [place] B Member Subscriber Plan / Payer (Ef fective 2017-Present) Name:Mary Warren Member ID:[id number] Relation to Subscriber:Self Name:Mary Warren Subscriber ID:[id number] Payer ID:[id number] Group ID:Not on file Type:Medicare Address: [employer] [facility] [address] [place], [place] [address]HEALTH MEDICARE PART A & B [address] [place], [place] [address]HEALTH MEDICARE PART A & B Member Subscriber Plan / Payer (Ef fective 2017-Present) Name:Mary Warern Member ID:[id number] Relation to Subscriber:Self Name:Mary Warren Subscriber ID:[id number] Payer ID:[id number] Group ID:Not on file Type:Medicare Address: [facility] [employer] [facility] [place] [address] [place] [phone] [facility] Care Teams [employer] Products [employer] Founder Relationship Specialty Start Date End Date Pcp, Unknown PCP - General 04/02/18 Additional Source Comments The information contained in this document represents components of the legal health record. It is not the complete legal health record.[facility]
--- OUTSIDE RECORDS SUMMARY | 2025-01-18 21:50 | XMS_ITS | Clinical Summary ---
Author Organization [facility] it Address [address] [place] [address] Care Team Providers Care Learning Engineer Name Role Phone Unavailable Primary Care Provider Unavailabl e Social History Tobacco Use Types Packs/Day Years Used Date Smoking Tobacco: Never Assessed Comments Unknown Sex and Gender Information Value Date Recorded Sex Assigned at Not on file Legal Sex Female 8:35 AM EST Gender Identity Not on file Sexual Orientation Not on file Plan of Treatment Upcoming Encounters Date Type Department Care Team (Late st Contact Info) Description 05/11/2025 1:00 PM EST Appointment [facility] X[address] [place] [phone] Health Maintenance Due Date Last Done Comments Breast Cancer Screening 1979 DTaP,Tdap,and Td Vaccines (1 - Tdap) 1998 Hepatitis B Vaccines (1 of 3 - 19+ 3-dose series) 1998 Cervical Cancer Screening: P ap Smear 2000 Colorectal Cancer Screening: Colonoscopy 04/08/2022 HIV Screening 04/08/2022 Hepatitis C Screening 04/08/2022 Social Influencers of Health Screening 04/08/2022 Depression Screening 05/06/2024 COVID-19 Vaccine ( - 2023-2 5 season) 2025 Influenza Vaccine (#1) 2025 [...] on patient's age to complete this topic Insurance
--- OUTSIDE RECORDS SUMMARY | 2025-01-18 21:51 | XMS_ITS | Encounter Summary ---
Author Organization [facility] Address [address] [place] [address] [place] [address] Phone Care Team Providers Care Car Washer Name Role Phone Pcp, Unknown Primary Care Provider Unavailabl e Encounter Details Date Type Department Care Team (Late st Contact Info) Description 03/26/2018 Ancillary Orders Virtual Department [address] [place], [place] [id number] Malcolm Arenas MD [address] [place] [address], [address] [place] [address] [email or web address] Numbness in both legs; Weakness [...] Minimal disc desiccation at L3-4. POS - [id number] Edited by: Paris Stern on 04/11/2018 12:59 [...] with some minor mass-effect on the right C8gyife root. No prominent canal or foraminal stenosis. [...] symptoms. Minimaldisc desiccation at L3-4. POS - [id number] Edited by: Paris Stern on 04/11/2018 12:59 [...] unspecified documented in this encounter Care Teams Car Washer Relationship Specialty Start Date End Date Pcp, Unknown PCP - General 04/02/18 documented as of this encounter Additional Source Comments The information contained in this document represents components of the legal health record. It is not the complete legal health record.[facility]
== END 2025-01-18 19:43 | disposition home or self-care (01) ==
LOC: HO.MRI 19:42
PROVIDERS: PCP Family Medicine; Visit Provider Psychiatry & Neurology Neurology
DX: R41.89 Other symptoms and signs involving cognitive functions and awareness (principal)
CPT/HCPCS: 70551

== ENCOUNTER 2025-01-19 08:26 | Outpatient (REF) | payer MEDICARE, SELFPAY ==
--- OUTSIDE RECORDS SUMMARY | 2025-01-19 10:00 | XMS_ITS | Clinical Summary ---
Author Organization [facility] Address [address] [place] [address] Phone Care Team Providers Care Wiener Packer Name Role Phone Pcp, Unknown Primary Care [...] B [place] PART A & [facility] [place] & B [facility] B Member Subscriber Plan / Payer (Ef fective 2017-Present) Name:Mary Warren Member ID:[id number] Relation to Subscriber:Self Name:Mary Warren Subscriber ID:[id number] Payer ID:[id number] Group ID:Not on file Type:Medicare Address: [employer] [address] [place] PART A & B [place] PART [place] B HEALTH MEDICARE PART A & B [address] [place], [place] [address]HEALTH MEDICARE PART A & B Member Subscriber Plan / Payer (Ef fective 2017-Present) Name:Mary Warren Member ID:[id number] Relation to Subscriber:Self Name:Mary Warren Subscriber ID:[id number] Payer ID:[id number] Group ID:Not on file Type:Medicare Address: [facility] [employer] [facility] [employer] [facility] [address] [place] [phone] [facility] Care Teams Wiener Packer Relationship Specialty Start Date End Date Pcp, Unknown PCP - General 04/02/18 Additional Source Comments The information contained in this document represents components of the legal health record. It is not the complete legal health record.[facility]
--- OUTSIDE RECORDS SUMMARY | 2025-01-19 10:00 | XMS_ITS | Encounter Summary ---
Author Organization [facility] Address [address] [facility] [address] [place], [place] [id number] Phone Care Team Providers Care Printed Circuit Board Designer Name Role Phone Pcp, Unknown Primary Care Provider Unavailabl e Encounter Details Date Type Department Care Team (Late st Contact Info) Description 03/26/2018 Procedure Pass [facility], [address] [address] Social History Tobacco Use Types Packs/Day Years [...] on filedocumented in this encounter Care Teams Printed Circuit Board Designer Relationship Specialty Start Date End Date Pcp, Unknown PCP - General 04/02/18 documented as of this encounter Additional Source Comments The information contained in this document represents components of the legal health record. It is not the complete legal health record.[facility]
--- OUTSIDE RECORDS SUMMARY | 2025-01-19 10:00 | XMS_ITS | Encounter Summary ---
Author Organization [facility] Address [address] [place] [address] [place] [address] Phone Care Team Providers Care Emblem Drawer In Name Role Phone Pcp, Unknown Primary Care Provider Unavailabl e Encounter Details Date Type Department Care Team (Late st Contact Info) Description 03/26/2018 Ancillary Orders Virtual Department [address] [place], [place] [phone] Malcolm Arenas MD [address] [place] [address], [address] [place] [address] [email or web address] Numbness in both legs; Weakness [...] Minimal disc desiccation at L3-4. POS - [id number] Edited by: Paris Stern on 04/11/2018 12:59 [...] with some minor mass-effect on the right L6mnwzt root. No prominent canal or foraminal stenosis. [...] symptoms. Minimaldisc desiccation at L3-4. POS - [id number] Edited by: Paris Stern on 04/11/2018 12:59 [...] unspecified documented in this encounter Care Teams Emblem Drawer In Relationship Specialty Start Date End Date Pcp, Unknown PCP - General 04/02/18 documented as of this encounter Additional Source Comments The information contained in this document represents components of the legal health record. It is not the complete legal health record.[facility]
--- OUTSIDE RECORDS SUMMARY | 2025-01-19 10:00 | XMS_ITS | Clinical Summary ---
Author Organization [facility] it Address [address] [place] [address] Care Team Providers Care Human Resources Representative Name Role Phone Unavailable Primary Care [...] Info) Description 05/11/2025 1:00 PM EST Appointment [facility] Xray [address] [place] [phone] Health Maintenance Due Date Last Done Comments [...]
[2025-01-19 14:20] LABS: Cholesterol 159 mg/dL (<200); HDL Cholesterol 76 mg/dL (>40); Triglycerides 74 mg/dL (<150)
== END 2025-01-19 08:27 | disposition home or self-care (01) ==
LOC: HO.HKASLDS 08:26
DX: E78.5 Hyperlipidemia, unspecified (principal)
CPT/HCPCS: 36415; 80061

== ENCOUNTER → 2025-01-20 10:35 | Outpatient (REF) | payer MEDICARE, SELFPAY ==
--- NOTE | 2025-01-20 10:41 | CA_ITS ---
Transthoracic Echocardiogram Patient (Last, First, Middle): Mary Warren, Gender: Female Date of : 1980 Age: 44 Procedure Date: 01/20/2025 Procedure Type: Transthoracic Echocardiogram Location: OP Height: 165.1 cm Weight: 81.65 kg BSA: 1.89 m2 Heart Rate: bpm BP: 118 / 72 mmHg Child Care Education Coordinator: TO Referring MD: Lan Sales LEAD NETWORK ENGINEER Symptoms: R07.89 - Other chest pain Study Quality: Adequate ECG Rhythm: Sinus Conclusions: - The left ventricular systolic function is low normal. The calculated ejection fraction is 53% by biplane method. - No obvious valvular pathology seen on this study. Findings Left Ventricle Normal left ventricular cavity size. There is normal left ventricular wall thickness. The left ventricular systolic function is low normal. The calculated ejection fraction is 53% by biplane method. There is no evidence of regional wall motion abnormalities. Diastolic function is normal for age. Right Ventricle Normal right ventricular cavity size and systolic function. Atria Both atria are normal in size. Aortic Valve There is a normal trileaflet aortic valve. There is no aortic valve stenosis. There is no aortic valve regurgitation. Mitral Valve The mitral valve appears normal. There is trace mitral valve regurgitation. There is no mitral valve stenosis. Pulmonic Valve The pulmonic valve is likely normal. Tricuspid Valve There is trace tricuspid valve regurgitation. There is no evidence of pulmonary hypertension. Great Vessels The asc aorta is normal in size. Venous The inferior vena cava is normal in size and collapses greater than 50% with inspiration. Pericardium/Pleural There is no evidence of pericardial effusion. Prior Study Comparison No significant change compared to prior study dated: 11/26/2023. Recommendations, Care & Conclusions No obvious valvular pathology seen on this study. Measurements 2D Linear Measurements IVSd: 0.88 0.6-0.9/0.6-1.0 cm LVIDd: 4.62 3.9-5.3/4.2-5.9 cm LVIDd Index: 2.44 2.4-3.2/2.2-3.1 cm/m2 LVIDs: 3.19 2.0-3.6 cm LVPWd: 0.78 0.7-1.1 cm LA Diam: 3.60 2.7-3.8/3.0-4.0 cm LAIDs Index: 1.90 1.5-2.3 cm/m2 LV Mass: 154.90 67-162/88-224 g LV Mass Index: 81.96 43-95/49-115 g/m2 LVOT Diam: 2.00 3.0+(-)1.3 cm 2D Systolic Function EF 4C: 52.30 >55% EF 2C: 53.10 >55% EF BiP: 52.80 >55% Mitral Valve MV Pk E: 0.72 MV PK A: 0.65 MV Decel Time: 179.00 E/A: 1.10 E'Lateral: 11.30 E'Medial: 6.31 E/E' Med: 11.50 E/E' Lat: 6.40 PHT: 52.00 MVA PHT: 4.23 Decel [place]: 4.06 Aortic Valve AoV Pk Ministerio: 1.33 AoV Mn Ministerio: 1.03 AoV VTI: 0.26 AoV Pk Grad: 7.00 Aov Mn Grad: 5.00 OZZIE Cont.VTI: 2.62 LVOT LVOT Pk Ministerio: 1.19 LVOT Mn Ministerio: 0.75 LVOT VTI: 0.21 LVOT Pk Grad: 6.00 LVOT Mn Grad: 3.00 LVOT Diam: 2.00 LVOT Area: 3.14 Diastolic Function MV Pk E: 0.72 MV Pk A: 0.65 E/A: 1.10 E'Medial: 6.31 E/E' Med: 11.50 E' Laterial: 11.30 E/E' Lat: 6.40 Right Ventricle TAPSE (mm): 18.30 TVS' Ministerio: 10.00 Tricuspid Valve RA Press: 3.00 Great Vessels Aorta Sinus of Valsalva: 3.03 2.0-3.5 cm Ao Asc: 3.10 2.1-3.4 cm Ao Arch: 2.80 Updated in Other Vendor System with Status of Final Ike De Santiago MD electronically signed on 01/22/2025 9:32:22 AM with status of Final
--- OUTSIDE RECORDS SUMMARY | 2025-01-20 13:03 | XMS_ITS | Clinical Summary ---
Author Organization [facility] it Address [address] [place] [address] Care Team Providers Care Radial Arm Saw Operator Name Role Phone Unavailable Primary Care [...] Info) Description 05/11/2025 1:00 PM EST Appointment [facility] Xray [address] [place] [id number] Health Maintenance Due Date Last Done Comments [...]
--- OUTSIDE RECORDS SUMMARY | 2025-01-20 13:03 | XMS_ITS | Encounter Summary ---
Author Organization [facility] Address [address] [place] [address] [place] [address] Phone Care Team Providers Care Ammunition Storekeeper Name Role Phone Pcp, Unknown Primary Care Provider Unavailabl e Encounter Details Date Type Department Care Team (Late st Contact Info) Description 03/26/2018 Ancillary Orders Virtual Department [address] [place], [place] [id number] Malcolm Arenas MD [address] [place] [address], [address] [place] [address] [email or web address] Numbness in both legs; Weakness [...] Minimal disc desiccation at L3-4. POS - [id number] Edited by: Paris Stern on 04/11/2018 12:59 [...] with some minor mass-effect on the right P1rfqst root. No prominent canal or foraminal stenosis. [...] symptoms. Minimaldisc desiccation at L3-4. POS - [id number] Edited by: Paris Stern on 04/11/2018 12:59 [...] unspecified documented in this encounter Care Teams Ammunition Storekeeper Relationship Specialty Start Date End Date Pcp, Unknown PCP - General 04/02/18 documented as of this encounter Additional Source Comments The information contained in this document represents components of the legal health record. It is not the complete legal health record.[facility]
--- OUTSIDE RECORDS SUMMARY | 2025-01-20 13:03 | XMS_ITS | Clinical Summary ---
Author Organization [facility] Address [address] [place] [address] Phone Care Team Providers Care Advertising Job Titles Name Role Phone Pcp, Unknown Primary Care [...] B [place] & [facility] [place] [facility] & B Member Subscriber Plan / Payer (Ef fective 2017-Present) Name:Mary Warren Member ID:[id number] Relation to Subscriber:Self Name:Mary Warren Subscriber ID:[id number] Payer ID:[id number] Group ID:Not on file Type:Medicare Address: Payment plugin [address] [place] A & [place] B HEALTH MEDICARE PART A & B [address] [place], [place] [address]HEALTH MEDICARE PART A & B Member Subscriber Plan / Payer (Ef fective 2017-Present) Name:Mary Warren Member ID:[id number] Relation to Subscriber:Self Name:Mary Warren Subscriber ID:[id number] Payer ID:[id number] Group ID:Not on file Type:Medicare Address: [facility] [employer] [facility] [address] [place] [phone] [facility] Care Teams Advertising Job Titles Relationship Specialty Start Date End Date Pcp, Unknown PCP - General 04/02/18 Additional Source Comments The information contained in this document represents components of the legal health record. It is not the complete legal health record.[facility]
--- OUTSIDE RECORDS SUMMARY | 2025-01-20 13:03 | XMS_ITS | Encounter Summary ---
Author Organization [facility] Address [address] [facility] [address] [place], [place] [id number] Phone Care Team Providers Care Gate Clerk Name Role Phone Pcp, Unknown Primary Care Provider Unavailabl e Encounter Details Date Type Department Care Team (Late st Contact Info) Description 03/26/2018 Procedure Pass [facility], [address] [address] Social History Tobacco Use Types Packs/Day Years [...] on filedocumented in this encounter Care Teams Gate Clerk Relationship Specialty Start Date End Date Pcp, Unknown PCP - General 04/02/18 documented as of this encounter Additional Source Comments The information contained in this document represents components of the legal health record. It is not the complete legal health record.[facility]
== END ==
LOC: HO.CARD 10:35
PROVIDERS: PCP Family Medicine
DX: R07.89 Other chest pain (principal); R06.02 Shortness of breath
CPT/HCPCS: 93306

== ENCOUNTER → 2025-01-20 10:41 | Outpatient (BNV) | payer MEDICARE, SELFPAY | PROVIDERS: PCP Family Medicine; Visit Provider Internal Medicine | DX: R07.89 Other chest pain (principal) | CPT/HCPCS: 93306 ==

== ENCOUNTER → 2025-01-22 08:45 | Outpatient (REF) | payer MEDICARE, SELFPAY ==
--- NOTE | 2025-01-22 08:48 | CA_ITS ---
Acquisition Time: 2025-01-22 10:04:01 Total Exercise Time: 00:02:00 Test Indications: Dyspnea CP Medications: SEE H&P Protocol: LEXISCAN Max HR: 118 BPM 67% of Pred: 175 BPM Max BP: 96/64 mmHG Max Work Load: 1.0 METS Pharmacological stress test with Lexiscan while pt marches in her chair, with reports of 3/10 mid chest pressure, SOB and lightheadedness, without any arrythmias, with normotenisve repsonse to injection. Nondiagnostic EKG for ischemia. In recovery, pt treated with IVP Aminophylline 75 mg to reverse Lexiscan after which pt slowly feeling back to baseline. Nuclear images pending. Test reviewed with Dr. De Santiago. Referred By: Lan Sales Electronically Signed By: Lan Sales
--- OUTSIDE RECORDS SUMMARY | 2025-01-22 09:24 | XMS_ITS | Encounter Summary ---
Author Organization [facility] Address [address] [facility] [address] [place], [place] [id number] Phone Care Team Providers Care Photonics Engineering Technologist Name Role Phone Pcp, Unknown Primary Care Provider Unavailabl e Encounter Details Date Type Department Care Team (Late st Contact Info) Description 03/26/2018 Procedure Pass [facility], [address] [address] Social History Tobacco Use Types Packs/Day Years [...] on filedocumented in this encounter Care Teams Photonics Engineering Technologist Relationship Specialty Start Date End Date Pcp, Unknown PCP - General 04/02/18 documented as of this encounter Additional Source Comments The information contained in this document represents components of the legal health record. It is not the complete legal health record.[facility]
--- OUTSIDE RECORDS SUMMARY | 2025-01-22 09:24 | XMS_ITS | Clinical Summary ---
Author Organization [facility] Address [address] [place] [address] Phone Care Team Providers Care Foundry Helper Name Role Phone Pcp, Unknown Primary Care [...] B [place] PART A & [facility] [place] & [facility] B Member Subscriber Plan / Payer (Ef fective 2017-Present) Name:Mary Warren Member ID:[id number] Relation to Subscriber:Self Name:Mary Warren Subscriber ID:[id number] Payer ID:[id number] Group ID:Not on file Type:Medicare Address: [employer] [address] [place] PART A & B [place] PART [place] & B HEALTH MEDICARE PART A & B [address] [place], [place] [address]HEALTH MEDICARE PART A & B Member Subscriber Plan / Payer (Ef fective 2017-Present) Name:Mary Warren Member ID:[id number] Relation to Subscriber:Self Name:Mary Warren Subscriber ID:[id number] Payer ID:[id number] Group ID:Not on file Type:Medicare Address: [facility] [employer] [facility] [address] [place] [phone] [facility] Care Teams Foundry Helper Relationship Specialty Start Date End Date Pcp, Unknown PCP - General 04/02/18 Additional Source Comments The information contained in this document represents components of the legal health record. It is not the complete legal health record.[facility]
--- OUTSIDE RECORDS SUMMARY | 2025-01-22 09:24 | XMS_ITS | Clinical Summary ---
Author Organization [facility] it Address [address] [place] [address] Care Team Providers Care Sample Steamer Name Role Phone Unavailable Primary Care Provider [...] Info) Description 05/11/2025 1:00 PM EST Appointment [facility] Xray [address] [place] [id number] Health Maintenance Due Date Last Done Comments [...]
--- OUTSIDE RECORDS SUMMARY | 2025-01-22 09:24 | XMS_ITS | Encounter Summary ---
Author Organization [facility] Address [address] [place] [address] [place] [address] Phone Care Team Providers Care Paper Cleaner Name Role Phone Pcp, Unknown Primary Care Provider Unavailabl e Encounter Details Date Type Department Care Team (Late st Contact Info) Description 03/26/2018 Ancillary Orders Virtual Department [address] [place], [place] [id number] Malcolm Arenas MD [address] [place] [address], [address] [place] [address] [email or web address] Numbness in both legs; Weakness [...] Minimal disc desiccation at L3-4. POS - [id number] Edited by: Paris Stern on 04/11/2018 12:59 [...] with some minor mass-effect on the right Z5byrra root. No prominent canal or foraminal stenosis. [...] symptoms. Minimaldisc desiccation at L3-4. POS - [id number] Edited by: Paris Stern on 04/11/2018 12:59 [...] unspecified documented in this encounter Care Teams Paper Cleaner Relationship Specialty Start Date End Date Pcp, Unknown PCP - General 04/02/18 documented as of this encounter Additional Source Comments The information contained in this document represents components of the legal health record. It is not the complete legal health record.[facility]
== END ==
LOC: HO.CARD 08:45
PROVIDERS: PCP Family Medicine
DX: R07.89 Other chest pain (principal); R06.02 Shortness of breath
CPT/HCPCS: 78452; 93017; A9500; J0280; J2785

== ENCOUNTER → 2025-01-22 08:48 | Outpatient (BNV) | payer MEDICARE, SELFPAY | PROVIDERS: PCP Family Medicine | DX: R06.02 Shortness of breath (principal); R07.89 Other chest pain; R42 Dizziness and giddiness | CPT/HCPCS: 78452; 93016; 93018 ==

== ENCOUNTER 2025-01-22 11:08 | Emergency (ER) | payer MEDICARE, SELFPAY ==
--- NOTE | ~2025-01-22 | XR_ITS ---
EXAMINATION: XR KNEE, RIGHT CLINICAL INFORMATION: pain/swelling COMPARISON: None available. TECHNIQUE: Four views of the right knee. FINDINGS: There is no joint effusion. Joint spaces are preserved. No marginal ossified is are present. XR/XR knee RT 4V IMPRESSION: Unremarkable right knee. Electronically signed by: Ajit Leung MD 01/22/2025 04:59 PM EDT
--- NOTE | ~2025-01-22 | US_ITS ---
EXAMINATION: US TRIPLEX LOWER EXTREMITY, BILATERAL CLINICAL INFORMATION: Lower extremity pain COMPARISON: None available. TECHNIQUE: Color-flow triplex imaging with spectral analysis and compression Doppler were performed on the bilateral lower extremities. FINDINGS: Respiratory variation, normal compression and augmented flow are noted throughout the bilateral lower extremities. The visualized common femoral vein, superficial femoral vein, profunda femoral vein, popliteal vein and midcalf peroneal and posterior tibial venous segments show no evidence of deep venous thrombosis bilaterally. US/US venous duplex LE BI IMPRESSION: No evidence of deep venous thrombosis involving the bilateral lower extremities. Electronically signed by: Ajit Leung MD 01/22/2025 01:47 PM EDT
[2025-01-22 11:39] VITALS: BP 110/63; PULSE 85; RESP 18; TEMP 36.3; O2SAT 97; BMI 29.9
--- NOTE | 2025-01-22 11:40 | ED.GENADULT ---
HPI - General Adult General Chief complaint: Extremity Problem Stated complaint: pain in both legs no inj Time Seen by Provider: 01/22/25 16:08 Source: patient Limitations: no limitations History of Present Illness ED Provider: Dyan Humphreys PA-C HPI narrative: 44-year-old female with a history of hypertension, hyperlipidemia, fibromyalgia, polyarthralgia, restless leg syndrome, IBS, constipation, anemia, GERD presents with bilateral leg pain for ?months?. Patient states she is also having low back pain with radiation to the right lower extremity. Her discomfort is greater on the right versus the left. Patient states her symptoms acutely worsened since yesterday. Denies new heavy lifting, new activity or trauma that could have precipitated her symptoms. Denies urinary retention bowel incontinence, or weakness of lower extremities. Patient states she has been on atorvastatin for 1 year, she was concerned she is having an adverse side effect to the medication. Related Data Home Medications ?Medication ?Instructions ?Recorded ?Confirmed bupropion HCl 300 mg 24 hr tablet, 300 mg PO DAILY 07/26/22 01/08/25 extended release cholecalciferol (vitamin D3) 25 25 mcg PO DAILY 02/12/23 01/08/25 mcg (1,000 unit) capsule multivitamin with minerals 1 cap PO DAILY 02/12/23 01/08/25 bupropion HCl 150 mg 24 hr tablet, 150 mg PO QAM 06/21/23 01/08/25 extended release fluoxetine 40 mg capsule 40 mg PO DAILY 06/21/23 01/08/25 aripiprazole 5 mg tablet 10 mg PO BEDTIME 06/04/24 01/08/25 trazodone 150 mg tablet 150 mg PO DAILY 12/14/24 01/08/25 Previous Rx's ?Medication ?Instructions ?Recorded ondansetron HCl 4 mg tablet 4 mg PO Q6H PRN nausea and 06/15/21 vomiting #60 tabs simethicone 125 mg chewable tablet 125 mg PO QID PRN abdominal 06/21/23 (Gas Relief (simethicone)) distention #120 tabs albuterol sulfate 90 mcg/actuation 2 puff PO Q4-6H PRN for wheezing 10/23/23 aerosol inhaler #8.5 grams famotidine 40 mg tablet 40 mg PO BEDTIME #90 tabs 04/24/24 blood pressure test kit medium and #1 ea 05/28/24 large cuffs miscellaneous medical supply #1 ea 05/28/24 (Blood Pressure Cuff) aluminum-mag hydroxide-simethicone 10 ml PO QID PRN indigestion 06/11/24 200 mg-200 mg-20 mg/5 mL oral susp #3,000 mL (Maalox Advanced) atorvastatin 40 mg tablet 40 mg PO DAILY 90 days #90 tabs 06/12/24 trazodone 100 mg tablet 100 mg PO BEDTIME 30 days #30 tabs 06/23/24 sennosides 8.6 mg tablet (senna) 8.6 mg PO DAILY #30 tabs 07/16/24 ondansetron 4 mg disintegrating 4 mg PO Q8H PRN nausea and 08/07/24 tablet vomiting #10 tabs esomeprazole magnesium 20 mg 20 mg PO DAILY #90 caps 08/19/24 capsule,delayed release epinephrine 0.3 mg/0.3 mL 0.3 mg (0.3 mL) IM Q10M PRN 11/20/24 injection, auto-injector (EpiPen anaphylaxis #2 ea 2-Aysmany) pregabalin 150 mg capsule 150 mg PO TID 30 days #90 caps 11/30/24 ropinirole 2 mg tablet,extended 2 mg PO BEDTIME #30 tabs 12/14/24 release 24 hr ketorolac 10 mg tablet 10 mg PO Q6H PRN pain #20 tabs 01/22/25 methocarbamol 750 mg tablet 1,500 mg (2 x 750 mg) PO Q8H PRN 01/22/25 pain, moderate #24 tabs methylprednisolone 4 mg tablets in 4 mg PO QAM #21 ea 01/22/25 a dose pack (Medrol (Yasmany)) Allergies Allergy/AdvReac Type Severity Reaction Status Date / Time oxycodone (From Percocet) Allergy Severe Migraine Verified 01/22/25 11:42 and vomiting peach Allergy Severe Hives Verified 01/22/25 11:42 apple Allergy Intermediate Swelling Verified 01/22/25 11:42 erythromycin base Allergy Mild Confusion, Verified 01/22/25 11:42 (Erythromycin Base) Rash, Nausea, Vomiting, Out of it levofloxacin (From Levaquin) Allergy Mild Rash Verified 01/22/25 11:42 sulfamethoxazole (From Allergy Mild Rash Verified 01/22/25 11:42 Bactrim) trimethoprim (From Bactrim) Allergy Mild Rash Verified 01/22/25 11:42 Sulfa (Sulfonamide Allergy Unknown Rash Verified 01/22/25 11:42 Antibiotics) hazelnut Allergy Unknown Verified 01/22/25 11:42 peanut Allergy Unknown Verified 01/22/25 11:42 meclizine AdvReac Anxiety Verified 01/22/25 11:42 metoclopramide (From Reglan) AdvReac Anxiety Verified 01/22/25 11:42 apples Allergy Severe Anaphylaxis Uncoded 01/22/25 11:42 meclazine AdvReac Severe severe Uncoded 01/22/25 11:42 anxiety Review of Systems Review of Systems: Yes all other systems are reviewed and are negative Constitutional: Constitutional: Denies fatigue and Denies fever(s) Cardiovascular: Cardiovascular: Denies chest pain, Reports leg edema and Denies dyspnea Respiratory: Respiratory: Denies dyspnea Musculoskeletal: Musculoskeletal: Reports back pain, Reports arthralgias, Reports joint swelling, Denies muscle weakness and Reports radiating pain into limb Endocrine: Endocrine: Denies fatigue PMFSH Past Medical History Attestation statement: The following information was validated with the patient. Medical History Syncope Restless legs syndrome (RLS) Periodic limb movement Chronic migraine without aura, not intractable Hypersomnia Snoring Cognitive change Anemia Screening for colon cancer Screening for cervical cancer Adult general medical exam Shortness of breath Discomfort of right ear Otitis media of right ear Lightheadedness Normal physical exam Early satiety Abnormal urinalysis Suprapubic pain, acute Fatigue Vision changes Peroneal tendinitis, left leg Cough Myalgia Easy bruising Joint stiffness of hand Rectal prolapse Abdominal rebound tenderness of right lower quadrant Abdominal pain Surgical History Hx of hysterectomy History of esophagogastroduodenoscopy (EGD) History of kidney stones Status post LASIK surgery History of lumpectomy of left breast History of right breast biopsy History of colonoscopy History of laparoscopic cholecystectomy History of removal of ovarian cyst History of bilateral breast reduction surgery Family History Family History Father Healthy adult Mother High cholesterol Migraines Diabetes Asthma Hypertension Maternal Grandfather CVD (cardiovascular disease) Maternal Aunt Family history of heart disease Other Mental health disorder Substance abuse Social History Social History Household Members: Spouse and Children Housing: House Are you a primary child care cook to a significant other at home: No Do you presently have visiting nurse or other home services: No Alcohol intake: never Patient Tobacco Use Status: Never used Tobacco e-Cigarette/Vaping Use: Never Used Second Hand Smoke Exposure: No Advance Directives: No Advance Directives Information Provided: Yes service: No Current occupational status: disabled Current occupational exposures/hazards: No Cognitive needs: No Hearing needs: No Vision needs: No Physical Exam ED Vital Signs: Vital Signs - 24 hr 01/22/25 11:39 01/22/25 15:27 Temperature 97.4 F 98.2 F Pulse Rate 85 78 Respiratory Rate 18 16 Blood Pressure 110/63 115/72 Pulse Oximetry 97 98 Oxygen Delivery Method Room Air Room Air BMI result Body Mass Index 29.9 Const Other: Alert appears older than stated age Orientation/consciousness: patient oriented x3 Resp Effort & Inspection: normal respiratory effort Cardio Other: Normal peripheral perfusion no swelling noted Skin Other: Warm dry no rash Neuro General: patient oriented x3, gait normal, no focal motor deficits and CN's II-XI intact bilaterally Extrem Other: Both bilateral lower extremities are equal in size, I am not appreciating focal swelling over the right knee there was no deformity there was no redness or so swelling, she is able to flex and extend, she is ambulatory Psych Other: Cooperative Course Course Course Narrative: RME, this is a rapid medical exam performed by Chas Schwartz please refer to primary provider for complete H&P- 44 year old female presents for evaluation of leg cramps worsening over the last few months. She denies any injury, redness. She reports some swelling. Pain is worse behin left ankle and right knee. Plan for labs, Ultrasounds Medications Administered Discontinued Medications Generic Name Dose Route Start Last Admin Trade Name Freq PRN Reason Stop Dose Admin Ketorolac Tromethamine 15 mg 01/22/25 16:30 01/22/25 16:40 Ketorolac Tromethamine 15 Mg/Ml Vial IM 01/22/25 16:31 15 mg ONCE ONE Administration Methocarbamol 1,500 mg 01/22/25 16:30 01/22/25 16:40 Methocarbamol 750 Mg Tablet PO 01/22/25 16:31 1,500 mg ONCE ONE Administration Prednisone 10 mg 01/22/25 16:30 01/22/25 16:41 Prednisone 10 Mg Tablet PO 01/22/25 16:31 10 mg ONCE ONE Administration Medical Decision Making Medical Decision Making MDM Narrative: 44-year-old female with a history of hypertension, hyperlipidemia, fibromyalgia, polyarthralgia, restless leg syndrome, IBS, constipation, anemia, GERD presents with bilateral leg pain for ?months?. Patient states she is also having low back pain with radiation to the right lower extremity. Her discomfort is greater on the right versus the left. Patient states her symptoms acutely worsened since yesterday. Denies new heavy lifting, new activity or trauma that could have precipitated her symptoms. Denies urinary retention bowel incontinence, or weakness of lower extremities. Patient states she has been on atorvastatin for 1 year, she was concerned she is having an adverse side effect to the medication. Problem: Multiple chronic pain syndromes History: Per patient I have considered the following differential diagnoses: Exacerbation of her fibromyalgia/polyarthralgia and/or restless leg, DVT, septic joint, additional arthritis, Ge cyst, lumbar radiculopathy, cauda equina Plan: The patient is here with bilateral leg pain that she has had for months, this is a chronic issue, ultrasound studies ordered from triage there was no DVT, I am adding on a dedicated right knee film, she is insisting that the knee is swollen, objectively I am not appreciating this on exam. There was no overlying warmth or redness to suggest a septic joint. No Ge cyst found on DVT study. She is also complaining of pain radiating into the right lower extremity from the low back, we will treat her for sciatica symptoms, she has no red flag signs symptoms concerning for cord compression at this time. She is asked multiple times abou an MRI. I have explained at length that we do not have the capacity to obtain emergent MRIs in the emergency room, that we need to reserve this specialized test for only extreme circumstances. I told her she has had symptoms for months, the remainder of her assessment what occur as an outpatient. I have independently reviewed the following tests: Labs: No leukocytosis, not anemic, no electrolyte abnormality, CPK 114, Ultrasound bilateral lower extremity: US/US venous duplex LE BI IMPRESSION: No evidence of deep venous thrombosis involving the bilateral lower extremities. X-ray right knee:TECHNIQUE: Four views of the right knee. FINDINGS: There is no joint effusion. Joint spaces are preserved. No marginal ossified is are present. XR/XR knee RT 4V IMPRESSION: Unremarkable right knee. Differential Diagnosis Differential Diagnoses: The differential diagnosis associated with the presentation includes See medical decision-making Admission/Observation Consideration of admission/observation: Escalation of care including admission/observation considered Not applicable Lab Data MDM Lab Attestation statement: I reviewed the patient's lab results. 01/22/25 12:53 01/22/25 12:53 Labs: Lab Results 01/22/25 Range/Units 12:53 WBC 7.5 (4.8-10.8) X10*3/uL RBC 3.98 L (4.20-5.50) X10*6/uL Hgb 12.2 (12.0-16.0) g/dl Hct 35.6 L (37.0-47.0) % MCV 89.4 (80.0-98.0) fL MCH 30.7 (27.0-33.0) pg MCHC 34.3 (31.0-35.0) g/dl RDW 12.4 (11.0-16.0) % Plt Count 234 (160-400) X10*3/uL MPV 9.2 L (9.4-12.3) fL Immature Gran % (Auto) 0.4 (0.0-0.4) % Neut % (Auto) 51.0 (45-73) % Lymph % (Auto) 35.4 (20-40) % [place] % (Auto) 9.2 (2-11) % Eos % (Auto) 2.9 (0-4) % Baso % (Auto) 1.1 (0-2) % Lymph # (Auto) 2.7 (1.2-4.9) X10*3/uL [place] # (Auto) 0.7 (0.1-1.2) X10*3/uL Eos # (Auto) 0.2 (0.0-0.4) X10*3/uL Baso # (Auto) 0.1 (0.0-0.2) X10*3/uL Abs Immat Gran (auto) 0.03 (0.00-0.03) X10*3/uL Absolute Neuts (auto) 3.8 (2.0-8.3) x10*3/uL Absolute Nucleated RBC 0.000 (0.0-0.012) X10*3/uL Nucleated RBC % (auto) 0.0 (0.0-0.2) /100WBC Sodium 141 (135-145) mmol/L Potassium 4.1 (3.3-5.1) mmol/L Chloride 107 (96-108) mmol/L Carbon Dioxide 30 H (22-29) mmol/L Anion Gap 8 L (12-20) BUN 15 (9-16) mg/dL Creatinine 0.95 (0.5-1.4) mg/dL Estim Creat Clear Calc 78.9 Estimated GFR > 60 Random Glucose 86 (60-115) mg/dL Calcium 9.0 (8.4-10.2) mg/dL Total Bilirubin 0.3 (0.0-1.0) mg/dL AST 26 (5-31) U/L ALT 25 (0-31) U/L Alkaline Phosphatase 58 (39-117) U/L Total Creatine Kinase 114 (26-140) U/L Total Protein 6.6 (6.5-8.0) g/dL Albumin 4.3 (3.5-5.0) g/dL Lipase 33 (8-78) U/L Radiology Impression Discussion of test interpretation with radiology: I have reviewed the radiologist's reading. Discharge Plan Discharge Clinical Impression: Lumbar radiculopathy, acute Patient Disposition: Home, Self-Care Instructions: Lumbar Radiculopathy (ED), Lower Back Exercises (ED) Additional Instructions: All of your screening labs were completely normal. The ultrasound of bilateral lower extremities was negative for a blood clot. The x-ray of the right knee was unremarkable. You are being treated for suspect lumbar radiculopathy, otherwise known as sciatica. See home care instructions. Take the steroid taper as directed. Use the ketorolac as directed this is a 2nd anti-inflammatory take it with food. Use the methocarbamol as needed for further pain, this is a muscle relaxant. This medication will cause drowsiness do not drive or operate machinery while taking the medication. I would most certainly call your denial resolution specialist and your primary care provider for your ongoing leg pain, you may require additional imaging as an outpatient and physical therapy, both of these healthcare providers can help expedite these processes for you. Prescriptions: New ketorolac 10 mg tablet 10 mg PO Q6H PRN (Reason: pain) Qty: 20 0RF Rx Instructions: maximum total duration of 5 days from all oral, intranasal, or parenteral formulations. The patient had an intramuscular dose of Toradol here in the emergency room. methylprednisolone [Medrol (Yasmany)] 4 mg tablets,dose pack 4 mg PO QAM Qty: 21 0RF Rx Instructions: Take per package instructions methocarbamol 750 mg tablet 1,500 mg PO Q8H PRN (Reason: pain, moderate) Qty: 24 0RF No Action albuterol sulfate 90 mcg/actuation HFA aerosol inhaler 2 puff PO Q4-6H PRN (Reason: for wheezing) Qty: 8.5 3RF famotidine 40 mg tablet 40 mg PO BEDTIME Qty: 90 2RF (DME) Blood Pressure Cuff Misc See Rx Instructions .Route Qty: 1 0RF Rx Instructions: As directed (DME) blood pressure kit med and lrg Kit See Rx Instructions .Route Qty: 1 0RF Rx Instructions: As directed atorvastatin 40 mg tablet 40 mg PO DAILY 90 Days Qty: 90 3RF trazodone 100 mg tablet 100 mg PO BEDTIME 30 Days Qty: 30 0RF sennosides [senna] 8.6 mg tablet 8.6 mg PO DAILY Qty: 30 6RF epinephrine [EpiPen 2-Yasmany] 0.3 mg/0.3 mL auto-injector 0.3 mg IM Q10M PRN (Reason: anaphylaxis) Qty: 2 0RF Rx Instructions: for 2 doses pregabalin 150 mg capsule 150 mg PO TID 30 Days Qty: 90 1RF alum-mag hydroxide-simeth [Maalox Advanced] 200-200-20 mg/5 mL suspension 10 ml PO QID PRN (Reason: indigestion) Qty: 3000 0RF Rx Instructions: administer between meals and at bedtime esomeprazole magnesium 20 mg capsule,delayed release(DR/EC) 20 mg PO DAILY Qty: 90 2RF ondansetron HCl 4 mg tablet 4 mg PO Q6H PRN (Reason: nausea and vomiting) Qty: 60 1RF bupropion HCl 300 mg tablet extended release 24 hr 300 mg PO DAILY fluoxetine 40 mg capsule 40 mg PO DAILY multivitamin with minerals Capsule 1 cap PO DAILY cholecalciferol (vitamin D3) 25 mcg (1,000 unit) capsule 25 mcg PO DAILY aripiprazole 5 mg tablet 10 mg PO BEDTIME trazodone 150 mg tablet 150 mg PO DAILY ropinirole 2 mg tablet extended release 24 hr 2 mg PO BEDTIME Qty: 30 6RF bupropion HCl 150 mg tablet extended release 24 hr 150 mg PO QAM simethicone [Gas Relief (simethicone)] 125 mg tablet,chewable 125 mg PO QID PRN (Reason: abdominal distention) Qty: 120 6RF ondansetron 4 mg tablet,disintegrating 4 mg PO Q8H PRN (Reason: nausea and vomiting) Qty: 10 0RF Interventions: ED Discharge Assessment Last Done: 01/22/25 17:49 Discharge Date/Time: 01/22/25 17:55 Print Language: Sami
[2025-01-22 12:57] LABS: MANUAL DIFF FLAG NO
[2025-01-22 12:58] LABS: Hematocrit 35.6 % (37.0-47.0); Hemoglobin 12.2 g/dl (12.0-16.0); Imm Gran Abs Auto 0.03 X10*3/uL (0.00-0.03); Imm Gran Pct Auto 0.4 % (0.0-0.4); Lymphocytes Absolute Auto 2.7 X10*3/uL (1.2-4.9); Mean Corpuscular HGB Conc 34.3 g/dl (31.0-35.0); Mean Corpuscular Hemoglobin 30.7 pg (27.0-33.0); Mean Corpuscular Volume 89.4 fL (80.0-98.0); NRBC Abs Auto 0.000 X10*3/uL (0.0-0.012); NRBC Pct Auto 0.0 /100WBC (0.0-0.2); Platelet Count 234 X10*3/uL (160-400); Red Blood Count 3.98 X10*6/uL (4.20-5.50); White Blood Count 7.5 X10*3/uL (4.8-10.8)
[2025-01-22 13:11] LABS: Alanine Aminotransferase 25 U/L (0-31); Albumin Level 4.3 g/dL (3.5-5.0); Alkaline Phosphatase 58 U/L (39-117); Anion Gap 8 (12-20); Aspartate Amino Transferase 26 U/L (5-31); Blood Urea Nitrogen 15 mg/dL (9-16); Calcium 9.0 mg/dL (8.4-10.2); Carbon Dioxide 30 mmol/L (22-29); Chloride 107 mmol/L (96-108); Creatinine Clr Calc Pharmacy 78.9; Estimated Glomerular Filt Rate > 60; Lipase 33 U/L (8-78); Potassium 4.1 mmol/L (3.3-5.1); Sodium 141 mmol/L (135-145); Total Protein 6.6 g/dL (6.5-8.0)
[2025-01-22 15:27] VITALS: BP 115/72; PULSE 78; RESP 16; TEMP 36.8; O2SAT 98
[2025-01-22 17:49] VITALS: BP 115/72; PULSE 78; RESP 16; TEMP 36.8; O2SAT 98
== END 2025-01-22 17:55 | disposition home or self-care (01) ==
PROVIDERS: Physician Assistant; Emergency Provider Emergency Medicine Emergency Medical Services; PCP Family Medicine
DX: M79.604 Pain in right leg (principal); M54.16 Radiculopathy, lumbar region; M79.605 Pain in left leg; R60.0 Localized edema; M54.50 Low back pain, unspecified; M25.561 Pain in right knee; Z79.899 Other long term (current) drug therapy
CPT/HCPCS: 36415; 73564; 80053; 82550; 83690; 85025; 93970; 96372; 99283; 99284; J1885

== ENCOUNTER → 2025-01-22 11:40 | Outpatient (BNV) | payer MEDICARE, SELFPAY | PROVIDERS: PCP Family Medicine; Visit Provider Radiology Diagnostic Radiology | DX: M79.661 Pain in right lower leg (principal); M79.662 Pain in left lower leg; M25.561 Pain in right knee; R22.41 Localized swelling, mass and lump, right lower limb | CPT/HCPCS: 73564; 93970 ==

== ENCOUNTER → 2025-02-04 23:59 | Outpatient (BNV) | payer MEDICARE, SELFPAY | PROVIDERS: PCP Family Medicine; Visit Provider Internal Medicine Cardiovascular Disease | DX: I20.0 Unstable angina (principal) | CPT/HCPCS: 93458; 99152 ==

== ENCOUNTER 2025-03-04 13:54 | Outpatient (AMB) | payer OTHER, MEDICARE, SELFPAY ==
--- NOTE | 2025-03-04 14:02 | MHC.OFFVIS ---
Vital Signs 03/04/25 14:03 Height 5 ft 5 in Weight 190 lb 14.725 oz BMI 31.8 BP 110/62 Blood Pressure Location Lt brachial Position Sitting Pulse 95 Pulse Source Pulse Oximeter Intake Visit Reasons: 1m follow up Director Of Federal Sales Required: No Accompanied by: Self / Same As Patient Allergies oxycodone (From Percocet) Allergy (Severe, Verified 03/04/25 14:06) Migraine and vomiting peach Allergy (Severe, Verified 03/04/25 14:06) Hives apple Allergy (Intermediate, Verified 03/04/25 14:06) Swelling erythromycin base (Erythromycin Base) Allergy (Mild, Verified 03/04/25 14:06) Confusion, Rash, Nausea, Vomiting, Out of it levofloxacin (From Levaquin) Allergy (Mild, Verified 03/04/25 14:06) Rash sulfamethoxazole (From Bactrim) Allergy (Mild, Verified 03/04/25 14:06) Rash trimethoprim (From Bactrim) Allergy (Mild, Verified 03/04/25 14:06) Rash Sulfa (Sulfonamide Antibiotics) Allergy (Unknown, Verified 03/04/25 14:06) Rash hazelnut Allergy (Verified 03/04/25 14:06) Unknown peanut Allergy (Verified 03/04/25 14:06) Unknown meclizine Adverse Reaction (Verified 03/04/25 14:06) Anxiety metoclopramide (From Reglan) Adverse Reaction (Verified 03/04/25 14:06) Anxiety apples Allergy (Severe, Uncoded 01/22/25 11:42) Anaphylaxis meclazine Adverse Reaction (Severe, Uncoded 01/22/25 11:42) severe anxiety Medication List - Last Reconciled 03/04/25 by Lan Sales NP albuterol sulfate 90 mcg/actuation 2 puffs PO Q4-6H PRN aripiprazole 10 mg PO BEDTIME atorvastatin 40 mg PO DAILY 90 days blood pressure kit med and lrg As directed bupropion HCl XL 300 mg PO DAILY bupropion HCl XL 150 mg PO QAM cholecalciferol (vitamin D3) 25 mcg PO DAILY epinephrine (EpiPen 2-Yasmany) 0.3 mg (0.3 mL) IM Q10M PRN esomeprazole magnesium 20 mg PO DAILY famotidine 40 mg PO BEDTIME miscellaneous medical supply (Blood Pressure Cuff) As directed multivitamin with minerals 1 cap PO DAILY ondansetron 4 mg PO Q8H PRN pregabalin 150 mg PO TID 30 days ropinirole ER 2 mg PO BEDTIME sennosides (senna) 8.6 mg PO DAILY simethicone (Gas Relief (simethicone)) 125 mg PO QID PRN trazodone 150 mg PO DAILY HPI Comments Details: This is a 44-year-old female patient coming in for a follow-up visit status post cardiac catheterization. Patient has been seen in the office for syncopal episodes with orthostasis given her significant weight loss. Patient has since stopped her Ozempic and is almost a year now. Given her reports of exertional chest pain and shortness of breath that improved with rest and familial dyslipidemia, and significant family history of coronary artery disease, patient underwent a myocardial perfusion study which was abnormal and was sent out for cardiac catheterization. Today, patient is reporting gaining all her weight back and ongoing symptoms. Patient reports that her shortness of breath is worse now. Patient states that in her teenage years, she was diagnosed with asthma however recent PFTs were normal. Patient does note that she recently had a positive REJI test and is being followed by rheumatology. Patient is otherwise reporting compliance with all her medications. [facility] Medical History Syncope Restless legs syndrome (RLS) Periodic limb movement Chronic migraine without aura, not intractable Hypersomnia Snoring Cognitive change Anemia Screening for colon cancer Screening for cervical cancer Adult general medical exam Shortness of breath Discomfort of right ear Otitis media of right ear Lightheadedness Normal physical exam Early satiety Abnormal urinalysis Suprapubic pain, acute Fatigue Vision changes Peroneal tendinitis, left leg Cough Myalgia Easy bruising Joint stiffness of hand Rectal prolapse Abdominal rebound tenderness of right lower quadrant Abdominal pain Surgical History Hx of hysterectomy History of esophagogastroduodenoscopy (EGD) History of kidney stones Status post LASIK surgery History of lumpectomy of left breast History of right breast biopsy History of colonoscopy History of laparoscopic cholecystectomy History of removal of ovarian cyst History of bilateral breast reduction surgery Family History Father Healthy adult Mother High cholesterol Migraines Diabetes Asthma Hypertension Maternal Grandfather CVD (cardiovascular disease) Maternal Aunt Family history of heart disease Other Mental health disorder Substance abuse Social History Household Members: Spouse and Children Housing: House Are you a primary nurse care manager to a significant other at home: No Do you presently have visiting nurse or other home services: No Alcohol intake: never Patient Tobacco Use Status: Never used Tobacco e-Cigarette/Vaping Use: Never Used Second Hand Smoke Exposure: No service: No Current occupational status: disabled Current occupational exposures/hazards: No Cognitive needs: No Hearing needs: No Vision needs: No Review of Systems Const Denies daytime sleepiness, Denies difficulty sleeping, Denies snoring, Denies stops breathing during sleep and Denies weakness Card Denies chest pain, Denies rapid heart rate, Denies irregular heart rhythm, Denies claudication, Denies leg edema, Denies lightheadedness, Denies palpitations, Denies dyspnea, Denies dyspnea on exertion, Denies orthopnea, Denies paroxysmal nocturnal dyspnea and Denies slow heart rate Resp Denies cough, Denies dyspnea, Denies dyspnea on exertion and Denies snoring GI Reports no additional complaints, Denies hematochezia, Denies change in stool character and Denies dyspepsia Musc Denies abnormal gait, Denies muscle weakness and Denies numbness Neuro Denies abnormal gait, Denies numbness and Denies weakness Endo Denies palpitations Physical Exam Vital Signs: Last Vital Signs Pulse 95 03/04/25 14:03 BP 110/62 03/04/25 14:03 BMI result Body Mass Index 31.8 Const General: cooperative, healthy appearing, comfortable and no acute distress Orientation/consciousness: patient oriented x3 HEENT Head: Yes normal to inspection Neck Neck: Yes normal visual inspection, Yes trachea midline and Yes supple Chest Chest palpation & inspection: normal inspection of the chest Resp Effort & Inspection: normal respiratory effort Auscultation: clear to auscultation bilaterally, no crackles, no rales, no rhonchi and no wheezes Cardio Jugular venous distension: no JVD Palpation: normal PMI Rate: regular rate Rhythm: regular rhythm Heart sounds: S1 normal heart sound present, S2 normal heart sound present, no click, no gallops, no murmurs and no rubs Peripheral pulses: Peripheral pulses 2+ throughout GI Inspection: Yes normal to inspection Palpation (GI): Soft to palpation Auscultation: normal bowel sounds Skin General skin exam: no rashes or lesions noted Neuro General: patient oriented x3 Extrem General: Yes normal to inspection, No no pedal edema and No calf tenderness Psych Appearance: grossly normal Mental Status: mental status grossly normal Speech and movement: Normal speech and movement present Assessment & Plan Assessment & Plan (1) Chest tightness: Code(s): R07.89 - Other chest pain Category: Medical Plan: 11/26/2023-echo showed a low-normal LV systolic function with an ejection fraction between 50-55% with no wall motion abnormalities or valvular pathology. 01/22/2025-patient underwent a myocardial perfusion study that showed moderately large area of mild to moderate intensity LAD territory ischemia. Given above finding patient was sent out for cardiac catheterization with Dr. Helms on 02/04/2025 that showed no significant coronary artery disease. Right wrist catheterization site is well healed. Patient can continue with her statin therapy however can stop daily baby aspirin. Given above finding, less likely patient's symptoms are cardiac in nature. As patient notes worsening shortness of breath and history of asthma in her teenage years, we will refer patient out to pulmonology for further evaluation. Patient should continue following with Rheumatology for possible autoimmune diseases. (2) Shortness of breath: Code(s): R06.02 - Shortness of breath Category: Medical Plan: As above. (3) Hyperlipidemia: Code(s): E78.5 - Hyperlipidemia, unspecified Category: Medical Plan: Recent LDL improved to 69. Continue statin therapy. Ideally, LDL goal closer to 70s. (4) Orthostatic hypotension: Code(s): I95.1 - Orthostatic hypotension Category: Medical Plan: Blood pressure today is within normal limits. Continue with adequate hydration and orthostatic precautions. Advised on heart healthy diet, regular exercise, weight loss, med compliance, and management of vascular risk factors. Patient will call the office with any concerns or change in symptoms. This note was generated using voice recognition software. While every effort has been made to ensure accuracy and proper preparation plant supervisor, there may be occasional errors that could affect the content or meaning of the described symptoms. Orders: Referrals Pulmonology Referral R06.02 - Shortness of breath Coding Level of Care Code Est Pt Level 4 (71664) Complex EM visit Add On G2211 Diagnoses Chest tightness R07.89 Shortness of breath R06.02 Hyperlipidemia E78.5 Orthostatic hypotension I95.1 Time Spent (min) 32 Comment Time spent in reviewing the chart, test results, assessment, counseling and documentation.
[2025-03-04 14:03] VITALS: BP 110/62; PULSE 95; BMI 31.8
--- OUTSIDE RECORDS SUMMARY | 2025-03-04 16:55 | XMS_ITS | Encounter Summary ---
Author Organization [facility] Address [address] [place] [address] [place] [address] Phone Care Team Providers Care Guide Name Role Phone Pcp, Unknown Primary Care Provider Unavailabl e Encounter Details Date Type Department Care Team (Late st Contact Info) Description 03/26/2018 Ancillary Orders Virtual Department [address] [place] [address] Malcolm Arenas MD [address] [place] [address], [address] [place] [address] [email or web address] Numbness in both legs; Weakness [...] Minimal disc desiccation at L3-4. POS - [id number] Edited by: Paris Stern on 04/11/2018 12:59 [...] with some minor mass-effect on the right P1oweau root. No prominent canal or foraminal stenosis. [...] symptoms. Minimaldisc desiccation at L3-4. POS - [id number] Edited by: Paris Stern on 04/11/2018 12:59 [...] unspecified documented in this encounter Care Teams Guide Relationship Specialty Start Date End Date Pcp, Unknown PCP - General 04/02/18 documented as of this encounter Additional Source Comments The information contained in this document represents components of the legal health record. It is not the complete legal health record.[facility]
--- OUTSIDE RECORDS SUMMARY | 2025-03-04 16:55 | XMS_ITS | Clinical Summary ---
Author Organization [facility] it Address [address] [place] [address] Care Team Providers Care Burner Tender Name Role Phone Unavailable Primary Care Provider [...] Info) Description 05/11/2025 1:[address] [facility] [address] [place] [id number] Health Maintenance Due Date Last Done Comments Breast Cancer Screening 1979 Colorectal Cancer Screening: Colonoscopy 1979 DTaP,Tdap,and Td Vaccines (1 - Tdap) 1998 Hepatitis B Vaccines (1 of 3 - 19+ 3-dose series) 1998 Cervical Cancer Screening: P ap Smear 2000 HPV Vaccines (1 - 3-dose SCD M series) 2006 HIV Screening 04/08/2022 Hepatitis C Screening 04/08/2022 Social Influencers of Health Screening 04/08/2022 Depression Screening 05/06/2024 COVID-19 Vaccine ( - 2023-2 5 season) 2025 Influenza Vaccine (#1) 2025 05/14/2018 RSV Immunization Adult Patients (1 - 1-dose 75+ series) 2054 HIB Vaccines Aged Out No longer eligi [...] patient's age to complete this topic Insurance [facility]
--- OUTSIDE RECORDS SUMMARY | 2025-03-04 16:55 | XMS_ITS | Clinical Summary ---
Author Organization [facility] Address [address] [place] [address] Phone Care Team Providers Care Robotics Engineer Name Role Phone Pcp, Unknown Primary [...] B [place] [facility] [place] [facility] B Member Subscriber Plan / Payer (Ef fective 2017-Present) Name:Mary Warren Member ID:[id number] Relation to Subscriber:Self Name:Mary Warren Subscriber ID:[id number] Payer ID:[id number] Group ID:Not on file Type:Medicare Address: [employer] [address] [place] A & B [place] PART [place] & B HEALTH MEDICARE PART A & B [address] [place], [place] [address]HEALTH MEDICARE PART A & B [facility] Care Teams Robotics Engineer Relationship Specialty Start Date End Date Pcp, Unknown PCP - General 04/02/18 Additional Source Comments The information contained in this document represents components of the legal health record. It is not the complete legal health record.[facility]
--- OUTSIDE RECORDS SUMMARY | 2025-03-04 16:55 | XMS_ITS | Encounter Summary ---
Author Organization [facility] Address [address] [facility] [address] [place], [place] [id number] Phone Care Team Providers Care Solar Energy Advisor Name Role Phone Pcp, Unknown Primary Care Provider Unavailabl e Encounter Details Date Type Department Care Team (Late st Contact Info) Description 03/26/2018 Procedure Pass [facility], [address] [address] Social History Tobacco Use Types Packs/Day Years [...] on filedocumented in this encounter Care Teams Solar Energy Advisor Relationship Specialty Start Date End Date Pcp, Unknown PCP - General 04/02/18 documented as of this encounter Additional Source Comments The information contained in this document represents components of the legal health record. It is not the complete legal health record.[facility]
== END 2025-03-04 14:34 | disposition home or self-care (01) ==
LOC: HO.HCS 13:55
PROVIDERS: PCP Family Medicine
DX: R07.89 Other chest pain (principal); R06.02 Shortness of breath; E78.5 Hyperlipidemia, unspecified; I95.1 Orthostatic hypotension
CPT/HCPCS: 99214; G2211

== ENCOUNTER → 2025-03-11 12:52 | Outpatient (REF) | payer OTHER, MEDICARE, SELFPAY ==
--- OUTSIDE RECORDS SUMMARY | 2025-03-11 15:50 | XMS_ITS | Clinical Summary ---
Author Organization [facility] it Address [address] [place] [address] Care Team Providers Care Test And Turn Up Technician Name Role Phone Unavailable Primary Care [...] Info) Description 05/11/2025 1:00 PM EST Appointment [facility] Xray [address] [place] [phone] Health Maintenance Due Date Last Done Comments [...] patient's age to complete this topic Insurance [facility]
--- OUTSIDE RECORDS SUMMARY | 2025-03-11 15:50 | XMS_ITS | Clinical Summary ---
Author Organization [facility] Address [address] [place] [address] Phone Care Team Providers Care Drive Away Driver Name Role Phone Pcp, Unknown Primary Care [...] B [place] & [facility] [place] & [facility] Member Subscriber Plan / Payer (Ef fective 2017-Present) Name:Mary Warren Member ID:[id number] Relation to Subscriber:Self Name:Mary Warren Subscriber ID:[id number] Payer ID:[id number] Group ID:Not on file Type:Medicare Address: [employer] [address] [place] PART A & B [place] PART [place] & B HEALTH MEDICARE PART A & B [address] [place], [place] [address]HEALTH MEDICARE PART A & B [facility] Care Teams Drive Away Driver Relationship Specialty Start Date End Date Pcp, Unknown PCP - General 04/02/18 Additional Source Comments The information contained in this document represents components of the legal health record. It is not the complete legal health record.[facility]
--- OUTSIDE RECORDS SUMMARY | 2025-03-11 15:50 | XMS_ITS | Encounter Summary ---
Author Organization [facility] Address [address] [place] [address] [place] [address] Phone Care Team Providers Care Type Inspector Name Role Phone Pcp, Unknown Primary Care Provider Unavailabl e Encounter Details Date Type Department Care Team (Late st Contact Info) Description 03/26/2018 Ancillary Orders Virtual Department [address] [place], [place] [id number] Malcolm Arenas MD [address] [place] [address], [address] [place] [address] [email or web address] Numbness in both legs; Weakness [...] Minimal disc desiccation at L3-4. POS - [id number] Edited by: Paris Stern on 04/11/2018 12:59 [...] with some minor mass-effect on the right X1byvyc root. No prominent canal or foraminal stenosis. [...] symptoms. Minimaldisc desiccation at L3-4. POS - [id number] Edited by: Paris Stern on 04/11/2018 12:59 [...] unspecified documented in this encounter Care Teams Type Inspector Relationship Specialty Start Date End Date Pcp, Unknown PCP - General 04/02/18 documented as of this encounter Additional Source Comments The information contained in this document represents components of the legal health record. It is not the complete legal health record.[facility]
--- OUTSIDE RECORDS SUMMARY | 2025-03-11 15:50 | XMS_ITS | Encounter Summary ---
Author Organization [facility] Address [address] [facility] [address] [place], [place] [id number] Phone Care Team Providers Care Hazardous Materials Waste Technician Name Role Phone Pcp, Unknown Primary Care Provider Unavailabl e Encounter Details Date Type Department Care Team (Late st Contact Info) Description 03/26/2018 Procedure Pass [facility], [address] [address] Social History Tobacco Use Types Packs/Day Years [...] on filedocumented in this encounter Care Teams Hazardous Materials Waste Technician Relationship Specialty Start Date End Date Pcp, Unknown PCP - General 04/02/18 documented as of this encounter Additional Source Comments The information contained in this document represents components of the legal health record. It is not the complete legal health record.[facility]
== END ==
LOC: HO.SL 12:52
PROVIDERS: PCP Family Medicine; Visit Provider Psychiatry & Neurology Neurology
DX: R06.83 Snoring (principal); G47.10 Hypersomnia, unspecified
CPT/HCPCS: 95806

== ENCOUNTER → 2025-03-11 13:06 | Outpatient (BNV) | payer OTHER, MEDICARE, SELFPAY | PROVIDERS: PCP Family Medicine; Visit Provider Psychiatry & Neurology Neurology | DX: R06.83 Snoring (principal) | CPT/HCPCS: 95806 ==

== ENCOUNTER 2025-03-16 09:49 | Outpatient (AMB) | payer MEDICARE, OTHER, SELFPAY ==
--- NOTE | 2025-03-16 10:03 | MHC.OFFVIS ---
Vital Signs 03/16/25 10:06 Height 5 ft 5 in Weight 192 lb 14.472 oz BMI 32.1 BP 120/82 Blood Pressure Location Lt brachial Position Sitting Pulse 92 Pulse Source Pulse Oximeter Pulse Oximetry (%) 95 Intake Visit Reasons: + REJI/FM Intake Note: Patient presents today for a positive REJI/FM Accompanied by: Self / Same As Patient Allergies oxycodone (From Percocet) Allergy (Severe, Verified 03/16/25 10:06) Migraine and vomiting peach Allergy (Severe, Verified 03/16/25 10:06) Hives apple Allergy (Intermediate, Verified 03/16/25 10:06) Swelling erythromycin base (Erythromycin Base) Allergy (Mild, Verified 03/16/25 10:06) Confusion, Rash, Nausea, Vomiting, Out of it levofloxacin (From Levaquin) Allergy (Mild, Verified 03/16/25 10:06) Rash sulfamethoxazole (From Bactrim) Allergy (Mild, Verified 03/16/25 10:06) Rash trimethoprim (From Bactrim) Allergy (Mild, Verified 03/16/25 10:06) Rash Sulfa (Sulfonamide Antibiotics) Allergy (Unknown, Verified 03/16/25 10:06) Rash hazelnut Allergy (Verified 03/16/25 10:06) Unknown peanut Allergy (Verified 03/16/25 10:06) Unknown meclizine Adverse Reaction (Verified 03/16/25 10:06) Anxiety metoclopramide (From Reglan) Adverse Reaction (Verified 03/16/25 10:06) Anxiety apples Allergy (Severe, Uncoded 01/22/25 11:42) Anaphylaxis meclazine Adverse Reaction (Severe, Uncoded 01/22/25 11:42) severe anxiety HPI HPI + REJI/FM: Details: Patient presents due to positive REJI, which was checked by GI due to chronic anemia for which GI did not find a cause. She is currently receiving iron infusions with benefit [facility]. REJI 1:80 No fevers, dyspnea, pleurisy, oral ulcers, rashes, dry eyes, urinary symptoms, photosensitivity. 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 She had one after miscarriage. No DVT or PE +raynauds syndrome for years. Shower resolves the episode. Heating is ineffective. Not frequent. +dry mouth for 1-2 years. She contributes it to trazadone qhs. Worse at night. Pain in chest. Hx HERD, Barretts esophagus Paternal grandmother and mother's cousin has SLE. [facility] Medical History (Updated 03/16/25 @ 22:00 by Derrell Del Real MD) History of left heart catheterization Syncope Restless legs syndrome (RLS) Periodic limb movement Chronic migraine without aura, not intractable Hypersomnia Snoring Cognitive change Anemia Screening for colon cancer Screening for cervical cancer Adult general medical exam Shortness of breath Discomfort of right ear Otitis media of right ear Lightheadedness Normal physical exam Early satiety Abnormal urinalysis Suprapubic pain, acute Fatigue Vision changes Peroneal tendinitis, left leg Cough Myalgia Easy bruising Joint stiffness of hand Rectal prolapse Abdominal rebound tenderness of right lower quadrant Abdominal pain Surgical History (Updated 03/16/25 @ 10:10 by Danika Mederos CMA) History of right heart catheterization Hx of hysterectomy History of esophagogastroduodenoscopy (EGD) History of kidney stones Status post LASIK surgery History of lumpectomy of left breast History of right breast biopsy History of colonoscopy History of laparoscopic cholecystectomy History of removal of ovarian cyst History of bilateral breast reduction surgery Family History Father Healthy adult Mother High cholesterol Migraines Diabetes Asthma Hypertension Maternal Grandfather CVD (cardiovascular disease) Maternal Aunt Family history of heart disease Other Mental health disorder Substance abuse Social History Household Members: Spouse and Children Housing: House Are you a primary healthcare risk control consultant to a significant other at home: No Do you presently have visiting nurse or other home services: No Alcohol intake: never Patient Tobacco Use Status: Never used Tobacco e-Cigarette/Vaping Use: Never Used Second Hand Smoke Exposure: No service: No Current occupational status: disabled Current occupational exposures/hazards: No Cognitive needs: No Hearing needs: No Vision needs: No Physical Exam Vital Signs: Last Vital Signs Pulse 92 03/16/25 10:06 BP 120/82 03/16/25 10:06 Pulse Ox 95 03/16/25 10:06 BMI result Body Mass Index 32.1 Const Other: General: Comfortable CVS: RRR Respiratory: clear to auscultation bilaterally. Good respiratory effort Skin: Telangiectasia anterior chest MSK: No tender joints. No synovitis. Normal range of motion of upper extremities and lower extremities. Assessment & Plan Assessment & Plan (1) Positive REJI (antinuclear antibody): Comment: Low titer positive 1: 80 with history of chronic normocytic anemia, dry mouth, recurrent consecutive miscarriages and anterior chest telangiectasia on exam. I will complete the workup for SLE, Sjogren syndrome and antiphospholipid syndrome. Code(s): R76.8 - Other specified abnormal immunological findings in serum Category: Medical Plan: Labs ordered Return to clinic in 3 months Orders: Orders UA ClnCatch+Micro w/rflx Cult Today R76.0 - Raised antibody titer Alanine Aminotransferase Today R76.0 - Raised antibody titer Protein Creatinine Ratio, Ur Today R76.0 - Raised antibody titer Aspartate Amino Transferase Today R76.0 - Raised antibody titer Creatinine Today R76.0 - Raised antibody titer Anti DNA DS Antibody Today R76.0 - Raised antibody titer Complement C3 Today R76.0 - Raised antibody titer Cardiolipin Antibodies Today D68.61 - Antiphospholipid syndrome Beta-2 Glycoprotein Antibody Today D68.61 - Antiphospholipid syndrome Lupus Anticoagulant Panel Today D68.61 - Antiphospholipid syndrome Complete Blood Count Auto Diff Today R76.0 - Raised antibody titer C Reactive Protein Today R76.0 - Raised antibody titer Erythrocyte Sedimentation Rate Today R76.0 - Raised antibody titer Sm Sm/MENAGERIE SUPERINTENDENT Antibodies Today R76.0 - Raised antibody titer Complement C4 Today R76.0 - Raised antibody titer Anti-Centromere B Antibodies Today R76.0 - Raised antibody titer Scleroderma 70 Antibody Today R76.0 - Raised antibody titer Sjogren's Antibodies Today R76.0 - Raised antibody titer Coding Level of Care Code Est Pt Level 4 (71999) Complex EM visit Add On G2211 Diagnoses Positive REJI (antinuclear antibody) R76.8
[2025-03-16 10:06] VITALS: BP 120/82; PULSE 92; O2SAT 95; BMI 32.1
--- OUTSIDE RECORDS SUMMARY | 2025-03-16 11:05 | XMS_ITS | Encounter Summary ---
Author Organization [facility] Address [address] [place] [address] [place] [address] Phone Care Team Providers Care Tire Finisher Name Role Phone Pcp, Unknown Primary Care Provider Unavailabl e Encounter Details Date Type Department Care Team (Late st Contact Info) Description 03/26/2018 Ancillary Orders Virtual Department [address] [place], [place] [id number] Malcolm Arenas MD [address] [place] [address], [address] [place] [address] [email or web address] Numbness in both legs; Weakness [...] Minimal disc desiccation at L3-4. POS - [id number] Edited by: Paris Stern on 04/11/2018 12:59 [...] with some minor mass-effect on the right [id number] root. No prominent canal or foraminal stenosis. [...] symptoms. Minimaldisc desiccation at L3-4. POS - [id number] Edited by: Parsi Stern on 04/11/2018 12:59 PM Malcolm Arenas [...] unspecified documented in this encounter Care Teams Tire Finisher Relationship Specialty Start Date End Date Pcp, Unknown PCP - General 04/02/18 documented as of this encounter Additional Source Comments The information contained in this document represents components of the legal health record. It is not the complete legal health record.[facility]
--- OUTSIDE RECORDS SUMMARY | 2025-03-16 11:05 | XMS_ITS | Clinical Summary ---
Author Organization [facility] it Address [address] [place] [address] Care Team Providers Care Dog Sitter Name Role Phone Unavailable Primary Care Provider [...] Info) Description 05/11/2025 1:00 PM EST Appointment [facility] Xray [address] [place] [id number] Health Maintenance Due Date Last Done Comments [...] patient's age to complete this topic Insurance [facility]
--- OUTSIDE RECORDS SUMMARY | 2025-03-16 11:05 | XMS_ITS | Clinical Summary ---
Author Organization [facility] Address [address] [place] [address] Phone Care Team Providers Care Lasting Machine Operator Name Role Phone Pcp, Unknown Primary Care [...] file Insurance MEDICARE PART A & B Member Subscriber Plan / Payer (Ef fective 2017-Present) Name:Mary Warren Member ID:[id number] Relation to Subscriber:Self Name:Mary Warren Subscriber ID:[id number] Payer ID:[id number] Group ID:Not on file Type:Medicare Address: [facility] [place] [facility] [address] [place] [id number] [place] A & [facility] [place] [facility] Member Subscriber Plan / Payer (Ef fective 2017-Present) Name:Mary Warren Member ID:[id number] Relation to Subscriber:Self Name:Mary Warren Subscriber ID:[id number] Payer ID:[id number] Group ID:Not on file Type:Medicare Address: [facility] [address] [place] PART A & [place] HEALTH MEDICARE PART A & B Member Subscriber Plan / Payer ( fective 2017-Present) Name:Mary Warren Member ID:[id number] Relation to Subscriber:Self Name:Mary Warren Subscriber ID:[id number] Payer ID:[id number] Group ID:Not on file Type:Medicare Address: [facility] [address] [place], [place] [id number] [place], [place] [address]HEALTH MEDICARE PART A & B [facility] Care Teams Lasting Machine Operator Relationship Specialty Start Date End Date Pcp, Unknown PCP - General 04/02/18 Additional Source Comments The information contained in this document represents components of the legal health record. It is not the complete legal health record.[facility]
--- OUTSIDE RECORDS SUMMARY | 2025-03-16 11:05 | XMS_ITS | Encounter Summary ---
Author Organization [facility] Address [address] [facility] [address] [place], [place] [id number] Phone Care Team Providers Care Construction Operations Manager Name Role Phone Pcp, Unknown Primary Care Provider Unavailabl e Encounter Details Date Type Department Care Team (Late st Contact Info) Description 03/26/2018 Procedure Pass [facility], [address] [address] Social History Tobacco Use Types Packs/Day Years [...] on filedocumented in this encounter Care Teams Construction Operations Manager Relationship Specialty Start Date End Date Pcp, Unknown PCP - General 04/02/18 documented as of this encounter Additional Source Comments The information contained in this document represents components of the legal health record. It is not the complete legal health record.[facility]
== END 2025-03-16 11:02 | disposition home or self-care (01) ==
LOC: HO.RHES 09:50
PROVIDERS: PCP Family Medicine; Visit Provider Internal Medicine Rheumatology
DX: R76.89 Other specified abnormal immunological findings in serum (principal)
CPT/HCPCS: 99214; G2211

== ENCOUNTER 2025-03-16 09:49 | Outpatient (REF) | payer MEDICARE, OTHER, SELFPAY ==
[2025-03-16 12:56] LABS: MANUAL DIFF FLAG NO
[2025-03-16 13:06] LABS: Hematocrit 37.9 % (37.0-47.0); Hemoglobin 12.5 g/dl (12.0-16.0); Imm Gran Abs Auto 0.02 X10*3/uL (0.00-0.03); Imm Gran Pct Auto 0.3 % (0.0-0.4); Lymphocytes Absolute Auto 2.5 X10*3/uL (1.2-4.9); Mean Corpuscular HGB Conc 33.0 g/dl (31.0-35.0); Mean Corpuscular Hemoglobin 30.1 pg (27.0-33.0); Mean Corpuscular Volume 91.3 fL (80.0-98.0); NRBC Abs Auto 0.000 X10*3/uL (0.0-0.012); NRBC Pct Auto 0.0 /100WBC (0.0-0.2); Platelet Count 339 X10*3/uL (160-400); Red Blood Count 4.15 X10*6/uL (4.20-5.50); White Blood Count 6.4 X10*3/uL (4.8-10.8)
[2025-03-16 17:59] LABS: Alanine Aminotransferase 27 U/L (0-31); Aspartate Amino Transferase 24 U/L (5-31); Estimated Glomerular Filt Rate 59
[2025-03-16 18:14] LABS: Appearance Urine Cloudy; Glucose Urine UA Negative (Negative); PH 5.5 (5.0-9.0); Specific Gravity - Urine 1.025 (1.005-1.025)
[2025-03-16 18:18] LABS: Protein/Creatinine Ratio, Ur 0.04 (<0.2); Total Protein Urine Random 14 mg/dL (<12)
[2025-03-17 20:24] LABS: Antibody to SS-A Antigen <1.0 NEG AI (<1.0 NEG); Antibody to SS-B Antigen <1.0 NEG AI (<1.0 NEG); SM/Ribonucleoprotein Ab <1.0 NEG AI (<1.0 NEG); Smith Protein <1.0 NEG AI (<1.0 NEG)
== END 2025-03-16 09:50 | disposition home or self-care (01) ==
LOC: HO.HKASLDS 09:49
PROVIDERS: PCP Family Medicine; Visit Provider Internal Medicine Rheumatology
DX: R76.89 Other specified abnormal immunological findings in serum (principal); D68.61 Antiphospholipid syndrome
CPT/HCPCS: 36415; 81001; 82565; 82570; 84156; 84450; 84460; 85025; 85597; 85598; 85613; 85652; 85730; 86140; 86146; 86147; 86160; 86225; 86235; 99212